=== PATIENT | female | born 1975 | race Caucasian/White ===

== ENCOUNTER 2023-02-15 16:37 | Emergency (ER) | payer BC, SELFPAY ==
[2023-02-15 16:40] VITALS: BP 120/63; PULSE 73; RESP 16; TEMP 36.7; O2SAT 98; BMI 39.5
--- NOTE | 2023-02-15 16:50 | ED_ITS ---
HPI - Abdominal Pain General Chief Complaint: Abdominal Pain Stated Complaint: RT FLANK PAIN/BACK, SHOULDER Time Seen by Provider: 02/15/23 16:45 Source: patient Mode of arrival: walk-in Limitations: no limitations History of Present Illness HPI narrative: 47-year-old female presents to the emergency department for a chief complaint of abdominal pain. It's in the right upper quadrant and it's been intermittent for a few months. She is worried about her gallbladder. No fever or injury. She doesn't complain of lower abdominal pain or diarrhea or constipation or vomiting. Related Data Home Medications Medication Instructions Recorded Confirmed apixaban 5 mg tablet (Eliquis) mg 02/15/23 benzonatate 100 mg capsule mg PO 02/15/23 colchicine (gout) 0.6 mg tablet mg 02/15/23 diclofenac sodium 1 % topical gel topical 02/15/23 levofloxacin 750 mg tablet mg 02/15/23 levothyroxine 200 mcg tablet mcg 02/15/23 lisinopril 10 tab 02/15/23 mg-hydrochlorothiazide 12.5 mg tablet omeprazole 40 mg capsule,delayed mg 02/15/23 release oxycodone 5 mg tablet mg 02/15/23 prednisone 10 mg tablet mg 02/15/23 sertraline 50 mg tablet mg 02/15/23 tizanidine 4 mg tablet mg 02/15/23 Previous Rx's Medication Instructions Recorded acetaminophen 300 mg-codeine 30 mg 1 tab PO Q6H PRN pain 5 days #20 02/15/23 tablet tabs ondansetron 4 mg disintegrating 4 mg PO Q6H PRN nausea and 02/15/23 tablet vomiting #20 tabs Allergies Allergy/AdvReac Type Severity Reaction Status Date / Time cortisone Allergy Intermediate Verified 02/15/23 16:45 Review of Systems ROS Narrative A ten point review of systems is negative except as noted above. Exam Narrative Exam Narrative: Nurses note and vital signs reviewed and patient is not hypoxic. General: The patient appears well and in no apparent distress. Patient is resting comfortably on cart. Skin: Warm, dry, no pallor noted. There is no rash noted. Head: Normocephalic, atraumatic Eye: Normal conjunctiva, no drainage Ears, Nose, Mouth, and Throat: oral mucosa is moist. Nares patent. Cardiovascular: Regular Rate and Rhythm Respiratory: Patient is in no distress, no accessory muscle use, lungs are clear to auscultation, no wheezing, rales or rhonchi Back: non-tender GI: mild tenderness in the right upper quadrant, no mass Musculoskeletal: The patient has no evidence of calf tenderness, no pitting edema, symmetrical pulses noted bilaterally Neurological: A&O, normal speech Psychiatric: Cooperative Constitutional Vital Signs, click to edit/add: Last Vital Signs Temp 98.1 F 02/15/23 16:40 Pulse 73 02/15/23 16:40 Resp 16 02/15/23 16:40 BP 120/63 02/15/23 16:40 Pulse Ox 98 02/15/23 16:40 O2 Del Method Room Air 02/15/23 16:40 Course Vital Signs Vital signs: Vital Signs Temperature 98.1 F 02/15/23 16:40 Pulse Rate 73 02/15/23 16:40 Respiratory Rate 16 02/15/23 16:40 Blood Pressure 120/63 02/15/23 16:40 Pulse Oximetry 98 02/15/23 16:40 Oxygen Delivery Method Room Air 02/15/23 16:40 Temperature 98.1 F 02/15/23 16:40 Pulse Rate 73 02/15/23 16:40 Respiratory Rate 16 02/15/23 16:40 Blood Pressure 120/63 02/15/23 16:40 Pulse Oximetry 98 02/15/23 16:40 Oxygen Delivery Method Room Air 02/15/23 16:40 MDM - Abdominal Pain MDM Narrative Medical decision making narrative: laboratory analysis is negative. She is given a prescription for an outpatient, bladder ultrasound will follow-up with her PCP. Treatment diagnosis and follow- up were discussed with the patient. I've no clinical suspicion of acute cholecystitis. Differential Diagnosis Differential diagnosis: Likely abdominal pain, constipation, gastroenteritis, pancreatitis and other (biliary colic, acute cholecystitis) Lab Data Attestation: I reviewed the patient's lab results. Labs: Lab Results 02/15/23 Range/Units 16:55 WBC 8.1 (4.0-11.0) 10^3/uL RBC 4.55 (4.20-5.40) 10^6/uL Hgb 13.6 (12.0-16.0) g/dL Hct 41.9 (36.0-48.0) % MCV 92.1 (81.0-99.0) fL MCH 29.9 (26.7-34.0) pg MCHC 32.5 (29.9-35.2) g/dL RDW 13.8 (11.0-15.0) % Plt Count 222 (150-450) 10^3/uL MPV 10.0 (9.5-13.5) fL Neut % (Auto) 67.7 (43.0-75.0) % Lymph % (Auto) 22.1 (20.5-60.0) % [place] % (Auto) 6.5 (1.7-12.0) % Eos % (Auto) 3.0 (0.9-7.0) % Baso % (Auto) 0.5 (0.2-2.0) % Neut # (Auto) 5.5 (1.4-6.5) 10^3/uL Lymph # (Auto) 1.8 (1.2-3.8) 10^3/uL [place] # (Auto) 0.5 (0.3-0.8) 10^3/uL Eos # (Auto) 0.2 (0.0-0.7) 10^3/uL Baso # (Auto) 0.0 (0.0-0.1) 10^3/uL Abs Immat Gran (auto) 0.02 (0.00-0.03) 10^3/uL Imm/Tot Granulo (auto) 0.2 (0.0-0.5) % Sodium 138 (136-145) mmol/L Potassium 3.8 (3.5-5.1) mmol/L Chloride 102 (98-107) mmol/L Carbon Dioxide 27.3 (21.0-32.0) mmol/L Anion Gap 12.5 BUN 23.0 H (7.0-18.0) mg/dL Creatinine 0.98 (0.55-1.02) mg/dL Est GFR ( Amer) >60 (>=60) Est GFR (Non-Af Amer) >60 (>=60) BUN/Creatinine Ratio 23.5 Glucose 140 H (74-106) mg/dL Calcium 8.9 (8.5-10.1) mg/dL Total Bilirubin 0.3 (0.2-1.0) mg/dL Direct Bilirubin 0.1 (0.0-0.2) mg/dL AST 21 (15-37) U/L ALT 37 (14-59) U/L Alkaline Phosphatase 85 (46-116) U/L Total Protein 7.3 (6.4-8.2) g/dL Albumin 3.5 (3.4-5.0) g/dL Globulin 3.8 g/dL Albumin/Globulin Ratio 0.9 Amylase 61 (25-115) U/L Lipase 127.0 (73.0-393.0) U/L Discharge Plan Discharge Chief Complaint: Abdominal Pain Clinical Impression: Abdominal pain Patient Disposition: Home, Self-Care Time of Disposition Decision: 17:31 Condition: Good Mode of Transportation: Private Vehicle Prescriptions / Home Meds: New acetaminophen-codeine 300-30 mg tablet 1 tab PO Q6H PRN (Reason: pain) 5 Days Qty: 20 0RF ondansetron 4 mg tablet,disintegrating 4 mg PO Q6H PRN (Reason: nausea and vomiting) Qty: 20 0RF No Action prednisone 10 mg tablet tizanidine 4 mg tablet omeprazole 40 mg capsule,delayed release(DR/EC) benzonatate 100 mg capsule PO levothyroxine 200 mcg tablet lisinopril-hydrochlorothiazide 10-12.5 mg tablet levofloxacin 750 mg tablet colchicine (gout) 0.6 mg tablet sertraline 50 mg tablet oxycodone 5 mg tablet diclofenac sodium 1 % gel TOPICAL Eliquis 5 mg tablet Instructions: Abdominal Pain (ED) Additional Instructions: follow-up with your PCP Schedule gallbladder ultrasound for which you have been given a prescription Stand Alone Forms: Portal Instructions Referrals: AUGUST GILBERT [Primary Care Provider] - 1 week
[2023-02-15 17:03] LABS: Basophils Percent Auto 0.5 % (0.2-2.0); Eosinophils Absolute Auto 0.2 10^3/uL (0.0-0.7); Hematocrit 41.9 % (36.0-48.0); Hemoglobin 13.6 g/dL (12.0-16.0); Immature Granulocytes Abs Auto 0.02 10^3/uL (0.00-0.03); Immature Granulocytes Pct Auto 0.2 % (0.0-0.5); Lymphocytes Absolute Auto 1.8 10^3/uL (1.2-3.8); Lymphocytes Percent Auto 22.1 % (20.5-60.0); Mean Corpuscular HGB Conc 32.5 g/dL (29.9-35.2); Mean Corpuscular Hemoglobin 29.9 pg (26.7-34.0); Mean Corpuscular Volume 92.1 fL (81.0-99.0); Monocytes Absolute Auto 0.5 10^3/uL (0.3-0.8); Monocytes Percent Auto 6.5 % (1.7-12.0); Neutrophils Absolute Auto 5.5 10^3/uL (1.4-6.5); Neutrophils Percent Auto 67.7 % (43.0-75.0); Platelet Count 222 10^3/uL (150-450); Red Blood Count 4.55 10^6/uL (4.20-5.40); Red Cell Distribution Width 13.8 % (11.0-15.0); White Blood Count 8.1 10^3/uL (4.0-11.0)
[2023-02-15 17:11] LABS: Anion Gap 12.5; BUN Creatinine Ratio 23.5; Calcium 8.9 mg/dL (8.5-10.1); Carbon Dioxide 27.3 mmol/L (21.0-32.0); Chloride 102 mmol/L (98-107); Estimated GFR (African America >60 (>=60); Estimated GFR (Non-African Ame >60 (>=60); Glucose 140 mg/dL (74-106); Potassium 3.8 mmol/L (3.5-5.1); Sodium 138 mmol/L (136-145)
[2023-02-15 17:16] LABS: Alanine Aminotransferase 37 U/L (14-59); Albumin Globulin Ratio 0.9; Albumin Level 3.5 g/dL (3.4-5.0); Alkaline Phosphatase 85 U/L (46-116); Amylase 61 U/L (25-115); Aspartate Amino Transferase 21 U/L (15-37); Bilirubin Direct 0.1 mg/dL (0.0-0.2); Bilirubin Total 0.3 mg/dL (0.2-1.0); Globulin 3.8 g/dL; Total Protein 7.3 g/dL (6.4-8.2)
[2023-02-15 17:35] VITALS: BP 128/62; PULSE 80; RESP 16; TEMP 36.7; O2SAT 100
== END 2023-02-15 17:41 | disposition home or self-care (01) ==
PROVIDERS: Emergency Provider Emergency Medicine; PCP Family Medicine
DX: R10.9 Unspecified abdominal pain (principal); Z79.899 Other long term (current) drug therapy; Z79.01 Long term (current) use of anticoagulants; Z79.890 Hormone replacement therapy
CPT/HCPCS: 36415; 80048; 80076; 82150; 83690; 85025; 99283

== ENCOUNTER 2023-02-17 11:43 | Outpatient (OUT) | payer BC, SELFPAY ==
--- NOTE | 2023-02-17 11:46 | US_ITS ---
The [address] [address] Patient Name: CHRIS CARRION MRN: [id number] date: 1975 Sex: F Assigned Patient Location: US Current Patient Location: US Accession/Order Number: [id number] Exam Date: 02/17/2023 11:48 Report Date: 02/17/2023 12:51 At the request of: REG CROWDER Procedure: US right upper quadrant US right upper quadrant: 02/17/2023 11:48 AM EDT CLINICAL HISTORY: 47 years old Female with Right Upper Quadrant Pain. TECHNIQUE: Real time ultrasound examination of the right upper quadrant of the abdomen is performed with internet sales representative images submitted. COMPARISON: None FINDINGS: Liver: The liver is normal in size and echogenicity without focal abnormality. Gallbladder: The gallbladder is normally distended with normal wall thickness. No shadowing filling defects to suggest cholelithiasis. Negative sonographic Bailey sign. Bile Ducts: The common duct is normal in caliber measuring 5.4 mm. Pancreas: Visualized aspects of the pancreas are within normal limits. The tail is obscured by bowel gas. The right kidney measures 9.7 x 4.5 x 4.9 cm and appears normal. US/US right upper quadrant IMPRESSION: Unremarkable exam. Electronically authenticated by: SAMANTHA MARIE Date: 02/17/2023 12:51
== END 2023-02-17 11:44 | disposition home or self-care (01) ==
LOC: US 11:43
PROVIDERS: PCP Family Medicine; Visit Provider Emergency Medicine
DX: R10.11 Right upper quadrant pain (principal)
CPT/HCPCS: 76705

== ENCOUNTER 2023-06-20 13:40 | Emergency (ER) | payer BC, SELFPAY ==
[2023-06-20] VITALS (15 sets, daily range): BP systolic 102–137; BP diastolic 63–87; PULSE 63–82; RESP 10–27; TEMP 36.8; O2SAT 95–100; BMI 39.4
--- NOTE | 2023-06-20 14:02 | ECG_ITS ---
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
--- NOTE | 2023-06-20 14:02 | CT_ITS ---
The [address] [address] Patient Name: CHRIS CARRION MRN: [id number] date: 1975 Sex: F Assigned Patient Location: ER Current Patient Location: ER Accession/Order Number: [id number] Exam Date: 06/20/2023 14:55 Report Date: 06/20/2023 15:28 At the request of: REG CROWDER Procedure: CT angio chest CT angio chest, 06/20/2023 2:55 PM EST, INDICATION: chest pain COMPARISON: CT from 09/05/2022 TECHNIQUE: CT angiography of the chest was performed without IV contrast followed by IV contrast, including 3D post processing CTA image reconstruction. CT dose reduction technique was used, including Automated Exposure Control. FINDINGS: Diagnostic quality: Adequate There is no evidence for pulmonary embolism. The heart is not enlarged. There is no pericardial effusion. There are no abnormally enlarged hilar or mediastinal lymph nodes. There appears to be mild coronary calcification. The central tracheobronchial tree is clear. The lungs are clear. There is no pleural effusion. No acute process identified in the visualized upper abdomen. Steve-en-Y gastric bypass changes. No destructive osseous changes are seen. Degenerative osteophytes are seen throughout the thoracic spine. CT/CT angio chest IMPRESSION: No CT findings to suggest pulmonary embolism. Electronically authenticated by: ARJUN ESCOBAR Date: 06/20/2023 15:28
--- NOTE | 2023-06-20 14:24 | ED.GENADUL1 ---
HPI - General Adult General Chief complaint: Back Pain/Injury Stated complaint: BACK PAIN Time Seen by Provider: 06/20/23 14:20 Source: patient Mode of arrival: walk-in History of Present Illness HPI narrative: 48-year-old female presents because she is concerned about a blood clot in her lungs. She has a history of deep vein thrombosis and is on Eliquis but she only takes it every other week to stretch it out. She hasn't taken it for the last week but took a dose today. No injury. The pain is on the left chest in the left thoracic back area. No unusual activity and no trauma. No fever or cough. Related Data Home Medications Medication Instructions Recorded Confirmed apixaban 5 mg tablet (Eliquis) 5 mg PO BID 02/15/23 06/20/23 lisinopril 10 1 tab PO DAILY 02/15/23 06/20/23 mg-hydrochlorothiazide 12.5 mg tablet omeprazole 40 mg capsule,delayed 40 mg PO DAILY 02/15/23 06/20/23 release sertraline 50 mg tablet mg 02/15/23 levothyroxine 150 mcg tablet 150 mcg PO DAILY 06/20/23 06/20/23 Allergies Allergy/AdvReac Type Severity Reaction Status Date / Time cortisone Allergy Intermediate Verified 02/15/23 16:45 Review of Systems ROS Narrative A ten point review of systems is negative except as noted above. Exam Narrative Exam Narrative: Nurses note and vital signs reviewed and patient is not hypoxic. General: The patient appears well and in no apparent distress. Patient is resting comfortably on cart. Skin: Warm, dry, no pallor noted. There is no rash noted. Head: Normocephalic, atraumatic Eye: Normal conjunctiva, no drainage Ears, Nose, Mouth, and Throat: oral mucosa is moist. Nares patent. Cardiovascular: Regular Rate and Rhythm Respiratory: Patient is in no distress, no accessory muscle use, lungs are clear to auscultation, no wheezing, rales or rhonchi Back: non-tender GI: no tenderness to palpation, no masses appreciated. No rebound, guarding, or rigidity noted. Musculoskeletal: The patient has no evidence of calf tenderness, no pitting edema, symmetrical pulses noted bilaterally Neurological: A&O, normal speech Psychiatric: Cooperative Constitutional Vital Signs, click to edit/add: Last Vital Signs Temp 98.2 F 06/20/23 13:48 Pulse 68 06/20/23 15:12 Resp 16 06/20/23 15:12 BP 112/63 06/20/23 15:12 Pulse Ox 99 06/20/23 15:12 O2 Del Method Room Air 06/20/23 14:17 Course Vital Signs Vital signs: Vital Signs Temperature 98.2 F 06/20/23 13:48 Pulse Rate 63 06/20/23 13:48 Respiratory Rate 20 06/20/23 13:48 Blood Pressure 137/87 06/20/23 13:48 Pulse Oximetry 100 06/20/23 13:48 Oxygen Delivery Method Room Air 06/20/23 13:48 Temperature 98.2 F 06/20/23 13:48 Pulse Rate 68 06/20/23 15:12 Respiratory Rate 16 06/20/23 15:12 Blood Pressure 112/63 06/20/23 15:12 Pulse Oximetry 99 06/20/23 15:12 Oxygen Delivery Method Room Air 06/20/23 14:17 Medical Decision Making MDM Narrative Medical decision making narrative: CTA is negative. I suspect this may be muscular. She takes her Eliquis every other week to stretch it out so we'll have our social services specialist call her in two days to see if there is anything that can be done in that regard. She is able to be discharged home. Treatment diagnosis and follow-up were discussed with the patient. Differential Diagnosis Differential Diagnosis: PE, muscle strain, pneumothorax Lab Data Lab results reviewed: Yes I reviewed the patient's lab results Labs: Lab Results 06/20/23 Range/Units 14:20 WBC 4.9 (4.0-11.0) 10^3/uL RBC 4.49 (4.20-5.40) 10^6/uL Hgb 13.0 (12.0-16.0) g/dL Hct 41.5 (36.0-48.0) % MCV 92.4 (81.0-99.0) fL MCH 29.0 (26.7-34.0) pg MCHC 31.3 (29.9-35.2) g/dL RDW 13.8 (11.0-15.0) % Plt Count 200 (150-450) 10^3/uL MPV 10.4 (9.5-13.5) fL Neut % (Auto) 64.7 (43.0-75.0) % Lymph % (Auto) 25.2 (20.5-60.0) % [place] % (Auto) 5.6 (1.7-12.0) % Eos % (Auto) 3.3 (0.9-7.0) % Baso % (Auto) 1.0 (0.2-2.0) % Neut # (Auto) 3.1 (1.4-6.5) 10^3/uL Lymph # (Auto) 1.2 (1.2-3.8) 10^3/uL [place] # (Auto) 0.3 (0.3-0.8) 10^3/uL Eos # (Auto) 0.2 (0.0-0.7) 10^3/uL Baso # (Auto) 0.1 (0.0-0.1) 10^3/uL Abs Immat Gran (auto) 0.01 (0.00-0.03) 10^3/uL Imm/Tot Granulo (auto) 0.2 (0.0-0.5) % Sodium 139 (136-145) mmol/L Potassium 3.7 (3.5-5.1) mmol/L Chloride 106 (98-107) mmol/L Carbon Dioxide 27.2 (21.0-32.0) mmol/L Anion Gap 9.5 BUN 16.0 (7.0-18.0) mg/dL Creatinine 0.96 (0.55-1.02) mg/dL Est GFR ( Amer) >60 (>=60) Est GFR (Non-Af Amer) >60 (>=60) BUN/Creatinine Ratio 16.7 Glucose 129 H (74-106) mg/dL Calcium 8.7 (8.5-10.1) mg/dL Imaging Data CT scan - chest: Radiologist's impression: ITS Impressions Chest CTA 06/20/23 14:02 IMPRESSION: No CT findings to suggest pulmonary embolism. Electronically authenticated by: ARJUN ESCOBAR Date: 06/20/2023 15:28 ECG Data Attestation: I personally reviewed and interpreted this ECG as follows: (EKG on my interpretation shows sinus rhythm with rate of 66 and no acute changes.) Discharge Plan Discharge Chief Complaint: Back Pain/Injury Clinical Impression: Back pain Patient Disposition: Home, Self-Care Time of Disposition Decision: 15:47 Condition: Good Mode of Transportation: Private Vehicle Prescriptions / Home Meds: No Action omeprazole 40 mg capsule,delayed release(DR/EC) 40 mg PO DAILY lisinopril-hydrochlorothiazide 10-12.5 mg tablet 1 tab PO DAILY sertraline 50 mg tablet Eliquis 5 mg tablet 5 mg PO BID Patient Comments: not taking as prescribed levothyroxine 150 mcg tablet 150 mcg PO DAILY Instructions: Back Pain (ED) Stand Alone Forms: Portal Instructions Referrals: AUGUST GILBERT [Primary Care Provider] - 1 week
[2023-06-20 14:29] LABS: Basophils Absolute Auto 0.1 10^3/uL (0.0-0.1); Eosinophils Absolute Auto 0.2 10^3/uL (0.0-0.7); Eosinophils Percent Auto 3.3 % (0.9-7.0); Hematocrit 41.5 % (36.0-48.0); Immature Granulocytes Abs Auto 0.01 10^3/uL (0.00-0.03); Immature Granulocytes Pct Auto 0.2 % (0.0-0.5); Lymphocytes Absolute Auto 1.2 10^3/uL (1.2-3.8); Lymphocytes Percent Auto 25.2 % (20.5-60.0); Mean Corpuscular HGB Conc 31.3 g/dL (29.9-35.2); Mean Corpuscular Volume 92.4 fL (81.0-99.0); Mean Platelet Volume 10.4 fL (9.5-13.5); Monocytes Absolute Auto 0.3 10^3/uL (0.3-0.8); Monocytes Percent Auto 5.6 % (1.7-12.0); Neutrophils Absolute Auto 3.1 10^3/uL (1.4-6.5); Neutrophils Percent Auto 64.7 % (43.0-75.0); Platelet Count 200 10^3/uL (150-450); Red Blood Count 4.49 10^6/uL (4.20-5.40); Red Cell Distribution Width 13.8 % (11.0-15.0); White Blood Count 4.9 10^3/uL (4.0-11.0)
[2023-06-20 14:57] LABS: Anion Gap 9.5; BUN Creatinine Ratio 16.7; Calcium 8.7 mg/dL (8.5-10.1); Carbon Dioxide 27.2 mmol/L (21.0-32.0); Chloride 106 mmol/L (98-107); Estimated GFR (African America >60 (>=60); Estimated GFR (Non-African Ame >60 (>=60); Glucose 129 mg/dL (74-106); Potassium 3.7 mmol/L (3.5-5.1); Sodium 139 mmol/L (136-145)
== END 2023-06-20 16:03 | disposition home or self-care (01) ==
PROVIDERS: Emergency Provider Emergency Medicine; PCP Family Medicine
DX: M54.9 Dorsalgia, unspecified (principal); Z86.718 Personal history of other venous thrombosis and embolism; Z79.01 Long term (current) use of anticoagulants; Z79.899 Other long term (current) drug therapy; Z79.890 Hormone replacement therapy
CPT/HCPCS: 36415; 71275; 80048; 85025; 93005; 99285; Q9967

== ENCOUNTER 2023-10-14 07:40 | Emergency (ER) | payer BC, SELFPAY ==
[2023-10-14 07:43] VITALS: BP 147/89; PULSE 62; TEMP 36.8; O2SAT 99; BMI 39.5
--- OUTSIDE RECORDS SUMMARY | 2023-10-14 08:01 | XMS_ITS | CCD ---
Author Organization [facility] Care Team Providers Care Analytical Laboratory Technician Name Role Phone CLEMENTE JEWELL Unavailable Unavaila DENISSE Vincent Unavailable Unavailable VINEET WHIPPLE Unavailable Unavailable DENISSE GILBERT Unavailable Unavailable VINEET WHIPPLE Unavailable Unavailable DENISSE GILBERT Unavailable Unavailable VINEET WHIPPLE Unavailable Unavailable VINEET WHIPPLE Unavailable Unavailable DENISSE GILBERT Unavailable Unavailable Denisse Gilbert Primary Care Provider Denisse Gilbert Primary Care Provider [phone] DENISSE GILBERT Unavailable SELF, REFERRED Referring Unavailable NITHIN LOBO Admitting Unavailable NITHIN LOBO Attending Unavailable NITHIN LOBO Surgeon Unavailable NE Procedure Practitioner Unavailab Denisse Muñoz MD Primary Care Provider Denisse Gilbert MD Primary Care Provider Melissa Montilla Unavailable DR PRINCESS WEBB Admitting Unavailable JON, DR SÁNCHEZ Attending Unavailable JON, DR SÁNCHEZ Consulting Unavailable CHERYLE, DR SARAH Duffy Consulting Unavailable FABBY VASQUEZ Consulting Unavailable DR DENISSE GILBERT Primary Care Unavailable JON, DR SÁNCHEZ Admitting Unavailable JON, DR SÁNCHEZ Attending Unavailable DR PRINCESS WEBB Consulting Unavailable MAHAD RILEY Consulting Unavailable JOSE PEREZ Consulting Unavailable DR DENISSE GILBERT Primary Care Unavailable CAROLEE DAY Consulting Unavailable PAY ., DR MATHEWS Admitting Unavailable PAY ., DR MATHEWS Attending Unavailable DUSTIN JANE Consulting Unavailable Janis Hawkins MD Unavailable Denisse Gilbert MD Primary Care Provider DENISSE GILBERT Primary Care Unavailable HOUMSSE, MAHMOUD Referring Unavailable HOUMSSE, MAHMOUD Attending Unavailable WONDERLY, SIXTO Referring Unavailable WONDERLY, SIXTO Attending Unavailable WONDERLY, SIXTO Primary Care Unavailable WONDERLY, SIXTO Primary Care Unavailable AHMAD, ALI Referring Unavailable HOUMSSE, MAHMOUD Attending Unavailable HOUMSSE, MAHMOUD Attending Unavailable HOUMSSE, MAHMOUD Admitting Unavailable WONDERLY, SIXTO Primary Care Unavailable WONDERLY, SIXTO Primary Care Unavailable HOUMSSE, MAHMOUD Attending Unavailable WONDERLY, SIXTO Primary Care Unavailable HOUMSSE, MAHMOUD Referring Unavailable Sarah Borja Unavailable STANFORD BERGER Attending Unavailabl e WONDERLY, DENISSE [place] Primary Care Unavailable AHMAD, ALI F O Referring Unavailable WONDERLY, DENISSE [place] Primary Care Unavailable AHMAD, ALI F O Referring Unavailable WONDERLY, DENISSE [place] Primary Care Unavailable AHMAD, ALI F O Referring Unavailable WONDERLY, DENISSE [place] Primary Care Unavailable AHMAD, ALI F O Referring Unavailable WONDERLY, DENISSE [place] Primary Care Unavailable AHMAD, ALI F O Referring Unavailable AHMAD, ALI F O Attending Unavailable WONDERLY, DENISSE [place] Primary Care Unavailable AHMAD, ALI F O Referring Unavailable WONDERLY, DENISSE [place] Primary Care Unavailable AHMAD, ALI F O Attending Unavailable WonderDenisse perrin MD Unavailable Denisse Gilbert MD Primary Care Provider ANGELIC PIÑA Referring Unavailable WONDERLY, DENISSE [place] Primary Care Unavailable LUDWIN ORTEGA Attending Unavailable LUDWIN ORTEGA Referring Unavailable WONDERLY, DENISSE [place] Primary Care Unavailable ANGELIC PIÑA Referring Unavailable WONDERLY, DENISSE [place] Primary Care Unavailable ANGELIC PIÑA Referring Unavailable WONDERLY, DENISSE [place] Primary Care Unavailable ZHEN CURRY Attending Unavailable KAYA BELCHER Attending Unavailable PUMP, SAHARA Attending Unavailable PUMP, SAHARA Referring Unavailable PUMP, SAHARA Attending Unavailable PUMP, SAHARA Referring Unavailable WONDERLY, DENISSE [place] Attending Unavailable PUMP, SAHARA Referring Unavailable WONDERMARYCHUY, DENISSE [place] Referring Unavailable Denisse Gilbert MD Primary Care Provider Allergies Allergy Classification Reported Allergen(s) Allergy Type Date of Onset Reaction(s) Facility (20 sources) Lactose (non-medical use) Propensity to adverse reactions to drug [place], [place] (20 sources) nickel sulfate; Translations: [NICKEL] Drug Allergy Swelling, Other (See Comments) [place] (20 sources) Other; Translations: [OTHER] Propensity to adverse reactions Swelling, Other (See Comments) [place] (3 sources) Adhesive agent; Translations: [ADHESIVE] Propensity to adverse reactions (disorder) Unknown [facility] Rep[facility] (11 sources) Cortisone; Translations: [CORTISONE] Drug Allergy Itching, Rash [facility] Rep[facility] (1 source) methylPREDNISolone; Translations: [DEPO-MEDROL] Drug Allergy [facility] (1 source) METALS; Translations: [METALS] Propensity to adverse reactions (disorder) [facility] (2 sources) SUTURE; Translations: [SUTURE] Propensity to adverse reactions (disorder) [facility] (4 sources) methylPREDNISolone Drug Allergy RODOLFO BRASHER [facility] [employer] Work Phone: (2 sources) sutures Propensity to adverse reactions Unknown [facility] Other (2 sources) mohit Propensity to adverse reactions Unknown [facility] Other (1 source) Aspirin Drug Allergy [facility] (1 source) Bacitracin Drug Allergy [facility] (1 source) Leucine Drug Allergy [facility] (1 source) Morphine Drug Allergy [facility] (5 sources) Acetaminophen / HYDROcodone; Translations: [HYDROCODONE-ACETAMIN OPHEN] Drug Allergy [facility] (4 sources) Aluminum aspirin Drug Allergy [facility] (4 sources) Bacitracin Drug Allergy Rash [facility] (3 sources) Lactose (non-medical use) Propensity to adverse reactions to drug [facility] (3 sources) methylPREDNISolone Drug Allergy [facility] (2 sources) *Sutures Propensity to adverse reactions [facility] (1 source) Lactose Drug Allergy [facility] (1 source) Morphine Drug Allergy [facility] (1 source) Silicone adhesive tape Propensity to adverse reactions to drug [facility] NEGATED: Highlighted row has been ruled out! (4 sources) Other Propensity to adverse reactions Swelling, Other (See Comments) [facility] Work Phone: Medications Current Medications Medication Drug Class(es) Dates Sig (Normalized) Sig (Original) acetaminophen 325 mg / HYDROcodone bitartrate 5 mg oral tablet (3 sources) Opioid Agonist Start: 08-07-2019 End: 08-10-2019 take 1 tablet by mouth every six hours as needed for pain HYDROcodone-acetam inophen (NORCO) 5-325 MG per tablet Indications: Injury of hand, extensor tendon, right, initial encounter Take 1 tablet by mouth every 6 hours as needed for Pain for up to 3 days. 10 tablet 0 08/07/2019 08/10/2019 Active [id number] 200 actuat albuterol 0.09 mg/actuat metered dose inhaler (1 source) beta2-Adrenergic Agonist take 1 puff(s) by inhalation every four hours for wheezing albuterol HFA 90 mcg/act inhaler Inhale 1 puff every 4 (four) hours if needed for wheezing. 0 Active amoxicillin 875 mg / clavulanate 125 mg oral tablet (3 sources) Penicillin-class Antibacterial Start: 05-05-2022 take 1 tablet by mouth every twelve hours Amoxicillin-Pot Clavulanate 875-125 MG 1 tablet Orally every 12 hrs for 10 days Feb, Active apixaban 5 mg oral tablet (20 sources) Factor Xa Inhibitor Start: 01-01-2023 End: 01-09-2023 take 1 tablet by mouth every twelve hours apixaban 5 MG tablet Indications: Atrial Fibrillation Take 1 tablet by mouth every 12 hours. 60 tablet 5 01/09/2023 Active Start: 12-08-2018 take 1 tablet by brea th twice daily ELIQUIS 5 MG TABS tablet TAKE 1 TABLET BY MOUTH TWICE A DAY 180 tablet 3 02/08/2020 Active ascorbic acid 60 mg / beta carotene 5000 unt / copper sulfate 40 mg / dl-alpha tocopheryl acetate 30 unt / sodium selenite 0.04 mg / zinc oxide 40 mg oral tablet (15 sources) Vitamin C take 3 tablets by mouth once daily Multiple Vitamins-Minerals (THERAPEUTIC MULTIVITAMIN-MINERALS) tablet Take 3 tablets by mouth daily 0 Active azelastine hydrochloride 0.137 mg/actuat metered dose nasal spray (1 source) Histamine-1 Receptor Antagonist take 1 spray(s) nasal route in the morning azelastine (Astelin) 0.1 % nasal spray Administer 1 spray into each nostril in the morning and 1 spray in the evening. 0 Active Calcium Carbonate Antacid (TUMS PO) (20 sources) take 1 tablet by mouth once daily Calcium Carbonate Antacid (TUMS PO) Take 1 tablet by mouth daily 0 Active Calcium Carbonat e Antacid (TUMS PO) Take 1 tablet by mouth as needed 0 Active cephalexin 500 mg oral capsule (5 sources) Cephalosporin Antibacterial Start: 08-07-2019 End: 08-14-2019 take 1 capsule by mouth four times daily cephALEXin (KEFLEX) 500 MG capsule Take 1 capsule by mouth 4 times daily for 7 days 28 capsule 0 08/07/2019 08/14/2019 Active cholecalciferol 0.05 mg oral capsule (20 sources) Vitamin D take 1 capsule by mouth once daily cholecalciferol (Vitamin D-3) 50 MCG (2000 UT) capsule Take 1 capsule by mouth 1 (one) time each day at the same time. 0 Active Cholecalciferol (VITAMIN D PO) Take by mouth 0 Active colchicine 0.6 mg oral tablet (3 sources) Start: 01-09-2023 End: 01-09-2023 take 1 tablet by mouth every twelve hours Colchicine tablet 0.6 mg Start: 01-09-2023 take 1 tablet by brea th every twelve hours Colchicine 0.6 MG tablet Take 1 tablet by mouth every 12 hours. 28 tablet 0 01/09/2023 Active diclofenac sodium 0.01 mg/mg topical gel (1 source) Nonsteroidal Anti-inflammatory Drug Start: 01-01-2023 diclofenac sodium (Voltaren) 1 % gel Indications: Acute post-operative pain Apply 4 g topically 4 (four) times a day as needed for pain. 100 g 2 01/01/2023 Active 24 hr dilTIAZem hydrochloride 120 mg extended release oral capsule (20 sources) Calcium Channel [place] Start: 04-21-2019 take 1 capsule by mouth once daily diltiazem (CARDIZEM CD) 120 MG extended release capsule Take 1 capsule by mouth daily 30 capsule 3 04/21/2019 Active Start: 04-20-2019 diltiazem (CAR DIZEM) tablet 30 mg Start: 09-02-2018 take 1 capsule by mo uth once daily diltiazem (CARDIZEM CD) 120 MG extended release capsule Take 1 capsule by mouth daily 30 capsule 0 09/02/2018 Active take 1 capsule by mo ut every twenty-four hours dilTIAZem ER (Tiazac) 120 MG 24 hr capsule Take 120 mg by mouth if needed. When in A Fib 0 Active dilTIAZem HCl 12 0 MG as directed Orally PRN for AFib Active dilTIAZem HCl 12 0 MG as directed Orally PRN for AFib Active dronedarone 400 mg oral tablet (20 sources) Antiarrhythmic Start: 09-08-2018 End: 09-22-2023 take 1 tablet by mouth twice daily at mealtime dronedarone hcl (MULTAQ) 400 MG TABS Indications: PAF (paroxysmal atrial fibrillation) (HCC) , On Multaq therapy , Chronic anticoagulation , Essential hypertension , JAMES on CPAP , Morbid obesity (HCC) , History of DVT (deep vein thrombosis) , Pain of right lower extremity , Chest discomfort Take 1 tablet by mouth 2 times daily (with meals) 180 tablet 3 09/22/2022 09/22/2023 Active folic acid 0.4 mg oral tablet (20 sources) take 1 tablet by mouth once daily folic acid (FOLVITE) 400 MCG tablet Take 400 mcg by mouth daily 0 Active FreeStyle Guillermo 2 Sensor Systm - (2 sources) Start: 07-24-2020 FreeStyle Guillermo 2 Sensor Systm - as directed SQ Change every 14 days for 28 days Jul, Active glucagon 3 mg nasal powder (3 sources) Antihypoglycemic Agent take 3 mg nasal route once Baqsimi One Pack 3 MG/DOSE nasal powder Administer 3 mg into affected nostril(s) 1 (one) time if needed. 0 Active Baqsimi Two Pack 3 MG/DOSE as directed Nasally Once for severe hypoglycemia, may repeat in 15 minutes once if inadequate response for 30 days Not-Taking hydroCHLOROthiazide 12.5 mg / lisinopril 10 mg oral tablet (20 sources) Thiazide Diuretic, Angiotensin Converting Enzyme Inhibitor Start: 02-23-2023 take 1 tablet by mouth once daily lisinopril-hydroCHLOROthiazide 10-12.5 MG tablet Indications: Essential hypertension (CMS/HCC) TAKE 1 TABLET BY MOUTH EVERY DAY 90 tablet 1 02/23/2023 Active hydrocortisone 10 mg/ml / neomycin 3.5 mg/ml / polymyxin b [id number] unt/ml otic solution (1 source) Aminoglycoside Antibacterial, Polymyxin-clas s Antibacterial, Corticosteroid Start: 05-05-2022 Nzrhzffz-Ldshfxtym-OI [id number] 4 drops into affected ear Otic Three times a day for 7 day(s) Apr, Active levocetirizine dihydrochloride 5 mg oral tablet (1 source) Histamine-1 Receptor Antagonist take 1 tablet by mouth in the evening levocetirizine (Xyzal) 5 MG tablet Take 1 tablet by mouth in the evening. 0 Active levothyroxine sodium 0.15 mg oral tablet (20 sources) l-Thyroxine Start: 05-22-2023 End: 02-16-2024 take 1 tablet by mouth before mealtime levothyroxine (Synthroid) 150 MCG tablet Indications: Acquired hypothyroidism (CMS/HCC) Take 1 tablet (150 mcg) by mouth in the morning. Take before meals. 90 tablet 2 05/22/2023 02/16/2024 Active Start: 05-22-2022 take 1 tablet by brea th once daily in the morning levothyroxine (SYNTHROID) 200 MCG tablet TAKE 1 TABLET BY MOUTH EVERY DAY IN THE MORNING ON EMPTY STOMACH FOR 90 DAYS 0 05/22/2022 Active Start: 09-03-2018 take 1.5 tablets by mouth once daily levothyroxine (SYNTHROID) 125 MCG tablet Take 1.5 tablets by mouth daily 50 tablet 0 09/03/2018 Active take 1.5 tablets by mouth once daily in the morning Levothyroxine Sodium 125 MCG 1.5 tablet in the morning on an empty stomach Orally Once a day Active 3 ml liraglutide 6 mg/ml pen injector (20 sources) GLP-1 Receptor Agonist Liragluti de (VICTOZA) 18 MG/3ML SOPN SC injection Inject 0.6 mg into the skin daily 0 Active montelukast 10 mg oral tablet (1 source) Leukotriene Receptor Antagonist take 1 tablet by mouth every twenty-four hours as needed montelukast (Singulair) 10 MG tablet Take 1 tablet by mouth Daily as needed. 0 Active Multiple Vitamin (multivitamin) capsule (3 sources) take 1 capsule by mouth in the morning Multiple Vitamin (multivitamin) capsule Take 1 capsule by mouth in the morning. 0 Active take 1 capsule by mouth once rehana ly Multiple Vitamin (multivitamin) capsule Take 1 capsule by mouth daily. 0 Active take 1 capsule by mouth once rehana ly Multiple Vitamin (multivitamin) capsule Take 1 capsule by mouth daily. 0 Suspended Multiple Vitamins-Minerals (THERAPEUTIC MULTIVITAMIN-MINERALS) tablet (20 sources) take 3 tablets by mouth once daily Multiple Vitamins-Minerals (THERAPEUTIC MULTIVITAMIN-MINERALS) tablet Take 3 tablets by mouth daily 0 Active omeprazole 40 mg delayed release oral capsule (20 sources) Proton Pump Inhibitor Start : 07-06 End: 08-21 take 1 capsule by mouth once daily omeprazole (PRILOSEC) 40 MG delayed release capsule Take 1 capsule by mouth daily 90 capsule 1 10/04/2019 Active take 1 capsule by mouth before m ealtime omeprazole (PriLOSEC) [address] capsule Take 1 capsule by mouth in the morning. Take before meals. 0 Active rosuvastatin calcium 10 mg oral tablet (1 source) HMG-CoA Reductase Inhibitor Start: 10-06-2023 take 1 tablet by mouth once daily rosuvastatin (CRESTOR) 10 MG tablet Take 1 tablet by mouth daily 90 tablet 1 10/06/2023 Active sertraline 50 mg oral tablet (1 source) Serotonin Reuptake Inhibitor Start: 01-28-2023 End: 07-27-2023 take 1 tablet by mouth in the morning sertraline (Zoloft) 50 MG tablet Indications: Anxiety , PTSD (post-traumatic stress disorder) (CMS/HCC) , Depression, unspecified depression type (CMS/HCC) Take 1 tablet (50 mg) by mouth in the morning. 90 tablet 1 01/28/2023 07/27/2023 Active sucralfate 1000 mg oral tablet (20 sources) Aluminum Complex Start: 11-02-2019 take 1 tablet by mouth four times daily sucralfate (CARAFATE) 1 GM tablet Take 1 tablet by mouth 4 times daily 120 tablet 3 11/02/2019 Active take 1 tablet by mouth four time s daily sucralfate (CARAFATE) 1 GM tablet Take 1 g by mouth 4 times daily 0 Active Completed/Discontinued Medications Medication Drug Class(es) Dates Sig (Normalized) Sig (Original) acarbose 25 mg oral tablet (2 sources) alpha-Glucosidas e Inhibitor take 25 mg by mouth three times daily Acarbose 25 MG as directed Orally tid Not-Taking acetaminophen 325 mg oral tablet (20 sources) Start: 01-09-2023 End: 01-09-2023 Acetaminophen (TYLENOL) tablet 975 mg Start: 04-20-2019 End: 04-20-2019 acetaminophen (TYLENOL) tabl et 1,000 mg take 1 tablet by brea th every six hours as needed for pain acetaminophen (TYLENOL) 500 MG tablet Take 1 tablet by mouth every 6 hours as needed for Pain 0 Active benzocaine 15 mg / menthol 3.6 mg oral lozenge (1 source) Standardized Chemical Allergen Start: 01-09-2023 End: 01-09-2023 Benzocaine-menthol (CEPACOL) 15-3.6 MG per lozenge 1 lozenge bismuth subcitrate 140 mg / metroNIDAZOLE 125 mg / tetracycline hydrochloride 125 mg oral capsule (4 sources) Nitroimidazole Antimicrobial, Tetracycline-class Antimicrobial Start: 01-28-2019 End: 05-30-2019 take 3 capsules by mouth four times daily at bedtime bismuth-metronidazole- tetracycline (PYLERA) 140-125-125 MG per capsule Take 3 capsules by mouth 4 times daily (after meals and at bedtime) for 10 days Should be taken with a PPI twice a day 120 capsule 0 01/28/2019 05/30/2019 Discontinued (Therapy completed) calcium chloride 0.0014 meq/ml / potassium chloride 0.004 meq/ml / sodium chloride 0.103 meq/ml / sodium lactate 0.028 meq/ml injectable solution (1 source) Start: 04-20-2019 End: 04-20-2019 lactated ringers infusion 1,000 mL ceFAZolin (ANCEF) 1 g in dextrose 5 % 50 mL IVPB (mini-bag) (1 source) Start: 08-07-2019 End: 08-07-2019 ceFAZolin (ANCEF) 1 g in dextrose 5 % 50 mL IVPB (mini-bag) Celebrate Multi-Complete 60 - (2 sources) Celebrate Multi-Complete 60 - as directed Orally Not-Taking 1 ml diphenhydrAMINE hydrochloride 50 mg/ml cartridge (1 source) Histamine-1 Receptor Antagonist Start: 04-20-2019 End: 04-20-2019 diphenhydrAMINE (BENADRYL) injection 25 mg 1 ml HYDROmorphone hydrochloride 1 mg/ml cartridge (1 source) Opioid Agonist Start: 01-09-2023 End: 01-09-2023 HYDROmorphone (DILAUDID) injection 0.2 mg iohexol (OMNIPAQUE) 350 MG/ML injection 1-171 mL (1 source) Start: 01-08-2023 End: 01-08-2023 iohexol (OMNIPAQUE) 350 MG/ML injection 1-171 mL Iopamidol (2 sources) Radiographic Contrast Agent Start: 02-04-2019 End: 02-04-2019 iopamidol (ISOVUE-370) 76 % injection 18 mL Start: 02-04-2019 End: 02-04-2019 iopamidol (ISOVUE-370) 76 % injection 75 mL 1 ml ketorolac tromethamine 15 mg/ml cartridge (1 source) Nonsteroidal Anti-inflammatory Drug, Cyclooxygenase Inhibitor Start: 05-11-2020 End: 05-11-2020 ketorolac (TORADOL) injection 30 mg 10 ml lidocaine hydrochloride 20 mg/ml injection (1 source) Antiarrhythmic, Amide Local Anesthetic Start: 08-07-2019 End: 08-07-2019 lidocaine 2 % injection 5 mL magnesium oxide 400 mg oral tablet (1 source) Start: 01-09-2023 End: 01-09-2023 magnesium oxide (MAG-OX) tablet 800 mg 50 ml magnesium sulfate 80 mg/ml injection (1 source) Start: 01-09-2023 End: 01-09-2023 Magnesium sulfate 4 g in sterile water 50 ml premix IVPB 2 ml ondansetron 2 mg/ml injection (1 source) Serotonin-3 Receptor Antagonist Start: 01-09-2023 End: 01-09-2023 Ondansetron 4mg/2ml (ZOFRAN) injection 4 mg oxyCODONE (1 source) Opioid Agonist Start: 01-09-2023 End: 01-09-2023 take 1 tablet by mouth every four hours as needed oxyCODONE (ROXICODONE) tablet 5 mg pantoprazole 40 mg delayed release oral tablet (1 source) Proton Pump Inhibitor Start: 01-09-2023 End: 01-09-2023 Pantoprazole (PROTONIX) tablet DR 40 mg microencapsulated potassium chloride 20 meq extended release oral tablet (2 sources) Start: 01-09-2023 End: 01-09-2023 Potassium chloride (K-DUR) tablet ER 20 mEq Start: 01-09-2023 End: 01-09-2023 Potassium chloride (K-DUR) t ablet ER 40-60 mEq prochlorperazine 5 mg/ml injectable solution (2 sources) Phenothiazine Start: 01-09-2023 End: 01-09-2023 take 5 mg intravenously every hour as needed Prochlorperazine (COMPAZINE) injection 5 mg Start: 04-20-2019 End: 04-20-2019 prochlorperazine (COMPAZINE) injection 10 mg regadenoson (LEXISCAN) injection 0.4 mg (1 source) Start: 09-29-2022 End: 09-29-2022 regadenoson (LEXISCAN) injection 0.4 mg Scopolamine (1 source) Anticholinergic Start: 01-09-2023 End: 01-09-2023 Scopolamine (TRANSDERM-SCOP) patch 1 patch Sodium Chloride (5 sources) Start: 01-09-2023 End: 01-09-2023 Sodium chloride 0.9% IV solution Start: 01-09-2023 End: 01-09-2023 Sodium chloride 0.9% IV solu tion 500 mL Start: 01-09-2023 End: 01-09-2023 Sodium chloride 0.9% IV solu tion Start: 01-08-2023 End: 01-08-2023 Sodium chloride (PF) 0.9 % i njection 1-100 mL Start: 05-11-2020 End: 05-11-2020 0.9 % sodium chloride bolus technetium sestamibi (CARDIOLITE) injection 30 millicurie (2 sources) Start: 09-30-2022 End: 09-30-2022 technetium sestamibi (CARDIOLITE) injection 30 millicurie Start: 09-29-2022 End: 09-29-2022 technetium sestamibi (CARDIO LITE) injection 30 millicurie Tums Calcium for Life Bone (2 sources) Tums Calcium for Life Bone Not-Taking Problems Active Problems Problem Classification Problem Date Documented Da te Episodic/Chronic Abdominal pain (3 sources) Stomach ache; Translations: [Flank pain] Episodic Administrative/social admission (2 sources) Encounter for administrative examinations, unspecified; Translations: [Encounter for administrative examinations, unspecified] Onset: 10-01-2017 Episodic Anxiety disorders (3 sources) Posttraumatic stress disorder; Translations: [Post-traumatic stress disorder, unspecified] Onset: 12-03-2022 12-03-2022 Chronic Cardiac dysrhythmias (20 sources) Atrial fibrillation; Translations: [Paroxysmal atrial fibrillation] Onset: 09-02-2018 09-02-2018 Chronic Complications of surgical procedures or medical care (5 sources) Postsurgical malabsorption, not elsewhere classified; Translations: [Postoperative hypothyroidism] Onset: 09-04-2022 Chronic Conditions associated with dizziness or vertigo (1 source) Meniere's disease; Translations: [Meniere's disease, unspecified ear] Onset: 01-08-2016 11-14-2022 Chronic Diabetes mellitus with complications (4 sources) Hypoglycemia due to diabetes mellitus; Translations: [Type 2 diabetes mellitus with hypoglycemia without coma] Onset: 09-09-2017 11-14-2022 Chronic Diabetes mellitus without complication (1 source) Type 2 diabetes mellitus without complications; Translations: [TYPE 2 DM WITHOUT COMPLICATIONS] Onset: 09-04-2022 Chronic Disorders of lipid metabolism (2 sources) Hyperlipidemia, unspecified; Translations: [Mixed hyperlipidemia] Onset: 07-17-2017 11-14-2022 Chronic Diverticulosis and diverticulitis (1 source) Diverticulosis of colon; Translations: [Diverticulosis of large intestine without perforation or abscess without bleeding] Onset: 07-23-2015 11-14-2022 Chronic Esophageal disorders (20 sources) Gastro-esophageal reflux disease without esophagitis; Translations: [Gastroesophageal reflux disease] Onset: 08-07-2015 11-07-2017 Chronic Essential hypertension (20 sources) Essential hypertension; Translations: [Essential (primary) hypertension] Onset: 07-23-2016 09-02-2018 Chronic Fracture of upper limb (2 sources) Nondisplaced fracture of middle phalanx of left little finger, subsequent encounter for fracture with routine healing; Translations: [Nondisplaced fracture of middle phalanx of left index finger, initial encounter for open fracture] Onset: 05-13-2023 Episodic Intestinal infection (20 sources) Infection caused by Helicobacter pylori; Translations: [H. pylori infection] Onset: 08-09-2015 08-09-2015 Joint disorders and dislocations; trauma-related (1 source) Chondromalacia of patella; Translations: [Chondromalacia patellae, unspecified knee] Onset: 10-18-2020 11-14-2022 Chronic Menopausal disorders (1 source) Hormone replacement therapy; Translations: [HORMONE REPLACEMENT THERAPY] Onset: 09-08-2022 Episodic Nonmalignant breast conditions (1 source) Fibrocystic disease of breast; Translations: [Diffuse cystic mastopathy of unspecified breast] Onset: 11-17-2017 11-14-2022 Chronic Nutritional deficiencies (2 sources) Vitamin D deficiency, unspecified; Translations: [Vitamin D deficiency] Onset: 08-07-2015 11-14-2022 Chronic Osteoarthritis (1 source) Arthritis of left knee; Translations: [Unilateral primary osteoarthritis, left knee] Onset: 11-14-2022 11-14-2022 Chronic Other aftercare (20 sources) Long-term current use of anticoagulant; Translations: [penitentiary (current) use of anticoagulants] Onset: 11-14-2022 09-02-2018 Episodic Other aftercare (2 sources) Drug therapy finding; Translations: [Other residential (current) drug therapy] Episodic Other aftercare (1 source) intermediate designer (current) use of antithrombotics/anti platelets; Translations: [LABORATORY ADMINISTRATIVE DIRECTOR ANTITHROMBOT/ANTIPLA TLETS] Onset: 09-08-2022 Episodic Other circulatory disease (1 source) Personal history of other diseases of the circulatory system; Translations: [Personal history of other diseases of the circulatory system] Onset: 03-31-2023 Episodic Other connective tissue disease (1 source) Pain in right lower limb; Translations: [Pain in right leg] Episodic Other ear and sense organ disorders (1 source) Decreased hearing ; Translations: [Unspecified hearing loss, bilateral] Onset: 11-14-2022 11-14-2022 Chronic Other endocrine disorders (20 sources) Polycystic ovarian syndrome; Translations: [Polycystic ovary syndrome] Onset: 09-30-2017 09-30-2017 Chronic Other endocrine disorders (1 source) Hypoglycemia Chronic Other endocrine disorders (2 sources) Polycystic ovaries; Translations: [Polycystic ovarian syndrome] Chronic Other gastrointestinal disorders (1 source) Bariatric surgery status; Translations: [BARIATRIC SURGERY STATUS] Onset: 09-04-2022 Episodic Other injuries and conditions due to external causes (1 source) Injury of extensor tendon of hand; Translations: [Injury of hand, extensor tendon, right, initial encounter] Episodic Other injuries and conditions due to external causes (1 source) Underdosing of anticoagulants, initial encounter; Translations: [UNDERDOSING ANTICOAG INITIAL ENCNTR] Onset: 09-08-2022 Episodic Other liver diseases (1 source) Steatosis of liver; Translations: [Fatty (change of) liver, not elsewhere classified] Onset: 07-23-2015 11-14-2022 Chronic Other lower respiratory disease (2 sources) Apnea, not elsewhere classified; Translations: [Apnea, not elsewhere classified] Onset: 05-03-2018 Episodic Other lower respiratory disease (1 source) Shortness of breath; Translations: [SHORTNESS OF BREATH] Onset: 09-08-2022 Episodic Other nervous system disorders (1 source) Other acute postprocedural pain; Translations: [Other acute postprocedural pain] Onset: 05-20-2018 Episodic Other nervous system disorders (4 sources) Paresthesia of skin; Translations: [PARESTHESIA OF SKIN] Onset: 09-05-2022 Episodic Other nutritional; endocrine; and metabolic disorders (5 sources) Morbid (severe) obesity due to excess calories; Translations: [Morbid (severe) obesity due to excess calories] Onset: 05-03-2018 Chronic Other nutritional; endocrine; and metabolic disorders (20 sources) Body mass index 40+ - severely obese; Translations: [Morbid (severe) obesity due to excess calories] Onset: 05-20-2018 09-02-2018 Chronic Other nutritional; endocrine; and metabolic disorders (1 source) Obesity; Translations: [Obesity, unspecified] Chronic Other nutritional; endocrine; and metabolic disorders (1 source) Morbid obesity; Translations: [Morbid (severe) obesity due to excess calories] Chronic Other nutritional; endocrine; and metabolic disorders (1 source) Obesity, unspecified; Translations: [Obesity, unspecified] Onset: 06-16-2022 Chronic Other nutritional; endocrine; and metabolic disorders (1 source) Body mass index (BMI) 38.0-38.9, adult; Translations: [Body mass index (BMI) 38.0-38.9, adult] Onset: 06-16-2022 Chronic Other nutritional; endocrine; and metabolic disorders (1 source) Intolerance to lactose; Translations: [Lactose intolerance, unspecified] Onset: 09-08-2018 11-14-2022 Chronic Other nutritional; endocrine; and metabolic disorders (1 source) Obesity caused by energy imbalance; Translations: [Morbid (severe) obesity due to excess calories] Onset: 05-20-2018 11-14-2022 Chronic Other nutritional; endocrine; and metabolic disorders (1 source) Weight loss; Translations: [Weight loss] Episodic Other skin disorders (1 source) Nonscarring hair loss, unspecified; Translations: [NONSCARRING HAIR LOSS UNSPECIFIED] Onset: 09-04-2022 Episodic Other upper respiratory disease (1 source) Allergic rhinitis; Translations: [Allergic rhinitis, unspecified] Onset: 03-22-2020 11-14-2022 Chronic Other upper respiratory disease (1 source) Hypertrophy of nasal turbinates; Translations: [HYPERTROPHY OF NASAL TURBINATES] Onset: 09-04-2022 Episodic Other upper respiratory disease (4 sources) Epistaxis; Translations: [EPISTAXIS] Onset: 09-02-2022 Episodic Other upper respiratory infections (1 source) Frontal sinusitis; Translations: [Chronic frontal sinusitis] Onset: 11-14-2022 11-14-2022 Chronic Other upper respiratory infections (2 sources) Acute laryngitis; Translations: [Acute maxillary sinusitis, unspecified] Onset: 08-17-2022 Episodic Residual codes; unclassified (20 sources) Obstructive sleep apnea syndrome; Translations: [Obstructive sleep apnea (adult) (pediatric)] Onset: 02-12-2016 09-02-2018 Chronic Residual codes; unclassified (4 sources) Obstructive sleep apnea (adult) (pediatric); Translations: [OBSTRUCTIVE SLEEP APNEA] Onset: 09-02-2018 Chronic Residual codes; unclassified (3 sources) Dependence on other enabling machines and devices; Translations: [Dependence on other enabling machines and devices] Onset: 09-02-2018 Chronic Residual codes; unclassified (1 source) Preoperative state; Translations: [Preoperative clearance] Episodic Residual codes; unclassified (1 source) Patient's intentional underdosing of medication regimen due to financial hardship; Translations: [PT INTENT UNDRDOS MED FINANC HRDSHP] Onset: 09-08-2022 Episodic Residual codes; unclassified (1 source) Acquired absence of ovaries, unilateral; Translations: [ACQUIRED ABSENCE OVARIES UNILATERAL] Onset: 09-04-2022 Episodic Residual codes; unclassified (1 source) Acquired absence of both cervix and uterus; Translations: [ACQUIRED ABSENCE BOTH CERVIX AND UTERUS] Onset: 09-04-2022 Episodic Residual codes; unclassified (1 source) Other specified postprocedural states; Translations: [Other specified postprocedural states] Onset: 03-31-2023 Episodic Screening and history of mental health and substance abuse codes (1 source) Personal history of nicotine dependence; Translations: [PERSONAL HISTORY OF NICOTINE DEPEND] Onset: 09-08-2022 Episodic Spondylosis; intervertebral disc disorders; other back problems (1 source) Inflammation of sacroiliac joint; Translations: [Sacroiliitis, not elsewhere classified] Onset: 11-14-2022 11-14-2022 Chronic Substance-related disorders (1 source) Nicotine dependence, cigarettes, uncomplicated; Translations: [NICOTINE DEPEND CIGARETTES UNCOMP] Onset: 09-04-2022 Chronic Thyroid disorders (5 sources) Thyroid nodule; Translations: [Thyroid nodule] Onset: 08-07-2014 11-14-2022 Chronic Unclassified (1 source) Injury of toe of right foot; Translations: [Injury of toe on right foot, initial encounter] Unclassified (1 source) PERSONAL HISTORY OF COVID-19; Translations: [PERSONAL HISTORY OF COVID-19] Onset: 09-04-2022 Unclassified (1 source) Patient on antidepressant monitoring plan Onset: 12-03-2022 12-03-2022 Unclassified (1 source) Baseline PHQ-9 Onset: 12-03-2022 12-03-2022 Past or Other Problems Problem Classification Problem Date Documented Da te Episodic/Chronic Abdominal hernia (3 sources) Intra-abdominal hernia; Translations: [Incisional hernia] Onset: 02-18-2021 11-14-2022 Episodic Alcohol-related disorders (1 source) Alcohol use, unspecified with intoxication, uncomplicated; Translations: [Alcohol use, unspecified with intoxication, uncomplicated] Onset: 12-20-2022 Episodic Calculus of urinary tract (1 source) Kidney stone; Translations: [Calculus of kidney] Onset: 05-15-2020 11-14-2022 Episodic Cancer of thyroid (1 source) History of malignant neoplasm of thyroid; Translations: [Personal history of malignant neoplasm of thyroid] Onset: 02-18-2021 11-14-2022 Episodic Gastrointestinal hemorrhage (20 sources) Rectal hemorrhage; Translations: [Hemorrhage of anus and rectum] Onset: 08-07-2015 08-07-2015 Episodic Headache; including migraine (1 source) Headache; Translations: [Nonintractable headache, unspecified chronicity pattern, unspecified headache type] Episodic Heart valve disorders (2 sources) Heart murmur; Translations: [Cardiac murmur, unspecified] Onset: 06-16-2022 Episodic Hemorrhoids (1 source) Internal hemorrhoids; Translations: [Other hemorrhoids] Onset: 08-07-2015 11-14-2022 Episodic Intestinal infection (6 sources) Infection caused by Helicobacter pylori; Translations: [Other specified bacterial intestinal infections] Onset: 08-09-2015 08-09-2015 Episodic Mood disorders (1 source) Mood disorders Onset: 12-03-2022 12-03-2022 Nonspecific chest pain (5 sources) Atypical chest pain; Translations: [Chest discomfort] Onset: 09-23-2022 Episodic Other aftercare (4 sources) Other terminologist (current) drug therapy; Translations: [OTH LABORATORY ADMINISTRATIVE DIRECTOR CURRENT DRUG THERAPY] Onset: 06-16-2022 Episodic Other aftercare (4 sources) penitentiary (current) use of anticoagulants; Translations: [LABORATORY ADMINISTRATIVE DIRECTOR CURRNT USE ANTICOAGULANTS] Onset: 09-02-2018 Episodic Other connective tissue disease (3 sources) Pain in right leg; Translations: [Pain in right leg] Onset: 09-23-2022 Episodic Other connective tissue disease (1 source) Fibromyalgia; Translations: [Fibromyalgia] Onset: 09-09-2017 11-14-2022 Episodic Other connective tissue disease (1 source) Deformity of lower limb; Translations: [Contracture of muscle, left lower leg] Onset: 11-14-2022 11-14-2022 Episodic Other ear and sense organ disorders (1 source) Otalgia, left ear; Translations: [Otalgia, unspecified] Onset: 11-14-2022 11-14-2022 Episodic Other female genital disorders (1 source) Mass of ovary; Translations: [Other noninflammatory disorders of ovary, fallopian tube and broad ligament] Onset: 01-13-2018 11-14-2022 Episodic Other gastrointestinal disorders (20 sources) Diarrhea; Translations: [Diarrhea, unspecified] Onset: 08-07-2015 08-07-2015 Episodic Other gastrointestinal disorders (20 sources) Heartburn; Translations: [Heartburn] Onset: 08-07-2015 08-07-2015 Episodic Other gastrointestinal disorders (1 source) Pelvic mass; Translations: [Intra-abdominal and pelvic swelling, mass and lump, unspecified site] Onset: 12-15-2017 11-14-2022 Episodic Other gastrointestinal disorders (1 source) History of bariatric surgical procedure; Translations: [Bariatric surgery status] Onset: 05-26-2018 11-14-2022 Episodic Other infections; including parasitic (20 sources) Personal history of other infectious and parasitic diseases; Translations: [History of Helicobacter pylori infection] Onset: 11-06-2017 11-07-2017 Episodic Other injuries and conditions due to external causes (20 sources) Clavicle injury; Translations: [Unspecified injury of right shoulder and upper arm, initial encounter] Onset: 11-28-2018 11-28-2018 Episodic Other nervous system disorders (1 source) Acute postoperative pain; Translations: [Other acute postprocedural pain] Onset: 02-21-2021 11-14-2022 Episodic Other nervous system disorders (1 source) Sense of smell altered; Translations: [Unspecified disturbances of smell and taste] Onset: 12-19-2020 11-14-2022 Episodic Other upper respiratory disease (1 source) Hypertrophy of nasal turbinates; Translations: [Hypertrophy of nasal turbinates] Onset: 11-14-2022 11-14-2022 Episodic Otitis media and related conditions (2 sources) Otitis media, unspecified, left ear; Translations: [Infection of ear] Onset: 11-14-2022 Episodic Phlebitis; thrombophlebitis and thromboembolism (5 sources) Acute embolism and thrombosis of unspecified deep veins of right lower extremity; Translations: [H/O: Deep vein thrombosis] Onset: 09-08-2022 Episodic Residual codes; unclassified (1 source) Acquired absence of cervix and uterus; Translations: [Acquired absence of both cervix and uterus] Onset: 01-16-2019 11-14-2022 Episodic Residual codes; unclassified (1 source) Hereditary disorder of endocrine system; Translations: [Genetic susceptibility to other disease] Onset: 11-14-2022 11-14-2022 Episodic Results Test Name Value Interpretation Reference Range Facility US PALPABLE Mariann US PALPABLE MASS FINDINGS: No sonographic abnormality. No aggressive or nonaggressive mass or cyst formation. IMPRESSION: No sonographic abnormality. If a localizing palpable lump is present, sonographic features can be consistent with a nonaggressive lipoma which is not clearly delineated on ultrasound imaging. If symptoms persist following appropriate medical management, chest CT may be assistance. TRANSCRIBED BY: ELECTRONICALLY SIGNED BY: Sourav Pereyra MD Normal Not Available US RENAL COMPLETEon 09-22-19 US RENAL COMPLETE FINDINGS: Right Kidney 11.1 x 6.2 x 5.0 cm Left Kidney 10.8 x 5.3 x 4.9 cm Full bladder volume: 335 cc Post-void bladder volume: 34 cc. Both kidneys and collecting systems: Normal cortical volume. Punctate echogenic foci bilateral mid, inferior pole calyceal regions, subtle though can be consistent with peripheral calyceal and/or papillary stones suggested on the prior days KUB. No bladder stone or mass. 34 cc post void residual. IMPRESSION: 1. No collecting system dilatation, punctate peripheral calyceal stones. TRANSCRIBED BY: ELECTRONICALLY SIGNED BY: Sourav Pereyra MD Normal Not Available US RUQon 09-22-2023 US RUQ FINDINGS: The liver is without worrisome mass lesions or biliary dilatation. No neighboring ascites is present. The common bile duct is not dilated, 4 mm. in greatest dimension. The gallbladder is without echogenic foci or wall thickening. No pericholecystic fluid is present. Limited pancreatic visualization due to overlying bowel gas. IMPRESSION: Normal gallbladder and biliary tree. TRANSCRIBED BY: ELECTRONICALLY SIGNED BY: Sourav Pereyra MD Normal Not Available XR ABDOMEN 2 VIEWon 09-21-19 XR ABDOMEN 2 VIEW FINDINGS: Moderate volume of ascending colon stool. Right mid abdominal surgical clip. 2 mm calcification overlies the right renal shadow, likely caliceal stone. No distal ureteral or bladder stones. IMPRESSION: 1. Proximal colon stool, no obstruction 2. Right mid caliceal 2 mm stone TRANSCRIBED BY: ELECTRONICALLY SIGNED BY: Sourav Pereyra MD Normal Not Available VASC US LOWER EXTREMITY VENO US DUPLEX RIGHTon 09-04-2023 VASC US LOWER EXTREMITY VENOUS DUPLEX RIGHT FINDINGS: The deep venous system of the right lower extremity exhibits full compressibility and normal flow augmentation. These specifically include the common femoral, superficial femoral, and popliteal veins. No evidence of deep venous thrombosis is present. No cystic or soft tissue mass in the popliteal fossa. IMPRESSION: Normal venous sonogram. No deep venous thrombosis. TRANSCRIBED BY: ELECTRONICALLY SIGNED BY: Sourav Pereyra MD Normal Not Available MR HAND LT WO CONTon 023 MR HAND LT WO CONT MR HAND LT WO CONT Clinical history: Finger fracture MRI left hand without contrast: 05/13/2023 PROCEDURE: Multiplanar multi is imaging of the hand was performed without intravenous contrast. FINDINGS: There is irregularity of the fifth middle phalanx along its ulnar aspect. Some articular surface surface concavity is present at the ulnar and volar aspect of this phalanx with localized bone marrow edema. On sagittal images the cortex of the palmar aspect of the middle phalanx is indistinct and some articular surface deformity is possible. There is edema in the soft tissues around the PIP region. Extensor and flexor tendons appear intact. The joint capsule does not appear grossly disrupted Other osseous structures within the field of visualization are grossly normal in appearance. Other digits of the left hand are incompletely evaluated and there is partial visualization of the wrist. IMPRESSION: Findings compatible with a incompletely healed fracture at the base of the fifth middle phalanx with persistent edema/deformity. No suggestion of capsular disruption or myotendinous injury on MRI evaluation. Finalized by Elroy Tam MD on 05/13/2023 7:27 AM Normal [facility] EP PROCEDURE - EPS/ABLATION/ DEVICEon 01-12-2023 EP PROCEDURE - EPS/ABLATION/DEVIC E Images from the original result were not included. ? Successful pulmonary vein isolation using RFA confirmed with pentaray diagnostic catheter ? Successful RFA of CTI depenedent atrial flutter confrimed with bidirectional block during differential pacing ? EP study 47 y.o. year old pt w hx of symptomatic paroxysmal atrial fibrillation [PAF], DM-2, JAMES on C-PAP, DVT, who presented here for atrial fibrillation and atrial flutter [AFL] radiofrequency ablation [RFA] CT was reviewed prior to the study. Electrophysiology [EP] study Baseline ECG with sinus rhythm. Femoral venous access X 3 on the right femoral vein. ICE used for trans-septal X 2. CARTO used for mapping. WACA performed successfully and PVI of all 4 veins was confirmed with Pentary catheter. Esophageal monitoring was used for the case. Posterior wall lesions were limited to 50 W and 8 seconds. Successful RFA of CTI depenedent atrial flutter confrimed with bidirectional block during differential pacing Normal SA node function. Normal CSNRT Normal AV node function with no signs of dual AV mateo physiology. Short AH. Normal HV interval at 41 ms. VA dissociation Accessory pathway not present. No inducible SVT. No effusion at the end of case - verified by ICE. PLAN: Routine waggle care Continue anticoagulation with eliquis and continue current medical therapy. Multaq for 4 weeks Colchicine 0.6 mg po bid for 2 weeks 30 days mobile cardiac telemetry [CMT] in 6 weeks PPI for 1 month. Discussed the lifestyle and risk factor management to prevent from recurrent atrial fibrillation with patient including decreasing weight to achieve ideal BMI of <27 kg/M2. In the Legacy Study of atrial fibrillation, weight loss of >10% resulted in a 6-fold greater arrhythmia-free survival. Advised patient that weight fluctuation of >5% offsets the benefits, as it increases risk for atrial fibrillation recurrence by 2-fold. Patient advised that they should engage in regular moderate intensity exercise of 150 minutes per week, but should avoid high intensity exercise since it will increase the risk of atrial fibrillation [higher risk of atrial fibrillation in cyclists, cross-country and marathon running]. Patient advised to abstain/decrease alcohol consumption as to no more than 2 drinks per week and decrease caffeine to no more than 1 cup per day, making sure it is drank before noon. Patient instructed to eliminate soft drinks altogether. Lastly, patient advised to make sure to get 6-8 hours of sleep each night and go to bed at the same time each night within +/- 1 hour. (Lifestyle and Risk Factor Modification for Reduction of Atrial Fibrillation: A Scientific Statement From the [place] [employer].) Vic JIMENEZ, et al. Circulation. 2020. PMID: 84570119 Review.\ Follow up with Dr. Rothman or Yoly Rae CNP. as routine for his post-RFA patient care. Per and post RFA voltage mapping Table formatting from the original result was not included. Images from the original result were not included. Jody Henriqueztingham EP Procedure - EPS/Ablation/Device Ordering Physician: AUBREY ROTHMAN Order #: [id number] Study Date: 01/09/2023 Patient Information Name MRN Description Jody Thomason [id number] 47 y.o. 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 Successful pulmonary vein isolation using RFA confirmed with pentaray diagnostic catheter ? Successful RFA of CTI depenedent atrial flutter confrimed with bidirectional block during differential pacing ? EP study 47 y.o. year old pt w hx of symptomatic paroxysmal atrial fibrillation [PAF], DM-2, JAMES on C-PAP, DVT, who presented here for atrial fibrillation and atrial flutter [AFL] radiofrequency ablation [RFA] CT was reviewed prior to the study. Electrophysiology [EP] study Baseline ECG with sinus rhythm. Femoral venous access X 3 on the right femoral vein. ICE used for trans-septal X 2. CARTO used for mapping. WACA performed successfully and PVI of all 4 veins was confirmed with Pentary catheter. Esophageal monitoring was used for the case. Posterior wall lesions were limited to 50 W and 8 seconds. Successful RFA of CTI depenedent atrial flutter confrimed with bidirectional block during differential pacing Normal SA node function. Normal CSNRT Normal AV node function with no signs of dual AV mateo physiology. Short AH. Normal HV interval at 41 ms. VA dissociation Accessory pathway not present. No inducible SVT. (more content not included)... Normal [facility] ACT* LOW RANGE, POCon 2022 ACT LOW RANGE, POC 340.0 High [facility] Interpretation and review of laboratory results Abnormal [facility] Test performed at ad dress of the patient encounter. [facility] ACT LOW RANGE, POC [facility] Comment on above: Out of Range High. The test result is outside clinical range and should not be used for patient-management decisions. Test performed at ad dress of the patient encounter. [facility] ACT LOW RANGE, POC 388.0 High [facility] Interpretation and review of laboratory results Abnormal [facility] Test performed at ad dress of the patient encounter. [facility] ACT LOW RANGE, POC [facility] Comment on above: Out of Range High. The test result is outside clinical range and should not be used for patient-management decisions. Test performed at ad dress of the patient encounter. [facility] EXTRA MINT GREEN TOPon 01-09 [facility] PT,INR,PTTon 01-09-2023 aPTT Coag (Bld) [Time] 31.5 s Normal 24.0-34.3 [facility] Comment on above: Performed By: #### P TPTT #### [facility] (DEFAULT) [address] [place] [id number] INR Coag (PPP) [Relative time] 1.0 {INR} Normal 0.9-1.1 [facility] Comment on above: Performed By: #### P TPTT #### [facility] (DEFAULT) [address] [place] [id number] PT Coag (PPP) [Time] 13.1 s Normal 11.9-14.2 [facility] Comment on above: Performed By: #### P TPTT #### [facility] (DEFAULT) [address] [place] [id number] aPTT Coag (PPP) [Time] 31.5 s [facility] INR Coag (Bld) [Relative time] 1.0 {INR} 0.9 - 1.1 [facility] Interpretation and review of laboratory results Normal [facility] PT Coag (PPP) [Time] 13.1 s [facility] CBC,PLATELETSon 01-08-2023 Hematocrit (Bld) [Volume fraction] 40.2 % Normal 34.9-44.3 [facility] Comment on above: Performed By: #### H EMOGC #### [facility] (DEFAULT) [address] [place] [phone] Hemoglobin (Bld) [Mass/Vol] 12.7 g/dL Normal 11.4-15.2 [facility] Comment on above: Performed By: #### H EMOGC #### [facility] (DEFAULT) [address] [place] [id number] MCV (RBC) [Entitic vol] 90.3 fL Normal 79.6-97.7 [facility] Comment on above: Performed By: #### H EMOGC #### [facility] (DEFAULT) [address] [place] [address] 71647 Mean Cell Hgb 28.5 pg Normal 25.9-33.9 [facility] Comment on above: Performed By: #### H EMOGC #### [facility] (DEFAULT) [address] [place] [address] 55721 Mean Cell Hgb Conc 31.6 g/dL Normal 31.4-35.9 [facility] Comment on above: Performed By: #### H EMOGC #### [facility] (DEFAULT) [address] [place] [address] 79820 Platelet mean volume (Bld) [Entitic vol] 10.9 fL Normal 8.5-12.2 [facility] Comment on above: Performed By: #### H EMOGC #### [facility] (DEFAULT) [address] [place] [address] 41379 Platelets (Bld) [#/Vol] 207 10*3/uL Normal 150-393 [facility] Comment on above: Performed By: #### H EMOGC #### [facility] (DEFAULT) [address] [place] [address] 90163 RBC (Bld) [#/Vol] 4.45 10*6/uL Normal 3.91-5.04 [facility] Comment on above: Performed By: #### H EMOGC #### [facility] (DEFAULT) [address] [place] [address] 64644 RBC Distribution 13.4 % Normal 10.8-14.9 [facility] Comment on above: Performed By: #### Patsy EMOGC #### [facility] (DEFAULT) [address] [place] [address] 59838 WBC (Bld) [#/Vol] 5.84 10*3/uL Normal 3.99-11.19 [facility] Comment on above: Performed By: #### Patsy EMOGC #### [facility] (DEFAULT) [address] [place] [address] 23377 CHEM 6 (LYTES, BUN CREA)on 0 01-08-2022 Anion gap [Moles/Vol] 11 mmol/L Normal 7-17 [facility] Comment on above: Performed By: #### C HM6 #### [facility] (DEFAULT) [address] [place] [address] 75864 Chloride [Moles/Vol] 106 mmol/L Normal 98-108 [facility] Comment on above: Performed By: #### C HM6 #### [facility] (DEFAULT) [address] [place] [address] 38742 CO2 [Moles/Vol] 26 mmol/L Normal 21-31 [facility] Comment on above: Performed By: #### C HM6 #### [facility] (DEFAULT) [address] [place] [address] 75313 Creatinine [Mass/Vol] 1.00 mg/dL Normal 0.50-1.20 [facility] Comment on above: Performed By: #### C HM6 #### [facility] (DEFAULT) [address] [place] [address] 36517 GFR/1.73 sq M.predicted among non-blacks MDRD (S/P/Bld) [Vol rate/Area] 70 mL/min/{1.73_m2} Normal >=60 [facility] Comment on above: Result Comment: Repo rted eGFR is based on the CKD-EPI 2020 equation using creatinine, age, and sex. Performed By: #### C HM6 #### [facility] (DEFAULT) [address] [place] [address] 30938 Potassium [Moles/Vol] 4.2 mmol/L Normal 3.5-5.0 [facility] Comment on above: Performed By: #### C HM6 #### [facility] (DEFAULT) [address] [place] [address] 04168 Sodium [Moles/Vol] 139 mmol/L Normal 135-145 [facility] Comment on above: Performed By: #### C HM6 #### [facility] (DEFAULT) [address] [place] [address] 18842 Urea nitrogen [Mass/Vol] 18 mg/dL Normal 7-25 [facility] Comment on above: Performed By: #### C HM6 #### [facility] (DEFAULT) [address] [place] [address] 12870 Urea nitrogen/Creatinin e [Mass ratio] 18 mg/mg Normal [facility] Comment on above: Performed By: #### C HM6 #### [facility] (DEFAULT) [address] [place] [address] CARDIAC PULMONARY VENOGRA [facility] 01-08-2023 CT CARDIAC PULMONARY VENOGRAM [facility] CT Report Name: JODY THOMASON : 1975 Scan Date: 2023-01-08 14:32:54 Electronically signed by Silvestre Retana 17:33:50 VITALS HEIGHT: 64 in (162.56 cm) WEIGHT: 227.00 lbs (102.97 kgs) BSA: 2.06 m^2 BMI: 39 kg/m^2 BP: 114 / 56 mmHg BASELINE HR: 77 BPM FINAL 1. Pulmonary venous anatomy is normal.RLPV demonstrates early branching. 2. No thrombus seen within left atrial appendage or cardiac chambers, including evaluation with delayed imaging. 3. Moderate coronary artery calcification. ====== CARDIAC CT PULMONARY VENOGRAM / LEFT ATRIAL ASSESSMENT 47 year old woman with PAF anticipating ablation, also with HTN, JAMES, CAD, T2DM. STUDY QUALITY: Study quality is good. OTHER FINDINGS: - Coronary arteries: Moderate coronary calcification is seen. However, the study is not optimized for coronary calcification detection or for luminal stenosis evaluation - Valves: no significant aortic valve or mitral annular calcification. - Great vessels: The ascending aorta is normal in size measuring 34 mm at the PA bifurcation. There is no descending aorta calcification. The main pulmonary artery measures 24 mm in diameter which is normal. Extra cardiac findings: limited field of view. - Chest Wall: no major deformity. - Mediastinum: Normal, without adenopathy. - [place]: Right sided hilar calcification, largest diameter 3 mm. - Pleural Spaces: Normal, without thickening/effusion or pneumothorax - Lung Parenchyma: No evidence of significantly lung disease, or masses. - Vertebrae: Mild kyphoscoliosis present. - GI: Evidence of prior gastric bypass. PULMONARY VEIN LEFT SIDE MEASUREMENTS ------- UPPER DIMENSIONS: 1.8 cm UPPER DIMENSIONS (2): 1.6 cm LOWER DIMENSIONS: 1. cm LOWER DIMENSIONS (2): 1.5 cm RIGHT SIDE MEASUREMENTS ------- UPPER DIMENSIONS: 1.9 cm UPPER DIMENSIONS (2): 1.7 cm LOWER DIMENSIONS: 2.3 cm LOWER DIMENSIONS (2): 2.0 cm SCAN INFO TEST TYPE: Venogram SCANNER RESIDENTIAL [employer]WN SPECIALIST: [employer] SCANNER MODEL: [employer] CT750 minicabit DOSE REDUCTION ALGORITHM: Prospective/[id number]-[id number] SCAN COVERAGE ZONE: Pulmonary veins/IRIS EKG GATED: Yes GENERAL ------- CONTRAST AGENT CONTRAST AGENT USED?: Yes TYPE: Omnipaque 350 IODINE CONCENTRATION: 350 mg/ml DOSE: 70 ml RATE: 4.0 ml/s ROUTE: IV ARM: Right BOLUS TECHNIQUE: Biphasic SCAN DELAY TIME METHOD: smart prep SERUM CREATININE: 0.8 mg/dL GFR: 81.72 ml/min/1.73m^2 CREATININE DATE: CT CONTRAST REACTION: None RADIATION DOSE DLP: 554.32 SETUP DATE OF EVENT: CLINICAL REGISTRY: No SCAN TYPE: Clinical PATIENT TYPE: Outpatient INCOMPLETE SCAN: No REPEAT SCAN: No REASON(S) FOR SCAN: EP procedure planning REFERRING PHYSICIAN: 1Rosalia Rothman MD FELLOW: Jan Shannon ATTENDING PHYSICIAN: REINIER RETANA MD TECHNOLOGIST: Carolee Vaughan RT (R) (CT) BILLING Patient Account [id number] CPT Codes 21029 ICD10 Codes I48.0 Report generated by [employer], a product of [employer] Normal [facility] CT Report Name: JODY THOMASON : 1975 Scan Date: 2023-01-08 14:32:54 Electronically signed by Silvestre Retana 17:33:50 VITALS HEIGHT: 64 in (162.56 cm) WEIGHT: 227.00 lbs (102.97 kgs) BSA: 2.06 m^2 BMI: 39 kg/m^2 BP: 114 / 56 mmHg BASELINE HR: 77 BPM FINAL IMPRESSION 1. Pulmonary venous anatomy is normal. RLPV demonstrates early branching. 2. No thrombus seen within left atrial appendage or cardiac chambers, including evaluation with delayed imaging. 3. Moderate coronary artery calcification. ====== CARDIAC CT PULMONARY VENOGRAM / LEFT ATRIAL ASSESSMENT 47 year old woman with PAF anticipating ablation, also with HTN, JAMES, CAD, T2DM. STUDY QUALITY: Study quality is good. OTHER FINDINGS: - Coronary arteries: Moderate coronary calcification is seen. However, the study is not optimized for coronary calcification detection or for luminal stenosis evaluation - Valves: no significant aortic valve or mitral annular calcification. - Great vessels: The ascending aorta is normal in size measuring 34 mm at the PA bifurcation. There is no descending aorta calcification. The main pulmonary artery measures 24 mm in diameter which is normal. Extra cardiac findings: limited field of view. - Chest Wall: no major deformity. - Mediastinum: Normal, without adenopathy. - [place]: Right sided hilar calcification, largest diameter 3 mm. - Pleural Spaces: Normal, without thickening/effusion or pneumothorax - Lung Parenchyma: No evidence of significantly lung disease, or masses. - Vertebrae: Mild kyphoscoliosis present. - GI: Evidence of prior gastric bypass. PULMONARY VEIN LEFT SIDE MEASUREMENTS ------- UPPER DIMENSIONS: 1.8 cm UPPER DIMENSIONS (2): 1.6 cm LOWER DIMENSIONS: 1. cm LOWER DIMENSIONS (2): 1.5 cm RIGHT SIDE MEASUREMENTS ------- UPPER DIMENSIONS: 1.9 cm UPPER DIMENSIONS (2): 1.7 cm LOWER DIMENSIONS: 2.3 cm LOWER DIMENSIONS (2): 2.0 cm SCAN INFO TEST TYPE: Venogram SCANNER RESIDENTIAL [employer]WN SPECIALIST: [employer] SCANNER MODEL: [employer] CT750 HD DOSE REDUCTION ALGORITHM: Prospective/[id number]-[id number] SCAN COVERAGE ZONE: Pulmonary veins/IRIS EKG GATED: Yes GENERAL ------- CONTRAST AGENT CONTRAST AGENT USED?: Yes TYPE: Omnipaque 350 IODINE CONCENTRATION: 350 mg/ml DOSE: 70 ml RATE: 4.0 ml/s ROUTE: IV ARM: Right BOLUS TECHNIQUE: Biphasic SCAN DELAY TIME METHOD: smart prep SERUM CREATININE: 0.8 mg/dL GFR: 81.72 ml/min/1.73m^2 CREATININE DATE: CT CONTRAST REACTION: None RADIATION DOSE DLP: 554.32 SETUP DATE OF EVENT: CLINICAL REGISTRY: No SCAN TYPE: Clinical PATIENT TYPE: Outpatient INCOMPLETE SCAN: No REPEAT SCAN: No REASON(S) FOR SCAN: EP procedure planning REFERRING PHYSICIAN: 1) Aubrey Rothman MD FELLOW: Jan Shannon ATTENDING PHYSICIAN: REINIER RETANA MD TECHNOLOGIST: Carolee Vaughan RT (R) (CT) BILLING Patient Account [id number] CPT Codes 07547 ICD10 Codes I48.0 Report generated by [employer], a product of [employer] CARDIOLOGY Lainey, Reinier lemus MD - 01/08/[address] [facility] [address] Report Name: JODY THOMASON : 1975 Scan Date: 2023-01-08 14:32:54 Electronically signed by Silvestre Retana 17:33:50 VITALS ==== HEIGHT: 64 in (162.56 cm) WEIGHT: 227.00 lbs (102.97 kgs) BSA: 2.06 m^2 BMI: 39 kg/m^2 BP: 114 / 56 mmHg BASELINE HR: 77 BPM FINAL IMPRESSION ==== 1. Pulmonary venous anatomy is normal.RLPV demonstrates early branching. 2. No thrombus seen within left atrial appendage or cardiac chambers, including evaluation with delayed imaging. 3. Moderate coronary artery calcification. CARDIAC CT PULMONARY VENOGRAM / LEFT ATRIAL ASSESSMENT 47 year old woman with PAF anticipating ablation, also with HTN, JAMES, CAD, T2DM. STUDY QUALITY: Study quality is good. OTHER FINDINGS: - Coronary arteries: Moderate coronary calcification is seen. However, the study is not optimized for coronary calcification detection or for luminal stenosis evaluation - Valves: no significant aortic valve or mitral annular calcification. - Great vessels: The ascending aorta is normal in size measuring 34 mm at the PA bifurcation. There is no descending aorta calcification. The main pulmonary artery measures 24 mm in diameter which is normal. Extra cardiac findings: limited field of view. - Chest Wall: no major deformity. - Mediastinum: Normal, without adenopathy. - [place]: Right sided hilar calcification, largest diameter 3 mm. - Pleural Spaces: Normal, without thickening/effusion or pneumothorax - Lung Parenchyma: No evidence of significantly lung disease, or masses. - Vertebrae: Mild kyphoscoliosis present. - GI: Evidence of prior gastric bypass. PULMONARY VEIN ==== LEFT SIDE MEASUREMENTS UPPER DIMENSIONS: 1.8 cm UPPER DIMENSIONS (2): 1.6 cm LOWER DIMENSIONS: 1. cm LOWER DIMENSIONS (2): 1.5 cm RIGHT SIDE MEASUREMENTS UPPER DIMENSIONS: 1.9 cm UPPER DIMENSIONS (2): 1.7 cm LOWER DIMENSIONS: 2.3 cm LOWER DIMENSIONS (2): 2.0 cm SCAN INFO ==== TEST TYPE: Venogram SC[employer]NER [employer]IDENT[employer] SPECIALIST: [employer] SCANNER MODEL: [employer] CT750 minicabit DOSE REDUCTION ALGORITHM: Prospective/[id number]-[id number] SCAN COVERAGE ZONE: Pulmonary veins/IRIS EKG GATED: Yes GENERAL CONTRAST AGENT CONTRAST AGENT USED?: Yes TYPE: Omnipaque 350 IODINE CONCENTRATION: 350 mg/ml DOSE: 70 ml RATE: 4.0 ml/s ROUTE: IV ARM: Right BOLUS TECHNIQUE: Biphasic SCAN DELAY TIME METHOD: smart prep SERUM CREATININE: 0.8 mg/dL GFR: 81.72 ml/min/1.73m^2 CREATININE DATE: CT CONTRAST REACTION: None RADIATION DOSE DLP: 554.32 SETUP DATE OF EVENT: CLINICAL REGISTRY: No SCAN TYPE: Clinical PATIENT TYPE: Outpatient INCOMPLETE SCAN: No REPEAT SCAN: No REASON(S) FOR SCAN: EP procedure planning REFERRING PHYSICIAN: 1) Aubrey Rothman MD FELLOW: Jan Shannon ATTENDING PHYSICIAN: REINIER RETANA MD TECHNOLOGIST: Carolee Vaughan RT (R) (CT) BILLING ==== Patient Account [id number] CPT Codes 84903 ICD10 Codes I48.0 Report generated by [employer], a product of [employer] [facility] Radiology Study observation (narrative) [facility] CT CARDIAC PULMONARY VENOGRA MOrdered By: Reinier Retana on 01-08-2023 [facility] Work Phone: CBC with Diffon 12-20-2022 Abs. Basophil 0.05 k/uL Normal 0.00-0.20 [facility] Comment on above: Performed By: #### T VINOD ARCOS, CDP #### [address] [place] [address] Box Blank Machine Operator Helper: Yang Diez MD Abs.Imm.Granulocyt e <0.03 Normal 0.00-0.30 [facility] Comment on above: Performed By: #### T VINOD ARCOS, CDP #### [facility] [address] [place] [address] [employer] Operator Helper: Yang Diez MD Abs.Neutrophil (Seg) 4.69 k/uL Normal 1.50-8.10 [facility] Comment on above: Performed By: #### T VINOD ARCOS, CDP #### [facility] [address] [place] [address] [employer] Machine Operator Helper: Yang Diez MD Basophils/100 WBC (Bld) 1 % Normal 0-2 [facility] Comment on above: Performed By: #### Markos ARCOS CP, CDP #### [address] [place], [place] [id number] [employer] Operator Helper: Yang Diez MD Eosinophils (Bld) [#/Vol] 0.17 10*3/uL Normal 0.00-0.44 [facility] Comment on above: Performed By: #### Markos ARCOS CP, CDP #### [address] [place], [place] [id number] [employer] Operator Helper: Yang Diez MD Eosinophils/100 WBC (Bld) 2 % Normal 1-4 [facility] Comment on above: Performed By: #### Markos ARCOS CP, CDP #### [address] [place], [facility] [employer] Operator Helper: Yang Diez MD Erythrocyte distribution width (RBC) [Ratio] 13.0 % Normal 11.8-14.4 [facility] Comment on above: Performed By: #### Markos ARCOS CP, CDP #### [address] [place], [facility]83 [employer] Operator Helper: Yang Diez MD Hematocrit (Bld) [Volume fraction] 38.7 % Normal 36.3-47.1 [facility] Comment on above: Performed By: #### Markos ARCOS CP, CDP #### [address] [place], [place] [id number] [employer] Operator Helper: Yang Diez MD Hemoglobin (Bld) [Mass/Vol] 12.6 g/dL Normal 11.9-15.1 [facility] Comment on above: Performed By: #### Markos ARCOS CP, CDP #### [address] [place] [address] [employer] Machine Operator Helper: Yang Diez MD Immature granulocytes/100 WBC (Bld) 0 % Normal 0 [facility] Comment on above: Performed By: #### Markos ARCOS CP, CDP #### [facility] [address] [place] [address] Dr. [place], [place] [id number] [employer] Operator Helper: Yang Diez MD Lymphocytes (Bld) [#/Vol] 2.95 10*3/uL Normal 1.10-3.70 [facility] Comment on above: Performed By: #### Markos ARCOS CP, CDP #### [address] [place], [place] [id number] [employer] Operator Helper: Yang Diez MD Lymphocytes/100 WBC (Bld) 35 % Normal 24-43 [facility] Comment on above: Performed By: #### Markos ARCOS CP, CDP #### [address] [place], [place] [id number] [employer] Operator Helper: Yang Diez MD MCH (RBC) [Entitic mass] 29.6 pg Normal 25.2-33.5 [facility] Comment on above: Performed By: #### Markos ARCOS CP, CDP #### [address] [place] [address] [employer] Machine Operator Helper: Yang Diez MD MCHC (RBC) [Mass/Vol] 32.6 g/dL Normal 28.4-34.8 [facility] Comment on above: Performed By: #### Markos ARCOS CP, CDP #### [address] [place] [address] [employer] Operator Helper: Yang Diez MD MCV (RBC) [Entitic vol] 91.1 fL Normal 82.6-102.9 [facility] Comment on above: Performed By: #### Markos ARCOS CP, CDP #### [address] [place] [address] Box Blank Machine Operator Helper: Yang Diez MD Monocytes (Bld) [#/Vol] 0.57 10*3/uL Normal 0.10-1.20 [facility] Comment on above: Performed By: #### Markos ARCOS CP, CDP #### [facility] [address] [place], [place] [id number] [employer] Operator Helper: Yang Diez MD Monocytes/100 WBC (Bld) 7 % Normal 3-12 [facility] Comment on above: Performed By: #### Markos ARCOS CP, CDP #### [facility] [address] [place] [address] Box Blank Machine Operator Helper: Yang Diez MD Neutrophil (Seg) 55 % Normal 36-65 [facility] Comment on above: Performed By: #### Markos ARCOS CP, CDP #### [facility] [address] [place], [place] [id number] [employer] Operator Helper: Yang Diez MD NRBC Automated 0.0 per [address] [facility] Comment on above: Performed By: #### Markso ARCOS CP, CDP #### [facility] [address] [place], [place] [id number] Box [employer] Machine Operator Helper: Yang Diez MD Platelet mean volume (Bld) [Entitic vol] 10.8 fL Normal 8.1-13.5 [facility] Comment on above: Performed By: #### Markos ARCOS CP, CDP #### [facility] [address] [place] [address] Dr[address] [place], [place] [id number] [employer] Operator Helper: Yang Diez MD Platelets (Bld) [#/Vol] 227 10*3/uL Normal 138-453 [facility] Comment on above: Performed By: #### Markos ARCOS CP, CDP #### [facility] [address] [place], [place] [phone] [employer] Operator Helper: Yang Diez MD RBC (Bld) [#/Vol] 4.25 10*6/uL Normal 3.95-5.11 [facility] Comment on above: Performed By: #### T VINOD ARCOS, CDP #### [facility] [address] [place], [place] [id number] [employer] Operator Helper: Yang Diez MD WBC (Bld) [#/Vol] 8.5 10*3/uL Normal 3.5-11.3 [facility] Comment on above: Performed By: #### T VINOD ARCOS, CDP #### [facility] [address] [place], [place] [id number] Box [employer] Machine Operator Helper: Yang Diez MD Comp Metabolic Profon 2022 Albumin [Mass/Vol] 4.1 g/dL Normal 3.5-5.2 [facility] Comment on above: Performed By: #### Markos ARCOS CP, CDP #### [address] [place], [place] [phone] [employer] Operator Helper: Yang Diez MD Albumin/Glob Ratio 1.3 Normal 1.0-2.5 [facility] Comment on above: Performed By: #### Markos ARCOS CP, CDP #### [facility] [address] [place] [address] Dr[place], [place] [id number] [employer] Machine Operator Helper: Yang Diez MD Alkaline Phos 91 U/L Normal 35-104 [facility] Comment on above: Performed By: #### Markos ARCOS CP, CDP #### [facility] [address] [place], [place] [phone] Box [employer] Machine Operator Helper: Yang Diez MD ALT [Catalytic activity/Vol] 19 U/L Normal 5-33 [facility] Comment on above: Performed By: #### Markos ARCOS CP, CDP #### [facility] [address] [place] [address] Box Blank Machine Operator Helper: Yang Diez MD Anion gap [Moles/Vol] 13 mmol/L Normal 9-17 [facility] Comment on above: Performed By: #### Markos ARCOS CP, CDP #### [facility] [address] [place], [place] [phone] Box [employer] Machine Operator Helper: Yang Diez MD AST [Catalytic activity/Vol] 15 U/L Normal <32 [facility] Comment on above: Performed By: #### T VINOD ARCOS, CDP #### [facility] [address] [place], [place] [phone] Box [employer] Machine Operator Helper: Yang Diez MD Bilirubin [Mass/Vol] 0.2 mg/dL Low 0.3-1.2 [facility] Comment on above: Performed By: #### T VINOD ARCOS, CDP #### [facility] [address] [place], [place] [id number] Box [employer] Machine Operator Helper: Yang Diez MD BUN/CRE Ratio 23 High 9-20 [facility] Comment on above: Performed By: #### T VINOD ARCOS, CDP #### [facility] [address] [place], [place] [id number] Box [employer] Machine Operator Helper: Yang Diez MD Calcium [Mass/Vol] 8.4 mg/dL Low 8.6-10.4 [facility] Comment on above: Performed By: #### T VINOD ARCOS, CDP #### [facility] [address] [place], [place] [phone] [employer] Operator Helper: Yang Diez MD Chloride [Moles/Vol] 100 mmol/L Normal 98-107 [facility] Comment on above: Performed By: #### T VINOD ARCOS, CDP #### [facility] [address] [place], [place] [phone] [employer] Operator Helper: Yang Diez MD CO2 [Moles/Vol] 22 mmol/L Normal 20-31 [facility] Comment on above: Performed By: #### T VINOD ARCOS, CDP #### [facility] [address] [place], [place] [phone] [employer] Operator Helper: Yang Dize MD Creatinine [Mass/Vol] 0.8 mg/dL Normal 0.5-0.9 [facility] Comment on above: Performed By: #### Markos ARCOS CP, CDP #### [facility] [address] [place] [address] Box Blank Machine Operator Helper: Yang Diez MD GFR/1.73 sq M.predicted among non-blacks MDRD (S/P/Bld) [Vol rate/Area] mL/min/{1.73_m2} Normal >60 [facility] Comment on above: Result Comment: These results are not intended for use in patients <18 years of age. eGFR results are calculated without a race factor using the 2020 CKD-EPI equation. Careful clinical correlation is recommended, particularly when comparing to results calculated using previous equations. The CKD-EPI equation is less accurate in patients with extremes of muscle mass, extra-renal metabolism of creatine, excessive creatine ingestion, or following therapy that affects renal tubular secretion. Performed By: #### Markos ARCOS CP, CDP #### [facility] [address] [place] [address] Dr[place], [place] [phone] [employer] Operator Helper: Yang Diez MD Glucose [Mass/Vol] 149 mg/dL High 70-99 [facility] Comment on above: Performed By: #### Markos ARCOS CP, CDP #### [address] [place], [place] [phone] [employer] Operator Helper: Yang Diez MD Potassium [Moles/Vol] 3.2 mmol/L Low 3.7-5.3 [facility] Comment on above: Performed By: #### Markos ARCOS CP, CDP #### [facility] [address] [place] [address] [employer] Operator Helper: Yang Diez MD Protein [Mass/Vol] 7.3 g/dL Normal 6.4-8.3 [facility] Comment on above: Performed By: #### Markos ARCOS CP, CDP #### [facility] [address] [place] [address] Box Blank Machine Operator Helper: Yang Diez MD Sodium [Moles/Vol] 135 mmol/L Normal 135-144 [facility] Comment on above: Performed By: #### T VINOD ARCOS, CDP #### [facility] [address] [place] [address] [place] [address] Box Blank Machine Operator Helper: Yang Diez MD Urea nitrogen [Mass/Vol] 18 mg/dL Normal 6-20 [facility] Comment on above: Performed By: #### Markos ARCOS CP, CDP #### [facility] [address] [place] [address] [place] [address] Box Blank Machine Operator Helper: Yang Diez MD Troponinon 12-20-2022 Troponin, High Sens 6 ng/L Normal 0-14 [facility] Comment on above: Result Comment: High Sensitivity Troponin values cannot be compared with other Troponin methodologies. Performed By: #### Markos ARCOS CP, CDP #### [facility] [address] [place] [address] [place] [id number] [employer] Helper: Yang Diez MD CARDIAC STRESS TESTon 2022 CARDIAC STRESS TEST [address] [id number] CARDIAC STRESS TEST PATIENT NAME: JODY THOMASON : 1975 MED REC NO: [id number] ROOM: ACCOUNT NO: [id number] ADMIT DATE: 09/29/2022 PROVIDER: Sarah Rick MD CARDIOVASCULAR DIAGNOSTIC DEPARTMENT DATE OF STUDY: 09/29/2022 ORDERING PROVIDER: Janis Hawkins MD PRIMARY CARE PROVIDER: Denisse Gilbert MD INTERPRETING PHYSICIAN: Sarah Rick MD PHARMACOLOGIC MYOCARDIAL PERFUSION STRESS TESTING Stress/rest single isotope SPECT imaging with exercise stress and gated SPECT imaging. INDICATIONS: Assessment of recent chest pain and/or chest discomfort. CLINICAL HISTORY: The patient is a 47-year-old woman with no known coronary artery disease. Previous cardiac history includes stress test. Other previous history includes chest pain, palpitations, indigestion, arthritis, hypertension, family history of coronary artery disease in father under age 60. Symptoms just prior to testing: None. Relevant medications: Diltiazem (Cardizem). PROCEDURE: The heart rate was 88 at baseline and kandace to 121 beats per minute during the regadenoson infusion. The rest blood pressure was 120/64 mm/Hg and increased to 128/62 mm/Hg. The patient did not complain of any significant symptoms following infusion. Pharmacologic stress testing was performed with regadenoson at a dose of 0.4 mg. Additionally, low level exercise using slow treadmill walking was performed along with vasodilator infusion. MYOCARDIAL PERFUSION IMAGING: Imaging was performed at rest 30-45 minutes following the injection of 30 mCi of sestamibi. Approximately 10 seconds after Lexiscan injection, the patient was injected with 30 mCi of sestamibi. Gating post-stress tomographic imaging was performed 30-45 minutes after stress. STRESS ECG RESULTS: The resting electrocardiogram demonstrated normal sinus rhythm without significant ST-segment abnormalities that may impair accurate ECG detection of stress induced cardiac ischemia. During vasodilator infusion and during recovery, the patient developed: No significant ST segment changes suggestive of myocardial ischemia with no premature atrial contractions (PACs) and no premature ventricular contractions (PVCs). NUCLEAR IMAGING RESULTS: The overall quality of the study is good. Mild/moderate attenuation artifact was seen. There is no evidence of abnormal lung uptake. Additionally, the right ventricle appears normal. The left ventricular cavity is noted to be normal in size on the stress images. There is no evidence of transient ischemic dilatation (TID) of the left ventricle. Gated SPECT imaging reveals normal myocardial thickening and wall motion with a calculated left ventricular ejection fraction of 85%. The rest images demonstrated a small perfusion abnormality of mild intensity in the inferolateral region(s), which is most likely due to artifact. On stress imaging, a small/moderate perfusion abnormality of mild intensity in the inferolateral and inferior region(s), which is most likely due to artifact. IMPRESSION: 1. Most likely normal myocardial perfusion imaging with soft tissue artifact, but without significant evidence of myocardial ischemia or infarction. 2. Global left ventricular systolic function was normal without regional wall motion abnormalities. 3. No significant electrocardiographic evidence of myocardial ischemia during EKG monitoring without significant associated arrhythmias. Overall, these results are most consistent with a low risk for significant coronary artery disease. Although the patient's results were not completely normal, unless clinical suspicion for significant ongoing coronary artery ischemia is high, I would not suggest pursuing additional testing by coronary angiography. @The sensitivity for detecting ischemia on this test may have been reduced due to the patient being on a calcium channel sharona. SARAH RICK MD ARLENE/RONY_JAVADYURI Doc#: Unknown CC: Janis Hawkins MD [facility] BNPon 09-05-2022 Natriuretic peptide B (Bld) [Mass/Vol] 281.0 pg/mL Normal <=450.0 [facility] Comment on above: Performed By: #### H STROPN, BNP #### [facility] [address] [place] [address] Dr. Breanna Humphrey CBC AUTO DIFFon 09-05-2022 BASO # 0.0 103/ul Normal 0.0-0.1 [facility] Comment on above: Performed By: #### C BC #### [facility] [address] [place] [address] Dr. Breanna Humphrey Basophils/100 WBC (Bld) 0.6 % Normal 0.2-2.0 [facility] Comment on above: Performed By: #### C BC #### [facility] [address] [place] [address] Dr. Breanna Humphrey EO # 0.2 103/ul Normal 0.0-0.7 [facility] Comment on above: Performed By: #### C BC #### [facility] [address] [place] [address] Dr. Breanna Humphrey Eosinophils/100 WBC (Bld) 2.1 % Normal 0.9-7.0 [facility] Comment on above: Performed By: #### C BC #### [facility] [address] [place] [address] Dr. Breanna Humphrey Erythrocyte distribution width (RBC) [Ratio] 13.1 % Normal 11.0-15.0 [facility] Comment on above: Performed By: #### C BC #### [facility] [address] [place] [address] Dr. Breanna Humphrey Hematocrit (Bld) [Volume fraction] 39.0 % Normal 36.0-48.0 [facility] Comment on above: Performed By: #### C BC #### [facility] [address] [place] [address] Dr. Breanna Humphrey Hemoglobin (Bld) [Mass/Vol] 12.7 g/dL Normal 12.0-16.0 [facility] Comment on above: Performed By: #### C BC #### [facility] [address] [place] [address] Dr. Breanna Humphrey IG # 0.02 10e3/ul Normal 0.00-0.03 [facility] Comment on above: Performed By: #### C BC #### [facility] [address] [place] [address] Dr. Breanna Humphrey IG % 0.3 % Normal 0.0-0.5 [facility] Comment on above: Performed By: #### C BC #### [facility] [address] [place] [address] Dr. Breanna Humphrey LYMPH # 1.7 103/ul Normal 1.2-3.8 [facility] Comment on above: Performed By: #### C BC #### [facility] [address] [place] [address] Dr. Breanna Humphrey Lymphocytes/100 WBC (Bld) 24.1 % Normal 20.5-60.0 [facility] Comment on above: Performed By: #### C BC #### [facility] [address] [place] [address] Dr. Breanna Humphrey MANUAL DIFF REQ NO Normal [facility] Comment on above: Performed By: #### C BC #### [facility] [address] [place] [address] Dr. Breanna Humphrey MCH (RBC) [Entitic mass] 29.1 pg Normal 26.7-34.0 [facility] Comment on above: Performed By: #### C BC #### [facility] [address] [place] [address] Dr. Breanna Humphrey MCHC (RBC) [Mass/Vol] 32.6 g/dL Normal 29.9-35.2 [facility] Comment on above: Performed By: #### C BC #### [facility] [address] [address] [address] Breanna Humphrey MCV (RBC) [Entitic vol] 89.2 fL Normal 81.0-99.0 [facility] Comment on above: Performed By: #### C BC #### [facility] [address] [address] [address] Breanna Humphrey MONO # 0.7 103/ul Normal 0.3-0.8 [facility] Comment on above: Performed By: #### C BC #### [facility] [address] [address] [address] Breanna Humphrey Monocytes/100 WBC (Bld) 9.2 % Normal 1.7-12.0 [facility] Comment on above: Performed By: #### C BC #### [facility] [address] [address] [address] Breanna Humphrey NEUT # 4.6 103/ul Normal 1.4-6.5 [facility] Comment on above: Performed By: #### C BC #### [facility] [address] [address] [address] Breanna Humphrey Neutrophils/100 WBC (Bld) 63.7 % Normal 43.0-75.0 [facility] Comment on above: Performed By: #### C BC #### [facility] [address] [address] [address] Breanna Humphrey Platelet mean volume (Bld) [Entitic vol] 10.6 fL Normal 9.5-13.5 [facility] Comment on above: Performed By: #### C BC #### [facility] [address] [address] [address] Breanna Humphrey PLT 226 103/ul Normal 150-450 [facility] Comment on above: Performed By: #### C BC #### [facility] [address] [address] [address] Breanna Humphrey RBC 4.37 106/ul Normal 4.20-5.40 [facility] Comment on above: Performed By: #### C BC #### [facility] [address] [place], [place] [address] Dr. Breanna Humphrey WBC 7.2 103/ul Normal 4.0-11.0 [facility] Comment on above: Performed By: #### C BC #### [facility] [address] [place], [place] [address] Dr. Breanna Humphrey CTA CHEST WO W CONon 023 CTA CHEST WO W CON EXAMINATION: CTA SCAR ST W CON HISTORY: CHEST PAIN, UNSPECIFIED COMPARISON: None. TECHNIQUE: CT chest with intravenous contrast was performed with timing for the evaluation for pulmonary arteries. Multiplanar reformats were performed. MIP (maximum intensity projection) images or 3D post processing was performed. Dose reduction techniques were achieved by using automated exposure control and/or adjustment of mA and/or kV according to patient size and/or use of iterative reconstruction technique. FINDINGS: Lungs: No consolidation, mass, or effusion. Airways: Normal. Mediastinum: No adenopathy. Aorta: No aneurysm. Cardiac: Normal size. No pericardial effusion. Pulmonary vasculature: Diagnostic opacification of pulmonary arteries without evidence of pulmonary embolus. Normal morphology. Bones: No acute bony abnormality. Axilla: No adenopathy. Thyroid gland: No abnormality demonstrated on provided imaging. Soft tissues: Unremarkable. Upper abdomen: Status post gastric bypass surgery. Additional findings: None. IMPRESSION:No evidence of acute pulmonary embolus or acute intrathoracic abnormality. Electronically authenticated by: DUSTIN JANE Date: 2022-09-05 18:26 Normal [facility] PROF 14(COMP METB)on 023 Albumin [Mass/Vol] 3.4 g/dL Normal 3.4-5.0 [facility] Comment on above: Performed By: #### C MP #### [facility] [address] [place], [place] [address] Dr. Breanna Humphrey Albumin/Globulin [Mass ratio] 0.9 {ratio} Normal [facility] Comment on above: Performed By: #### C MP #### [facility] [address] [place], [place] [address] Dr. Breanna Humphrey ALP [Catalytic activity/Vol] 84 U/L Normal 46-116 [facility] Comment on above: Performed By: #### C MP #### [facility] [address] [address] [address] Breanna Humphrey ALT [Catalytic activity/Vol] 54 U/L Normal 14-59 [facility] Comment on above: Performed By: #### C MP #### [facility] [address] [address] [address] Breanna Humphrey Anion gap [Moles/Vol] 10.9 mmol/L Normal [facility] Comment on above: Performed By: #### C MP #### [facility] [address] [address] [address] Breanna Humphrey AST [Catalytic activity/Vol] 32 U/L Normal 15-37 [facility] Comment on above: Performed By: #### C MP #### [facility] [address] [address] [address] Breanna Humphrey Bilirubin [Mass/Vol] 0.1 mg/dL Critically low 0.2-1.0 [facility] Comment on above: Performed By: #### C MP #### [facility] [address] [address] [address] Breanna Humphrey Calcium [Mass/Vol] 8.7 mg/dL Normal 8.5-10.1 [facility] Comment on above: Performed By: #### C MP #### [facility] [address] [place] [address] Dr. Breanna Humphrey Chloride [Moles/Vol] 106 mmol/L Normal 98-107 [facility] Comment on above: Performed By: #### C MP #### [facility] [address] [address] [address] Breanna Humphrey CO2 [Moles/Vol] 27.7 mmol/L Normal 21.0-32.0 [facility] Comment on above: Performed By: #### C MP #### [facility] [address] [address] [address] Breanna Humphrey Creatinine [Mass/Vol] 0.88 mg/dL Normal 0.55-1.02 [facility] Comment on above: Performed By: #### C MP #### [facility] [address] [address] [address] Breanna Humphrey EGFR-AF PRYDEINIG >60 Normal >=60 [facility] Comment on above: Performed By: #### C MP #### [facility] [address] [address] [address] Breanna Humphrey EGFR-NON AF PRYDEINIG >60 Normal >=60 [facility] Comment on above: Performed By: #### C MP #### [facility] [address] [address] [address] Breanna Humphrey Globulin (S) [Mass/Vol] 3.9 g/dL Normal [facility] Comment on above: Performed By: #### C MP #### [facility] [address] [address] [address] Breanna Humphrey Glucose [Mass/Vol] 101 mg/dL Normal 74-106 [facility] Comment on above: Performed By: #### C MP #### [facility] [address] [address] [address] Breanna Humphrey Potassium [Moles/Vol] 4.6 mmol/L Normal 3.5-5.1 [facility] Comment on above: Performed By: #### C MP #### [facility] [address] [address] [address] Breanna Humphrey Protein [Mass/Vol] 7.3 g/dL Normal 6.4-8.2 [facility] Comment on above: Performed By: #### C MP #### [facility] [address] [address] [address] Breanna Humphrey Sodium [Moles/Vol] 140 mmol/L Normal 136-145 [facility] Comment on above: Performed By: #### C MP #### [facility] [address] [address] [address] Breanna Humphrey Urea nitrogen [Mass/Vol] 20.0 mg/dL Critically high 7.0-18.0 [facility] Comment on above: Performed By: #### C MP #### [facility] [address] [address] [address] Breanna Humphrey Urea nitrogen/Creatinin e [Mass ratio] 22.7 mg/mg Normal [facility] Comment on above: Performed By: #### C MP #### [facility] [address] [address] [address] Breanna Humphrey PROTIMEon 09-05-2022 INR Coag (PPP) [Relative time] 0.95 {INR} Normal [facility] Comment on above: Performed By: #### P TT, PT ####[facility] [address] [address]Dr. Breanna Humphrey INR GUIDELINES SEE BELOW Normal [facility] [place] [facility] Comment on above: Result Comment: HERBIE RED INR: 2.0 - 3.0 CONDITIONS NOT LISTED BELOW 2.5 - 3.5 FOR PROSTHETIC HEART VALVE REPLACEMENT 2.5 - 3.5 RECURRENT THROMBOSIS Performed By: #### P TT, PT ####[facility] [address] [address]DrSusan Humphrey PT Coag (PPP) [Time] 10.1 s Normal 9.0-11.6 [facility] Comment on above: Performed By: #### P TT, PT ####[facility] [address] [address]Dr. Breanna Humphrey PTTon 09-05-2022 aPTT Coag (Bld) [Time] 32.2 s Normal 22.3-36.2 [facility] Comment on above: Performed By: #### P TT, PT ####[facility] [address] [address]Dr. Breanna Humphrey TROPONIN, HIGH SENSITIVITYon 09-05-2022 HSTROP <4.0 Normal 4.0-51.3 [facility] Comment on above: Result Comment: CUT- OFF POINTS HAVE BEEN ESTABLISHED BASED ON THE FOURTH UNIVERSAL DEFINITIONS OF MYOCARDIAL INFARCTION. THE UPPER REFERENCE LIMIT (URL) OF TROPONIN, DEFINED THE 99TH PERCENTILE OF cTnI DISTRIBUTION IN A REFERENCE POPULATION, HAS BEEN CONFIRMED THE DECISION THRESHOLD FOR GA DIAGNOSIS. Performed By: #### H STROPN, BNP #### [facility] [address] [address] [address] Breanna Humphrey POINT OF CARE GLUCOSEon 08-23 Glucose [Mass/Vol] 85 mg/dL Normal 74-106 [facility] Comment on above: Performed By: #### P OCGLUC #### [facility] [address] [place] [address] Dr. Breanna Humphrey CBC AUTO DIFFon 08-15-2022 BASO # 0.0 103/ul Normal 0.0-0.1 [facility] Comment on above: Performed By: #### C BC #### [facility] [address] [place] [address] Dr. Breanna Humphrey Basophils/100 WBC (Bld) 0.7 % Normal 0.2-2.0 [facility] Comment on above: Performed By: #### C BC #### [facility] [address] [place] [address] Dr. Breanna Humphrey EO # 0.2 103/ul Normal 0.0-0.7 [facility] Comment on above: Performed By: #### C BC #### [facility] [address] [place] [address] Dr. Breanna Humphrey Eosinophils/100 WBC (Bld) 3.1 % Normal 0.9-7.0 [facility] Comment on above: Performed By: #### C BC #### [facility] [address] [place] [address] Dr. Breanna Humphrey Erythrocyte distribution width (RBC) [Ratio] 13.3 % Normal 11.0-15.0 [facility] Comment on above: Performed By: #### C BC #### [facility] [address] [place] [address] Dr. Breanna Humphrey Hematocrit (Bld) [Volume fraction] 41.7 % Normal 36.0-48.0 [facility] Comment on above: Performed By: #### C BC #### [facility] [address] [place] [address] Dr. Breanna Humphrey Hemoglobin (Bld) [Mass/Vol] 13.6 g/dL Normal 12.0-16.0 [facility] Comment on above: Performed By: #### C BC #### [facility] [address] [place] [address] Dr. Breanna Humphrey IG # 0.02 10e3/ul Normal 0.00-0.03 [facility] Comment on above: Performed By: #### C BC #### [facility] [address] [place] [address] Dr. Breanna Humphrey IG % 0.3 % Normal 0.0-0.5 [facility] Comment on above: Performed By: #### C BC #### [facility] [address] [place] [address] Dr. Breanna Humphrey LYMPH # 1.8 103/ul Normal 1.2-3.8 [facility] Comment on above: Performed By: #### C BC #### [facility] [address] [place] [address] Dr. Breanna Humphrey Lymphocytes/100 WBC (Bld) 30.7 % Normal 20.5-60.0 [facility] Comment on above: Performed By: #### C BC #### [facility] [address] [place] [address] Dr. Breanna Humphrey MANUAL DIFF REQ NO Normal [facility] Comment on above: Performed By: #### C BC #### [facility] [address] [place] [address] Dr. Breanna Humphrey MCH (RBC) [Entitic mass] 29.1 pg Normal 26.7-34.0 [facility] Comment on above: Performed By: #### C BC #### [facility] [address] [place] [address] Dr. Breanna Humphrey MCHC (RBC) [Mass/Vol] 32.6 g/dL Normal 29.9-35.2 [facility] Comment on above: Performed By: #### C BC #### [facility] [address] [place] [address] Dr. Breanna Humphrey MCV (RBC) [Entitic vol] 89.3 fL Normal 81.0-99.0 [facility] Comment on above: Performed By: #### C BC #### [facility] [address] [place] [address] Dr. Breanna Humphrey MONO # 0.4 103/ul Normal 0.3-0.8 [facility] Comment on above: Performed By: #### C BC #### [facility] [address] [place] [address] Dr. Breanna Humphrey Monocytes/100 WBC (Bld) 7.5 % Normal 1.7-12.0 [facility] Comment on above: Performed By: #### C BC #### [facility] [address] [place] [address] Dr. Breanna Humphrey NEUT # 3.4 103/ul Normal 1.4-6.5 [facility] Comment on above: Performed By: #### C BC #### [facility] [address] [place] [address] Dr. Breanna Humphrey Neutrophils/100 WBC (Bld) 57.7 % Normal 43.0-75.0 [facility] Comment on above: Performed By: #### C BC #### [facility] [address] [place] [address] Dr. Breanna Humphrey Platelet mean volume (Bld) [Entitic vol] 10.1 fL Normal 9.5-13.5 [facility] Comment on above: Performed By: #### C BC #### [facility] [address] [place] [address] Dr. Breanna Humphrey PLT 212 103/ul Normal 150-450 [facility] Comment on above: Performed By: #### C BC #### [facility] [address] [place] [address] Dr. Breanna Humphrey RBC 4.67 106/ul Normal 4.20-5.40 [facility] Comment on above: Performed By: #### C BC #### [facility] [address] [place] [address] Dr. Breanna Humphrey WBC 5.9 103/ul Normal 4.0-11.0 [facility] Comment on above: Performed By: #### C BC #### [facility] [address] [place] [address] Dr. Breanna Humphrey PROF CHEM 8 (BAS METB)on Anion gap [Moles/Vol] 11.5 mmol/L Normal [facility] Comment on above: Performed By: #### B MP #### [facility] [address] [address] [address] Breanna Humphrey Calcium [Mass/Vol] 9.1 mg/dL Normal 8.5-10.1 [facility] Comment on above: Performed By: #### B MP #### [facility] [address] [address] [address] Breanna Humphrey Chloride [Moles/Vol] 101 mmol/L Normal 98-107 [facility] Comment on above: Performed By: #### B MP #### [facility] [address] [address] [address] Breanna Humphrey CO2 [Moles/Vol] 28.1 mmol/L Normal 21.0-32.0 [facility] Comment on above: Performed By: #### B MP #### [facility] [address] [place] [address] Dr. Breanna Humphrey Creatinine [Mass/Vol] 0.71 mg/dL Normal 0.55-1.02 [facility] Comment on above: Performed By: #### B MP #### [facility] [address] [place] [address] Dr. Breanna Humphrey EGFR-AF PRYDEINIG >60 Normal >=60 [facility] Comment on above: Performed By: #### B MP #### [facility] [address] [address] [address] Breanna Humphrey EGFR-NON AF PRYDEINIG >60 Normal >=60 [facility] Comment on above: Performed By: #### B MP #### [facility] [address] [address] [address] Breanna Humphrey Glucose [Mass/Vol] 112 mg/dL Critically high 74-106 [facility] [place] [facility] Comment on above: Performed By: #### B MP #### [facility] [address] [place] [address] Dr. Breanna Humphrey Potassium [Moles/Vol] 3.7 mmol/L Normal 3.5-5.1 [facility] Comment on above: Performed By: #### B MP #### [facility] [address] [address] [address] Breanna Humphrey Sodium [Moles/Vol] 137 mmol/L Normal 136-145 [facility] Comment on above: Performed By: #### B MP #### [facility] [address] [address] [address] Breanna Humphrey Urea nitrogen [Mass/Vol] 22.0 mg/dL Critically high 7.0-18.0 [facility] Comment on above: Performed By: #### B MP #### [facility] [address] [address] [address] Breanna Humphrey Urea nitrogen/Creatinin e [Mass ratio] 30.9 mg/mg Normal [facility] Comment on above: Performed By: #### B MP #### [facility] [address] [address] [address] Breanna Humphrey PROTIMEon 08-15-2022 INR Coag (PPP) [Relative time] {INR} Normal [facility] Comment on above: Performed By: #### P T, PTT ####[facility] [address] [address]Dr. Breanna Humphrey INR GUIDELINES SEE BELOW Normal [facility] [place] [facility] Comment on above: Result Comment: HERBIE RED INR: 2.0 - 3.0 CONDITIONS NOT LISTED BELOW 2.5 - 3.5 FOR PROSTHETIC HEART VALVE REPLACEMENT 2.5 - 3.5 RECURRENT THROMBOSIS Performed By: #### P T, PTT ####[facility] [address] [place], [place] [address]Dr. Breanna Humphrey PT Coag (PPP) [Time] 9.8 s Normal 9.0-11.6 [facility] Comment on above: Performed By: #### P T, PTT ####[facility] [address] [place], [place] [id number]. Breanna Humphrey PTTon 08-15-2022 aPTT Coag (Bld) [Time] 28.7 s Normal 22.3-36.2 [facility] Comment on above: Performed By: #### P T, PTT ####[facility] [address] [place], [place] [id number]. Breanna Humphrey ECHO Complete 2D W Doppler W Coloron 06-16-2022 [facility] Transthoracic Echocardiography Report (TTE) Patient Name PADDY Date of Study 06/16/2022 JODY Koroma Date of 1975 Gender Female Age 47 year(s) Race Room Number Height: 64 inch, 162.56 cm Corporate ID [id number] Weight: 227 pounds, 103 kg # Patient Acct [id number] BSA: 2.06 m^2 BMI: 38.96 # kg/m^2 MR # [id number] National Recruiter Kanika Daivs Interpreting Physician Sarah Rick Fellow Referring Nurse Practitioner Interpreting Referring Physician Janis Hawkins Fellow Type of Study TTE procedure:2D Echocardiogram, M-Mode, Doppler, Color Doppler. Procedure Date Date: 06/16/2022 Start: 09:12 AM Study Location: [facility] Indications:Preop cardiac evaluation. History / Tech. Comments: Pre op PMHX: CAD, HTN, DM Patient Status: Outpatient Height: 64 inches Weight: 227 pounds BSA: 2.06 m^2 BMI: 38.96 kg/m^2 BP: 143/94 mmHg CONCLUSIONS Summary Global left ventricular systolic function appears preserved with an estimated ejection fraction of >65%. The left ventricular cavity size is within normal limits and the left ventricular wall thickness is within normal limits. No definite specific wall motion abnormalities were identified. Normal aortic root diameter. No significant valvular disease was seen. No clear evidence of diastolic dysfunction was seen. Compared to the previous study of 09/02/18, no significant change was seen. Signature FINDINGS Left Atrium Left atrium is normal in size. Left Ventricle Global left ventricular systolic function appears preserved with an estimated ejection fraction of >65%. The left ventricular cavity size is within normal limits and the left ventricular wall thickness is within normal limits. No definite specific wall motion abnormalities were identified. Right Atrium Right atrium is normal in size. Right Ventricle Normal right ventricular size and function. Mitral Valve Normal mitral valve structure and function. Aortic Valve Normal aortic valve structure and function without stenosis or regurgitation. Tricuspid Valve Normal tricuspid valve structure and function. Pulmonic Valve The pulmonic valve is normal in structure. Pericardial Effusion No significant pericardial effusion is seen. Miscellaneous Normal aortic root diameter. No clear evidence of diastolic dysfunction was seen. M-mode / 2D Measurements & Calculations: LVIDd:4.56 cm(3.7 - 5.6 cm) Diastolic Volume:50.37 ml LVIDs:2.96 cm(2.2 - 4.0 cm) Systolic Volume:16.2 ml IVSd:1.01 cm(0.6 - 1.1 cm) Aortic Root:2.91 cm(2.0 - 3.7 cm) LVPWd:1.02 cm(0.6 - 1.1 cm) LA Dimension: 4.1 cm(1.9 - 4.0 cm) Fractional Shortenin.09 % LA volume/Index: 42.7 ml /21m^2 Calculated LVEF (%): 67.84 % AV Cusp Separation: 2.07 cm Mitral: Aortic Valve Area (P1/2-Time): 4.12 cm^2 Peak Velocity: 1.26 m/s Peak E-Wave: 1.00 m/s Mean Velocity: 0.94 m/s Peak A-Wave: 0.68 m/s Peak Gradient: 6.39 mmHg E/A Ratio: 1.46 Mean Gradient: 3.84 mmHg Peak Gradient: 4.02 mmHg Acceleration Time: 66.3 msec P1/2t: 53.41 msec AV VTI: 31.56 cm Diastology / Tissue Doppler Lateral Wall E' velocity:0.15 m/s Lateral Wall E/E':7.2 [facility] Sarah Rick MD - 06/16/[address] [facility] Transthoracic Echocardiography Report (TTE) Patient Name OLNEY SPRINGS Date of Study 06/16/2022 JODY Date of 1975 Gender Female Age 47 year(s) Race Room Number Height: 64 inch, 162.56 cm Corporate ID [id number] Weight: 227 pounds, 103 kg # Patient Acct [id number] BSA: 2.06 m^2 BMI: 38.96 # kg/m^2 MR # [id number] National Recruiter Kanika Davis Interpreting Physician Sarah Rick Fellow Referring Nurse Practitioner Interpreting Referring Physician Janis Hawkins Fellow Type of Study TTE procedure:2D Echocardiogram, M-Mode, Doppler, Color Doppler. Procedure Date Date: 06/16/2022 Start: 09:12 AM Study Location: [facility] Indications:Preop cardiac evaluation. History / Tech. Comments: Pre op PMHX: CAD, HTN, DM Patient Status: Outpatient Height: 64 inches Weight: 227 pounds BSA: 2.06 m^2 BMI: 38.96 kg/m^2 BP: 143/94 mmHg CONCLUSIONS Summary Global left ventricular systolic function appears preserved with an estimated ejection fraction of >65%. The left ventricular cavity size is within normal limits and the left ventricular wall thickness is within normal limits. No definite specific wall motion abnormalities were identified. Normal aortic root diameter. No significant valvular disease was seen. No clear evidence of diastolic dysfunction was seen. Compared to the previous study of 09/02/18, no significant change was seen. Signature - - - - FINDINGS Left Atrium Left atrium is normal in size. Left Ventricle Global left ventricular systolic function appears preserved with an estimated ejection fraction of >65%. The left ventricular cavity size is within normal limits and the left ventricular wall thickness is within normal limits. No definite specific wall motion abnormalities were identified. Right Atrium Right atrium is normal in size. Right Ventricle Normal right ventricular size and function. Mitral Valve Normal mitral valve structure and function. Aortic Valve Normal aortic valve structure and function without stenosis or regurgitation. Tricuspid Valve Normal tricuspid valve structure and function. Pulmonic Valve The pulmonic valve is normal in structure. Pericardial Effusion No significant pericardial effusion is seen. Miscellaneous Normal aortic root diameter. No clear evidence of diastolic dysfunction was seen. M-mode / 2D Measurements & Calculations: LVIDd:4.56 cm(3.7 - 5.6 cm) Diastolic Volume:50.37 ml LVIDs:2.96 cm(2.2 - 4.0 cm) Systolic Volume:16.2 ml IVSd:1.01 cm(0.6 - 1.1 cm) Aortic Root:2.91 cm(2.0 - 3.7 cm) LVPWd:1.02 cm(0.6 - 1.1 cm) LA Dimension: 4.1 cm(1.9 - 4.0 cm) Fractional Shortenin.09 % LA volume/Index: 42.7 ml /21m^2 Calculated LVEF (%): 67.84 % AV Cusp Separation: 2.07 cm Mitral: Aortic Valve Area (P1/2-Time): 4.12 cm^2 Peak Velocity: 1.26 m/s Peak E-Wave: 1.00 m/s Mean Velocity: 0.94 m/s Peak A-Wave: 0.68 m/s Peak Gradient: 6.39 mmHg E/A Ratio: 1.46 Mean Gradient: 3.84 mmHg Peak Gradient: 4.02 mmHg Acceleration Time: 66.3 msec P1/2t: 53.41 msec AV VTI: 31.56 cm Diastology / Tissue Doppler Lateral Wall E' velocity:0.15 m/s Lateral Wall E/E':7.2 [employer] Phone: ECHO Complete 2D W Doppler W ColorOrdered By: Sarah Rick on 06-16-2022 [employer] Phone: US RUQon 02-11-2022 US RUQ FINDINGS: The liver is without worrisome mass lesions or biliary dilatation. No neighboring ascites is present. The common bile duct is not dilated, 4 mm. in greatest dimension. The gallbladder is without echogenic foci or wall thickening. No pericholecystic fluid is present. The pancreas and right kidney are grossly normal. IMPRESSION: Normal right upper quadrant ultrasound appearance Report reported and signed by Sourav Pereyra on 02/11/2022 1436 Normal [facility] SCREENING MAMMOGRAM W/JAE, BILATERAL*on 05-31-2021 SCREENING MAMMOGRAM W/JAE, BILATERAL* COMPARISON: No prior examinations. TECHNIQUE: 2D and 3D Tomosynthesis of the right and left breasts was performed. FINDINGS: Breast composition demonstrates scattered fibroglandular densities. Typically benign calcifications. No suspicious microcalcifications, dominant mass lesions, or distortion is present. IMPRESSION: BIRADS 2 - BENIGN MAMMOGRAM Board Certified Radiologist. Accredited by the ACR and FDA. MAMMOGRAPHY IS VERY IMPORTANT TO YOUR HEALTH. THE CURRENT [place] [employer] OF RADIOLOG[employer] AND NATIONAL COMPREHENSIVE CANCER NETWORK GUIDELINES RECOMMENDS ANNUAL MAMMOGRAPHY BEGINNING AT AGE 40 THIS FACILITY USES A REMINDER SYSTEM TO ENSURE ALL PATIENTS RECEIVE REMINDER NOTIFICATIONS AT THE APPROPRIATE TIME BASED ON THE RECOMMENDATIONS OF THIS EXAM. Report reported and signed by Sourav Pereyra on 06/05/2021 1418 Normal [facility] ALT (SGPT)on 05-21-2021 ALT [Catalytic activity/Vol] 21 U/L Normal 6-33 [facility] Comment on above: Result Comment: 04/24 Female reference range changed. Performed By: #### A LT, AST #### [facility] [address] [place], [place] [id number] AST (SGOT)on 05-21-2021 AST [Catalytic activity/Vol] 19 U/L Normal 9-34 [facility] Comment on above: Performed By: #### A LT, AST #### [facility] [address] [place], [place] [id number] Free T4on 05-21-2021 Free T4 [Mass/Vol] 1.76 ng/dL Normal 0.80-1.80 [facility] Comment on above: Performed By: #### F T4, TSH #### [facility] [address] [place], [place] [id number] TSHon 05-21-2021 TSH 11.460 uIU/mL High 0.400-4.500 [facility] Comment on above: Performed By: #### F T4, TSH #### [facility] [address] [place], [place] [id number] US Palpable Mass Any Extremi tyon 05-21-2021 US Palpable Mass Any Extremity HISTORY: Left axillary lump FINDINGS: Sonographic evaluation targeted to the left axillary region. No significant axillary lymphadenopathy or suspicious mass. No increase in vascularity or evidence of abnormal fluid collection. Benign appearing, fatty replaced 1.5 cm length lymph node. This may correspond with the palpable finding. IMPRESSION: CATEGORY 2 : BENIGN FINDINGS Report reported and signed by Sourav Pereyra on 05/22/2021 0930 Normal [facility] Special Effects Artist CNOVon 03-07-2021 CNOV Office Visit ([place] ) JODY THOMASON ([id number]) 1975 F Date Time Provider Department 03/07/21 11:20 AM DERICK PAUL During your visit today, we recorded the following information about you: Temperature Pulse Respiration Blood pressure 95.3 degrees 62/minute 12/minute 113/76 Weight Height 89.8 kg 1.626 m Andrés Dunham 03/07/2021 10:55 AM Signed What is the reason for your visit today? Post op Who is your referring physician? Dr. paul Are you having poor oral intake? NO Have you had unintentional weight loss of 15 lbs/7 Kg in the last 3-6 months? NO Bowels: regular Wound: clean AND dry Temperature: No Drains: No Derick Paul MD 03/07/2021 11:57 AM Signed [facility] Note Service Date: March 07, 2021 Interval History: She is doing well, denies any significant pain. Does have some port site pain. No evidence of recurrence. Increasing activity. Physical Exam: BP 113/76 Pulse 62 Temp (Src) 95.3 (Temporal) Resp 12 Ht 5' 4 (1.63m) Wt 198 lb (89.8kg) BMI 33.97 kg/(m2). General: no acute distress Respiratory: non-labored breathing Cardiovascular: warm and well perfused throughout Abdomen: Soft, appropriately tender to exam, wounds well healing, no evidence for hernia recurrence. Assessment/Plan: Jody Thomason is a 45 year old female s/p lap ipom incisional hernia repair. - Doing great, no pain, increasing activity - Follow-up in 6 months, virtual visit Referring Provider: DERICK PAUL [[id number]] Allergies As of Date: 03/07/2021 Noted Allergy Reaction HAY FEVER (SEASONAL ALLERGIES) 07/05/2014 14 - Other: See Comments Date Reviewed: 02/21/2021 Reviewed by: Tariq Zaragoza RN - Fully Assessed Reason for Visit: Post Op [174] Primary Visit Diagnosis:Incisional hernia, without obstruction or gangrene [K43.2] Prescriptions as of 03/07/2021 - omeprazole (PRILOSEC) 40 mg capsule Take 40 mg by mouth. - apixaban (ELIQUIS) 5 mg tab(s) TAKE 1 TABLET BY MOUTH TWICE A DAY - dronedarone (MULTAQ) 400 mg tab Take 400 mg by mouth. - calcium, elemental, tab Take 1 tablet by mouth three times daily. - levothyroxine (SYNTHROID) 175 mcg tablet Take 1 tablet by mouth once daily. - lisinopril-hydrochlorothiaz kurt (PRINZIDE,ZESTORETIC) 10-12.5 mg per tablet Take 1 tablet by mouth once daily. 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 Post op Who is your referring physician? Dr. paul Are you having poor oral intake? NO Have you had unintentional weight loss of 15 lbs/7 Kg in the last 3-6 months? NO Bowels: regular Wound: clean AND dry Temperature: No Drains: No Encounter Status:Closed by DERICK PAUL on 03/07/21 Normal [facility] Basic Metabolic Panlon 02-21 Anion gap [Moles/Vol] 9 mmol/L Normal 9-18 [facility] Comment on above: Performed By: #### C BC, BMP ####[place] [address] [address] [place] [phone] Calcium [Mass/Vol] 9.1 mg/dL Normal 8.5-10.2 [facility] Comment on above: Performed By: #### C BC, BMP ####[place] [address] [address] [phone] Chloride [Moles/Vol] 103 mmol/L Normal 97-105 [facility] Comment on above: Performed By: #### C BC, BMP ####[place] [address] [address] [phone] CO2 [Moles/Vol] 27 mmol/L Normal 22-30 [facility] Comment on above: Performed By: #### C BC, BMP ####[facility] [place] [phone] Creatinine [Mass/Vol] 0.81 mg/dL Normal 0.58-0.96 [facility] Comment on above: Performed By: #### C BC, BMP ####[place] [address] [place] [phone] eGFR- Amer. >60 Normal [facility] Comment on above: Performed By: #### C BC, BMP ####[place] [address] [address] [phone] eGFR-All Other Races >60 Normal [facility] Comment on above: Result Comment: eGFR (Estimated GFR) Units of measure: mL/min/1.73 meters squared eGFR is derived from the reexpressed MDRD Study equation using the following parameters: serum creatinine, age, gender and race. The creatinine assay has been calibrated to be traceable to IDMS. An eGFR <60 mL/min/1.73m2 for >3 months is consistent with chronic kidney disease. Refer to KDOQI guidelines for clinical interpretation. In patients with unstable renal function, e.g. those with acute kidney injury, the eGFR may not accurately reflect actual GFR. Performed By: #### Nicole BOONE, BMP ####[facility], [place] [phone] Glucose [Mass/Vol] 105 mg/dL High 74-99 [facility] Comment on above: Result Comment: The [place] Diabetes Association (ADA) provides guidance for cutoff values for fasting glucose and random glucose. The ADA defines fasting as no caloric intake for at least 8 hours. Fasting plasma glucose results between 100 to 125 mg/dL indicate increased risk for diabetes (prediabetes). Fasting plasma glucose results greater than or equal to 126 mg/dL meet the criteria for diagnosis of diabetes. In the absence of unequivocal hyperglycemia, results should be confirmed by repeat testing. In a patient with classic symptoms of hyperglycemia or hyperglycemic crisis, random plasma glucose results greater than or equal to 200 mg/dL meet the criteria for diagnosis of diabetes. Reference: Standards of Medical Care in Diabetes 2016, [place] Diabetes Association. Diabetes Care. 2016.39(Suppl 1). Performed By: #### Nicole BOONE, BMP ####[facility] [address] [place], [place] [phone] Potassium [Moles/Vol] 5.2 mmol/L High 3.7-5.1 [facility] Comment on above: Performed By: #### Nicole BOONE, BMP ####[facility] [place], [place] [phone] Sodium [Moles/Vol] 139 mmol/L Normal 136-144 [facility] Comment on above: Performed By: #### Nicole BOONE, BMP ####[place] [address] [place], [place] [phone] Urea nitrogen [Mass/Vol] 22 mg/dL High 7-21 [facility] Comment on above: Performed By: #### C BC, BMP ####[place] [address] [place], [place] [phone] CBCon 02-21-2021 Absolute nRBC <0.01 Normal <0.01 [facility] Comment on above: Performed By: #### C BC, BMP ####[place] [address] [address] [place], [place] [phone] Erythrocyte distribution width (RBC) [Ratio] 13.8 % Normal 11.5-15.0 [facility] Comment on above: Performed By: #### C BC, BMP ####[place] [address] [address] [place], [place] [phone] Hematocrit (Bld) [Volume fraction] 36.6 % Normal 36.0-46.0 [facility] Comment on above: Performed By: #### C BC, BMP ####[place] [address] [address] [place], [place] [phone] Hemoglobin (Bld) [Mass/Vol] 12.2 g/dL Normal 11.5-15.5 [facility] Comment on above: Performed By: #### C BC, BMP ####[place] [address] [address] [place], [place] [phone] MCH 30.3 pG Normal 26.0-34.0 [facility] Comment on above: Performed By: #### C BC, BMP ####[place] [address] [address] [place], [place] [phone] MCHC (RBC) [Mass/Vol] 33.3 g/dL Normal 30.5-36.0 [facility] Comment on above: Performed By: #### C BC, BMP ####[place] [address] [address] [place], [place] [phone] MCV (RBC) [Entitic vol] 90.8 fL Normal 80.0-100.0 [facility] Comment on above: Performed By: #### C PAOLO, BMP ####[place] [address], [place] [phone] Platelet mean volume (Bld) [Entitic vol] 10.9 fL Normal 9.0-12.7 [facility] Comment on above: Performed By: #### Nicole BOONE, BMP ####[address], [place] [phone] Platelets (Bld) [#/Vol] 164 10*3/uL Normal 150-400 [facility] Comment on above: Performed By: #### Nicole BOONE, BMP ####[address] [phone] RBC (Bld) [#/Vol] 4.03 10*6/uL Normal 3.90-5.20 [facility] Comment on above: Performed By: #### Nicole BOONE, BMP ####[address] [phone] WBC (Bld) [#/Vol] 8.37 10*3/uL Normal 3.70-11.00 [facility] Comment on above: Performed By: #### Nicole BOONE, BMP ####[address] [phone] CNDSon 02-21-2021 CNDS HNO ID: [id number] Author: Dinora Thomson, AUTOMOBILE DAMAGE APPRAISER.PRECINCT POLICE SERGEANT Service: General Surgery Author Type: Nurse Practitioner Type: Discharge Summary Filed: 02/21/2021 10:31 AM Note Text: Attestation signed by Derick Paul MD at 02/21/2021 5:47 PM Attending Note I evaluated the patient and personally participated in the sol components. I agree with the resident's findings and plan as documented and have discussed the case and management of the patient's care with the resident. Signature: Derick Paul MD Date: 02/21/2021 Time: 5:47 PM GENERAL SURGERY DISCHARGE SUMMARY PATIENT NAME: Jody Thomason ADMISSION DATE: 02/20/2021 DISCHARGE DATE: 02/21/2021 ATTENDING PHYSICIAN: Derick Carter* Code Status: Not on file Highest Readmission Risk Score: 8 The 30 day readmissions risk score is derived from an internally validated risk model which evaluates patient level characteristics, utilization history, medication orders and lab results up until the day of discharge. Patients with a score of 40 or above are considered highest risk for readmission. Specific patient level drivers will be listed at the bottom of the summary. REASON FOR HOSPITALIZATION: (K43.9) Ventral hernia without obstruction or gangrene (primary encounter diagnosis) Plan: oxyCODONE IR (ROXICODONE) 5 mg immediate release tablet OPERATIONS DURING HOSPITALIZATION: Procedure(s) (LRB): LAPAROSCOPIC REPAIR HERNIA REDUCIBLE UMBILICAL W/MESH (N/A) PROCEDURES DURING HOSPITALIZATION: IV access Intubation for surgery Anesthesia administration HOSPITAL COURSE: Jody Henriqueztingham is a 45 year old female with HTN, paroxysmal A Fib (eliquis) s/p x2, re-exploration for oophrectomy s/p tomy-en-y gastric bypass (2018) who was admitted for a elective laparoscopic ventral hernia repair on 02/20/[address] Paul. Patient was admitted to observation unit x1 night for pain control. At the time of discharge, her pain was tolerable on a PO pain regimen. She was tolerating a diet without n/v. She was voiding spontaneously. She is safe to be discharged home. Patient was then returned to [facility] where her post-op recovery was essentially unremarkable. Upon discharge, patient was able to tolerate PO diet, urinate and ambulate independently, and pain well controlled. Active Hospital Problems Diagnosis Date Noted - Ventral hernia 02/20/2021 Resolved Hospital Problems No resolved problems to display. Transitions of Care Critical Issues: none LABS AND PROCEDURES PENDING AT DISCHARGE: No pending results. CONSULTING TEAMS DURING HOSPITALIZATION: None Treatment Team: Attending Provider: Derick Paul MD PATIENT CONDITION AT DISCHARGE: Stable DISCHARGE DISPOSITION: Home/Self Care INFORMATION PROVIDED TO PATIENT: Discharge instructions DIET: Resume pre-hospital diet ACTIVITY: Lifting is restricted to: 10 lbs x4 weeks May bathe and shower No walking restrictions No driving while on narcotics May use stairs WOUND/SURGICAL SITE CARE: Leave open to air ALLERGIES Allergen Reactions - Hay Fever [Seasonal* Other: See Comments DISCHARGE MEDICATION: Current Discharge Medication List START taking these medications docusate sodium (COLACE) 100 mg Take 100 mg by mouth twice daily. Qty: 14 capsule Refills: 0 oxyCODONE IR (ROXICODONE) 5 mg Take 5 mg by mouth every 6 hours as needed for pain. Qty: 15 tablet Refills: 0 Associated Diagnoses:Ventral hernia without obstruction or gangrene CONTINUE these medications which have NOT CHANGED omeprazole (PriLOSEC) 40 mg Take 40 mg by mouth. MULTAQ 400 mg Take 400 mg by mouth. levothyroxine (SYNTHROID) 175 mcg Take 175 mcg by mouth once daily. Qty: 30 tablet Refills: 3 lisinopril-hydroCHLOROthiaz kurt (PRINZIDE,ZESTORETIC) 1 tablet Take 1 tablet by mouth once daily. apixaban (ELIQUIS) 5 mg tab(s) TAKE 1 TABLET BY MOUTH TWICE A DAY calcium (elemental) 500 mg Take 500 mg by mouth three times daily. PLAN OF CARE: Plan of care discussed with Provider, RN, Patient FUTURE APPOINTMENTS: 2-3 week appointment requested with Dr. Paul The patient's risk for 30-day readmission is determined using the following contributing factors: Pt variables contributing to increased readmission risk: 20 Most Recent BUN Result 16 Active Medication Orders 1 Insurance - Private Coverage 1 Discharge Disposition - Home 1 Active Anticoagulant SIGNATURE: Dinora Thomson APRN.PRECINCT POLICE SERGEANT DATE: February 21, 2021 TIME: 10:30 AM [facility] ANES Hyun 02-20-2021 ANES POST HNO ID: [id number] Author: Marion Spicer MD Service: Anesthesiology Author Type: Anesthesiologist Type: Anesthesia PostOp Filed: 02/20/2021 2:08 PM Note Text: POST ANESTHESIA EVALUATION NOTE SERVICE DATE: 02/20/2021 SERVICE TIME: 14:00 : 1975 Vitals: 02/20/21 1043 02/20/21 1326 Temp: 36.6 ?C (97.9 ?F) 36.4 ?C (97.5 ?F) 02/20/21 1043 02/20/21 1326 02/20/21 1330 02/20/21 1400 BP: 120/61 162/82 149/76 134/74 02/20/21 1043 02/20/21 1326 02/20/21 1330 02/20/21 1400 Pulse: 64 60 (!) 58 (!) 58 02/20/21 1043 02/20/21 1326 02/20/21 1330 02/20/21 1400 Resp: 16 12 15 12 02/20/21 1043 02/20/21 1326 02/20/21 1330 02/20/21 1400 SpO2: 96% 100% 100% 100% Validated Vital Signs: Yes POST ANES STATUS: No apparent anesthetic complications. The patient is appropriately hydrated with stable respiratory and cardiovascular status. Patient has safe and adequate airway control. The patient has appropriate pain relief and no significant post operative nausea or vomiting. The patient has achieved baseline mental status. Intra-Operative Events: No Significant Anesthesia Events Further assessment by Anesthesia Service: None Other Remarks: SIGNATURE: Marion Spicer MD PATIENT NAME: Jody Thomason DATE: February 20, 2021 TIME: 2:07 PM PAGER/CONTACT #: [id number] [facility] BRIEF OP NOTon 02-20-2021 BRIEF OP NOT HNO ID: [id number] Author: Paulina Ayala MD Service: General Surgery Author Type: Resident Type: Brief Op Note Filed: 02/20/2021 1:10 PM Note Text: BRIEF OPERATIVE NOTE Patient Name: Jody Thomason LOG ID: [id number] Surgery/Procedure Date: 02/20/2021 Surgeon(s)/Proceduralist(s) and Pilot Manager(s): Surgeon(s) and Role: * Derick Paul MD - Primary * Paulina Ayala MD - Resident - Assisting Procedure(s): Laparoscopic ventral hernia repair with 15cm circular mesh underlay VERONIQUE Incision/Procedure Start Time: 12:04 PM Incision Close/Procedure End Time: 1:06 PM Anesthesia: General Findings: 2cm ventral hernia fascial defect Estimated Blood Loss: 10 mls Specimens: * No specimens in log * Wound Classification: Class 1, operative wound clean, non-traumatic, with no inflammation encountered, no break in technique, gastrointestinal and genitor-urinary tracts not entered Pre-Op/Pre-Procedure Diagnosis: Pre-Op Diagnosis Codes: * Preoperative examination [Z01.818] * Incisional hernia, without obstruction or gangrene [K43.2] Post-Op/Post-Procedure Diagnosis: same Post-Op Plan: - DC home SIGNATURE: Paulina Ayala MD PATIENT NAME: Jody Thomason DATE: 02/20/21 TIME: 1:09 PM PAGER # [phone] [facility] NURSING PROGon 02-20-2021 NURSING PROG HNO ID: [id number] Author: Kalani Norman RN Service: Nursing Author Type: Registered Nurse Type: Nursing Progress Note Filed: 02/20/2021 5:08 PM Note Text: Admission/Transfer Note PATIENT NAME: Jody Thomason Patient admitted from PACU via bed in stable condition. Actions taken: Patient oriented to room, call light function, prescribed activities, Patient rights and Quiet at night. This note was completed by: Kalain Norman Normal [facility] NURSING PROG HNO ID: [id number] Author: Princess Francis RN Service: Nursing Author Type: Registered Nurse Type: Nursing Progress Note Filed: 02/20/2021 10:49 AM Note Text: Patient monitors herself for hypoglycemia. Blood sugar checked and she removed monitoring device from Left arm. Normal [facility] OPERATIVE NOon 02-20-2021 OPERATIVE NO HNO ID: [id number] Author: Derick Paul MD Service: General Surgery Author Type: Physician Type: Operative Report Filed: 02/20/2021 1:21 PM Note Text: OPERATIVE/PROCEDURE REPORT LOG ID: [id number] SURGERY/PROCEDURE DATE: 02/20/2021 INCISION/PROCEDURE START TIME: 12:04 PM INCISION CLOSE/PROCEDURE END TIME: 1:06 PM SURGEON(S)/PROCEDURALIST(S) AND DOCUMENT PROCESSOR(S): Surgeon(s) and Role: * Derick Paul MD - Primary * Paulina Ayala MD - Resident - Assisting No Additional Staff SURGERY/PROCEDURE(S): 1. Laparoscopic incisional hernia repair with mesh ANESTHESIA: General SURGERY/PROCEDURE DETAILS: After consent was obtained, the patient was brought to the operating room and placed supine on the operating table. After adequate general endotracheal anesthesia, her arms were carefully tucked at her sides and adequately padded. The skin of her anterior abdominal wall was then prepped and draped. A timeout proceedings were performed to confirm identity and procedure. Initial entry was gained to the right upper quadrant. After local anesthesia, a small incision was made in the right upper quadrant, and a 5 mm optical trocar was safely inserted into the abdominal cavity. Once safe access was confirmed, CO2 insufflation was initiated. Two additional 5 mm trocars were placed along the right lateral abdominal wall. Inspection of the abdominal wall revealed seveal adhesions to the midline from the previous laparotomy. Attention was directed to the adhesions. Meticulous adhesiolysis was undertaken. Electrocautery was used sparingly. The thickened adhesions came down mostly with blunt dissection. All adhesions were omental in nature, no bowel was involved. There was a small defect at the top of the incision under the umbilicus. There was some diastasis of the rectus muscle below the umbilicus, but no hernia defects noted. The extent of the hernia was measured with spinal needles and internal metric ruler. It was a 3 cm in width and 2 cm in height. The hernia defect was closed with 0 prolene using a suture passer laparoscopically after making a stab incision directly over the hernia. A 15 cm circular piece of Parietex DS mesh was brought to the field. A 0 vicryl suture was placed through the middle of the mesh and tied down. The needle was cut off leaving a string attached to the mesh at the central portion. The mesh was rolled like a scroll and brought in through a 12 mm trocar which was placed in the left lateral abdominal wall. The mesh was unfurled. Using the stab incision, the previously placed 0 vicryl suture was used to center the mesh at the defect using a suture passer to bring the suture through the middle of the closed defect. A hemostat was then used to hold the mesh against the anterior abdominal wall. The mesh was then circumferentially tacked fixated utilizing the Abosorbatak device cicrumferentially. An inner row in a double crown fashion was placed additionally. The mesh lay taut with excellent coverage of the defect. The 0 vicryl fixating suture was cut at the skin. The 12 mm fascia was closed with a laparoscopic suture passer using a 0 vicryl figure of eight suture. Remaining trochars removed under laparoscopic guidance. Abdomen was desufflated. Skin incisions were closed with Monocryl followed by dermal glue. The patient tolerated the procedure well. They were awakened and extubated in the operating room, then taken to the recovery room in satisfactory condition. I was present and participated in all critical aspects of the case. PRE-OP/PRE-PROCEDURE DIAGNOSIS: 1. Symptomatic incisional hernia 2. Obesity POST-OP/POST-PROCEDURE DIAGNOSIS: Same as Preop ESTIMATED BLOOD LOSS: 10 mls SPECIMENS: None IMPLANTABLE DEVICES: Parietex DS DRAINS: None COMPLICATIONS: None PARTICIPATION IN SURGERY/PROCEDURE: I/primary surgeon/proceduralist performed the procedure with assistance. SIGNATURE: Derick Paul MD PATIENT NAME: Jody Henriqueztingham DATE: February 20, 2021 TIME: 1:12 PM Normal [facility] CBC and Differentialon 02-18 Abs Baso 0.05 k/uL Normal <0.11 [facility] Comment on above: Performed By: #### C LAURA CBCDIF ####[facility] [address] [place], [place] [phone] Abs Heard 0.40 k/uL Normal <0.87 [facility] Comment on above: Performed By: #### C LAURA CBCDIF ####[facility] [place], [place] [phone] Abs Neut 4.12 k/uL Normal 1.45-7.50 [facility] Comment on above: Performed By: #### C MP, CBCDIF ####[facility]CKellie [place] [phone] Absolute nRBC <0.01 Normal <0.01 [facility] Comment on above: Performed By: #### C MP, CBCDIF ####[place] [address] [place] [phone] Basophils/100 WBC (Bld) 0.7 % Normal [facility] Comment on above: Performed By: #### C MP, CBCDIF ####[place] [address] [place] [phone] DTYPE Auto Diff Normal [facility] Comment on above: Performed By: #### C MP, CBCDIF ####[place] [address] [place] [phone] Eosinophils (Bld) [#/Vol] 0.18 10*3/uL Normal <0.46 [facility] Comment on above: Performed By: #### C MP, CBCDIF ####[place] [address]level[address] [phone] Eosinophils/100 WBC (Bld) 2.7 % Normal [facility] Comment on above: Performed By: #### C MP, CBCDIF ####[place] [address] [place] [phone] Erythrocyte distribution width (RBC) [Ratio] 13.5 % Normal 11.5-15.0 [facility] Comment on above: Performed By: #### C MP, CBCDIF ####[place] [address] [place] [phone] Hematocrit (Bld) [Volume fraction] 42.7 % Normal 36.0-46.0 [facility] Comment on above: Performed By: #### C MP, CBCDIF ####[facility] [place], [place] [phone] Hemoglobin (Bld) [Mass/Vol] 13.7 g/dL Normal 11.5-15.5 [facility] Comment on above: Performed By: #### C MP, CBCDIF ####[place] [address] [place] [phone] Lymphocytes (Bld) [#/Vol] 1.99 10*3/uL Normal 1.00-4.00 [facility] Comment on above: Performed By: #### C MP, CBCDIF ####[place] [address] [place], [place] [phone] Lymphocytes/100 WBC (Bld) 29.5 % Normal [facility] Comment on above: Performed By: #### C MP, CBCDIF ####[place] [address] [place] [phone] MCH 30.7 pG Normal 26.0-34.0 [facility] Comment on above: Performed By: #### C MP, CBCDIF ####[place] [address] [place], [place] [phone] MCHC (RBC) [Mass/Vol] 32.1 g/dL Normal 30.5-36.0 [facility] Comment on above: Performed By: #### C MP, CBCDIF ####[place] [address] [place], [place] [phone] MCV (RBC) [Entitic vol] 95.7 fL Normal 80.0-100.0 [facility] Comment on above: Performed By: #### C MP, CBCDIF ####[place] [address] [place], [place] [phone] Monocytes/100 WBC (Bld) 5.9 % Normal [facility] Comment on above: Performed By: #### C MP, CBCDIF ####[place] [address] [place], [place] [phone] Neutrophils/100 WBC (Bld) 61.2 % Normal [facility] Comment on above: Performed By: #### C MP, CBCDIF ####[place] [address] [place], [place] [phone] NRBCs 0.0 /100 WBC Normal 0 [facility] Comment on above: Performed By: #### C MP, CBCDIF ####[place] [address] [place], [place] [phone] Platelet mean volume (Bld) [Entitic vol] 11.2 fL Normal 9.0-12.7 [facility] Comment on above: Performed By: #### C MP, CBCDIF ####[place] [address] [place], [place] [phone] Platelets (Bld) [#/Vol] 206 10*3/uL Normal 150-400 [facility] Comment on above: Performed By: #### C MP, CBCDIF ####[place] [address] [place], [place] [phone] RBC (Bld) [#/Vol] 4.46 10*6/uL Normal 3.90-5.20 [facility] Comment on above: Performed By: #### C MP, CBCDIF ####[place] [address] [place], [place] [phone] WBC (Bld) [#/Vol] 6.74 10*3/uL Normal 3.70-11.00 [facility] Comment on above: Performed By: #### C MP, CBCDIF ####[place] [address] [place], [place] [phone] [facility] JODY THOMASON ([id number]) 1975 F Date Time Provider Department 02/18/21 12:00 PM TAZ CHAVEZ (RN) BERNADETTE During your visit today, we recorded the following information about you: Taz Chavez 02/18/2021 1:29 PM Signed Pt was seen by Dr. Paul prior to my visit. Pt left before I could go over my education. Called pt and did education over the phone. Explained to patient to shower the night before and the morning of, not to eat or drink anything after midnight the day prior to surgery and went over infection prevention and to contact us if she develops any fevers, drainage, severe abdominal pain, or bleeding. Advised pt to call with any questions. Pt verbally agreed to plan. Taz Chavez RN Referring Provider: DERICK PAUL [[id number]] Allergies As of Date: 02/18/2021 Noted Allergy Reaction HAY FEVER (SEASONAL ALLERGIES) 07/05/2014 14 - Other: See Comments Date Reviewed: 02/18/2021 Reviewed by: Marcelle Tse PA-C - Fully Assessed Primary Visit Diagnosis:Preoperative examination [Z01.818] Prescriptions as of 02/18/2021 - omeprazole (PRILOSEC) 40 mg capsule Take 40 mg by mouth. - apixaban (ELIQUIS) 5 mg tab(s) TAKE 1 TABLET BY MOUTH TWICE A DAY - dronedarone (MULTAQ) 400 mg tab Take 400 mg by mouth. - calcium, elemental, tab Take 1 tablet by mouth three times daily. - levothyroxine (SYNTHROID) 175 mcg tablet Take 1 tablet by mouth once daily. - lisinopril-hydrochlorothiaz kurt (PRINZIDE,ZESTORETIC) 10-12.5 mg per tablet Take 1 tablet by mouth once daily. Problem List As Of Date 02/18/2021 Noted Resolved Nontoxic uninodular goiter [E04.1] 08/07/2014 Incisional hernia, without obstruction or gangr*02/18/2021 Encounter Status:Closed by TAZ CHAVEZ on 02/18/21 Normal [facility] CNOVon 02-18-2021 CNOV Office Visit (GENHERNESTO ) JODY THOMASON ([id number]) 1975 F Date Time Provider Department 02/18/21 11:20 AM DERICK PAUL During your visit today, we recorded the following information about you: Temperature Pulse Blood pressure Weight 97.4 degrees 75/minute 118/61 81.6 kg Height 1.626 m Lynda Hicks Ma 02/18/2021 10:57 AM Signed What is the reason for your visit today? Pre op Who is your referring physician? Dr. paul Are you having poor oral intake? NO Have you had unintentional weight loss of 15 lbs/7 Kg in the last 3-6 months? YES Bowels: regular Wound: clean AND dry Temperature: No Drains: No Derick Paul MD 02/18/2021 11:50 AM Signed General Surgery HANDP Note CHIEF COMPLAINT: Abdominal pain HPI: This is a 45 year old female who presents with abdominal pain and concerns for a incisional hernia. Patient's surgical history includes section and two lower midline laparotomies for hysterectomy followed by re-exploration for oophorectomy for benign tumors. These were done in ~2014 and 2018 per patient. Additionally she has had a total thyroidectomy and a minimally invasive tomy-en-y gastric bypass in 2018. She previously had diabetes which resolved following gastric bypass, she has paroxymal afib currenly not adherent to her prescribed Eliquis. She states that over the past few years she has had a growing hernia just below her umbilicus. This sometimes bulges out and she can easily reduce it without pain. She does complain of chronic issues of diffuse abdominal pain made worse by eating and when not having a bowel movement for several days. This is described as severe cramping across her abdomen, occasionally associated with nausea. Her abdominal pain is not exacerbated by activity. Had previously seen a GI specialist and has been evaluated with upper and lower endoscopies, no diagnosis made for these complaints. No prior bowel obstructions. Of note - she does endorse a history of profound inflammatory reactions to suture material. These occurred following her gynecological surgeries and an orthopedic repair of a torn tendon her hand. She describes what sounds like significant foreign body reaction requiring removal of sutures. Due her history of abdominal pain which she is concerned may be related to her incisional hernia she now presents for evaluation. PAST SURGICAL HISTORY Procedure Laterality Date - CHG DELIVERY - D AND C DIAGNOSTIC NONOB - EXCISION AXILLARY LYMPH NODE PAST MEDICAL HISTORY Diagnosis Date - Hypertension FHx: No family history on file. SocHx: Social History Tobacco Use - Smoking status: Never Smoker - Smokeless tobacco: Never Used Substance Use Topics - Alcohol use: Yes - Drug use: Not on file Prior to Admission Medications: omeprazole (PRILOSEC) 40 mg capsule Take 40 mg by mouth. apixaban (ELIQUIS) 5 mg tab(s) TAKE 1 TABLET BY MOUTH TWICE A DAY dronedarone (MULTAQ) 400 mg tab Take 400 mg by mouth. calcium, elemental, tab Take 1 tablet by mouth three times daily. levothyroxine (SYNTHROID) 175 mcg tablet Take 1 tablet by mouth once daily. lisinopril-hydrochlorothiaz kurt (PRINZIDE,ZESTORETIC) 10-12.5 mg per tablet Take 1 tablet by mouth once daily. ALLERGIES: ALLERGIES Allergen Reactions - Hay Fever [Seasonal* Other: See Comments COMPLETE REVIEW OF SYSTEMS: GENERAL: No weight loss, malaise or fevers HEENT: Negative for frequent or significant headaches, No changes in hearing or vision, no nose bleeds or other nasal problems RESPIRATORY: Negative for cough, hemoptysis, wheezing, COPD, dyspnea or shortness of breath CARDIOVASCULAR: Negative for chest pain, leg swelling, hypertension, CHF or palpitations . +paroxysmal Afib, not on AC GI: See HPI : No history of dysuria, frequency or incontinence MUSCULOSKELETAL: Negative for joint pain or swelling, back pain or muscle pain HEMATOLOGY/LYMPHOLOGY Negative for prolonged bleeding, bruising easily or swollen nodes ENDOCRINE: Negative for cold or heat intolerance, polyuria, polydipsia and goiter NEURO: No history of headaches, syncope, paralysis, seizures or tremors PHYSICAL EXAM: BP 118/61 Pulse 75 Temp (Src) 97.4 (Temporal) Ht 5' 4 (1.63m) Wt 180 lb (81.6kg) BMI 30.88 kg/(m2). Constitutional: The patient is well-developed, well-nourished, and in no distress. Head: Normocephalic and atraumatic. Eyes: Pupils are equal, round, and reactive to light. EOM are normal. Neck: Normal range of motion. Neck supple. Cardiovascular: Regular rhythm and normal heart sounds. Pulmonary/Chest: clear to auscultation bilaterall Abdominal: Soft. Lower midline incisions well healed, small incisional hernia infraumbilical at cranial aspect of incision, soft and nontender, reducible Musculoskeletal: Normal range of motion. (more content not included)... Normal [facility] Comp Metabolic Panelon 02-18 Albumin [Mass/Vol] 4.3 g/dL Normal 3.9-4.9 [facility] Comment on above: Performed By: #### C LAURA CBCDIF ####[place] [address] [place], [place] [phone] ALP [Catalytic activity/Vol] 84 U/L Normal 34-123 [facility] Comment on above: Performed By: #### C LAURA CBCDIF ####[facility] [place], [place] [phone] ALT [Catalytic activity/Vol] 17 U/L Normal 7-38 [facility] Comment on above: Performed By: #### C LAURA CBCDIF ####[place] [address] [place], [place] [phone] Anion gap [Moles/Vol] 11 mmol/L Normal 9-18 [facility] Comment on above: Performed By: #### C LAURA CBCDIF ####[place] [address] [place] [phone] AST [Catalytic activity/Vol] 20 U/L Normal 13-35 [facility] Comment on above: Performed By: #### C MP, CBCDIF ####[facility] [place] [phone] Bilirubin [Mass/Vol] 0.3 mg/dL Normal 0.2-1.3 [facility] Comment on above: Performed By: #### C MP, CBCDIF ####[facility] [place] [phone] Calcium [Mass/Vol] 9.3 mg/dL Normal 8.5-10.2 [facility] Comment on above: Performed By: #### C MP, CBCDIF ####[place] [address] [place] [phone] Chloride [Moles/Vol] 102 mmol/L Normal 97-105 [facility] Comment on above: Performed By: #### C MP, CBCDIF ####[place] [address] [phone] CO2 [Moles/Vol] 25 mmol/L Normal 22-30 [facility] Comment on above: Performed By: #### C MP, CBCDIF ####[place] [address] [place] [phone] Creatinine [Mass/Vol] 0.93 mg/dL Normal 0.58-0.96 [facility] Comment on above: Performed By: #### C MP, CBCDIF ####[place] [address] [place] [phone] eGFR- Amer. >60 Normal [facility] Comment on above: Performed By: #### C MP, CBCDIF ####[place] [address] [place] [phone] eGFR-All Other Races >60 Normal [facility] Comment on above: Result Comment: eGFR (Estimated GFR) Units of measure: mL/min/1.73 meters squared eGFR is derived from the reexpressed MDRD Study equation using the following parameters: serum creatinine, age, gender and race. The creatinine assay has been calibrated to be traceable to IDMS. An eGFR <60 mL/min/1.73m2 for >3 months is consistent with chronic kidney disease. Refer to KDOQI guidelines for clinical interpretation. In patients with unstable renal function, e.g. those with acute kidney injury, the eGFR may not accurately reflect actual GFR. Performed By: #### C LAURA, CBCDIF ####[facility] [place], [place] [phone] Glucose [Mass/Vol] 84 mg/dL Normal 74-99 [facility] Comment on above: Result Comment: The [place] [employer] Association (ADA) provides guidance for cutoff values for fasting glucose and random glucose. The ADA defines fasting as no caloric intake for at least 8 hours. Fasting plasma glucose results between 100 to 125 mg/dL indicate increased risk for diabetes (prediabetes). Fasting plasma glucose results greater than or equal to 126 mg/dL meet the criteria for diagnosis of diabetes. In the absence of unequivocal hyperglycemia, results should be confirmed by repeat testing. In a patient with classic symptoms of hyperglycemia or hyperglycemic crisis, random plasma glucose results greater than or equal to 200 mg/dL meet the criteria for diagnosis of diabetes. Reference: Standards of Medical Care in Diabetes 2016, [place] [employer]. Diabetes Care. 2016.39(Suppl 1). Performed By: #### C LAURA, CBCDIF ####[facility] [address] [place], [place] [phone] Potassium [Moles/Vol] 4.8 mmol/L Normal 3.7-5.1 [facility] Comment on above: Performed By: #### C LAURA, CBCDIF ####[facility] [place], [place] [phone] Protein [Mass/Vol] 6.9 g/dL Normal 6.3-8.0 [facility] Comment on above: Performed By: #### C LAURA, CBCDIF ####[facility] [address] [place], [place] [phone] Sodium [Moles/Vol] 138 mmol/L Normal 136-144 [facility] Comment on above: Performed By: #### C MP, CBCDIF ####[place] [address] [place], [place] [phone] Urea nitrogen [Mass/Vol] 20 mg/dL Normal 7-21 [facility] Comment on above: Performed By: #### C MP, CBCDIF ####[address] [phone] Confirm Blood Typeon 021 ABO/RH(D) Negative Normal [facility] Comment on above: Performed By: #### C ONABO ####[place] [address] [place], [place] [phone] HISTORY PHYSICALon HISTORY PHYSICAL HNO ID: [id number] Author: Marcelle Tse PA-C Service: ? Author Type: Physician Pilot Manager Type: HANDP Filed: 02/19/2021 7:59 AM Note Text: HISTORY AND PHYSICAL EXAMINATION SERVICE DATE: 02/18/2021 SERVICE TIME: 1:24 PM PRIMARY CARE PHYSICIAN: No primary care provider on file. REASON FOR VISIT: Jody Thomason is a 45 year old female who is scheduled for COMPLEX REPAIR WOUND OF ABDOMEN 2.6 CM TO 7.5 CM at the request of Dr. Derick Paul for consultation. My final recommendation will be communicated back to the requesting physician by way of shared medical record or letter. The patient has the following: ACTIVE PROBLEM LIST Nontoxic Uninodular Goiter Incisional Hernia, Without Obstruction Or Gangrene James (Obstructive Sleep Apnea) Primary Hypertension Paf (Paroxysmal Atrial Fibrillation) (Hcc) Acquired Hypothyroidism History of Thyroid Cancer Subjective CHIEF COMPLAINT: Hernia HPI: Jody Thomason is a 45 year old female with JAMES, HTN, PAF, and acquired hypothyroidisim who presents to [facility] today for preop exam. Patient is scheduled for the above procedure on 02/20/21. Patient has had a , hysterectomy and oophorectomy. She has developed an incisional hernia below her umbilicus. She complains of intermittent diffuse abdominal pain, constipation, and nausea. Denies fevers, chills, chest pain, and SOB. PAST MEDICAL HISTORY Diagnosis Date - Hypertension - PAF (paroxysmal atrial fibrillation) (HCC) 02/18/2021 PAST SURGICAL HISTORY Procedure Laterality Date - CHG DELIVERY x 3 - D AND C DIAGNOSTIC NONOB - EXCISION AXILLARY LYMPH NODE - GASTRIC BYPASS, TOMY-EN-Y - HAND SURGERY HX tendon repair - KNEE SURGERY HX - PAST SURGICAL HISTORY OF partial hysterectomy - PAST SURGICAL HISTORY OF partial oophorectomy - THYROIDECTOMY History reviewed. No pertinent family history. SOCIAL HISTORY: Social History Tobacco Use - Smoking status: Never Smoker - Smokeless tobacco: Never Used Substance Use Topics - Alcohol use: Yes Alcohol/week: 2.3 standard drinks Types: 1 Glasses of Wine (5oz), 1 Mixed Drinks per week Comment: every now and then - Drug use: Never Prior to Admission medications as of 02/18/21 1325 Medication Sig Last Dose Taking omeprazole (PRILOSEC) 40 mg capsule Take 40 mg by mouth. Taking Yes apixaban (ELIQUIS) 5 mg tab(s) TAKE 1 TABLET BY MOUTH TWICE A DAY Taking Yes dronedarone (MULTAQ) 400 mg tab Take 400 mg by mouth. Taking Yes levothyroxine (SYNTHROID) 175 mcg tablet Take 1 tablet by mouth once daily. Taking Yes lisinopril-hydrochlorothiaz kurt (PRINZIDE,ZESTORETIC) 10-12.5 mg per tablet Take 1 tablet by mouth once daily. Taking Yes calcium, elemental, tab Take 1 tablet by mouth three times daily. Patient not taking: Reported on 02/18/2021 Not Taking No medication comments found. ALLERGIES Allergen Reactions - Hay Fever [Seasonal* Other: See Comments COVID VACCINATION STATUS: Fully vaccinated REVIEW OF SYSTEMS: PAIN ASSESSMENT: Pain Pain Level: 3 Pain Location: Abdomen-Mid Lower Description: Sharp;Radiating Duration Amount of Time: 2 Duration Units: Years Frequency: Intermittent Intervention/Comfort measure: Reposition;Positioning General: No weight loss, malaise or fevers. Neuro: No history of TIA's, stroke, TOPPIECE CHOPPER tumor, impaired sensorium, hemiplegia, paraplegia or quadraplegia. No neurological symptoms or problems. Respiratory: Negative for Asthma, COPD, Current cough, Pneumonia within 6 weeks (date) +JAMES - uses CPAP Cardiovascular: Negative for Recent GA, Angina, CAD, Chest Pain, CHF, PVD, Valvular Heart Disease, DVT/PE +HTN on rx, +PAF, on Eliquis, followed by Dr. 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 : Denies, No LMP recorded. Patient has had a hysterectomy. Endocrine: No history of diabetes. Has not taken steroids within the past 30 days. +acquired hypothyroidism on rx Hematology: No history of bleeding or clotting disorder. Pt is not taking anti-coagulation or platelet medications. No history of hematological symptoms or problems. Oncology: +h/o thyroid cancer s/p thyroidectomy ~5 years ago Psych: No history of psychiatric symptoms or problems. Musculoskeletal: Negative for joint pain or swelling, back pain or muscle pain. Skin: Negative for lesions, rash and itching. Objective PHYSICAL EXAM: VITALS: BP 106/77 Pulse 78 Temp (Src) 98.2 (Temporal) Ht 5' 4 (1.63m) Wt 196 lb (88.9kg) SpO2 97% BMI 33.63 kg/(m2). General: Alert and oriented, No acute distress, Obese Skin: Normal color, no rash, no lesions. HEENT: EOM, pupils equal, round and reactive. C (more content not included)... Normal [facility] PreOp/PreProc COVIDon 2020 SARS-CoV-2 (COVID-19) RNA KALEY+probe Ql (Unsp spec) UPPER RESPIRATORY TRACT SWAB Normal [facility] Comment on above: Performed By: #### P OCOVD ####[facility], [place] [phone] SARS-CoV-2 (COVID-19) RNA KALEY+probe Ql (Unsp spec) Negative for COVID19 (SARS CoV2) by RT-PCR or equivalent method. Normal Negative for COVID19 (SARS CoV2) by RT-PCR or equivalent method. [facility] Comment on above: Result Comment: This test was developed and its performance characteristics determined by [facility] [place]. This test has been authorized by FDA under an Emergency Use Authorization (EUA). This test has been validated in accordance with the FDA's Guidance Document Policy for Diagnostics Testing in Laboratories Certified to Perform High Complexity Testing under CLIA prior to Emergency use Authorization for Coronavirus Disease 2019 during the Public Health Emergency issued on July 23, 2019. Test performed by [facility], [facility] [place], [address], [place] [address]. Performed By: #### P OCOVD ####[address] [phone] Type and SCR (30D)on 021 ABO/RH(D) Negative Normal [facility] Comment on above: Performed By: #### T SCR30 ####[address] [phone] Urinalysison 02-18-2021 Bilirubin, Urine Negative Normal Negative [facility] Comment on above: Performed By: #### U A ####[address] [phone] Clarity (U) Clear Normal Clear [facility] Comment on above: Performed By: #### U A ####[address] [phone] Color (U) Light Yellow Critically abnormal Yellow [facility] Comment on above: Performed By: #### U A ####[address] [phone] Comments SEE COMMENT Normal [facility] Comment on above: Result Comment: Micr oscopic not warranted Performed By: #### U A ####[address] [phone] Glucose Ql (U) Negative Normal Negative [facility] Comment on above: Performed By: #### U A ####[place] [address] [phone] Hemoglobin/Blood,U r Negative Normal Negative [facility] Comment on above: Performed By: #### U A ####[place] [address] [phone] Ketones Ql (U) Negative Normal Negative [facility] Comment on above: Performed By: #### U A ####[place] [address] [phone] Leukest Negative Normal Negative [facility] Comment on above: Performed By: #### U A ####[place] [address] [place] [phone] Nitrite Ql (U) Negative Normal Negative [facility] Comment on above: Performed By: #### U A ####[place] [address] [place] [phone] pH (U) 7.0 [pH] Normal 5.0-8.0 [facility] Comment on above: Performed By: #### U A ####[place] [address] [place] [phone] Protein, Urine Negative Normal Negative [facility] Comment on above: Performed By: #### U A ####[place] [address] [place] [phone] Specific Streetman, Ur 1.021 Normal 1.005-1.030 [facility] Comment on above: Performed By: #### U A ####[place] [address] [place], [place] [phone] Urine Madan Comment SEE COMMENT Normal [facility] Comment on above: Result Comment: N/A Performed By: #### U A ####[place] [address] [place], [place] [phone] Urobilinogen (U) [Mass/Vol] Negative Normal Negative [facility] Comment on above: Performed By: #### U A ####[facility] [address] [place], [place] [phone] Malika 01-25-2021 CNPN Telephone (GENSMN) JODY THOMASON ([id number]) 1975 F Date Time Provider Department 01/25/21 TAZ CHAVEZ (ARTEM) [place] During your visit today, we recorded the following information about you: Taz Chavez 01/25/2021 8:31 AM Signed Patient ID by Name and date: Pt offered 02/20/2021 and agrees with surgery date, patient request pre-ops 02/18/2021. Patient informed and aware of coronavirus risk - patient will still like to have surgery 02/20/2021. Patient aware Covid testing must be done 2-3 day prior to surgery and agrees with plan. I informed patient that I will inform surgery schedulers of request and they will mail out pre-op apt information, can also view via [employer], patient verbalized an understanding and agrees with plan. I encouraged patient to call with any questions or concerns in the interim. I also reviewed medications and instructed to stop NSAIDS, ASA, Multivitamins, Vitamin E and herbal supplements 7 to 10 days before surgery- please notify your surgeon's team that you have not stopped the above medications. Notify your surgeon if you have not stopped - Plavix or Coumadin prior to surgery. Also, notify doctor if you are advised not to stop aspirin by another physician. Patient verbalized an understanding and agrees with the plan I encouraged patient to call with any questions or concerns in the interim. Taz Chavez RN Allergies As of Date: 01/25/2021 Noted Allergy Reaction HAY FEVER (SEASONAL ALLERGIES) 07/05/2014 14 - Other: See Comments Date Reviewed: 01/17/2021 Reviewed by: Mally Schneider Ma - Fully Assessed Reason for Visit: Custodial Aide - Other [3602] Prescriptions as of 01/25/2021 - omeprazole (PRILOSEC) 40 mg capsule Take 40 mg by mouth. - apixaban (ELIQUIS) 5 mg tab(s) TAKE 1 TABLET BY MOUTH TWICE A DAY - dronedarone (MULTAQ) 400 mg tab Take 400 mg by mouth. - calcium, elemental, tab Take 1 tablet by mouth three times daily. - levothyroxine (SYNTHROID) 175 mcg tablet Take 1 tablet by mouth once daily. - lisinopril-hydrochlorothiaz kurt (PRINZIDE,ZESTORETIC) 10-12.5 mg per tablet Take 1 tablet by mouth once daily. Problem List As Of Date 01/25/2021 Noted Resolved Nontoxic uninodular goiter [E04.1] 08/07/2014 Encounter Status:Closed by TAZ CHAVEZ on 01/25/21 [facility] 01-25-2021 [facility] Patient:Alysia Thomason MRN: Height:5' 4 (1.626 m) Weight:196 lb (88.905 kg) Outpatient Medications as of 02/20/21: omeprazole (PRILOSEC) 40 mg capsule apixaban (ELIQUIS) 5 mg tab(s) dronedarone (MULTAQ) 400 mg tab calcium, elemental, tab levothyroxine (SYNTHROID) 175 mcg tablet lisinopril-hydrochlorothiaz kurt (PRINZIDE,ZESTORETIC) 10-12.5 mg per tablet Admission/Clinic Administered Medications as of 02/20/21: lidocaine (PF) 10 mg/mL (1 %) 1-2 mg injection (XYLOCAINE) lactated ringers iv infusion ceFAZolin iv piggyback 2 g in D5W (iso-osmotic) 100 mL (ANCEF) Problem List: Nontoxic uninodular goiter [E04.1] Incisional hernia, without obstruction or gangrene [K43.2] JAMES (obstructive sleep apnea) [G47.33] Primary hypertension [I10] PAF (paroxysmal atrial fibrillation) (HCC) [I48.0] Acquired hypothyroidism [E03.9] History of thyroid cancer [Z85.850] Ventral hernia [K43.9] Allergies: Hay Fever [Seasonal Allergies] Date Verified: 02/20/21 Lab Values Lab Value Units Date High Low POTA* 4.8 mmol/L 02/18/2021 5.1 3.7 BOY* 42.7 % 02/18/2021 46.0 36.0 Progress Notes ([facility] MAIN): Taz Chavez 02/18/2021 1:29 PM Signed Pt was seen by Dr. Paul prior to my visit. Pt left before I could go over my education. Called pt and did education over the phone. Explained to patient to shower the night before and the morning of, not to eat or drink anything after midnight the day prior to surgery and went over infection prevention and to contact us if she develops any fevers, drainage, severe abdominal pain, or bleeding. Advised pt to call with any questions. Pt verbally agreed to plan. Taz Chavez RN Progress Notes ([facility] MAIN): Lynda Hicks Ma 02/18/2021 10:57 AM Signed What is the reason for your visit today? Pre op Who is your referring physician? Dr. paul Are you having poor oral intake? NO Have you had unintentional weight loss of 15 lbs/7 Kg in the last 3-6 months? YES Bowels: regular Wound: clean AND dry Temperature: No Drains: No Derick Loy Paul MD 02/18/2021 11:50 AM Signed General Surgery HANDP Note CHIEF COMPLAINT: Abdominal pain HPI: This is a 45 year old female who presents with abdominal pain and concerns for a incisional hernia. Patient's surgical history includes section and two lower midline laparotomies for hysterectomy followed by re-exploration for oophorectomy for benign tumors. These were done in ~2015 and 2018 per patient. Additionally she has had a total thyroidectomy and a minimally invasive tomy-en-y gastric bypass in 2018. She previously had diabetes which resolved following gastric bypass, she has paroxymal afib currenly not adherent to her prescribed Eliquis. She states that over the past few years she has had a growing hernia just below her umbilicus. This sometimes bulges out and she can easily reduce it without pain. She does complain of chronic issues of diffuse abdominal pain made worse by eating and when not having a bowel movement for several days. This is described as severe cramping across her abdomen, occasionally associated with nausea. Her abdominal pain is not exacerbated by activity. Had previously seen a GI specialist and has been evaluated with upper and lower endoscopies, no diagnosis made for these complaints. No prior bowel obstructions. Of note - she does endorse a history of profound inflammatory reactions to suture material. These occurred following her gynecological surgeries and an orthopedic repair of a torn tendon her hand. She describes what sounds like significant foreign body reaction requiring removal of sutures. Due her history of abdominal pain which she is concerned may be related to her incisional hernia she now presents for evaluation. PAST SURGICAL HISTORY Procedure Laterality Date - CHG DELIVERY - D AND C DIAGNOSTIC NONOB - EXCISION AXILLARY LYMPH NODE PAST MEDICAL HISTORY Diagnosis Date - Hypertension FHx: No family history on file. SocHx: Social History Tobacco Use - Smoking status: Never Smoker - Smokeless tobacco: Never Used Substance Use Topics - Alcohol use: Yes - Drug use: Not on file Prior to Admission Medications: omeprazole (PRILOSEC) 40 mg capsule Take 40 mg by mouth. apixaban (ELIQUIS) 5 mg tab(s) TAKE 1 TABLET BY MOUTH TWICE A DAY dronedarone (MULTAQ) 400 mg tab Take 400 mg by mouth. calcium, elemental, tab Take 1 tablet by mouth three times daily. levothyroxine (SYNTHROID) 175 mcg tablet Take 1 tablet by mouth once daily. lisinopril-hydrochlorothiaz kurt (PRINZIDE,ZESTORETIC) 10-12.5 mg per tablet Take 1 tablet by mouth once daily. ALLERGIES: ALLERGIES Allergen Reactions - Hay Fever [Seasonal* Other: See Comments COMPLETE REVIEW OF SYSTEMS: GENERAL: No weight loss, malaise or fevers HEENT: Negative for frequent or significant headaches, No changes in hearing or vision, no nose bleeds or other nasal problems (more content not included)... Normal [facility] CNOVon 01-17-2021 CNOV Office Visit (GENN ) PADDYJODY ([id number]) 1975 F Date Time Provider Department 01/17/21 10:00 AM DERICK PAUL During your visit today, we recorded the following information about you: Temperature Pulse Blood pressure Weight 98.3 degrees 73/minute 109/66 87.2 kg Height 1.626 m Mally Schneider Ma 01/17/2021 9:50 AM Signed What is the reason for your visit today? consult Who is your referring physician? Brook Jasmine Mary Beth Are you having poor oral intake? NO Have you had unintentional weight loss of 15 lbs/7 Kg in the last 3-6 months? NO Bowels: constipated or regular Wound: clean AND dry Temperature: No Drains: No Olvin Cedillo MD 01/17/2021 11:57 AM Signed General Surgery New Patient Clinic Note CHIEF COMPLAINT: Abdominal pain HPI: This is a 45 year old female who presents with abdominal pain and concerns for a incisional hernia. Patient's surgical history includes section and two lower midline laparotomies for hysterectomy followed by re-exploration for oophorectomy for benign tumors. These were done in ~2014 and 2018 per patient. Additionally she has had a total thyroidectomy and a minimally invasive tomy-en-y gastric bypass in 2018. She previously had diabetes which resolved following gastric bypass, she has paroxymal afib currenly not adherent to her prescribed Eliquis. She states that over the past few years she has had a growing hernia just below her umbilicus. This sometimes bulges out and she can easily reduce it without pain. She does complain of chronic issues of diffuse abdominal pain made worse by eating and when not having a bowel movement for several days. This is described as severe cramping across her abdomen, occasionally associated with nausea. Her abdominal pain is not exacerbated by activity. Had previously seen a GI specialist and has been evaluated with upper and lower endoscopies, no diagnosis made for these complaints. No prior bowel obstructions. Of note - she does endorse a history of profound inflammatory reactions to suture material. These occurred following her gynecological surgeries and an orthopedic repair of a torn tendon her hand. She describes what sounds like significant foreign body reaction requiring removal of sutures. Due her history of abdominal pain which she is concerned may be related to her incisional hernia she now presents for evaluation. PAST SURGICAL HISTORY Procedure Laterality Date - CHG DELIVERY - D AND C DIAGNOSTIC NONOB - EXCISION AXILLARY LYMPH NODE PAST MEDICAL HISTORY Diagnosis Date - Hypertension FHx: No family history on file. SocHx: Social History Tobacco Use - Smoking status: Never Smoker - Smokeless tobacco: Never Used Substance Use Topics - Alcohol use: Yes - Drug use: Not on file Prior to Admission Medications: omeprazole (PRILOSEC) 40 mg capsule Take 40 mg by mouth. apixaban (ELIQUIS) 5 mg tab(s) TAKE 1 TABLET BY MOUTH TWICE A DAY dronedarone (MULTAQ) 400 mg tab Take 400 mg by mouth. levothyroxine (SYNTHROID) 175 mcg tablet Take 1 tablet by mouth once daily. lisinopril-hydrochlorothiaz kurt (PRINZIDE,ZESTORETIC) 10-12.5 mg per tablet Take 1 tablet by mouth once daily. calcium, elemental, tab Take 1 tablet by mouth three times daily. ALLERGIES: ALLERGIES Allergen Reactions - Hay Fever [Seasonal* Other: See Comments COMPLETE REVIEW OF SYSTEMS: GENERAL: No weight loss, malaise or fevers HEENT: Negative for frequent or significant headaches, No changes in hearing or vision, no nose bleeds or other nasal problems RESPIRATORY: Negative for cough, hemoptysis, wheezing, COPD, dyspnea or shortness of breath CARDIOVASCULAR: Negative for chest pain, leg swelling, hypertension, CHF or palpitations . +paroxysmal Afib, not on AC GI: See HPI : No history of dysuria, frequency or incontinence MUSCULOSKELETAL: Negative for joint pain or swelling, back pain or muscle pain HEMATOLOGY/LYMPHOLOGY Negative for prolonged bleeding, bruising easily or swollen nodes ENDOCRINE: Negative for cold or heat intolerance, polyuria, polydipsia and goiter NEURO: No history of headaches, syncope, paralysis, seizures or tremors PHYSICAL EXAM: BP 109/66 Pulse 73 Temp (Src) 98.3 (Tympanic) Ht 5' 4 (1.63m) Wt 192 lb 4.8 oz (87.2kg) BMI 32.99 kg/(m2). Constitutional: The patient is well-developed, well-nourished, and in no distress. Head: Normocephalic and atraumatic. Eyes: Pupils are equal, round, and reactive to light. EOM are normal. Neck: Normal range of motion. Neck supple. Cardiovascular: Regular rhythm and normal heart sounds. Pulmonary/Chest: Effort normal and breath sounds normal. Abdominal: Soft. Lower midline incisions well healed, small incisional hernia infraumbilical at cranial aspect of incision, soft and nontender, reducible (more content not included)... Normal [facility] 01-08-2021 [facility] Telephone (SwogoClaudia) JODY THOMASON ([id number]) 1975 F Date Time Provider Department 01/08/21 IRINEO REYES During your visit today, we recorded the following information about you: Irineo Boyd LPN 01/08/2021 11:32 AM Signed Left a voicemail message to get info on surgeries and imaging for the appointment on 01/17/2021. Allergies As of Date: 01/08/2021 Noted Allergy Reaction HAY FEVER (SEASONAL ALLERGIES) 07/05/2014 14 - Other: See Comments Date Reviewed: 08/07/2014 Reviewed by: Xochilt Smalls Ma - Fully Assessed Reason for Visit: Appointment Confirmation [[id number]] Prescriptions as of 01/08/2021 - calcium, elemental, tab Take 1 tablet by mouth three times daily. - levothyroxine (SYNTHROID) 175 mcg tablet Take 1 tablet by mouth once daily. - lisinopril-hydrochlorothiaz kurt (PRINZIDE,ZESTORETIC) 10-12.5 mg per tablet Take 1 tablet by mouth once daily. 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 Allergies As of Date: 01/03/2021 Noted Allergy Reaction HAY FEVER (SEASONAL ALLERGIES) 07/05/2014 14 - Other: See Comments Date Reviewed: 08/07/2014 Reviewed by: Xochilt Smalls Ma - Fully Assessed Reason for Visit: Appointment Confirmation [[id number]] Prescriptions as of 01/03/2021 - lisinopril-hydrochlorothiaz kurt (PRINZIDE,ZESTORETIC) 10-12.5 mg per tablet Take 1 tablet by mouth once daily. - calcium, elemental, tab Take 1 tablet by mouth three times daily. - levothyroxine (SYNTHROID) 175 mcg tablet Take 1 tablet by mouth once daily. 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 Name: Jody Thomason Room #: 0C Discharge Date: Birthdate: 1975 OPERATIVE REPORT DATE OF SURGERY: 06/27/2020 SURGEON: Nithin Lobo M.D. PREOPERATIVE DIAGNOSIS: Foreign body reaction, right long finger. POSTOPERATIVE DIAGNOSIS: Foreign body reaction, right long finger. PROCEDURE: Debridement of extensor tendon and removal of retained suture, right long finger. DOCUMENT PROCESSOR: Justin Fajardo M.D. ANESTHESIA: MAC. INDICATION FOR SURGERY: The patient is a 45-year-old female, who presented to our [facility] with persistent swelling and a lump in the extensor tendon of her right long finger. She sustained a laceration to the tendon and underwent repair. In the past, she has had trouble with reaction to sutures. This has been a persisting problem despite nonoperative means of treatment. I felt she was a candidate for an exploration and presumed removal of retained suture material. She was brought to the operating room today for that purpose. The risks and benefits were explained prior to surgery and with good understanding, it is agreed to proceed. NARRATION: The patient was brought to the operating room and placed on the operating table in the supine position. A tourniquet was placed around the proximal right arm. She was given preoperative antibiotics and the right upper extremity was prepped and draped out in a sterile fashion. To begin the procedure, after a standard time-out, she was sedated per the Anesthesia Service and the operative site was anesthetized with 1% lidocaine. The arm was exsanguinated with an Esmarch bandage and the tourniquet was inflated to 250 mmHg. Using a #15 blade, a curvilinear incision was made over the dorsum of the MP joint using the old surgical scar. The skin flaps were sharply elevated. As we got down to the tendon, you could see a swollen area and thickened area of the tendon. I made a small little longitudinal incision in that area and there was some yellow material that was extruded. An intraoperative culture was obtained. This looks more like synovitis when it does a purulent type reaction. There was a suture knot in that area and I removed that. With a small rongeur and a tenotomy scissor, we debrided all of the irritated tissue out. Once we had cleaned up, the wound was irrigated with normal saline solution. There was another area a little further distal that had a little bit of swelling too. I made another longitudinal incision in the tendon. We found the same type of material, but not as much. There was a suture that we found here and I was able to pull that out. It ended up being a very long section of the suture, was probably 3 inches in length and it looked like a thin white braided polyester type suture. We found a couple of more small pieces of suture, but at this point, I think we had everything that was put in as the knot and the long tail was removed. The wound was irrigated one last time. I did not want to put any more suture in and she has reacted to a Vicryl in the past. I flexed the finger a few times. The tendon was actually stable. The little longitudinal splits do not gap apart when I flex and the tendon goes over the metacarpal head. Seeing that, I elected to leave it without any repair. The skin was closed with interrupted 5-0 Novafil suture. A sterile dressing of Xeroform gauze, 4x4 fluffs, Natanael, and an Camron bandage was applied. The tourniquet was released. All sponge and needle counts were correct at time of closure. She was brought to the recovery area in stable condition, having tolerated the procedure well. Electronically Signed by: Nithin Lobo M.D. 07/02/2020 09:48 A Nithin Lobo M.D. Date Dict: 06/28/2020/07:27 A/Nithin Lobo M.D. Date Trans: 06/28/2020 10:13 Theresa/alma [id number] cc: Pedro El MD Internal Medicine [address] [address] Mayelin Hernandez [address] [place] [address] Normal [facility] *ANAEROBIC CULTUREon 021 *ANAEROBIC CULTURE Clinical Report: (D) Specimen/Source: SWAB/INTRAOP SPEC Collected: 06/27/2020 11:23 Status: Final Last Updated: 07/02/2020 08:02 (1) 1. Right Long Finger Swab CULT RES (Final) No Anaerobes Isolated Day 5 Normal [facility] Comment on above: Order Comment: 1. [facility] Long Finger Swab Performed By: #### [id number] #### [facility] [address] [facility]. [address] *WOUND CULTUREon 06-27-2020 *WOUND CULTURE Clinical Report: (D) Specimen/Source: WOUND/INTRAOP SPEC Collected: 06/27/2020 11:23 Status: Final Last Updated: 07/02/2020 08:19 (1) 1. Right Long Finger Swab GRAM (Final) Rare Polys No Bacteria Seen CULT RES (Final) No Growth Day 5 Normal [facility] Comment on above: Order Comment: 1. Ri ght Long Finger Swab Performed By: #### [id number] #### [facility] [address] POC GLUCOSE LABon 06-27-2020 Glucose [Mass/Vol] 90 mg/dL Normal 70-100 [facility] Comment on above: Performed By: #### [id number] #### [facility] [address] [facility] [address] CBC Auto Differentialon 04-24 Basophils (Bld) [#/Vol] 0.05 10*3/uL [place] Basophils/100 WBC (Bld) 1 % 0 - 2 % [place] Differential Type NOT REPORTED [place] Eosinophils (Bld) [#/Vol] 0.23 10*3/uL [place] Eosinophils/100 WBC (Bld) 3 % 1 - 4 % [place] Erythrocyte distribution width (RBC) [Ratio] 12.3 % 11.8 - 14.4 % [place] Hematocrit (Bld) [Volume fraction] 40.9 % 36.3 - 47.1 % [place] Hemoglobin (Bld) [Mass/Vol] 13.1 g/dL 11.9 - 15.1 g/dL [place] Immature granulocytes (Bld) [#/Vol] 10*3/uL [place] Immature granulocytes (Bld) [#/Vol] 0 % 0 [place] Lymphocytes (Bld) [#/Vol] 2.19 10*3/uL [place] Lymphocytes/100 WBC (Bld) 27 % 24 - 43 % [place] MCH (RBC) [Entitic mass] 30.0 pg 25.2 - 33.5 pg [place] MCHC (RBC) [Mass/Vol] 32.0 g/dL 28.4 - 34.8 g/dL [place] MCV (RBC) [Entitic vol] 93.8 fL 82.6 - 102.9 fL [place] Monocytes (Bld) [#/Vol] 0.55 10*3/uL [place] Monocytes/100 WBC (Bld) 7 % 3 - 12 % [place] Platelet mean volume (Bld) [Entitic vol] 10.5 fL 8.1 - 13.5 fL [place] Platelets (Bld) [#/Vol] 191 10*3/uL [place] Platelets (Bld) [#/Vol] NOT REPORTED [place] RBC (Bld) [#/Vol] 4.36 10*6/uL 3.95 - 5.1 1 m/uL [place] RBC morphology finding Nom (Bld) NOT REPORTED [place] Segmented neutrophils/100 WBC (Bld) 62 % 36 - 65 % [place] Segs Absolute 5.04 [place] WBC (Bld) [#/Vol] 8.1 10*3/uL [place] WBC (Bld) [#/Vol] 0.0 10*3/uL 0.0 per 10 0 WBC [place] WBC Morphology NOT REPORTED [place] ABDOMEN PELVIS WO CONTRAS T Additional Contrast? Noneon 05-11-2020 Mo, Mhpn Incoming R adiant Results From [facility] [facility] - 05/11/2020 10:52 PM EST EXAMINATION: CT OF THE ABDOMEN AND PELVIS WITHOUT CONTRAST 05/11/2020 10:06 pm TECHNIQUE: CT of the abdomen and pelvis was performed without the administration of intravenous contrast. Multiplanar reformatted images are provided for review. Dose modulation, iterative reconstruction, and/or weight based adjustment of the mA/kV was utilized to reduce the radiation dose to as low as reasonably achievable. COMPARISON: 02/04/2019. HISTORY: ORDERING SYSTEM PROVIDED HISTORY: right groin pain TECHNOLOGIST PROVIDED HISTORY: right groin pain Is the patient ?->No FINDINGS: Lower Chest: No acute abnormality. Liver: Normal. Gallbladder and Bile Ducts: Normal. Spleen: Normal. Adrenal Glands: Normal. Pancreas: Normal. Genitourinary: No hydronephrosis. 2 punctate nonobstructing stones in the right kidney. Both ureters are normal in course and caliber. No ureteral or bladder stone. The urinary bladder is unremarkable. Prior hysterectomy. Bowel: Postsurgical changes of gastric bypass. No bowel obstruction. No significant diverticular disease. Normal appendix. Vasculature: Atherosclerosis. No abdominal aortic aneurysm. Bones and Soft Tissues: No acute osseous abnormality. Small fat containing periumbilical hernia. Retroperitoneum/Mesentery: No intraperitoneal free air, ascites or fluid collection. No lymphadenopathy in the abdomen or pelvis. IMPRESSION: No acute abnormality in the abdomen or pelvis. No obstructive uropathy. 2 punctate nonobstructing stones in the right kidney. Postsurgical changes of gastric bypass. No bowel obstruction. Normal appendix. [place] EXAMINATION: CT OF [facility] ABDOMEN AND PELVIS WITHOUT CONTRAST 05/11/2020 10:06 pm TECHNIQUE: CT of the abdomen and pelvis was performed without the administration of intravenous contrast. Multiplanar reformatted images are provided for review. Dose modulation, iterative reconstruction, and/or weight based adjustment of the mA/kV was utilized to reduce the radiation dose to as low as reasonably achievable. COMPARISON: 02/04/2019. HISTORY: ORDERING SYSTEM PROVIDED HISTORY: right groin pain TECHNOLOGIST PROVIDED HISTORY: right groin pain Is the patient ?->No FINDINGS: Lower Chest: No acute abnormality. Liver: Normal. Gallbladder and Bile Ducts: Normal. Spleen: Normal. Adrenal Glands: Normal. Pancreas: Normal. Genitourinary: No hydronephrosis. 2 punctate nonobstructing stones in the right kidney. Both ureters are normal in course and caliber. No ureteral or bladder stone. The urinary bladder is unremarkable. Prior hysterectomy. Bowel: Postsurgical changes of gastric bypass. No bowel obstruction. No significant diverticular disease. Normal appendix. Vasculature: Atherosclerosis. No abdominal aortic aneurysm. Bones and Soft Tissues: No acute osseous abnormality. Small fat containing periumbilical hernia. Retroperitoneum/Mesentery: No intraperitoneal free air, ascites or fluid collection. No lymphadenopathy in the abdomen or pelvis. [place] No acute abnormality in the abdomen or pelvis. No obstructive uropathy. 2 punctate nonobstructing stones in the right kidney. Postsurgical changes of gastric bypass. No bowel obstruction. Normal appendix. [place] Comprehensive Metabolic Pane l w/ Reflex to MGon 05-11-2020 Albumin [Mass/Vol] 4.7 g/dL 3.5 - 5.2 g/dL [place] Albumin/Globulin [Mass ratio] 1.7 {ratio} [place] ALP [Catalytic activity/Vol] 79 U/L 35 - 104 U/L [place] ALT [Catalytic activity/Vol] 18 U/L 5 - 33 U/L [place] Anion gap [Moles/Vol] 7 mmol/L Low 9 - 17 mmol/L [place] AST [Catalytic activity/Vol] 16 U/L <32 [place] Bilirubin Ql (U) 0.32 mg/dL 0.3 - 1.2 mg/dL [place] Bun/Cre Ratio 31 High [place] Calcium [Mass/Vol] 9.6 mg/dL 8.6 - 10. 4 mg/dL [place] Chloride [Moles/Vol] 98 mmol/L 98 - 107 mmol/L [place] CO2 [Moles/Vol] 27 mmol/L 20 - 31 mmol/L [place] Creatinine [Mass/Vol] 0.59 mg/dL 0.5 - 0.9 mg/dL [place] GFR >60 >60 mL/min [place] GFR Non- >60 >60 mL/min [place] Glucose [Mass/Vol] 102 mg/dL High 70 - 99 mg/dL [place] Interpretation and review of laboratory results Abnormal [place] Potassium [Moles/Vol] 3.6 mmol/L Low 3.7 - 5.3 mmol/L [place] Protein [Mass/Vol] 7.5 g/dL 6.4 - 8.3 g/dL [place] Sodium [Moles/Vol] 132 mmol/L Low 135 - 144 mmol/L [place] Urea nitrogen [Mass/Vol] 18 mg/dL 6 - 20 mg/dL [place] Metabolic Panelon 05-11-2020 GFR/1.73 sq M predicted among non-blacks MDRD (S/P/Bld) [Vol rate/Area] [place] Comment on above: Stage 1: Some kidney damage normal GFR Stage 2: Mild kidney damage GFR 60-89 Stage 3: Moderate kidney damage GFR 30-59 Stage 4: Severe kidney damage GFR 15-29 Stage 5: Severe kidney damage GFR <15 ESRD - chronic treatment by dialysis or transplant Average GFR for 40-4 9 years old: 99 mL/min/1.73sq m Chronic Kidney Disease: <60 mL/min/1.73sq m Kidney failure: <15 mL/min/1.73sq m eGFR calculated using average adult body mass. Additional eGFR calculator available at: http://www.[employer]/multiple_crcl_2012.htm Microscopic Urinalysison Amorphous, UA NOT REPORTED None [place] Bacteria, UA NOT REPORTED None [place] Casts UA NOT REPORTED /LPF [place] Crystals, UA NOT REPORTED None /HPF [place] Epithelial Cells UA 0 TO 2 [place] Mucus, UA NOT REPORTED None [place] Other Observations UA NOT REPORTED NOT REQ. [place] RBC (U) [#/Vol] None [place] Renal Epithelial, UA NOT REPORTED 0 /HPF [place] Trichomonas, UA NOT REPORTED None [place] WBC, UA 0 TO 2 [place] Yeast, UA NOT REPORTED None [place] Urinalysis Reflex to Culture on 05-11-2020 Bilirubin Urine Negative NEGATIVE [place] Color, UA YELLOW YELLOW [place] Glucose, Ur Negative NEGATIVE [place] Interpretation and review of laboratory results Abnormal [facility] Ketones Ql (U) Negative NEGATIVE [facility] Leukocyte esterase Test strip Ql (U) SMALL Abnormal NEGATIVE [facility] Nitrite, Urine Negative NEGATIVE [facility] pH, UA 5.5 [facility] Protein (U) [Mass/Vol] Negative NEGATIVE [facility] Specific [place], UA 1.010 [facility] Turbidity UA CLEAR CLEAR [facility] Urinalysis Comments NOT REPORTED [facility] Urine Hgb Negative NEGATIVE [facility] Urobilinogen, Urine Normal Normal [facility] ECHOCARDIOGRAM EXERCISE STRE SS TESTon 12-30-2019 [facility] Stress Echocardiography Report Patient Name OLNEY SPRINGS Date of Study 12/30/2019 JODY Koroma Date of 1975 Gender Female Age 44 year(s) Race Room Number Height: 64 inch, 162.56 cm Corporate ID [id number] Weight: 177 pounds, 80.3 kg # Patient Acct [id number] BSA: 1.86 m^2 BMI: 30.38 # kg/m^2 MR # [id number] National Recruiter Kanika Davis Interpreting Physician Janis Hawkins Fellow Referring Nurse Practitioner Interpreting Referring Physician Janis Hawkins Fellow Type of Study Stress procedure Procedure Date Date: 12/30/2019 Start: 12:40 PM Study Location: [facility] Indications:Preop cardiac evaluation. History / Tech. Comments: Pre op clearance PMHX: A fib, htn, cp Patient Status: Outpatient Height: 64 inches Weight: 177 pounds BSA: 1.86 m^2 BMI: 30.38 kg/m^2 HR: 59 bpm BP: 110/72 mmHg CONCLUSIONS Summary Patient exercised on Tk protocol for 8 minutes and 58 seconds, achieving 94% of maximum predicted heart rate. Test terminated due to Shortness of breath. No ischemic EKG changes noted at peak exercise or due recovery. Resting images showed normal ejection fraction and wall motion abnormalities. Post-Exercise imaging showed proper augmentation of left ventricular systolic function with near obliteration of the left ventricular cavity and without evidence of stress induced wall motion abnormalities. Conclusion: Negative test for stress induced wall motion abnormalities. [place] treadmill stress score is 8 consistent with low risk for significant CAD. Signature Rest ECG normal sinus rhythm. Standing HR:67 bpmStanding BP:108/70 mmHg Stress Stress Type: Exercise Peak HR: 166 bpm HR Response: Normal Peak BP: 168/88 mmHg BP Response: Normal Predicted HR: 176 bpm HR BP Product: 38984 % of predicted HR: 94 Max Exercise: 10.1 METS Test Duration: 8:53 min Stress Interpretation Normal stress wall motion in the entire left ventricle. Results ECG sinus tachycardia without significant ST segment abnormalities. Arrhythmias no rhythm abnormality. Symptoms Shortness of breath. [facility] [place] Mo, Mhpn Incoming C ardio Results From Cp[facility]/Ge - 12/30/2019 3:54 PM EDT [facility] Stress Echocardiography Report Patient Name PADDY Date of Study 12/30/2019 JODY S Date of 1975 Gender Female Age 44 year(s) Race Room Number Height: 64 inch, 162.56 cm Corporate ID [id number] Weight: 177 pounds, 80.3 kg # Patient Acct [id number] BSA: 1.86 m^2 BMI: 30.38 # kg/m^2 MR # [id number] National Recruiter Kanika Davis Interpreting Physician Janis Hawkins Fellow Referring Nurse Practitioner Interpreting Referring Physician Janis Hawkins Type of Study Stress procedure Procedure Date Date: 12/30/2019 Start: 12:40 PM Study Location: [facility] Indications:Preop cardiac evaluation. History / Tech. Comments: Pre op clearance PMHX: A fib, htn, cp Patient Status: Outpatient Height: 64 inches Weight: 177 pounds BSA: 1.86 m^2 BMI: 30.38 kg/m^2 HR: 59 bpm BP: 110/72 mmHg CONCLUSIONS Summary Patient exercised on Tk protocol for 8 minutes and 58 seconds, achieving 94% of maximum predicted heart rate. Test terminated due to Shortness of breath. No ischemic EKG changes noted at peak exercise or due recovery. Resting images showed normal ejection fraction and wall motion abnormalities. Post-Exercise imaging showed proper augmentation of left ventricular systolic function with near obliteration of the left ventricular cavity and without evidence of stress induced wall motion abnormalities. Conclusion: Negative test for stress induced wall motion abnormalities. [place] treadmill stress score is 8 consistent with low risk for significant CAD. Signature - - - - Rest ECG normal sinus rhythm. Standing HR:67 bpmStanding BP:108/70 mmHg Stress Stress Type: Exercise Peak HR: 166 bpm HR Response: Normal Peak BP: 168/88 mmHg BP Response: Normal Predicted HR: 176 bpm HR BP Product: 77280 % of predicted HR: 94 Max Exercise: 10.1 METS Test Duration: 8:53 min Stress Interpretation Normal stress wall motion in the entire left ventricle. Results ECG sinus tachycardia without significant ST segment abnormalities. Arrhythmias no rhythm abnormality. Symptoms Shortness of breath. [facility], [place] Basic Metabolic Panelon 08-0 Anion gap [Moles/Vol] 10 mmol/L 9 - 17 mmol/L [place] Bun/Cre Ratio 26 High [place] Calcium [Mass/Vol] 9.2 mg/dL 8.6 - 10. 4 mg/dL [place] Chloride [Moles/Vol] 100 mmol/L 98 - 107 mmol/L [facility], [place] CO2 [Moles/Vol] 26 mmol/L 20 - 31 mmol/L [facility], [place] Creatinine [Mass/Vol] 0.66 mg/dL 0.5 - 0.9 mg/dL [place] GFR >60 >60 mL/min [facility], [place] GFR Non- >60 >60 mL/min [place] Glucose [Mass/Vol] 105 mg/dL High 70 - 99 mg/dL [place] Interpretation and review of laboratory results Abnormal [place] Potassium [Moles/Vol] 4.0 mmol/L 3.7 - 5.3 mmol/L [place] Sodium [Moles/Vol] 136 mmol/L 135 - 144 mmol/L [place] Urea nitrogen [Mass/Vol] 17 mg/dL 6 - 20 mg/dL [place] EKG 12 Leadon 12-27-2019 Atrial Rate 71 BPM [place] P [place] 50 degrees [place] P-R Interval 150 ms [place] Q-T Interval 366 ms [place] QRS Duration 90 ms [place] QTc Calculation (Bazett) 397 ms [place] R [place] 27 degrees [facility], [place] T Baltic 30 degrees [place] Ventricular Rate 71 BPM [place] Poor data qualit y, interpretation may be adversely affected Normal sinus rhythm Low voltage QRS Borderline ECG When compared with ECG of 08-AUG-2019 08:16, No significant change was found Confirmed by SARAH RICK ([id number]) on 12/27/2019 11:44:25 PM [place] Mo, Mhpn Incoming E kg Results From Ge [facility] - 12/27/2019 11:44 PM EDT Poor data quality, interpretation may be adversely affected Normal sinus rhythm Low voltage QRS Borderline ECG When compared with ECG of 08-AUG-2019 08:16, No significant change was found Confirmed by SARAH RICK ([id number]) on 12/27/2019 11:44:25 PM [place] Hemoglobin A1Con 12-27-2019 Glucose [Mass/Vol] 103 mg/dL [place] Comment on above: The ADA and AACC rec ommend providing the estimated average glucose result to permit better patient understanding of their HBA1c result. HbA1c (Bld) [Mass fraction] 5.2 % 4.8 - 5.9 % [place] Metabolic Panelon 12-27-2019 GFR/1.73 sq M predicted among non-blacks MDRD (S/P/Bld) [Vol rate/Area] [place] Comment on above: Stage 1: Some kidney damage normal GFR Stage 2: Mild kidney damage GFR 60-89 Stage 3: Moderate kidney damage GFR 30-59 Stage 4: Severe kidney damage GFR 15-29 Stage 5: Severe kidney damage GFR <15 ESRD - chronic treatment by dialysis or transplant Average GFR for 40-4 9 years old: 99 mL/min/1.73sq m Chronic Kidney Disease: <60 mL/min/1.73sq m Kidney failure: <15 mL/min/1.73sq m eGFR calculated using average adult body mass. Additional eGFR calculator available at: http://www.[employer]/multiple_crcl_2012.htm Basic Metabolic Panelon 07-23 Anion gap [Moles/Vol] 10 mmol/L 9 - 17 mmol/L [place] Bun/Cre Ratio 23 High [place] Calcium [Mass/Vol] 9.5 mg/dL 8.6 - 10. 4 mg/dL [place] Chloride [Moles/Vol] 100 mmol/L 98 - 107 mmol/L [place] CO2 [Moles/Vol] 28 mmol/L 20 - 31 mmol/L [place] Creatinine [Mass/Vol] 0.8 mg/dL 0.5 - 0.9 mg/dL [place] GFR >60 >60 mL/min [place] GFR Non- >60 >60 mL/min [place] Glucose [Mass/Vol] 102 mg/dL High 70 - 99 mg/dL [place] Interpretation and review of laboratory results Abnormal [place] Potassium [Moles/Vol] 4.3 mmol/L 3.7 - 5.3 mmol/L [place] Sodium [Moles/Vol] 138 mmol/L 135 - 144 mmol/L [place] Urea nitrogen [Mass/Vol] 18 mg/dL 6 - 20 mg/dL [place] CBC Auto Differentialon 07-23 Basophils (Bld) [#/Vol] 0.04 10*3/uL [place] Basophils/100 WBC (Bld) 1 % 0 - 2 % [place] Differential Type NOT REPORTED [place] Eosinophils (Bld) [#/Vol] 0.17 10*3/uL [place] Eosinophils/100 WBC (Bld) 3 % 1 - 4 % [place] Erythrocyte distribution width (RBC) [Ratio] 13.0 % 11.8 - 14.4 % [place] Hematocrit (Bld) [Volume fraction] 42.0 % 36.3 - 47.1 % [place] Hemoglobin (Bld) [Mass/Vol] 13.3 g/dL 11.9 - 15.1 g/dL [place] Immature granulocytes (Bld) [#/Vol] 0 % 0 [place] Immature granulocytes (Bld) [#/Vol] 10*3/uL [place] Interpretation and review of laboratory results Abnormal [place] Lymphocytes (Bld) [#/Vol] 2.35 10*3/uL [place] Lymphocytes/100 WBC (Bld) 46 % High 24 - 43 % [place] MCH (RBC) [Entitic mass] 30.7 pg 25.2 - 33.5 pg [place] MCHC (RBC) [Mass/Vol] 31.7 g/dL 28.4 - 34.8 g/dL [place] MCV (RBC) [Entitic vol] 97.0 fL 82.6 - 102.9 fL [place] Monocytes (Bld) [#/Vol] 0.37 10*3/uL [place] Monocytes/100 WBC (Bld) 7 % 3 - 12 % [place] Platelet mean volume (Bld) [Entitic vol] 10.4 fL 8.1 - 13.5 fL [place] Platelets (Bld) [#/Vol] NOT REPORTED [place] Platelets (Bld) [#/Vol] 167 10*3/uL [place] RBC (Bld) [#/Vol] 4.33 10*6/uL 3.95 - 5.1 1 m/uL [place] RBC morphology finding Nom (Bld) NOT REPORTED [place] Segmented neutrophils/100 WBC (Bld) 43 % 36 - 65 % [place] Segs Absolute 2.22 [place] WBC (Bld) [#/Vol] 5.2 10*3/uL [place] WBC (Bld) [#/Vol] 0.0 10*3/uL 0.0 per 10 0 WBC [place] WBC Morphology NOT REPORTED [place] EKG 12 Leadon 08-08-2019 Atrial Rate 62 BPM [place] P Baltic 49 degrees [place] P-R Interval 130 ms [place] Q-T Interval 388 ms [place] QRS Duration 88 ms [place] QTc Calculation (Bazett) 393 ms [place] R Baltic 29 degrees [place] T Baltic 28 degrees [place] Ventricular Rate 62 BPM [place] Normal sinus rhythm Low voltage QRS Borderline ECG When compared with ECG of 30-MAY-2019 13:24, No significant change was found Confirmed by ARJUN KELLER ([id number]) on 08/08/2019 8:34:11 AM [place] Mo, Mhpn Incoming E kg Results From Ge [facility] - 08/08/2019 8:34 AM EDT Normal sinus rhythm Low voltage QRS Borderline ECG When compared with ECG of 30-MAY-2019 13:24, No significant change was found Confirmed by ARJUN KELLER ([id number]) on 08/08/2019 8:34:11 AM [place] Hemoglobin A1Con 08-08-2019 Glucose [Mass/Vol] 103 mg/dL [place] Comment on above: The ADA and AACC rec ommend providing the estimated average glucose result to permit better patient understanding of their HBA1c result. HbA1c (Bld) [Mass fraction] 5.2 % 4.8 - 5.9 % [place] Metabolic Panelon 08-08-2019 GFR/1.73 sq M predicted among non-blacks MDRD (S/P/Bld) [Vol rate/Area] [facility] [employer] [place] Comment on above: Stage 1: Some kidney damage normal GFR Stage 2: Mild kidney damage GFR 60-89 Stage 3: Moderate kidney damage GFR 30-59 Stage 4: Severe kidney damage GFR 15-29 Stage 5: Severe kidney damage GFR <15 ESRD - chronic treatment by dialysis or transplant Average GFR for 40-4 9 years old: 99 mL/min/1.73sq m Chronic Kidney Disease: <60 mL/min/1.73sq m Kidney failure: <15 mL/min/1.73sq m eGFR calculated using average adult body mass. Additional eGFR calculator available at: http://www.[employer]/multiple_crcl_2012.htm XR HAND RIGHT (MIN 3 VIEWS)o n 08-07-2019 Soft tissue swelling without radiopaque foreign body. [facility] [place] EXAMINATION: THREE X RAY VIEWS OF THE RIGHT HAND 08/07/2019 4:00 pm COMPARISON: None. HISTORY: ORDERING SYSTEM PROVIDED HISTORY: injury TECHNOLOGIST PROVIDED HISTORY: injury FINDINGS: No fracture. No osseous malalignment. Mild swelling of the 3rd ray.. No radiopaque foreign body. [facility] [place] Mo, Mhpn Incoming R adiant Results From [facility]/[employer] Robert - 08/07/2019 4:17 PM EDT EXAMINATION: THREE XRAY VIEWS OF THE RIGHT HAND 08/07/2019 4:00 pm COMPARISON: None. HISTORY: ORDERING SYSTEM PROVIDED HISTORY: injury TECHNOLOGIST PROVIDED HISTORY: injury FINDINGS: No fracture. No osseous malalignment. Mild swelling of the 3rd ray.. No radiopaque foreign body. IMPRESSION: Soft tissue swelling without radiopaque foreign body. [facility] [employer] [place] CBCOrdered By: Jaci Duarte on on 05-30-2019 Erythrocyte distribution width (RBC) [Ratio] 13.2 % 11.8 - 14.4 % [employer] Work Phone: Hematocrit (Bld) [Volume fraction] 43.4 % 36.3 - 47.1 % [employer] Phone: Hemoglobin (Bld) [Mass/Vol] 14.0 g/dL 11.9 - 15.1 g/dL [employer] Phone: MCH (RBC) [Entitic mass] 30.2 pg 25.2 - 33.5 pg [employer] Phone: MCHC (RBC) [Mass/Vol] 32.3 g/dL 28.4 - 34.8 g/dL [employer] Phone: MCV (RBC) [Entitic vol] 93.5 fL 82.6 - 102.9 fL [employer] Phone: NRBC Automated 0.0 0.0 per 100 WBC [employer] Phone: Platelet mean volume (Bld) [Entitic vol] 10.8 fL 8.1 - 13.5 fL [employer] Phone: Platelets (Bld) [#/Vol] 161 10*3/uL [employer] Phone: RBC (Bld) [#/Vol] 4.64 10*6/uL 3.95 - 5.1 1 m/uL [employer] Phone: WBC (Bld) [#/Vol] 5.1 10*3/uL [employer] Phone: Comprehensive Metabolic Pane lOrdered By: Jaci Burns on 05-30-2019 Albumin [Mass/Vol] 4.3 g/dL 3.5 - 5.2 g/dL [employer] Phone: Albumin/Globulin [Mass ratio] 1.5 {ratio} [employer] Phone: ALP [Catalytic activity/Vol] 80 U/L 35 - 104 U/L [employer] Phone: ALT [Catalytic activity/Vol] 26 U/L 5 - 33 U/L [employer] Phone: Anion gap [Moles/Vol] 15 mmol/L 9 - 17 mmol/L [employer] Phone: AST [Catalytic activity/Vol] 21 U/L <32 [employer] Phone: Bilirubin [Mass/Vol] 0.28 mg/dL Low 0.3 - 1.2 mg/dL [employer] Phone: Bun/Cre Ratio 21 High M[employer] Work Phone: Calcium [Mass/Vol] 9.1 mg/dL 8.6 - 10. 4 mg/dL [facility] Phone: Chloride [Moles/Vol] 95 mmol/L Low 98 - 107 mmol/L [facility] Phone: CO2 [Moles/Vol] 25 mmol/L 20 - 31 mmol/L [facility] Phone: Creatinine [Mass/Vol] 0.71 mg/dL 0.5 - 0.9 mg/dL [facility] Phone: GFR >60 >60 mL/min [facility] Phone: GFR Comment [facility] Phone: Comment on above: Average GFR for 40-4 9 years old: 99 mL/min/1.73sq m Chronic Kidney Disease: <60 mL/min/1.73sq m Kidney failure: <15 mL/min/1.73sq m eGFR calculated using average adult body mass. Additional eGFR calculator available at: http://www.[employer].Hitsbook/multiple_crcl_2012.htm GFR Non- >60 >60 mL/min [facility] Phone: GFR Staging [facility] Phone: Comment on above: Stage 1: Some kidney damage normal GFR Stage 2: Mild kidney damage GFR 60-89 Stage 3: Moderate kidney damage GFR 30-59 Stage 4: Severe kidney damage GFR 15-29 Stage 5: Severe kidney damage GFR <15 ESRD - chronic treatment by dialysis or transplant Glucose [Mass/Vol] 130 mg/dL High 70 - 99 mg/dL [facility] Phone: Interpretation and review of laboratory results Abnormal [facility] Phone: Potassium [Moles/Vol] 3.8 mmol/L 3.7 - 5.3 mmol/L [facility] Phone: Protein [Mass/Vol] 7.2 g/dL 6.4 - 8.3 g/dL [facility] Phone: Sodium [Moles/Vol] 135 mmol/L 135 - 144 mmol/L [facility] Phone: Urea nitrogen [Mass/Vol] 15 mg/dL 6 - 20 mg/dL [facility] Phone: Glucose, Whole BloodOrdered By: Denisse Gilbert on 05-30-2019 Glucose [Mass/Vol] 155 mg/dL High 74 - 100 mg/dL [facility] Phone: Interpretation and review of laboratory results Abnormal [facility] Phone: Glucose [Mass/Vol] 73 mg/dL Low 74 - 100 mg/dL [facility] Phone: Interpretation and review of laboratory results Abnormal [facility] Phone: POCT glucoseOrdered By: Kristian Burns on 05-30-2019 Glucose [Mass/Vol] 155 mg/dL [facility] Phone: Interpretation and review of laboratory results Normal [facility] Phone: QC OK? yes [facility] Phone: POCT glucoseOrdered By: Frederick Culver on 05-30-2019 Glucose [Mass/Vol] 73 mg/dL [facility] Phone: Interpretation and review of laboratory results Normal [facility] Phone: TSH without ReflexOrdered By : Jaci Burns on 05-30-2019 TSH Qn 2.01 m[IU]/L [facility] Phone: Basic Metabolic Panel w/ Ref perez to MGon 04-20-2019 Anion gap [Moles/Vol] 15 mmol/L 9 - 17 mmol/L [place] Bun/Cre Ratio 24 [place] Calcium [Mass/Vol] 9.5 mg/dL 8.6 - 10. 4 mg/dL [place] Chloride [Moles/Vol] 101 mmol/L 98 - 107 mmol/L [place] CO2 [Moles/Vol] 20 mmol/L 20 - 31 mmol/L [place] Creatinine [Mass/Vol] 0.86 mg/dL 0.5 - 0.9 mg/dL [place] GFR >60 >60 mL/min [place] GFR Non- >60 >60 mL/min [place] Glucose [Mass/Vol] 94 mg/dL 70 - 99 mg/dL [place] Interpretation and review of laboratory results Abnormal [place] Potassium [Moles/Vol] 3.8 mmol/L 3.7 - 5.3 mmol/L [place] Sodium [Moles/Vol] 136 mmol/L 135 - 144 mmol/L [place] Urea nitrogen [Mass/Vol] 21 mg/dL High 6 - 20 mg/dL [place] CBC Auto Differentialon 03-26 Basophils (Bld) [#/Vol] 0.04 10*3/uL [place] Basophils/100 WBC (Bld) 1 % 0 - 2 % [place] Differential Type NOT REPORTED [place] Eosinophils (Bld) [#/Vol] 0.08 10*3/uL [place] Eosinophils/100 WBC (Bld) 1 % 1 - 4 % [place] Erythrocyte distribution width (RBC) [Ratio] 12.9 % 11.8 - 14.4 % [place] Hematocrit (Bld) [Volume fraction] 42.1 % 36.3 - 47.1 % [place] Hemoglobin (Bld) [Mass/Vol] 13.4 g/dL 11.9 - 15.1 g/dL [place] Immature granulocytes (Bld) [#/Vol] 10*3/uL [place] Immature granulocytes (Bld) [#/Vol] 0 % 0 [place] Lymphocytes (Bld) [#/Vol] 2.08 10*3/uL [place] Lymphocytes/100 WBC (Bld) 29 % 24 - 43 % [place] MCH (RBC) [Entitic mass] 29.6 pg 25.2 - 33.5 pg [place] MCHC (RBC) [Mass/Vol] 31.8 g/dL 28.4 - 34.8 g/dL [place] MCV (RBC) [Entitic vol] 93.1 fL 82.6 - 102.9 fL [place] Monocytes (Bld) [#/Vol] 0.48 10*3/uL [place] Monocytes/100 WBC (Bld) 7 % 3 - 12 % [place] Platelet mean volume (Bld) [Entitic vol] 11.4 fL 8.1 - 13.5 fL [place] Platelets (Bld) [#/Vol] NOT REPORTED [place] Platelets (Bld) [#/Vol] 182 10*3/uL [place] RBC (Bld) [#/Vol] 4.52 10*6/uL 3.95 - 5.1 1 m/uL [place] RBC morphology finding Nom (Bld) NOT REPORTED [place] Segmented neutrophils/100 WBC (Bld) 62 % 36 - 65 % [place] Segs Absolute 4.56 [place] WBC (Bld) [#/Vol] 0.0 10*3/uL 0.0 per 10 0 WBC [place] WBC (Bld) [#/Vol] 7.3 10*3/uL [place] WBC Morphology NOT REPORTED [place] CT Head WO Contraston 2018 Mo, Mhpn Incoming R adiant Results From [facility] Robert - 04/21/2019 12:00 AM EST EXAMINATION: CT OF THE HEAD WITHOUT CONTRAST 04/20/2019 11:45 pm TECHNIQUE: CT of the head was performed without the administration of intravenous contrast. Dose modulation, iterative reconstruction, and/or weight based adjustment of the mA/kV was utilized to reduce the radiation dose to as low as reasonably achievable. COMPARISON: None. HISTORY: ORDERING SYSTEM PROVIDED HISTORY: headache TECHNOLOGIST PROVIDED HISTORY: headache Is the patient ?->No FINDINGS: BRAIN/VENTRICLES: There is no acute intracranial hemorrhage, mass effect or midline shift. No abnormal extra-axial fluid collection. The parekh-white differentiation is maintained without evidence of an acute infarct. There is no evidence of hydrocephalus. ORBITS: The visualized portion of the orbits demonstrate no acute abnormality. SINUSES: The visualized paranasal sinuses and mastoid air cells demonstrate no acute abnormality. SOFT TISSUES/SKULL: No acute abnormality of the visualized skull or soft tissues. IMPRESSION: No acute intracranial abnormality. [place] No acute intracrania l abnormality. [place] EXAMINATION: CT OF T HE HEAD WITHOUT CONTRAST 04/20/2019 11:45 pm TECHNIQUE: CT of the head was performed without the administration of intravenous contrast. Dose modulation, iterative reconstruction, and/or weight based adjustment of the mA/kV was utilized to reduce the radiation dose to as low as reasonably achievable. COMPARISON: None. HISTORY: ORDERING SYSTEM PROVIDED HISTORY: headache TECHNOLOGIST PROVIDED HISTORY: headache Is the patient ?->No FINDINGS: BRAIN/VENTRICLES: There is no acute intracranial hemorrhage, mass effect or midline shift. No abnormal extra-axial fluid collection. The parekh-white differentiation is maintained without evidence of an acute infarct. There is no evidence of hydrocephalus. ORBITS: The visualized portion of the orbits demonstrate no acute abnormality. SINUSES: The visualized paranasal sinuses and mastoid air cells demonstrate no acute abnormality. SOFT TISSUES/SKULL: No acute abnormality of the visualized skull or soft tissues. [place] EKG 12 Leadon 04-20-2019 Atrial Rate 125 BPM [place] Q-T Interval 270 ms [place] QRS Duration 84 ms [place] QTc Calculation (Bazett) 387 ms [place] R Baltic 22 degrees [place] T Baltic -7 degrees [place] Ventricular Rate 124 BPM [place] Mo, Mhpn Incoming E kg Results From Ge Sartell - 04/20/2019 9:46 PM EST Poor data quality, interpretation may be adversely affected Atrial fibrillation with rapid ventricular response Abnormal ECG When compared with ECG of 02-SEP-2018 10:12, Atrial fibrillation has replaced Sinus rhythm Vent. rate has increased BY 55 BPM Confirmed by SARAH RICK ([id number]) on 04/20/2019 9:46:40 PM [place] Poor data qualit y, interpretation may be adversely affected Atrial fibrillation with rapid ventricular response Abnormal ECG When compared with ECG of 02-SEP-2018 10:12, Atrial fibrillation has replaced Sinus rhythm Vent. rate has increased BY 55 BPM Confirmed by SARAH RICK ([id number]) on 04/20/2019 9:46:40 PM [place] Metabolic Panelon 04-20-2019 GFR/1.73 sq M predicted among non-blacks MDRD (S/P/Bld) [Vol rate/Area] [place] Comment on above: Average GFR for 40-4 9 years old: 99 mL/min/1.73sq m Chronic Kidney Disease: <60 mL/min/1.73sq m Kidney failure: <15 mL/min/1.73sq m eGFR calculated using average adult body mass. Additional eGFR calculator available at: http://www.[employer]/multiple_crcl_2012.htm Stage 1: Some kidney damage normal GFR Stage 2: Mild kidney damage GFR 60-89 Stage 3: Moderate kidney damage GFR 30-59 Stage 4: Severe kidney damage GFR 15-29 Stage 5: Severe kidney damage GFR <15 ESRD - chronic treatment by dialysis or transplant T3, Freeon 03-21-2019 Free T3 [Mass/Vol] 2.5 pg/mL 2.02 - 4. 43 pg/mL [place] T4on 03-21-2019 T4, Total 6.5 ug/dL 4.5 - 12 ug/dL [place] TSH without Reflexon 019 TSH Qn 0.93 m[IU]/L [place] BUNon 02-04-2019 Urea nitrogen [Mass/Vol] 15 mg/dL 6 - 20 mg/dL [place] CT ABDOMEN PELVIS W IV CONTR AST Additional Contrast? Oralon 02-04-2019 No acute findings identified. [place] EXAMINATION: CT OF T HE ABDOMEN AND PELVIS WITH CONTRAST 02/04/2019 1:16 pm TECHNIQUE: CT of the abdomen and pelvis was performed with the administration of intravenous contrast. Multiplanar reformatted images are provided for review. Dose modulation, iterative reconstruction, and/or weight based adjustment of the mA/kV was utilized to reduce the radiation dose to as low as reasonably achievable. COMPARISON: 07/05/2018 HISTORY: ORDERING SYSTEM PROVIDED HISTORY: Stomach ache TECHNOLOGIST PROVIDED HISTORY: FINDINGS: Lower Chest: The visualized lung bases are clear. Organs: The liver, gallbladder, pancreas, spleen, adrenals and kidneys reveal no acute findings. Focal fat deposition along the falciform ligament. GI/Bowel: There is no bowel dilatation or wall thickening identified. Status post gastric bypass. Normal appendix. Pelvis: No acute findings. Peritoneum/Retroperitoneum: No free air or free fluid. The aorta is normal in caliber. The visceral branches are patent. No lymphadenopathy. Bones/Soft Tissues: No acute abnormality identified. Postoperative findings in the abdominal wall. [place] Mo, Mhpn Incoming R adiant Results From [facility] - 02/04/2019 2:48 PM EDT EXAMINATION: CT OF THE ABDOMEN AND PELVIS WITH CONTRAST 02/04/2019 1:16 pm TECHNIQUE: CT of the abdomen and pelvis was performed with the administration of intravenous contrast. Multiplanar reformatted images are provided for review. Dose modulation, iterative reconstruction, and/or weight based adjustment of the mA/kV was utilized to reduce the radiation dose to as low as reasonably achievable. COMPARISON: 07/05/2018 HISTORY: ORDERING SYSTEM PROVIDED HISTORY: Stomach ache TECHNOLOGIST PROVIDED HISTORY: FINDINGS: Lower Chest: The visualized lung bases are clear. Organs: The liver, gallbladder, pancreas, spleen, adrenals and kidneys reveal no acute findings. Focal fat deposition along the falciform ligament. GI/Bowel: There is no bowel dilatation or wall thickening identified. Status post gastric bypass. Normal appendix. Pelvis: No acute findings. Peritoneum/Retroperitoneum: No free air or free fluid. The aorta is normal in caliber. The visceral branches are patent. No lymphadenopathy. Bones/Soft Tissues: No acute abnormality identified. Postoperative findings in the abdominal wall. IMPRESSION: No acute findings identified. [place] Creatinine, Serumon 02-05-20 19 Creatinine [Mass/Vol] 0.74 mg/dL 0.5 - 0.9 mg/dL [place] GFR >60 >60 mL/min [place] GFR Non- >60 >60 mL/min [place] Metabolic Panelon 02-04-2019 GFR/1.73 sq M predicted among non-blacks MDRD (S/P/Bld) [Vol rate/Area] [place] Comment on above: Average GFR for 40-4 9 years old: 99 mL/min/1.73sq m Chronic Kidney Disease: <60 mL/min/1.73sq m Kidney failure: <15 mL/min/1.73sq m eGFR calculated using average adult body mass. Additional eGFR calculator available at: http://www.[employer]/multiple_crcl_2012.htm Stage 1: Some kidney damage normal GFR Stage 2: Mild kidney damage GFR 60-89 Stage 3: Moderate kidney damage GFR 30-59 Stage 4: Severe kidney damage GFR 15-29 Stage 5: Severe kidney damage GFR <15 ESRD - chronic treatment by dialysis or transplant XR FOOT RIGHT (MIN 3 VIEWS)o n 01-12-2019 No acute osseous abnormality. [place] EXAMINATION: THREE X RAY VIEWS OF THE RIGHT FOOT 01/12/2019 4:29 pm COMPARISON: None. HISTORY: ORDERING SYSTEM PROVIDED HISTORY: injury to thrid toe TECHNOLOGIST PROVIDED HISTORY: injury to thrid toe FINDINGS: There is no evidence of acute fracture. There is normal alignment of the tarsometatarsal joints. No acute joint abnormality. No focal osseous lesion. No focal soft tissue abnormality. [place] Om, Mhpn Incoming R adiant Results From [facility] - 01/12/2019 4:40 PM EDT EXAMINATION: THREE XRAY VIEWS OF THE RIGHT FOOT 01/12/2019 4:29 pm COMPARISON: None. HISTORY: ORDERING SYSTEM PROVIDED HISTORY: injury to thrid toe TECHNOLOGIST PROVIDED HISTORY: injury to thrid toe FINDINGS: There is no evidence of acute fracture. There is normal alignment of the tarsometatarsal joints. No acute joint abnormality. No focal osseous lesion. No focal soft tissue abnormality. IMPRESSION: No acute osseous abnormality. [place] ESOPHAGRAMon 05-22-2018 [place] ESOPHAGRAM EXAMINATION:DOUBLE C ONTRAST [id number]/29/2018 8:44 amTECHNIQUE:Double contrast esophagram was performed with barium and air contrast.FLUOROSCOPY DOSE AND TYPE OR TIME AND EXPOSURES:Fluoroscopic dose was 15.303 mGy with a fluoroscopic time of 1 minute.COMPARISON:NoneHISTO RY:ORDERING SYSTEM PROVIDED HISTORY: evaluate for gastric leakTECHNOLOGIST PROVIDED HISTORY:evaluate for gastric leakFINDINGS:The patient drank contrast material without difficulty. The esophagus isnormal in course and caliber. The contrast material empties into the gastricremnant without difficulty. There is no evidence for leak demonstrated.IMPRESSION: No evidence for postoperative leak.Interpreted by:MARGIE Turpinigned by:Nick Barr MD05/22/18inal result Normal [facility] Basic Metabolic Profon 05-21 (cont.) Normal [facility] Comment on above: Result Comment: Aver age GFR for 40-49 years old: 99 mL/min/1.73sq mChronic Kidney Disease: <60 mL/min/1.73sq mKidney failure: <15 mL/min/1.73sq meGFR calculated using average adult body mass. Additional eGFR calculator available at:http://www.[employer]/multiple_crcl_2012.htm Performed By: #### C PAOLO, BMP ####[facility] [address] [place] [address] Anion gap 3 molar conc 11 mmol/L Normal 9-17 [facility] Comment on above: Performed By: #### C PAOLO, BMP ####[facility] HospitalDandong Xintai ElectricsPjmkdlkqpvke[address] [place] [address] Calcium mass conc 8.7 mg/dL Normal 8.6-10.4 [facility] Comment on above: Performed By: #### C PAOLO, BMP ####[facility] HospitalDandong Xintai ElectricsEubihonkliag[address] [place] [address] Chloride molar conc 99 mmol/L Normal 98-107 [facility] Comment on above: Performed By: #### C BC, BMP ####[facility] [address] [place] [address] CO2 molar conc 24 mmol/L Normal 20-31 [facility] Comment on above: Performed By: #### C BC, BMP ####[facility] [address] [place] [address] Creatinine mass conc 0.75 mg/dL Normal 0.50-0.90 [facility] Comment on above: Performed By: #### C BC, BMP ####[facility] [address] [place] [address] GFR, Amer >60 Normal >60 [facility] Comment on above: Performed By: #### C BC, BMP ####[facility] [address] [place] [address] GFR,non Amer >60 Normal >60 [facility] Comment on above: Performed By: #### C BC, BMP ####[facility] HospitalDandong Xintai ElectricsLhyltvznlamx[address] [place] [address] Glucose mass conc 125 mg/dL High 70-99 [facility] Comment on above: Performed By: #### C BC, BMP ####[facility] HospitalDandong Xintai ElectricsIqpwywpcmkoh[address] [place] [address] Potassium molar conc 3.9 mmol/L Normal 3.7-5.3 [facility] Comment on above: Performed By: #### C BC, BMP ####[facility] HospitalFeZo [address] [place] [address] Sodium molar conc 134 mmol/L Low 135-144 [facility] Comment on above: Performed By: #### C BC, BMP ####[facility] HospitalDandong Xintai ElectricsKaxqwkslbtnv[address] [place] [address] Urea nitrogen mass conc 12 mg/dL Normal 6-20 [facility] Comment on above: Performed By: #### C BC, BMP ####[address] [address] BUN/CRE Ratio NOT REPORTED Normal 9-20 [facility] Comment on above: Performed By: #### C BC, BMP ####[address] [address] Staging: NOT REPORTED Normal [facility] Comment on above: Performed By: #### C PAOLO, BMP ####[address] [address] CBCon 05-21-2018 Erythrocyte distribution width Auto Ratio (RBC) 14.3 % Normal 11.8-14.4 [facility] Comment on above: Performed By: #### C PAOLO, BMP ####[address] [address] Hematocrit Auto Volume Fraction (Bld) 38.9 % Normal 36.3-47.1 [facility] Comment on above: Performed By: #### C BC, BMP ####[facility] [address] [address] Hemoglobin mass conc (Bld) 12.3 g/dL Normal 11.9-15.1 [facility] Comment on above: Performed By: #### C BC, BMP ####[address] [place] [address] MCH Auto Entitic mass (RBC) 28.8 pg Normal 25.2-33.5 [facility] Comment on above: Performed By: #### C BC, BMP ####[address] [address] MCHC Auto mass conc (RBC) 31.6 g/dL Normal 28.4-34.8 [facility] Comment on above: Performed By: #### C BC, BMP ####[address] [place] [address] MCV Auto Entitic volume (RBC) 91.1 fL Normal 82.6-102.9 [facility] Comment on above: Performed By: #### C BC, BMP ####[address] [address] NRBC Automated 0.0 per 100 WBC Normal 0.0 [facility] Comment on above: Performed By: #### C BC, BMP ####[address] [address] Platelet mean volume Auto Entitic volume (Bld) 10.4 fL Normal 8.1-13.5 [facility] Comment on above: Performed By: #### C BC, BMP ####[address] [address] Platelets Auto #/vol (Bld) 225 10*3/uL Normal 138-453 [facility] Comment on above: Performed By: #### C BC, BMP ####[address] [address] RBC Auto #/vol (Bld) 4.27 10*6/uL Normal 3.95-5.11 [facility] Comment on above: Performed By: #### C BC, BMP ####[address] [address] WBC Auto #/vol (Bld) 10.6 10*3/uL Normal 3.5-11.3 [facility] Comment on above: Performed By: #### C BC, BMP ####[address] [address] Nicotineon 05-09-2018 [id number] <2 Normal [facility] Comment on above: Performed By: #### C BC, PT, ALP, ALT, BMP ####[address] [place] [address] Cotinine <2 Normal [facility] Comment on above: Performed By: #### C BC, PT, ALP, ALT, BMP ####[address] [place] [address] Nicotine <2 Normal [facility] Comment on above: Result Comment: (NOT E)Consistent with abstinence from nicotine-containingproducts for at least 1 week.INTERPRETIVE INFORMATION: Nicotine and Metabolites, Serum or Plasma, QuantitativeMethodology: Quantitative Liquid Chromatography-Tandem MassSpectrometryPositive cutoff: 2 ng/mLFor medical purposes only; not valid for forensic use.This test is designed to evaluate recent use ofnicotine-containing products. Passive and active exposure cannotbe discriminated definitively, although a cutoff of 10 ng/mLcotinine is frequently used for surgery qualification purposes.For smoking cessation programs or compliance testing, the absenceof expected drug(s) and/or drug metabolite(s) may indicatenon-compliance, inappropriate timing of specimen collectionrelative to drug administration, poor drug absorption, orlimitations of testing. This test cannot distinguish between useof tobacco and purified nicotine products. The concentration valuemust be greater than or equal to the cutoff to be reported aspositive.Test developed and characteristics determined by [facility]. See Compliance Statement B: [employer]/CSPerformed by [facility],[address] [place] [id number] [email or web address], Tk Kohli MD, Lab. Director Performed By: #### C BC, PT, ALP, ALT, BMP ####[address] [place] [address] Clau 05-03-2018 ALT enzyme act/vol 29 U/L Normal 5-33 [facility] Comment on above: Performed By: #### C BC, PT, ALP, ALT, BMP ####[address] [place] [address] Alkaline Phoson 05-03-2018 Alkaline Phos 100 U/L Normal 35-104 [facility] Comment on above: Performed By: #### C BC, PT, ALP, ALT, BMP ####[employer] [place] [address] Basic Metabolic Profon 05-03 (cont.) Normal [facility] Comment on above: Result Comment: Aver age GFR for 40-49 years old: 99 mL/min/1.73sq mChronic Kidney Disease: <60 mL/min/1.73sq mKidney failure: <15 mL/min/1.73sq meGFR calculated using average adult body mass. Additional eGFR calculator available at:http://www.[employer]/multiple_crcl_2011.htm Performed By: #### C BC, PT, ALP, ALT, BMP ####[facility] HospitalDandong Xintai ElectricsRnkysizwphsy[address] [place] [address] Anion gap 3 molar conc 14 mmol/L Normal 9-17 [facility] Comment on above: Performed By: #### C BC, PT, ALP, ALT, BMP ####[employer] [place] [address] Calcium mass conc 9.6 mg/dL Normal 8.6-10.4 [facility] Comment on above: Performed By: #### C BC, PT, ALP, ALT, BMP ####[employer] [place] [address] Chloride molar conc 101 mmol/L Normal 98-107 [facility] Comment on above: Performed By: #### C BC, PT, ALP, ALT, BMP ####[employer] [place] [address] CO2 molar conc 24 mmol/L Normal 20-31 [facility] Comment on above: Performed By: #### C BC, PT, ALP, ALT, BMP ####[employer] [place] [address] Creatinine mass conc 0.65 mg/dL Normal 0.50-0.90 [facility] Comment on above: Performed By: #### C BC, PT, ALP, ALT, BMP ####[facility] [address] [place] [address] GFR, Amer >60 Normal >60 [facility] Comment on above: Performed By: #### C BC, PT, ALP, ALT, BMP ####[facility] [address] [place] [address] GFR,non Amer >60 Normal >60 [facility] Comment on above: Performed By: #### C BC, PT, ALP, ALT, BMP ####[address] [place] [address] Glucose mass conc 130 mg/dL High 70-99 [facility] Comment on above: Performed By: #### C BC, PT, ALP, ALT, BMP ####[facility] [address] [place] [address] Potassium molar conc 4.1 mmol/L Normal 3.7-5.3 [facility] Comment on above: Performed By: #### C BC, PT, ALP, ALT, BMP ####[facility] [place] [address] Sodium molar conc 139 mmol/L Normal 135-144 [facility] Comment on above: Performed By: #### C BC, PT, ALP, ALT, BMP ####[facility] [place] [address] Urea nitrogen mass conc 15 mg/dL Normal 6-20 [facility] Comment on above: Performed By: #### C BC, PT, ALP, ALT, BMP ####[facility] [place] [address] BUN/CRE Ratio NOT REPORTED Normal 9-20 [facility] Comment on above: Performed By: #### C BC, PT, ALP, ALT, BMP ####[address] [address] Staging: NOT REPORTED Normal [facility] Comment on above: Performed By: #### C BC, PT, ALP, ALT, BMP ####[address] [address] CBCon 05-03-2018 Erythrocyte distribution width Auto Ratio (RBC) 13.6 % Normal 11.8-14.4 [facility] Comment on above: Performed By: #### C BC, PT, ALP, ALT, BMP ####[address] [address] Hematocrit Auto Volume Fraction (Bld) 41.0 % Normal 36.3-47.1 [facility] Comment on above: Performed By: #### C BC, PT, ALP, ALT, BMP ####[address] [address] Hemoglobin mass conc (Bld) 13.2 g/dL Normal 11.9-15.1 [facility] Comment on above: Performed By: #### C BC, PT, ALP, ALT, BMP ####[address] [address] MCH Auto Entitic mass (RBC) 28.8 pg Normal 25.2-33.5 [facility] Comment on above: Performed By: #### C BC, PT, ALP, ALT, BMP ####[address] [address] MCHC Auto mass conc (RBC) 32.2 g/dL Normal 28.4-34.8 [facility] Comment on above: Performed By: #### C BC, PT, ALP, ALT, BMP ####[address] [address] MCV Auto Entitic volume (RBC) 89.5 fL Normal 82.6-102.9 [facility] Comment on above: Performed By: #### C BC, PT, ALP, ALT, BMP ####[address] [address] NRBC Automated 0.0 per 100 WBC Normal 0.0 [facility] Comment on above: Performed By: #### C BC, PT, ALP, ALT, BMP ####[facility] [address] [place] [id number] Platelet mean volume Auto Entitic volume (Bld) 10.5 fL Normal 8.1-13.5 [facility] Comment on above: Performed By: #### C BC, PT, ALP, ALT, BMP ####[address] [address] Platelets Auto #/vol (Bld) 266 10*3/uL Normal 138-453 [facility] Comment on above: Performed By: #### C BC, PT, ALP, ALT, BMP ####[address] [address] RBC Auto #/vol (Bld) 4.58 10*6/uL Normal 3.95-5.11 [facility] Comment on above: Performed By: #### C BC, PT, ALP, ALT, BMP ####[address] [address] WBC Auto #/vol (Bld) 8.6 10*3/uL Normal 3.5-11.3 [facility] Comment on above: Performed By: #### C BC, PT, ALP, ALT, BMP ####[address] [address] PTon 05-03-2018 INR Coag RelTime (PPP) 1.0 {INR} Normal [facility] Comment on above: Result Comment: Ther apeutic Range: Moderate Anticoagulant Intensity: INR = 2.0-3.0 High Anticoagulant Intensity: INR = 2.5-3.5 Performed By: #### C BC, PT, ALP, ALT, BMP ####[facility] [address] [place], [place] [id number] Prothrombin time (PT) Coag time (PPP) 10.3 s Normal 9.0-12.0 [facility] Comment on above: Performed By: #### C BC, PT, ALP, ALT, BMP ####[facility] [id number] [place], [place] [id number] XR CHEST (2 VW)on 05-03-2018 Protein mass conc EXAMINATION:TWO VIEW S OF THE CHEST05/03/2018 2:32 pmCOMPARISON:May 14, 2016HISTORY:ORDERING SYSTEM PROVIDED HISTORY: preop, morbid obeseFINDINGS:The lungs are without acute focal process. No effusion or pneumothorax. Thecardiomediastinal silhouette is normal. The osseous structures are intactwithout acute process.IMPRESSION: Stable negative chest.Interpreted by:MARGIE Cantuigned by:Tanna Meyer MD05/03/18inal result Normal [facility] Vital Signs Date Time Vital Sign Value Performing Clinician Facility 10-13-2023 13:10-0400 Diastolic blood pressure 53 mm[Hg] Janis Hawkins MD Work Phone: [facility] 10-13-2023 13:10-0400 Heart rate 65 /min Janis Hawkins MD Work Phone: [facility] 10-13-2023 13:10-0400 Respiratory rate 10 /min Janis Hawkins MD Work Phone: [facility] 10-13-2023 13:10-0400 SaO2% (BldA) [Mass fraction] 97 % Janis Hawkins MD Work Phone: [facility] 10-13-2023 13:10-0400 Systolic blood pressure 123 mm[Hg] [facility] 10-13-2023 12:35-0400 Body temperature 97 [degF] Janis Hawkins MD [facility] 03-17-2023 11:40-0400 Body height 162.56 cm Sarah Borja Other [facility] Other 03-17-2023 11:40-0400 Body mass index (BMI) [Ratio] 39.75 kg/m2 Sarah Borja Other [facility] Other 03-17-2023 11:40-0400 Body temperature 98.7 [degF] Sarah Borja Other [facility] Other 03-17-2023 11:40-0400 Body weight 105.05 kg Sarah Borja Other [facility] Other 03-17-2023 11:40-0400 Respiratory rate 18 /min Sarah Borja Other [facility] Other 03-17-2023 11:40-0400 SaO2% (BldA) [Mass fraction] 97 % Sarah Borja Other [facility] Other 01-09-2023 13:45-0400 Diastolic blood pressure 77 mm[Hg] Aubrey Rothman MD Work Phone: [facility] 01-09-2023 13:45-0400 Heart rate 75 /min Aubrey Rothman MD Work Phone: [facility] 01-09-2023 13:45-0400 Respiratory rate 22 /min Aubrey Rothman MD Work Phone: 3([phone])[phone] [place] [address] 01-09-2023 13:45-0400 SaO2% (BldA) [Mass fraction] 94 % Aubrey Rothman MD Work Phone: 0(545)[phone] [place] [address] 01-09-2023 13:45-0400 Systolic blood pressure 107 mm[Hg] Aubrey Rothman MD Work Phone: 8(028)841-979723 [place] [address] 01-09-2023 10:08-0400 Body temperature 98.1 [degF] Aubrey Rothman MD Work Phone: 7(741)[phone] [place] [address] 01-09-2023 06:02-0400 Body height 162.6 cm Aubrey Rothman MD Work Phone: 5(939)[phone] [place] [address] 01-09-2023 06:02-0400 Body mass index (BMI) [Ratio] 38.96 kg/m2 Aubrey Rothman MD Work Phone: 5(509)701-335923 [place] [address] 01-09-2023 06:02-0400 Body weight 102.97 kg Aubrey Rothman MD Work Phone: 7(903)[phone] [place] [address] 01-08-2023 14:26-0400 Body height 162.6 cm Aubrey Rothman MD Work Phone: 1(825)201-921523 [place] [address] 01-08-2023 14:26-0400 Diastolic blood pressure 56 mm[Hg] Aubrey Rothman MD Work Phone: 0(356)[phone] [place] [address] 01-08-2023 14:26-0400 Heart rate 77 /min Aubrey Rothman MD Work Phone: 2(677)[phone] [place] [address] 01-08-2023 14:26-0400 Systolic blood pressure 114 mm[Hg] Aubrey Rothman MD Work Phone: 3(608)[phone] [place] [address] 05-05-2022 13:20-0500 Body height 162.56 cm Melissa Montilla Other [facility] Other 05-05-2022 13:20-0500 Body mass index (BMI) [Ratio] 37.76 kg/m2 Melissa Montilla Other [facility] Other 05-05-2022 13:20-0500 Body temperature 97.2 [degF] Melissa Montilla Other [facility] Other 05-05-2022 13:20-0500 Body weight 99.79 kg Melissa Montilla Other [facility] Other 05-05-2022 13:20-0500 Diastolic blood pressure 78 mm[Hg] Melissa Montilla Other [facility] Other 05-05-2022 13:20-0500 Respiratory rate 16 /min Melissa Montilla Other [facility] Other 05-05-2022 13:20-0500 SaO2% (BldA) [Mass fraction] 98 % Melissa Montilla Other [facility] Other 05-05-2022 13:20-0500 Systolic blood pressure 134 mm[Hg] Melissa Montilla Other [facility] Other 05-11-2020 22:51-0500 BP Diastolic 62 mm[Hg] Indira [facility] , [place] 05-11-2020 22:51-0500 BP Systolic 100 mm[Hg] Indira [facility] , [place] 05-11-2020 22:51-0500 Pulse (Heart Rate) 61 /min Indira [facility], [place] 05-11-2020 22:51-0500 Pulse Oximetry 100 % Indira [facility] , [place] 05-11-2020 22:51-0500 Respiratory Rate 18 /min Indira Becerril [facility], [place] 05-11-2020 20:49-0500 BMI (Body Mass Index) 32.44 kg/m2 Indira Becerril [facility], [place] 05-11-2020 20:49-0500 Body Temperature 97.81 [degF] Indira Becerril [facility], [place] 05-11-2020 20:49-0500 Body weight 85.73 kg Indira Lino [facility] , [place] 08-07-2019 14:48-0400 BP Diastolic 58 mm[Hg] Gerson Del Cid [facility] , [place] 08-07-2019 14:48-0400 BP Systolic 137 mm[Hg] Gerson [facility] , [place] 08-07-2019 14:48-0400 Pulse (Heart Rate) 80 /min Gerson DelC id [facility], [place] 08-07-2019 14:48-0400 Pulse Oximetry 99 % Gerson [facility] , [place] 08-07-2019 14:47-0400 BMI (Body Mass Index) 29.87 kg/m2 Gerson Del Cid [facility], [place] 08-07-2019 14:47-0400 Body Temperature 97.9 [degF] Gerson Del Cid [facility], [place] 08-07-2019 14:47-0400 Body weight 78.93 kg Gerson Del Cid [facility] , [place] 08-07-2019 14:47-0400 Height 162.6 cm Gerson [facility] , [place] 08-07-2019 14:47-0400 Respiratory Rate 18 /min Gerson Del Cid [facility], [place] 05-30-2019 12:31-0500 Body height 162.6 cm Denisse Gilbert MD Other Phone: [employer] Phone: 05-30-2019 12:31-0500 Body mass index (BMI) [Ratio] 29.35 kg/m2 Denisse Gilbert MD Other Phone: [employer] Phone: 05-30-2019 12:31-0500 Body temperature 98.01 [degF] Denisse Gilbert MD Other Phone: [employer] Phone: 05-30-2019 12:31-0500 Body weight 77.56 kg Denisse Gilbert MD Other Phone: [employer] Phone: 05-30-2019 12:31-0500 Diastolic blood pressure 74 mm[Hg] Denisse Gilbert MD Other Phone: [employer] Phone: 05-30-2019 12:31-0500 Heart rate 73 /min Denisse Gilbert MD Other Phone: [employer] Phone: 05-30-2019 12:31-0500 Respiratory rate 18 /min Denisse Gilbert MD Other Phone: [employer] Phone: 05-30-2019 12:31-0500 SaO2% (BldA) [Mass fraction] 98 % Denisse Gilbert MD Other Phone: [employer] Phone: 05-30-2019 12:31-0500 Systolic blood pressure 111 mm[Hg] Denisse Gilbert MD Other Phone: [employer] Phone: 04-21-2019 00:35-0500 BP Diastolic 70 mm[Hg] Jorge Alberto [employer] [place], [place] 04-21-2019 00:35-0500 BP Systolic 91 mm[Hg] Jorge Alberto [employer] , [place] 04-21-2019 00:35-0500 Pulse (Heart Rate) 108 /min Jorge Alberto [employer] [place], [place] 04-21-2019 00:35-0500 Respiratory Rate 14 /min Jorge Alberto [employer] [place], [place] 04-21-2019 00:16-0500 Pulse Oximetry 95 % Jorge Alberto [employer] [place], [place] 04-20-2019 20:46-0500 BMI (Body Mass Index) 30.71 kg/m2 Jorge Alberto [employer] [place], [place] 04-20-2019 20:46-0500 Body Temperature 97.5 [degF] Jorge Alberto [facility], [place] 04-20-2019 20:46-0500 Body weight 81.19 kg [facility] [place] 01-12-2019 16:16-0400 BMI (Body Mass Index) 32.96 kg/m2 [facility] [place] 01-12-2019 16:16-0400 Body Temperature 98.01 [degF] Denisse Becerril [facility], [place] 01-12-2019 16:16-0400 Body weight 87.09 kg Denisse Becerril [facility] , [place] 01-12-2019 16:16-0400 BP Diastolic 79 mm[Hg] Denisse Becerril [facility] , [place] 01-12-2019 16:16-0400 BP Systolic 150 mm[Hg] [facility] [place] 01-12-2019 16:16-0400 Height 162.6 cm [facility] [place] 01-12-2019 16:16-0400 Pulse (Heart Rate) 62 /min [facility] [place] 01-12-2019 16:16-0400 Pulse Oximetry 98 % [facility] [place] 01-12-2019 16:16-0400 Respiratory Rate 16 /min Denisse Becerril [facility] [place] Encounters Encounter Date Encounter Type Care Provider Facility Start: 10-13-2023 End: 10-13-2023 Subsequent hospital visit by physician Janis Hawkins MD Work Phone: [facility]iac [facility]/IR [facility] Comment on above: Atrial fibrillation (HCC) Start: 09-22-2023 End: 09-23-2023 ambulatory SAHARA PUMP Not Available Start: 09-21-2023 End: 09-22-2023 ambulatory SAHARA PUMP Not Available Start: 09-21-2023 End: 09-22-2023 ambulatory SAHARA PUMP Not Available Start: 09-04-2023 End: 09-05-2023 ambulatory SAHARA PUMP Not Available Start: 07-24-2023 End: 08-24-2023 ambulatory ANGELIC PIÑA [facility] Start: 07-09-2023 End: 07-09-2023 ambulatory KAYA BELCEHR Not Available Start: 07-09-2023 Bamboo flowsheet Kaya dubois DISASTER RECOVERY ANALYST Work Phone: [facility] Start: 07-09-2023 Bamboo flowsheet Kaya Tamela dubois DISASTER RECOVERY ANALYST Work Phone: [facility] Start: 06-25-2023 End: 07-24-2023 ambulatory ANGELIC Rapp [facility] Start: 06-11-2023 End: 06-25-2023 ambulatory ANGELIC Rapp [facility] Start: 05-13-2023 End: 05-14-2023 [facility] Start: 04-09-2023 End: 04-09-2023 ambulatory ZHEN CURRY Not Available Start: 03-31-2023 End: 04-03-2023 [facility] Start: 03-17-2023 End: 03-17-2023 ambulatory Sarah Borja Other [facility] Other Start: 03-17-2023 Office outpatient vi sit 25 minutes Sarah Borja [facility] Start: 01-10-2023 ambulatory DENISSE Nichole lity:[facility] Start: 01-09-2023 End: 01-09-2023 ambulatory AUBREY ROTHMAN Facility:[facility] Start: 01-09-2023 End: 01-09-2023 Subsequent hospital visit by physician Aubrey Rothman MD Work Phone: [facility]iology [facility] Comment on above: PAF (paroxysmal atri al fibrillation) Start: 01-08-2023 ambulatory AUBREY ROTHMAN Facilit y:[facility] Start: 01-08-2023 End: 01-08-2023 Subsequent hospital visit by physician Aubrey Rothman MD Work Phone: Cardiovascular Imaging Lab [facility] Comment on above: Arrived Start: 12-20-2022 End: 12-20-2022 Emergency department patient visit [facility] Start: 10-07-2022 ambulatory DENISSE GILBERT Faci lity:[facility] Start: 09-30-2022 End: 10-01-2022 ambulatory [facility] Start: 09-30-2022 End: 09-30-2022 Subsequent hospital visit by physician [facility] Cardiology Stress Room [facility] Stress Lab Comment on above: Arrived Start: 09-29-2022 End: 09-30-2022 ambulatory JANIS COOMBSORAlysia [facility] Start: 09-29-2022 End: 09-29-2022 Subsequent hospital visit by physician [facility] Cardiology Stress Room [facility] Stress Lab Comment on above: PAF (paroxysmal atri al fibrillation) ([facility]); On Multaq therapy; Chronic anticoagulation; Essential hypertension; JAMES on CPAP; Morbid obesity ([facility]); History of DVT (deep vein thrombosis); Pain of right lower extremity; Chest discomfort Start: 09-23-2022 ambulatory DENISSE GILBERT Facility: [facility] Start: 09-05-2022 End: 09-05-[address] DENISSE GILBERT Facility:[facility] Start: 09-02-2022 End: 09-02-[address] DENISSE GILBERT Facility:[facility] Start: 08-17-2022 Encounter for preprocedural cardiovascular examination DR PRINCESS WEBB [facility] Start: 08-17-2022 Encounter for preprocedural laboratory examination DR PRINCESS WEBB [facility] Start: 08-15-2022 End: 08-16-[address] PRINCESS WEBB Facility:[facility] Start: 08-15-2022 End: 08-16-2022 Encounter for preprocedural cardiovascular examination DR PRINCESS WEBB Facility:[facility] Start: 06-16-2022 End: 06-17-2022 ambulatory [facility] Start: 06-16-2022 Encounter for other preprocedural examination [facility] Start: 06-16-2022 End: 06-16-2022 Preoperative state Mth Room [facility] Echocardiograph y Start: 06-16-2022 End: 06-16-2022 Subsequent hospital visit by physician [facility] Echo Room [facility] Echocardiography Comment on above: Pre-operative cleara nce; PAF (paroxysmal atrial fibrillation) (HCC); On Multaq therapy; Chronic anticoagulation; Essential hypertension; JAMES on CPAP; Class 2 obesity with body mass index (BMI) of 38.0 to 38.9 in adult, unspecified obesity type, unspecified whether serious comorbidity present; Heart murmur Start: 05-05-2022 End: 05-05-2022 ambulatory Melissa Montilla Other [facility] [employer] Other Start: 05-05-2022 Office outpatient vi sit 15 minutes Melissa Monitlla [facility] Start: 06-27-2020 End: 06-28-2020 Patient encounter procedure DENISSE GILBERT Facility:[facility] Start: 05-11-2020 End: 05-11-2020 Emergency department patient visit Indira Rowe Phone: [facility] ED Comment on above: Abdominal pain, unsp ecified abdominal location (Primary Dx); Flank pain Start: 02-23-2020 End: 02-23-2020 Subsequent hospital [facility] Start: 02-21-2020 End: 02-21-2020 Subsequent hospital visit by physician [facility] Start: 02-16-2020 End: 02-16-2020 Subsequent hospital visit by physician [facility] Comment on above: Arrived Start: 02-13-2020 End: 02-13-2020 Subsequent hospital visit by physician [facility] Start: 02-01-2020 End: 02-01-2020 Subsequent hospital visit by physician [facility] Start: 01-26-2020 End: 01-26-2020 Subsequent hospital visit by physician [facility] Start: 01-23-2020 End: 01-23-2020 Subsequent hospital visit by physician Fabby Marsk [facility] Comment on above: Arrived Start: 01-16-2020 End: 01-16-2020 Subsequent hospital visit by physician [facility]by [facility] Comment on above: Arrived Start: 01-12-2020 End: 01-12-2020 Subsequent hospital visit by physician Fabby Marks [facility] Occupational Therapy Comment on above: Arrived Start: 01-09-2020 End: 01-09-2020 Subsequent hospital visit by physician Fabby Marks [facility] Occupational Therapy Comment on above: Arrived Start: 01-04-2020 End: 01-04-2020 Subsequent hospital visit by physician Fabby Marks [facility] Occupational Therapy Comment on above: Arrived Start: 12-30-2019 End: 12-30-2019 Subsequent hospital visit by physician Julissa Echo Room [facility] Echocardiography Comment on above: PAF (paroxysmal atri al fibrillation) (HCC); Essential hypertension; JAMES on CPAP; Weight loss; Atypical chest pain; Preoperative clearance Start: 12-27-2019 End: 12-27-2019 Subsequent hospital visit by physician Denisse Gilbert [facility] Laboratory Start: 10-13-2019 End: 10-13-2019 Subsequent hospital visit by physician Carolee Cannon [facility] Occupational Therapy Comment on above: Arrived Start: 10-11-2019 End: 10-11-2019 Subsequent hospital visit by physician Fabby Marks [facility] Occupational Therapy Start: 10-06-2019 End: 10-06-2019 Subsequent hospital visit by physician Fabby Marks [facility] Occupational Therapy Start: 10-04-2019 End: 10-04-2019 Subsequent hospital visit by physician Fabby Marks [facility] Occupational Therapy Comment on above: Arrived Start: 09-29-2019 End: 09-29-2019 Subsequent hospital visit by physician [facility] Start: 09-27-2019 End: 09-27-2019 Subsequent hospital visit by physician Fabby Marks [facility] Start: 09-22-2019 End: 09-22-2019 Subsequent hospital visit by physician Fabby Marks [facility] Occupational Therapy Comment on above: Arrived Start: 09-19-2019 End: 09-19-2019 Subsequent hospital visit by physician Fabby Marks [facility] Occupational Therapy Comment on above: Arrived Start: 09-15-2019 End: 09-15-2019 Subsequent hospital visit by physician Fabby Marks [facility] Occupational Therapy Start: 09-12-2019 End: 09-12-2019 Subsequent hospital visit by physician [facility] Start: 09-08-2019 End: 09-08-2019 Subsequent hospital visit by physician Fabby Marks [facility] Occupational Therapy Comment on above: Arrived Start: 09-05-2019 End: 09-05-2019 Subsequent hospital visit by physician Fabby Marks [facility] Occupational Therapy Comment on above: Arrived Start: 09-01-2019 End: 09-01-2019 Subsequent hospital visit by physician Fabby Marks [facility] Occupational Therapy Start: 08-29-2019 End: 08-29-2019 Subsequent hospital visit by physician Fabby Marks [facility] Occupational Therapy Start: 08-25-2019 End: 08-25-2019 Subsequent hospital visit by physician Fabby Marks [facility] Occupational Therapy Comment on above: Arrived Start: 08-22-2019 End: 08-22-2019 Subsequent hospital visit by physician Fabby Marks [facility] Occupational Therapy Comment on above: Arrived Start: 08-18-2019 End: 08-18-2019 Subsequent hospital visit by physician Carolee Cannon [facility] Occupational Therapy Comment on above: Arrived Start: 08-15-2019 End: 08-15-2019 Subsequent hospital visit by physician Fabby Marks [facility] Occupational Therapy Comment on above: Arrived Start: 08-11-2019 End: 08-11-2019 Subsequent hospital visit by physician [facility] 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 Start: 08-07-2019 End: 08-07-2019 Emergency department patient visit Gerson Del Cid Work Phone: [facility] ED Comment on above: Injury of hand, exte nsor tendon, right, initial encounter (Primary Dx) Start: 05-30-2019 End: 05-30-2019 Emergency department patient visit Denisse Gilbert MD Other Phone: [facility] ED Comment on above: Hypoglycemia (Primar y Dx) Start: 04-20-2019 End: 04-21-2019 Emergency department patient visit Jorge Alberto Ontiveros Work Phone: [facility] Comment on above: Nonintractable heada scar, unspecified chronicity pattern, unspecified headache type (Primary Dx); Atrial fibrillation with RVR (HCC) Start: 03-21-2019 End: 03-21-2019 Subsequent hospital visit by physician [facility] Start: 02-04-2019 End: 02-06-2019 Subsequent hospital visit by physician [facility] Lab Drawing Room [facility] Laboratory Comment on above: Arrived Stomach ache; Hernia of abdominal cavity Start: 01-12-2019 End: 01-12-2019 [facility] Comment on above: Injury of toe on rig ht foot, initial encounter (Primary Dx) Start: 05-20-2018 End: 05-22-2018 Patient encounter procedure VINEET Dick [facility] Start: 05-03-2018 End: 05-06-2018 Patient encounter procedure VINEET [facility] Start: 05-03-2018 End: 05-08-2018 Patient encounter procedure VINEET Dick [facility] Start: 10-01-2017 End: 10-01-2017 Ambulatory [facility] Procedures Date Procedure Procedure Detail Performing Clinician Start: 01-09-2023 Ephys evl trnsptl tx atrial fib isolat pulm vein Aubrey Rothman MD Work Phone: Start: 01-09-2023 ACT* LOW RANGE, POC Mireya Rothman MD Work Phone: Start: 01-09-2023 End: 01-09-2023 ACT* LOW RANGE, POC Aubrey Rothman MD Work Phone: Start: 01-09-2023 EXTRA MINT GREEN TOP Ma kishore Rothman MD Work Phone: Start: 01-09-2023 Prothrombin time Sahara N Shannon 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 [id number] [place], [place] [id number] Start: 06-27-2020 ANESTH LOWER ARM SURGERY [facility] Start: 06-27-2020 Debridement muscle & fascia 20 sq cm/< NITHIN SKIBoyd Start: 05-11-2020 Urinalysis microscop ic only Indira Lino Work Phone: Start: 05-11-2020 Urnls dip stick/tabl et rgnt auto w/o microscopy Indira Lino Work Phone: Start: 05-11-2020 Ct abdomen & pelvis w/o contrast material Indira Lino Work Phone: Start: 05-11-2020 Blood count complete auto&auto difrntl wbc Indira Lino Work Phone: Start: 12-30-2019 ECHOCARDIOGRAM EXERC ISE STRESS TEST Janis Hawkins Work Phone: Start: 12-27-2019 Ecg routine ecg w/le ast 12 lds w/i&r [employer] [place] Work Phone: Start: 12-27-2019 EKG REPORT Hpf Scanni ng Start: 12-27-2019 Basic metabolic pane l calcium total [employer] [place] Work Phone: Start: 12-27-2019 Hemoglobin glycosyla corinne a1c Harlan Quiuqe Work Phone: Start: 08-08-2019 Ecg routine ecg w/le ast 12 lds w/i&r Harlan Quique Work Phone: Start: 08-08-2019 EKG REPORT Hpf Scanni ng Start: 08-08-2019 Basic metabolic pane l calcium total [place] Work Phone: Start: 08-08-2019 Blood count complete auto&auto difrntl wbc Harlan Lei Work Phone: Start: 08-08-2019 Hemoglobin glycosyla corinne a1c Harlan Lei Work Phone: Start: 08-07-2019 Radex hand minimum 3 views Gerson Del Cid Work Phone: Start: 05-30-2019 Gluc bld gluc mntr d ev cleared fda spec home use [employer] Work Phone: Start: 05-30-2019 GLUCOSE, WHOLE BLOOD Soni Gilbert MD Work Phone: Start: 05-30-2019 Ecg routine ecg w/le ast 12 lds w/i&r [employer] Work Phone: Start: 05-30-2019 End: 05-30-2019 Comprehensive metabolic panel [employer] Work Phone: Start: 05-30-2019 GLUCOSE, WHOLE BLOOD Soni Gilbert MD Work Phone: Start: 04-20-2019 Ct head/brain w/o co ntrast material Jorge Alberto E [employer] Work Phone: Start: 04-20-2019 Ecg routine ecg w/le ast 12 lds w/i&r Jorge Alberto [employer] Work Phone: Start: 04-20-2019 EKG REPORT Hpf Scanni ng Start: 04-20-2019 BASIC METABOLIC PANE L W/ REFLEX TO MG FOR LOW K Jorge Alberto E [employer] Work Phone: Start: 04-20-2019 Blood count complete auto&auto difrntl wbc Jorge Alberto [employer] Work Phone: Start: 03-21-2019 Assay of thyroid stimulating hormone tsh Mary Lou Richmond Other Phone: Start: 03-21-2019 Assay of thyroxine total Mary Lou Richmond Other Phone: Start: 03-21-2019 Assay of triiodothyr onine t3 free Mary Lou Richmond Other Phone: Start: 02-04-2019 Ct abdomen & pelvis w/contrast material Denisse Gilbert Work Phone: Start: 02-04-2019 Assay of urea nitrog en quantitative Denisse Gilbert Work Phone: Start: 02-04-2019 Creatinine blood Denisse Gilbert Work Phone: Start: 01-12-2019 Radex foot complete minimum 3 views Jaci Burns Work Phone: Start: 05-22-2018 INCENTIVE SPIROMETRY RT VINEET WHIPPLE Start: 05-22-2018 DISCHARGE PATIENT ISAIAH WHIPPLE Start: 05-22-2018 INCENTIVE SPIROMETRY RT VINEET WHIPPLE Start: 05-22-2018 PULSE OXIMETRY, CONTINUOUS VINEET JOE Start: 05-22-2018 INCENTIVE SPIROMETRY RT VINEET WHIPPLE Start: 05-22-2018 SALINE LOCK IV VINEET WHIPPLE Start: 05-22-2018 Radex esophagus VINEET WHIPPLE Start: 05-22-2018 HOME BIPAP OR CPAP FLORIN KRISTENW Start: 05-22-2018 INCENTIVE SPIROMETRY RT VINEET WHIPPLE Start: 05-22-2018 NASAL CANNULA OXYGEN MA TTHEW Start: 05-22-2018 PULSE OXIMETRY, CONTINUOUS VINEET WHIPPLE Start: 05-22-2018 INITIATE OXYGEN THER APY PROTOCOL VINEET WHIPPLE Start: 05-22-2018 INCENTIVE SPIROMETRY RT VINEET WHIPPLE Start: 05-22-2018 PULSE OXIMETRY, CONTINUOUS VINEET WHIPPLE Start: 05-22-2018 PULSE OXIMETRY, CONTINUOUS VINEET JOE Start: 05-22-2018 INCENTIVE SPIROMETRY RT VINEET WHIPPLE Start: 05-21-2018 INCENTIVE SPIROMETRY RT VINEET WHIPPLE Start: 05-21-2018 PULSE OXIMETRY, CONTINUOUS VINEET JOE Start: 05-21-2018 INCENTIVE SPIROMETRY RT VINEET WHIPPLE Start: 05-21-2018 INCENTIVE SPIROMETRY RT VINEET WHIPPLE Start: 05-21-2018 PULSE OXIMETRY, CONTINUOUS VINEET JOE Start: 05-21-2018 INCENTIVE SPIROMETRY RT VIENET WHIPPLE Start: 05-21-2018 PULSE OXIMETRY, CONTINUOUS VINEET JOE Start: 05-21-2018 INCENTIVE SPIROMETRY RT VINEET WHIPPLE Start: 05-21-2018 POC GLUCOSE FINGERSTICK VINEET WHIPPLE Start: 05-21-2018 INCENTIVE SPIROMETRY RT VINEET WHIPPLE Start: 05-21-2018 HOME BIPAP OR CPAP FLORIN JASMYN WHIPPLE Start: 05-21-2018 INCENTIVE SPIROMETRY RT VINEET WHIPPLE Start: 05-21-2018 INITIATE OXYGEN THER APY PROTOCOL VINEET WHIPPLE Start: 05-21-2018 NASAL CANNULA OXYGEN MA LISBETH WHIPPLE Start: 05-21-2018 INCENTIVE SPIROMETRY RT VINEET WHIPPLE Start: 05-21-2018 Basic metabolic pane l calcium total VINEET WHIPPLE Start: 05-21-2018 Blood count complete automated VINEET WHIPPLE Start: 05-21-2018 HOME BIPAP OR CPAP FLORIN JASMYN WHIPPLE Start: 05-21-2018 INCENTIVE SPIROMETRY RT VINEET WHIPPLE Start: 05-20-2018 INCENTIVE SPIROMETRY RT VINEET WHIPPLE Start: 05-20-2018 INCENTIVE SPIROMETRY RT VINEET WHIPPLE Start: 05-20-2018 IP CONSULT TO RESPIR ATORY CARE VINEET WHIPPLE Start: 05-20-2018 TELEMETRY MONITORING MA LISBETH WHIPPLE Start: 05-20-2018 NASAL CANNULA OXYGEN MA LISBETH WHIPPLE Start: 05-20-2018 ENCOURAGE DEEP BREAT BIRD AND COUGHING VINEET WHIPPLE Start: 05-20-2018 FULL CODE VINEET HUBBARD Start: 05-20-2018 INCENTIVE SPIROMETRY RT VINEET WHIPPLE Start: 05-20-2018 INITIATE OXYGEN THER APY PROTOCOL VINEET WHIPPLE Start: 05-20-2018 AMBULATE PATIENT ARABELLA WHIPPLE Start: 05-20-2018 DIET NPO, NOW VINEET EASTON Start: 05-20-2018 NOTIFY PHYSICIAN (SPECIFY) VINEET WHIPPLE Start: 05-20-2018 VITAL SIGNS VINEET HUBBARD Start: 05-20-2018 ABDOMINAL BINDER ARABELLA WHIPPLE Start: 05-20-2018 POC GLUCOSE FINGERSTICK VINEET WHIPPLE Start: 05-20-2018 PATIENT STATUS (FROM ED OR OR/PROCEDURAL) VINEET WHIPPLE Start: 05-20-2018 TRANSFER PATIENT ARABELLA WHIPPLE Start: 05-20-2018 Continuous pulse oximetry VINEET WHIPPLE Start: 05-03-2018 EKG 12-LEAD VINEET HUBBARD Start: 05-03-2018 Assay of phosphatase alkaline VINEET WHIPPLE Start: 05-03-2018 Basic metabolic pane l calcium total VINEET WHIPPLE Start: 05-03-2018 Blood count complete automated VINEET WHIPPLE Start: 05-03-2018 NICOTINE, BLOOD VINEET WHIPPLE Start: 05-03-2018 Prothrombin time ARABELLA WHIPPLE Start: 05-03-2018 Transferase alanine amino alt sgpt VINEET WHIPPLE Start: 05-03-2018 Radiologic exam ches t 2 views VINEET WHIPPLE Start: 08-07-2015 Colonoscopy Kaya akhtar [employer] Work Phone: Plan of Treatment Date Care Activity Detail Author Start: 10-07-2026 DTaP/Tdap/Td vaccine (2 - Td) DTaP/Tdap/Td vaccine (2 - Td) [place] Start: 10-07-2026 DTaP/Tdap/Td vaccine (3 - Td) DTaP/Tdap/Td vaccine (3 - Td) [place] Start: 10-07-2026 DTaP/Tdap/Td vaccine (4 - Td or Tdap) DTaP/Tdap/Td vaccine (4 - Td or Tdap) [facility] Start: 10-07-2026 Tetanus vaccination TETANUS [facility] Start: 08-06-2025 Screening for malignant neoplasm of colon [facility] Start: 05-15-2025 Lipid panel Lipids [facility] Start: 05-06-2025 Glaucoma screening Diabetes: Retinopathy Screening [facility] Start: 2025 Shingles Vaccine (1 of 2) Shingles Vaccine (1 of 2) [place] Start: 12-30-2023 Lipid panel [facility] Start: 12-30-2023 Lipid screen Lipid screen [place] Start: 11-06-2023 End: 11-06-2023 Patient encounter procedure 11/06/2023 2:00 PM EDT Office Visit [facility] Part [address] [place] [address] Janis Hawkins MD [address] [place] [address] [place] [address] 4 week [facility] Part of [facility] Comment on above: 4 week Start: 10-20-2023 End: 10-20-2023 Nursing evaluation of patient and report 10/20/2023 11:00 AM EDT Nurse Only [address] [address] 1 week wound check from Loop [facility] Comment on above: 1 week wound check from Loop Start: 07-09-2023 End: 07-09-2023 Patient encounter procedure 07/09/2023 1:30 PM EST Office Visit [facility] [address] [place] [address] Kaya Belcher NP [address] [place], [place] [id number] Arrived [facility] Comment on above: Arrived Start: 07-08-2023 Screening for malignant neoplasm of breast [facility] Start: 07-01-2023 Urine screening for protein Diabetes: Urine Protein Screening [facility] Start: 04-21-2023 End: 04-21-2023 Patient encounter procedure 04/21/2023 1:00 PM EST [facility] [address] [address] Aubrey Rothman MD [address] [facility] [place] [address] [facility] [place] Start: 03-31-2023 End: 03-31-2023 Patient encounter procedure 03/31/2023 Office Visit Cardiology Janis Hawkins MD [address] [place] [address] [place] [address] [facility] Start: 03-05-2023 Hemoglobin A1c measurement Diabetes: Hemoglobin A1C [facility] Start: 02-13-2023 End: 01-10-2024 Cardiac telemetry [facility] C[employer] TELEMET[employer] ECG Routine PAF (paroxysmal atrial fibrillation) Expected: 02/13/2023 (Approximate), Expires: 01/10/2024 [facility] Comment on above: Expected: 02/13/2023 (Approximate), Expi res: 01/10/2024 Start: 01-23-2023 COVID-19 Vaccine ( season) COVID-19 Vaccine ( season) [facility] Start: 01-23-2023 Influenza vaccination INFLUENZA VACCINE (#1) [facility] Start: 01-10-2023 End: 01-10-2023 Telemedicine consultation with patient 01/10/2023 8:00 AM EDT Telemedicine [facility] [address] [address] Denisse Gilbert MD [address] [facility] [address] [place] [address] [facility] Start: 12-26-2022 Diabetes screen Diabetes screen [facility] Start: 11-26-2022 End: 11-26-2022 Patient encounter procedure 11/26/2022 Office Visit Cardiology Janis Hawkins MD [address] [place] [address] [facility] Start: 09-30-2022 Subsequent hospital visit by physician 09/30/2022 Hospital Encounter EKG [facility] EKG Start: 09-30-2022 End: 09-30-2022 Patient encounter procedure 09/30/2022 Appointment Stress Lab [facility] Stress Lab Start: 08-07-2022 Diabetes screen Diabetes screen [facility] [place], [place] Start: 08-06-2022 End: 08-06-2022 Patient encounter procedure 08/06/2022 Office Visit Cardiology Janis Hawkins MD [address] [place] [id number] [facility] Start: 07-09-2022 End: 07-09-2022 Patient encounter procedure 07/09/2022 Office Visit Urology [facility] Start: 12-29-2021 Diabetes screen Diabetes screen [facility] [place], [place] Start: 07-29-2021 COVID-19 Vaccine (3 - Booster for Evans series) COVID-19 Vaccine (3 - Booster for Evans series) [facility] Start: 05-11-2021 Creatinine measurement [facility] [place] [place] Start: 05-11-2021 Potassium monitoring Potassium monitoring [facility] [place], [place] Start: 12-26-2020 Creatinine measurement Creatinine [facility] [place] [place] Start: 12-26-2020 Potassium monitoring Potassium monitoring [facility] [place] Start: 08-07-2020 Creatinine measurement Creatinine monitoring [facility] [place] Start: 08-07-2020 Creatinine monitoring Creatinine monitoring [facility] [place] , [place] Start: 08-07-2020 Potassium monitoring Potassium monitoring [facility] [place], [place] Start: 06-28-2020 End: 06-28-2020 Office Visit 06/28/2020 Office Visit Cardiology Janis Hawkins MD [address] [place] [address] [place] [address] [facility] Start: 05-30-2020 Creatinine monitoring Creatinine monitoring [facility] [place] , [place] Start: 05-30-2020 Potassium monitoring Potassium monitoring [facility] [employer] [place], [place] Start: 05-02-2020 End: 05-02-2020 Office Visit [facility] Start: 2020 Screening for malignant neoplasm of colon [facility] Start: 04-20-2020 Creatinine monitoring Creatinine monitoring [facility] [employer] Work Phone: Start: 04-20-2020 Potassium monitoring Potassium monitoring [facility] [employer] Work Phone: Start: 02-23-2020 End: 02-23-2020 Appointment 02/23/2020 Appointment Occupational Therapy Fabby Marks OTR/Ashvin FRANCO Occupational Therapy Start: 02-21-2020 End: 02-21-2020 Appointment 02/21/2020 Appointment Occupational Therapy Fabby Marks OTR/Ashvin FRANCO Occupational Therapy Start: 02-16-2020 Hospital Encounter 02/16/2020 Hospital Encounter Occupational Therapy Fabby Marks OTR/L [facility] Start: 02-16-2020 End: 02-16-2020 Office Visit 02/16/2020 Office Visit Cardiology Janis Hawkins MD [address] [place] [address] [place] [address] [phone] [facility] Part of [facility] Start: 02-05-2020 Creatinine monitoring Creatinine monitoring [facility] [place] Start: 02-01-2020 End: 02-01-2020 Appointment 02/01/2020 Appointment Occupational Therapy Fabby Marks, OTR/L [facility] Start: 01-26-2020 End: 01-26-2020 Appointment 01/26/2020 Appointment Occupational Therapy Fabby Marks OTR/L [facility] Start: 01-24-2020 Influenza vaccination Flu vaccine (#1) [facility] Start: 01-23-2020 End: 01-23-2020 Appointment 01/23/2020 Appointment Occupational Therapy Fabby Marks OTR/L [facility] Start: 01-19-2020 End: 01-19-2020 Appointment 01/19/2020 Appointment Occupational Therapy Fabby Marks OTR/L [facility] Start: 01-16-2020 End: 01-16-2020 Appointment 01/16/2020 Appointment Occupational Therapy Fabby Marks, OTR/L [facility] Start: 01-12-2020 End: 01-12-2020 Appointment 01/12/2020 Appointment Occupational Therapy Fabby Marks OTR/L [facility] Start: 01-09-2020 End: 01-09-2020 Appointment 01/09/2020 Appointment Occupational Therapy Fabby Marks OTR/L [facility] Start: 01-04-2020 End: 01-04-2020 Appointment 01/04/2020 Appointment Occupational Therapy Fabby Marks OTR/L [facility] Start: 12-30-2019 Creatinine monitoring [facility]inine [facility] [place] Start: 12-30-2019 Lipid panel Lipids [facility] [employer] Start: 12-30-2019 Potassium monitoring Potassium monitoring [facility] [place] Start: 12-30-2019 End: 12-30-2019 Appointment 12/30/2019 Appointment Echocardiography [facility] Start: 11-02-2019 End: 11-02-2019 Office Visit 11/02/2019 Office Visit Bariatrics Aravind Salazar, DO [address] [address] [place] [address] [phone] [facility] Part of [facility] Start: 10-13-2019 End: 10-13-2019 Appointment [facility] Start: 10-11-2019 End: 10-11-2019 Appointment 10/11/2019 Appointment Occupational Therapy Fabby Marks, OTR/L [facility] Start: 10-06-2019 End: 10-06-2019 Appointment 10/06/2019 Appointment Occupational Therapy Fabby Marks, OTR/L [facility] Start: 10-04-2019 End: 10-04-2019 Appointment 10/04/2019 Appointment Occupational Therapy Fabby Marks OTR/L [facility] Start: 09-29-2019 End: 09-29-2019 Appointment 09/29/2019 Appointment Occupational Therapy Fabby Marks, OTR/L [facility] Start: 09-27-2019 End: 09-27-2019 Appointment 09/27/2019 Appointment Occupational Therapy Fabby Marks, OTR/L [facility] Start: 09-22-2019 End: 09-22-2019 Appointment 09/22/2019 Appointment Occupational Therapy Fabby Marks, OTR/[facility] Start: 09-19-2019 End: 09-19-2019 Appointment 09/19/2019 Appointment Occupational Therapy Fabby Marks OTR/[facility] Start: 09-15-2019 End: 09-15-2019 Appointment 09/15/2019 Appointment Occupational Therapy Fabby Marks, OTR/[facility] Start: 09-12-2019 End: 09-12-2019 Appointment 09/12/2019 Appointment Occupational Therapy Fabby Marks, OTR/L [facility] Start: 09-08-2019 End: 09-08-2019 Appointment 09/08/2019 Appointment Occupational Therapy Fabby Marks, OTR/L [facility] Start: 09-05-2019 End: 09-05-2019 Appointment 09/05/2019 Appointment Occupational Therapy Fabby Marks OTR/[facility] Start: 09-01-2019 End: 09-01-2019 Appointment 09/01/2019 Appointment Occupational Therapy Fabby Marks OTR/L [facility] Start: 08-29-2019 End: 08-29-2019 Appointment 08/29/2019 Appointment Occupational Therapy Fabby Marks, OTR/L [facility] Start: 08-25-2019 End: 08-25-2019 Appointment 08/25/2019 Appointment Occupational Therapy Fabby Marks OTR/L [facility] Start: 08-22-2019 End: 08-22-2019 Appointment 08/22/2019 Appointment Occupational Therapy Fabby Marks OTR/L [facility] Start: 08-18-2019 End: 08-18-2019 Appointment [facility] Start: 08-15-2019 End: 08-15-2019 Appointment 08/15/2019 Appointment Occupational Therapy Fabby Marks OTR/L [facility] Start: 08-11-2019 End: 08-11-2019 Office Visit 08/11/2019 Office Visit Cardiology Janis Hawkins MD [address] [place] [address] [facility] Start: 07-29-2019 End: 07-29-2019 Office Visit 07/29/2019 Office Visit Cardiology Janis Hawkins MD [address] [place] [phone] [facility] Start: 05-04-2019 End: 05-04-2019 Office Visit 05/04/2019 Office Visit Bariatrics Aravind Salazar DO [address] [facility] [address] [place] [address] [facility] Start: 02-02-2019 End: 02-02-2019 Office Visit 02/02/2019 Office Visit Bariatrics Aravind Salazar DO [address] [place] [address] [facility] Start: 01-23-2019 Influenza vaccination Flu vaccine (#1) [place] Start: 01-17-2019 End: 01-17-2019 Office Visit 01/17/2019 Office Visit Cardiology Janis Hawkins MD [address] [place] [address] [place] [phone] [facility] Start: 2015 Lipid panel LIPID SCREENING [facility] Start: 2015 Screening for malignant neoplasm of breast MAMMOGRAM SCREENING DISCUSSION [facility] Start: 1996 Cervical cancer screen Cervical cancer screen [place] Start: 1996 Screening for malignant neoplasm of cervix [facility] Start: 1993 Hepatitis C screening Hepatitis C screen [facility] Start: 1990 HIV screen HIV screen [place] Start: 1990 HIV screening [facility] Start: 1987 Depression Screen Depression Screen [facility] Start: 1975 Hepatitis B vaccine (1 of 3 - 3-dose series) Hepatitis B vaccine (1 of 3 - 3-dose series) [facility] Start: 1975 Hepatitis C screening HEPATITIS C VIRUS SCREENING [facility] Start: 1975 Screening for malignant neoplasm of colon [facility] End: 08-11-2019 Continuous cardiac monitoring, >2 up to 14 days Continuous cardiac monitoring, >2 up to 14 days Cardiac Services Routine Paroxysmal atrial fibrillation (HCC) Essential hypertension JAMES on CPAP 1 Occurrences starting 08/11/2019 until 08/11/2019 [place] Comment on above: 1 Occurrences starting 08/11/2019 until 08/11/2019 EKG 12 Lead EKG 12 Lead ECG STAT 05/30/2019 1:24 PM EST [facility] Work Phone: End: 10-06-2023 Electrophysiology procedure [facility] Comment on above: One Time for 1 Occurrences starting 09/22 until 10/06/2023 Electrophysiology study EP PROCE DURE - EPS/ABLATION/DEVICE Electrophysiology Routine PAF (paroxysmal atrial fibrillation) 01/09/2023 9:49 AM EDT [facility] End: 01-09-2023 EXTRA LAVENDER TOP [facility] Comment on above: Once for 1 Occurrences starting 01/10/20 until 01/09/2023 End: 01-09-2023 EXTRA TUBES [facility] Comment on above: One Time for 1 Occurrences starting 12/23 until 01/09/2023 Immunizations Immunization Date Immunization Notes Care Provider Enrique rojas 02-16-2023 influenza, injectabl e, quadrivalent, preservative free Kaya Belcher [employer] Work Phone: [facility] 02-06-2022 influenza, injectabl e, quadrivalent, preservative free Kaya Belcher [employer]NALYST Work Phone: [facility] 02-06-2022 influenza virus vaccine, unspecified formulation Aubrey Rothman MD Work Phone: [facility] 05-13-2021 influenza, injectabl e, quadrivalent, contains preservative [facility] Work Phone: 09-02-2020 Moderna SARS-CoV-2 Vaccination Kaya Belcher [employer]NALYST Work Phone: [facility] 04-12-2020 influenza, injectabl e, quadrivalent, contains preservative [facility] Work Phone: 02-21-2019 influenza, injectabl e, quadrivalent, preservative free Kaya Belcher [employer] RECOV[employer] ANALYST Work Phone: [facility] 02-12-2018 influenza, injectabl e, quadrivalent, preservative free Kaya Belcher [employer]ISA[employer] RECOV[employer] ANALYST Work Phone: [facility] 02-13-2017 influenza, injectabl e, quadrivalent, preservative free Kaya Belcher [employer] RECOV[employer] ANALYST Work Phone: [facility] 10-07-2016 tetanus toxoid, redu andrew diphtheria toxoid, and acellular pertussis vaccine, adsorbed Denisse Brook [facility] 06-20-2015 influenza virus vaccine, live, attenuated, for intranasal use Kaya Belcher [employer] RECOVERY ANALYST Work Phone: [facility] 01-19-2012 tetanus toxoid, redu andrew diphtheria toxoid, and acellular pertussis vaccine, adsorbed Kaya Belcher NP Work Phone: [facility] 11-02-2010 tetanus toxoid, redu andrew diphtheria toxoid, and acellular pertussis vaccine, adsorbed [facility] Work Phone: Payers Date Payer Category Payer Unknown [id number] 2015 Unknown BCBS [place] P PO xxxxxxxxxxxxxxx 2015-Present [address] [place] [address] xxxxxxxxxxxxxxx [id number] 2014 Unknown [employer] [id number] 2014-Present [address] [place] [address] [id number] 1975 Unknown [id number] 2.16.840.1.682833.3.579.2.175 1975 Unknown [id number] 2.16.840.1.723725.3.579.2.175 1975 Unknown [id number] 2.16.840.1.486828.3.579.2.175 1975 Unknown [id number] 2.16.840.1.916799.3.579.2.647 1975 Unknown [id number] 2.16.840.1.996844.3.579.2.593 1975 Unknown [id number] 2.16.840.1.502980.3.579.2.593 1975 Unknown [id number] 2.16.840.1.435549.3.579.2.593 1975 Unknown [id number] 2.16.840.1.341631.3.579.2.594 1975 Unknown [id number] 2.16.840.1.271692.3.579.2.594 1975 Unknown [id number] 2.16.840.1.575745.3.579.2.594 1975 Unknown [id number] 2.16.840.1.517702.3.579.2.594 1975 Unknown [id number] 2.16.840.1.020076.3.579.2.594 1975 Unknown [id number] 2.16.840.1.803715.3.579.2.594 1975 Unknown [id number] 2.16.840.1.966946.3.579.2.594 1975 Unknown [id number] 2.16.840.1.481023.3.579.2.173 1975 Unknown [id number] 2.16.840.1.992737.3.579.2.173 1975 Unknown [id number] 2.16.840.1.587387.3.579.2.173 1975 Unknown [id number] 2.16.840.1.710722.3.579.2.173 1975 Unknown [id number] 2.16.840.1.731957.3.579.2.173 1975 Unknown [id number] 2.16.840.1.122254.3.579.2.173 1975 Unknown [id number] 2.16.840.1.580937.3.579.2.173 1975 Unknown [id number] 2.16.840.1.453415.3.579.2.128 6 1975 Unknown [id number] 2.16.840.1.711403.3.579.2.128 6 1975 Unknown [id number] 2.16.840.1.455492.3.579.2.128 6 1975 Unknown [id number] 2.16.840.1.610821.3.579.2.128 6 1975 Unknown [id number] 2.16.840.1.480736.3.579.2.125 9 1975 Unknown [id number] 2.16.840.1.569244.3.579.2.125 9 1975 Unknown [id number] 2.16.840.1.317370.3.579.2.125 9 1975 Unknown [id number] 9 1975 Unknown [id number] 9 1975 Unknown [id number] 9 1975 Unknown [id number] 9 1975 Unknown [id number] 9 1975 Unknown [id number] 9 1975 Unknown [id number] 9 1959 Unknown [id number] Social History Date Type Detail Facility Start: 01-12-2019 End: 10-06-2023 Tobacco smoking status VTIS Former smoker [facility] Start: 02-12-1990 End: 05-14-2013 History of tobacco use Current smoker [place] Start: 02-12-1990 End: 05-14-2013 History of tobacco use Cigarette Smoker [place] Start: 01-12-2019 End: 12-20-2022 Cigarettes smoked current (pack per day) [facility]: 01-12-2019 End: 12-20-2022 [facility] intake [facility] Start: 05-03-2018 Alcohol Comment ON[facility] A [facility] Start: 1975 Sex Assigned At Not on file M griselda [place], [place] Start: 08-11-2019 End: 10-06-2023 Alcohol intake Current drinker of alcohol (finding) [place] Exposure to SARS-CoV-2 (event) [place] Start: 12-27-2019 End: 10-06-2023 Tobacco use and exposure Never used [facility] Start: 12-30-2022 End: 01-09-2023 Exposure to SARS-CoV-2 (event) Not sure [place] Start: 10-07-2022 Alcohol Comment occasional [facility] How often to you hav e a drink containing alcohol? Monthly or less [facility] How many standard drinks containing alcohol do you have on a typical day? 1 or 2 [facility] How often do you hav e 6 or more drinks on 1 occasion? Never [facility] Start: 01-28-2023 Alcohol Comment Caffeine intake: non e [facility] How often do you hav e 6 or more drinks on 1 occasion? Less than monthly [employer] Read-Only, Retired: Physical Abuse Denies [facility] NEGATED: Highlighted rowStart: NINF History of tobacco use Passive smoker [facility] Medical Equipment Procedure Code Equipment Code Equipment Origin al Text Equipment Identifier Dates Monitor Crd Loop Recorder Kit - [id number] Start: 10-13-2023 Goals Date Patient Goal Desired Activity /State Personal health goal Clinical Notes 05-30-2019 to 10-13-2023 Discharge Instructions Note Date & Type Note Facility 10-13-2023 Hospital Discharg e instructions Belinda Alan RN - 10/13/2023 12:37 PM EDT DISCHARGE INSTRUCTIONS FOR loop recorder HOME CARE: You will likely go home with steri strips/surgical glue over your incision. Surgical dressing may be removed in 24 hours and changed daily until no drainage is noted form site. Keep the incision clean and dry. If used, steri strips will fall off within 1-2 weeks. Do not take shower until 24 hours or until no further drainage from site. Tylenol may be used for relief of tenderness around the implant site. Also avoid anything that will rub against the incision. Normally the device may seem to bulge slightly under your skin. The bulge may be more prominent right after surgery but will become less noticeable the next two weeks. CHANGES TO NOTIFY OUR OFFICE ABOUT: Increased swelling and/or tenderness. Increased redness of the pocket or incision. Drainage from the incision. A pimple that develops along the incision. You develop a fever and do not have a cold or the flu. Notify the doctor if you experience the symptoms you had prior to implant. Avoid activities that may result in high impact or stress at the incision site. DRIVING IS USUALLY PERMITTED WITHIN 24 hours. IF YOU ARE ON BLOOD THINNERS, CHECK WITH YOUR DOCTOR WHEN TO RESUME YOUR MEDICATION. CARRY DEVICE I.D. AND HOME MEDICATION LIST WITH YOU AT ALL TIMES. NOTIFY ANY MEDICAL PERSONNEL THAT YOU HAVE A DEVICE BEFORE ANY PROCEDURES. THESE ARE GENERAL GUIDELINES AFTER IMPLANTATION. IF THERE ARE ANY EXCEPTIONS TO THESE INSTRUCTIONS, THEY WILL BE REVIEWED WITH YOU ON AN INDIVIDUAL BASIS. documented in this encounter [facility] 03-17-2023 Evaluation note Encounter Date Diagnosis Assessment Notes Feb, Acute maxillary sinusitis, recurrence not specified (ICD-10 - J01.00) At home COVID test negative. Antibiotic sent to pharmacy per patient request. Encourage patient to use [id number] ter sinus relief medication per label instruction. Encouraged increase fluid intake and rest. May use Tylenol and or Motrin for fever and pain relief. Follow-up with PCP if symptoms do not improve or worsen. All questions and concerns addressed. [facility] Other 08-18-2023 Nurse Note* Nursing Notes - Belle Murphy RN - 01/09/2023 2:13 PM EDT AVS reviewed with the patient and , all questions answered. [facility]08-18-2023 Miscellaneous Notes* Nursing Notes - Belle Murphy RN - 01/09/2023 2:13 PM EDT AVS reviewed with the patient and , all questions answered. * Referral Letter - Aubrey Rothman MD - 01/09/2023 10:01 AM EDT January 09, 2023 JANIS HAWKINS MD [address] [place] [address] [place] [address] RE: JODY TH[place]AS[place] DATE OF SERVICE: 01/09/[address] Hawkins, I had the pleasure of seeing your patient, Mrs. Jody [place] in our electrophysiology lab for her scheduled EP study and ablation of atrial fibrillation. As you recall, she is a 47-year-old white female with a history of symptomatic paroxysmal atrial fibrillation with rapid ventricular response, hypertension, obstructive sleep apnea, coronary artery disease, diabetes mellitus type 2, obstructive sleep apnea on CPAP, osteoarthritis, Meniere disease, DVT, due to MTHFR gene mutation with obesity and BMI of 39.96 kg per square meter and GERD, who has been on Multaq with breakthrough atrial fibrillation. The patient was seen in our office in September 2022 for further evaluation of rhythm control strategy. Antiarrhythmic drug therapy was offered as well as ablation therapy. The patient was interested in pursuing atrial fibrillation ablation instead of another antiarrhythmic drug therapy. Her ECG from October 09, 2022 showed normal sinus rhythm. Echo from May 2022 was reported normal left ventricular size and function. CT of pulmonary vein on January 08, 2023 showed no left atrial/left atrial appendage or right atrial appendage thrombi with normal four pulmonary veins draining the left atrium. The patient underwent successful pulmonary vein isolation confirmed with a PentaRay diagnostic catheter as well as cavotricuspid isthmus. EP study was performed, which showed normal sinus node function with the longest sinus node recovery time at 13:06. The patient has normal infranodal conduction at 41 milliseconds. Normal AV node function with AV node Wenckebach at 330 milliseconds. The patient has ventricular atrial dissociation at baseline. The patient tolerated the procedure well without any complication. The patient will continue on Eliquis 5 mg p.o. b.i.d. as well as Multaq 400 mg p.o. b.i.d. for now, we will stop Multaq in 4 weeks. We will obtain 30 days mobile cardiac telemetry in 6 weeks. The patient also will be seen in office in 3 months. The patient has done well with losing weight since we saw her in September. We will emphasize on optimizing risk factor management and lifestyle modification to optimize symptom control strategy outcome. Thank you for letting us participate in the management of the patient. If you have questions or concerns, please let us know. Sincerely, Aubrey Rothman MD documented in this [facility]08-18-2023 Note* Referral Letter - Aubrey Rothman MD - 01/09/2023 10:01 AM EDT January 09, 2023 JANIS HAWKINS MD [address] [place] [address] [place] [phone] RE: JODY TH[place]ASON DATE OF SERVICE: 01/09/[address] Hawkins, I had the pleasure of seeing your patient, Mrs. Jody [place] in our electrophysiology lab for her scheduled EP study and ablation of atrial fibrillation. As you recall, she is a 47-year-old white female with a history of symptomatic paroxysmal atrial fibrillation with rapid ventricular response, hypertension, obstructive sleep apnea, coronary artery disease, diabetes mellitus type 2, obstructive sleep apnea on CPAP, osteoarthritis, Meniere disease, DVT, due to MTHFR gene mutation with obesity and BMI of 39.96 kg per square meter and GERD, who has been on Multaq with breakthrough atrial fibrillation. The patient was seen in our office in September 2022 for further evaluation of rhythm control strategy. Antiarrhythmic drug therapy was offered as well as ablation therapy. The patient was interested in pursuing atrial fibrillation ablation instead of another antiarrhythmic drug therapy. Her ECG from October 09, 2022 showed normal sinus rhythm. Echo from May 2022 was reported normal left ventricular size and function. CT of pulmonary vein on January 08, 2023 showed no left atrial/left atrial appendage or right atrial appendage thrombi with normal four pulmonary veins draining the left atrium. The patient underwent successful pulmonary vein isolation confirmed with a PentaRay diagnostic catheter as well as cavotricuspid isthmus. EP study was performed, which showed normal sinus node function with the longest sinus node recovery time at 13:06. The patient has normal infranodal conduction at 41 milliseconds. Normal AV node function with AV node Wenckebach at 330 milliseconds. The patient has ventricular atrial dissociation at baseline. The patient tolerated the procedure well without any complication. The patient will continue on Eliquis 5 mg p.o. b.i.d. as well as Multaq 400 mg p.o. b.i.d. for now, we will stop Multaq in 4 weeks. We will obtain 30 days mobile cardiac telemetry in 6 weeks. The patient also will be seen in office in 3 months. The patient has done well with losing weight since we saw her in September. We will emphasize on optimizing risk factor management and lifestyle modification to optimize symptom control strategy outcome. Thank you for letting us participate in the management of the patient. If you have questions or concerns, please let us know. Sincerely, Aubrey Rothman MD [facility]08-18-2023 Hospital Discharge instructions* Discharge Instr - Activity* Sahara Claudia Shannon [employer] - 01/09/2023 6:34 AM EDT Post Ablation Activity Your activity is restricted only as indicated by your physician. Please refer to education for ablation and other care recommendations. - No driving for 24 hours - Keep incision dry - Limit bending at the waist for 48 hours - May resume regular activity in 1-2 weeks unless otherwise notified - Return to work in 1 week - No tub baths or hot tub for 2 weeks or until groin site is healed - No lifting greater than 10-15 pounds for 1 week. Rest for 24 hours after you are home. You should have someone with you to help you the first night you are home. DO NOT drive for 24 hours. DO NOT make any important decisions for 24 hours. DO NOT work around the stove, machinery or power equipment for 24 hours. * Discharge Instr - Notify* VIC Scott - 01/09/2023 6:34 AM EDT Images from the original note were not included. NOTIFY PHYSICIAN BLEEDING/BRUISING -If severe bleeding, apply pressure -Increased bleeding from site -Increased bruising or hematoma Chest pain or shortness of breath Respiratory Changes Call your doctor or nurse if you have shortness of breath that gets worse -Cough that gets worse -Coughing up blood Stroke Symptoms Call 911 if you suddenly have any of these signs of a stroke: -Numbness or muscle weakness -Trouble swallowing -Problems talking -Dizziness or feeling unsteady -Severe headache -Confusion SYMPTOMS OF DVT DVT = Deep Vein Thrombus, or Blood Clot -any tender, swollen, or reddened areas from your groin to your heels. -numbness or tingling in groin or calf -the skin on your leg looks pale or blue or it feels cold to touch -any shortness of breath -chest pain -fever or chills NAUSEA: When you are nauseated, you may feel weak and sweaty and notice a lot of saliva in your mouth. Nausea often leads to vomiting. Most of the time you do not need to worry about nausea and vomiting, butthey can be signs of other illnesses. The doctor has checked you carefully, but problems can develop later. If you notice any problems ornew symptoms, get medical treatment right away. Follow-up care is a sol part of your treatment and safety. Be sure to make and go to all appointments, and call your doctor if you are having problems. It's also a good idea to know your test resultsand keep a list of the medicines you take. How can you care for yourself at home? To prevent dehydration, drink plenty of fluids, enough so that your urine is light yellow or clear like water. Choose water and other caffeine-free clear liquids until you feel better. If you have kidney, heart, or liver disease and have to limit fluids, talk with your doctor before you increase the amount of fluids you drink. Rest in bed until you feel better. When you are able to eat, try clear soups, mild foods, and liquids until all symptoms are gone for 12 to 48 hours. Other good choices include dry toast, crackers, cooked cereal, and gelatin dessert, such as Jell-O. When should you call for help? Call 911 anytime you think you may need emergency care. For example, call if: You passed out (lost consciousness) Call your doctor now or seek immediate medical care if: You have symptoms of dehydration, such as: Dry eyes and a dry mouth Passing only a little dark urine Feeling thirstier than usual You have new or worsening belly pain You have a new or higher fever You vomit blood or what looks like coffee grounds Watch closely for changes in your health, and be sure to contact your doctor if: You have on going nausea and vomiting Your vomiting gets worse Your vomiting last longer than 2 days You are not getting better as expected Where can you learn more? Go to [email or web address].net/osumychart. * Discharge Instr - Wound Care* VIC Scott - 01/09/2023 6:34 AM EDT Catheter site care You can remove your bandages the day after the procedure. You may shower 24 to 48 hours after the procedure, if your doctor okays it. Pat the incision dry. Do not soak the catheter site until it is healed. Don't take a bath for 1 week, or until your doctor tells you it is okay. Watch for bleeding from the site. A small amount of blood (up to the size of a quarter) on the bandage can be normal. If you are bleeding, lie down and press on the area for 15 minutes to try to make it stop. If the bleeding does not stop, call your doctor or seek immediate medical care. [facility] History and physical note* VIC Scott - 01/09/2023 6:11 AM EDT Images from the original note were not included. Chief Complaint Here for AF ablation HPI Jody [place] is a 47 y.o. female with PAF, HTN, PVCs, JAMES, DM2, DVT due to MTHFR gene mutation, obesity and GERD. Has had PAF for several years, previously managed on Multaq which she took for 4-5 years. It had to be stopped earlier this year due to insurance reasons. Has never undergone cardioversion; episodes typically last less than 12 hours. She was referred to Dr Rothman in September and theplan was made to proceed with ablation. She presents today for the procedure. She has no complaints. Last episode of AF was 12/22 and lasted 2 hours. Patient Active Problem List Diagnosis body mass index of 40.0-49.9 PAF (paroxysmal atrial fibrillation) Past Medical History: Diagnosis Date Arthritis Atrial fibrillation CAD (coronary artery disease) Diabetes mellitus DVT (deep venous thrombosis) right leg Essential hypertension, benign GERD (gastroesophageal reflux disease) Hypothyroidism Meniere disease MTHFR gene mutation JAMES (obstructive sleep apnea) PVC's (premature ventricular contractions) Past Surgical History: Procedure Laterality Date ABDOMINAL SURGERY COLONOSCOPY DIAGNOSTIC DILATION AND CURETTAGE EGD DIAGNOSTIC GASTRIC BYPASS HYSTERECTOMY THYROIDECTOMY Medications Prior to Admission Medication Sig Dispense Refill Last Dose Diltiazem 120 MG Cap SR 24HR capsule XL Take 1 capsule by mouth As directed as needed. When in afib Dronedarone 400 MG tablet Take 1 tablet by mouth 2 times daily. (Patient not taking: Reported on 10/07/2022) Eliquis 5 MG tablet Take 1 tablet by mouth every 12 hours. Levothyroxine 200 MCG tablet Take 1 tablet by mouth every morning before breakfast. lisinopril-hydrochlorothiazide 10-12.5 MG tablet Take 1 tablet by mouth daily. Multiple Vitamin (multivitamin) capsule Take 1 capsule by mouth daily. omeprazole [address] capsule Take 1 capsule by mouth daily. Allergies Allergen Reactions Lactose Intolerance (Gi) Gas and Bloating Gas and Bloating *Sutures Other reaction(s): Swelling Aspirin Other reaction(s): Gastritis Other Reaction(s): Gastritis Cortisone Depo-Medrol [Methylprednisolone] Hydrocodone-Acetaminophen Pt cannot take any narcotics, they make her violent and she doesn't remember things Pt cannot take any narcotics, they make her violent and she doesn't remember things Lactose Nickel Bacitracin Rash Other reaction(s): rash Social History Socioeconomic History Marital status: Tobacco Use Smoking status: Former Types: Cigarettes Smokeless tobacco: Never Substance and Sexual Activity Alcohol use: Yes Comment: occasional Family History Problem Relation Age of Onset Hypertension Mother Diabetes Mother Hypertension Father Diabetes Father Myocardial Infarction Father Cancer- Other Paternal Grandfather Referring MD/PCP Denisse GARCIA MD: Dr Rothman Anticoagulation: Eliquis Has the patient missed any doses of anticoagulation. no When was the last dose taken. 01/08 PM [id number]- Vasc score: 3 (gender, HTN, DM) Previous antiarrythmic medications: Multaq stopped due to insurance reasons Prior Cardiac testing: CT of PVs 01/08/23: 1. Pulmonary venous anatomy is normal. RLPV demonstrates early branching. 2. No thrombus seen within left atrial appendage or cardiac chambers, including evaluation with delayed imaging. 3. Moderate coronary artery calcification. ECHO 05/2022: Review of System Constitutional: Negative for fever, weight loss, weight gain and malaise/fatigue. Skin: Negative. HEENT: Negative. Cardiovascular: Negative for leg swelling. Negative for palpitations, chest pain, dyspnea, orthopnea, claudication, edema and PND. Negative for lightheadedness or syncope. Respiratory: Negative for cough. Is not experiencing shortness of breath currently. Gastrointestinal: Negative for abdominal pain, nausea, vomiting, diarrhea, melena, and constipation. Endocrine: Negative for polyuria, polydipsia, heat or cold intolerance. Genitourinary: Negative for frequency or burning with urination. Past history of BPH or difficult catheterization? no. Neurological: Negative for dizziness and headaches. Psychiatric: Negative for depression, nervous/anxious and substance abuse. Telemetry/EKG: NSR BP 125/75 (BP Location: Right arm, BP Position: Lying) Pulse 62 Temp 97.4 F (36.3 C) (Oral) Resp 19 Ht 1.626 m (5' 4 ) Wt 103 kg (227 lb) SpO2 98% BMI 38.96 kg/m Smoking Status Former Body mass index is 38.96 kg/m . Physical Exam General appearance - alert, LOC x 3, well appearing, and in no distress Chest - lungs clear to auscultation Heart - regular rate and rhythm, S1 and S2 normal, no murmurs, clicks, gallops or rubs Abdomen - soft, nontender, nondistended, no masses or organomegaly, bowel sounds present x 4 quadrants. Extremities - peripheral pulses normal, no pedal edema, no clubbing or cyanosis Skin - normal coloration and turgor, no rashes, no suspicious skin lesions noted Lab Results Component Value Date SODIUM 139 01/08/2023 POTASSIUM 4.2 01/08/2023 CHLORIDE 106 01/08/2023 CO2 26 01/08/2023 BUN 18 01/08/2023 CREATSERUM 1.00 01/08/2023 Lab Results Component Value Date WBC 5.84 01/08/2023 HGB 12.7 01/08/2023 HCT 40.2 01/08/2023 PLATELET 207 01/08/2023 MCV 90.3 01/08/2023 No results found for: INR Assessment and Plan PAF: Ok to proceed with procedure. Associated attestation - Aubrey Rothman MD - 01/09/2023 9:56 AM EDT Electrophysiology attending physician I saw and personally/independently examined this patient with the nurse practitioner on 01/09/2023. We will proceed with electrophysiology [EP] study and radiofrequency ablation [RFA] odf atrial fibrillation and atrial flutter [AFL]. The plan was developed mutually Aubrey Rothman MD. 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 [facility] [email or web address]08-18-2023 History and physical note* Sahara Ortega APRN-JOHN - 01/09/2023 6:11 AM EDT Images from the original note were not included. Chief Complaint Here for AF ablation HPI Jody [place]ason is a 47 y.o. female with PAF, HTN, PVCs, JAMES, DM2, DVT due to MTHFR gene mutation, obesity and GERD. Has had PAF for several years, previously managed on Multaq which she took for 4-5 years. It had to be stopped earlier this year due to insurance reasons. Has never undergone cardioversion; episodes typically last less than 12 hours. She was referred to Dr Rothman in September and theplan was made to proceed with ablation. She presents today for the procedure. She has no complaints. Last episode of AF was 12/22 and lasted 2 hours. Patient Active Problem List Diagnosis body mass index of 40.0-49.9 PAF (paroxysmal atrial fibrillation) Past Medical History: Diagnosis Date Arthritis Atrial fibrillation CAD (coronary artery disease) Diabetes mellitus DVT (deep venous thrombosis) right leg Essential hypertension, benign GERD (gastroesophageal reflux disease) Hypothyroidism Meniere disease MTHFR gene mutation JAMES (obstructive sleep apnea) PVC's (premature ventricular contractions) Past Surgical History: Procedure Laterality Date ABDOMINAL SURGERY COLONOSCOPY DIAGNOSTIC DILATION AND CURETTAGE EGD DIAGNOSTIC GASTRIC BYPASS HYSTERECTOMY THYROIDECTOMY Medications Prior to Admission Medication Sig Dispense Refill Last Dose Diltiazem 120 MG Cap SR 24HR capsule XL Take 1 capsule by mouth As directed as needed. When in afib Dronedarone 400 MG tablet Take 1 tablet by mouth 2 times daily. (Patient not taking: Reported on 10/07/2022) Eliquis 5 MG tablet Take 1 tablet by mouth every 12 hours. Levothyroxine 200 MCG tablet Take 1 tablet by mouth every morning before breakfast. lisinopril-hydrochlorothiazide 10-12.5 MG tablet Take 1 tablet by mouth daily. Multiple Vitamin (multivitamin) capsule Take 1 capsule by mouth daily. omeprazole [address] capsule Take 1 capsule by mouth daily. Allergies Allergen Reactions Lactose Intolerance (Gi) Gas and Bloating Gas and Bloating *Sutures Other reaction(s): Swelling Aspirin Other reaction(s): Gastritis Other Reaction(s): Gastritis Cortisone Depo-Medrol [Methylprednisolone] Hydrocodone-Acetaminophen Pt cannot take any narcotics, they make her violent and she doesn't remember things Pt cannot take any narcotics, they make her violent and she doesn't remember things Lactose Nickel Bacitracin Rash Other reaction(s): rash Social History Socioeconomic History Marital status: Tobacco Use Smoking status: Former Types: Cigarettes Smokeless tobacco: Never Substance and Sexual Activity Alcohol use: Yes Comment: occasional Family History Problem Relation Age of Onset Hypertension Mother Diabetes Mother Hypertension Father Diabetes Father Myocardial Infarction Father Cancer- Other Paternal Grandfather Referring MD/PCP Denisse GARCIA MD: Dr Rothman Anticoagulation: Eliquis Has the patient missed any doses of anticoagulation. no When was the last dose taken. 01/08 PM [id number]- Vasc score: 3 (gender, HTN, DM) Previous antiarrythmic medications: Multaq stopped due to insurance reasons Prior Cardiac testing: CT of PVs 01/08/23: 1. Pulmonary venous anatomy is normal. RLPV demonstrates early branching. 2. No thrombus seen within left atrial appendage or cardiac chambers, including evaluation with delayed imaging. 3. Moderate coronary artery calcification. ECHO 05/2022: Review of System Constitutional: Negative for fever, weight loss, weight gain and malaise/fatigue. Skin: Negative. HEENT: Negative. Cardiovascular: Negative for leg swelling. Negative for palpitations, chest pain, dyspnea, orthopnea, claudication, edema and PND. Negative for lightheadedness or syncope. Respiratory: Negative for cough. Is not experiencing shortness of breath currently. Gastrointestinal: Negative for abdominal pain, nausea, vomiting, diarrhea, melena, and constipation. Endocrine: Negative for polyuria, polydipsia, heat or cold intolerance. Genitourinary: Negative for frequency or burning with urination. Past history of BPH or difficult catheterization? no. Neurological: Negative for dizziness and headaches. Psychiatric: Negative for depression, nervous/anxious and substance abuse. Telemetry/EKG: NSR BP 125/75 (BP Location: Right arm, BP Position: Lying) Pulse 62 Temp 97.4 F (36.3 C) (Oral) Resp 19 Ht 1.626 m (5' 4 ) Wt 103 kg (227 lb) SpO2 98% BMI 38.96 kg/m Smoking Status Former Body mass index is 38.96 kg/m . Physical Exam General appearance - alert, LOC x 3, well appearing, and in no distress Chest - lungs clear to auscultation Heart - regular rate and rhythm, S1 and S2 normal, no murmurs, clicks, gallops or rubs Abdomen - soft, nontender, nondistended, no masses or organomegaly, bowel sounds present x 4 quadrants. Extremities - peripheral pulses normal, no pedal edema, no clubbing or cyanosis Skin - normal coloration and turgor, no rashes, no suspicious skin lesions noted Lab Results Component Value Date SODIUM 139 01/08/2023 POTASSIUM 4.2 01/08/2023 CHLORIDE 106 01/08/2023 CO2 26 01/08/2023 BUN 18 01/08/2023 CREATSERUM 1.00 01/08/2023 Lab Results Component Value Date WBC 5.84 01/08/2023 HGB 12.7 01/08/2023 HCT 40.2 01/08/2023 PLATELET 207 01/08/2023 MCV 90.3 01/08/2023 No results found for: INR Assessment and Plan PAF: Ok to proceed with procedure. Associated attestation - Aubrey Rothman MD - 01/09/2023 9:56 AM EDT Electrophysiology attending physician I saw and personally/independently examined this patient with the nurse practitioner on 01/09/2023. We will proceed with electrophysiology [EP] study and radiofrequency ablation [RFA] odf atrial fibrillation and atrial flutter [AFL]. The plan was developed mutually Aubrey Rothman MD. 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 [facility] [email or web address] documented in this encounterOSGerman [facility] History of Present illness Narrative* Hali Cee RN - 09/29/2022 9:15 AM EDT Instructed on objectives and procedure of lexiscan/cardiolite stress test. documented in this encounterBON IPICO Phone: [phone] NoteOPERATIVE NOTE OPERATION DATE: 09/02/2022 PRIMARY CARE PHYSICIAN: Denisse Gilbert M.D. SURGEON: Princess Webb M.D. PREOPERATIVE DIAGNOSIS: Bilateral inferior turbinate hypertrophy and recurrent right epistaxis. POSTOPERATIVE DIAGNOSIS: Bilateral inferior turbinate hypertrophy and recurrent right epistaxis. PROCEDURE: Right nasal endoscopy and cautery and bilateral inferior turbinate submucosal resection. FINDINGS: Prominent right anterior septal vein and bilateral right greater than left inferior turbinate hypertrophy. COMPLICATIONS: None. INDICATIONS: This 47-year-old woman presented with chronic nasal obstruction secondary to inferior turbinate hypertrophy, unresponsive to medical management. She also has been having trouble with recurrent right sided epistaxis. PROCEDURE: Patient identified in the holding are and taken back to the OR where she was placed in a supine position. After induction of general endotracheal anesthesia, the table was turned, the face draped in a sterile fashion and the head elevated 20 degrees. The right nose was approached with the 30 degree nasal endoscope and a prominent vein of the right anterior septum was cauterized under endoscopic guidance. Both sides of the nose were then copiously irrigated and Afrin soaked pledgets were placed in the nose. After waiting adequate time for decongestion, the Afrin soaked pledgets were removed and the left nose was approached with the nasal speculum and lidocaine 1% with 1:100,000 epinephrine injected into the turbinate, and the same then done on the right hand side. After waiting adequate time for hemostasis, attention was turned to the left nose, a stab incision was made in the anterior inferior turbinate and a caudal elevator was used to create a tunnel along the medial surface of the turbinate bone. Then a 2.0 mm microdebrider was used to exenterate the submucosal tissues of the turbinate and the turbinate was outfractured with a long nasal speculum. Attention was then turned to the right inferior turbinate and the same procedure performed. Both sides of the nose were again irrigated and Afrin soaked pledgets were placed in each side of the nose and tied together to avoid aspiration, and they were then removed after the patient was taken to the recovery room.[facility] [id number] NoteEXAMINATION: XR CHEST 2 V HISTORY: Pre-surgery evaluation COMPARISON: XR chest 02/20/2016 FINDINGS: LUNGS: No significant pulmonary parenchymal abnormalities. VASCULATURE: No increased pulmonary vasculature. PLEURA: No pneumothorax, effusion, or pleural thickening. CARDIAC: No cardiomegaly or cardiac silhouette abnormality. MEDIASTINUM: No visible mass or adenopathy. BONES: No fracture or visible bone lesion. OTHER: Negative. IMPRESSION: 1. Normal chest. Electronically authenticated by: SARAH LOBATO Date: 2022-08-15 11:02[facility] [id number] Evaluation note* Encounter Date Diagnosis Assessment Notes Treatment Notes Treatment Clinical Notes Apr, Left acute otitis media (ICD-10 - H66.92) keep appointment with ENT and take medication with food to prevent stomach upset. [employer] Other 10-14-2021 NoteHNO ID: [id number] Author: Derick Paul MD Service: ? Author Type: Physician Type: Progress Notes Filed: 03/07/2021 11:57 AM Note Text: General Surgery Clinic Note Service Date: March 07, 2021 Interval History: She is doing well, denies any significant pain. Does have some port site pain. No evidence of recurrence. Increasing activity. Physical Exam: BP 113/76 Pulse 62 Temp (Src) 95.3 (Temporal) Resp 12 Ht 5' 4 (1.63m) Wt 198 lb (89.8kg) BMI 33.97 kg/(m2). General: no acute distress Respiratory: non-labored breathing Cardiovascular: warm and well perfused throughout Abdomen: Soft, appropriately tender to exam, wounds well healing, no evidence for hernia recurrence. Assessment/Plan: Jody Thomason is a 45 year old female s/p lap ipom incisional hernia repair. - Doing great, no pain, increasing activity - Follow-up in 6 months, [facility] Note HNO ID: [id number] Author: Adelina Funes MD Service: General Surgery Author Type: Resident Type: Progress Notes Filed: 02/21/2021 7:56 AM Note Text: GENERAL SURGERY PROGRESS NOTE Jody Thomason [id number] ASSESSMENT AND PLAN Jody Thomason is a 45 year old female with HTN, paroxysmal A Fib (eliquis) s/p x2, re-exploration for oophrectomy s/p tomy-en-y gastric bypass (2018) who is currently s/p laparoscopic ventral hernia repair. Admitted to observation for pain control N: Pain regimen PO PRN CVS: Vitals, Multaq RESP:Incentive spirometry, OOB, CPAP o/n FEN/GI: MIVF. Diet: regular . Zofran prn. Renal: Strict I/Os; Heme: No indication for transfusion. ID: No indication for abx Prophylaxis: Lovenox, IPCs, Dispo: Discharge home Patient Active Hospital Problem List: Ventral hernia (02/20/2021) SUBJECTIVE: No acute events overnight. Pain well controlled. No nausea or vomiting. Tolerating diet. OBJECTIVE: BP 119/64 Pulse 65 Temp 36.4 ?C (97.5 ?F) (Temporal) Resp 16 Ht 162.6 cm (5' 4 ) Wt 88.9 kg (196 lb) SpO2 97% BMI 33.64 kg/m? Body mass index is 33.64 kg/m?. GENERAL: Alert and oriented, no acute distress, cooperative. LUNGS: Non labored breathing ABDOMEN: soft, non tender, non distended. WOUND: clean, dry and intact Labs: CBC, Coags, BMP, Mg, Phos Recent Labs 02/18/21 1356 WBC 6.74 HB 13.7 HCT 42.7 PLT 206 NA 138 K 4.8 CHLOR 102 CO2 25 BUN 20 CREAT 0.93 GLUC 84 CA 9.3 Liver Function, Amylase, AND Lipase Recent Labs 02/18/21 1356 TPROT 6.9 ALB 4.3 ALT 17 AST 20 ALKPHOS 84 TBILI 0.3 I/O past 24h: Intake/Output Summary (Last 24 hours) at 02/20/2021 1616 Last data filed at 02/20/2021 1326 Gross per 24 hour Intake 1600 ml Output 110 ml Net 1490 ml LDA: Lines, Drains, and Airways Line Peripheral 02/20/21 1030 Short Right Forearm 20 Gauge <1 day Peripheral 02/20/21 Assessment Short Left Hand 18 Gauge <1 day SURGERY/PROCEDURE: Procedure(s) and Anesthesia Type: * LAPAROSCOPIC REPAIR HERNIA REDUCIBLE UMBILICAL W/MESH - General Adelina En Marin PGY-1 [facility] SurgeryE[facility]09-27-[facility]21 NoteHNO ID: [id number] Author: Taz Chavez Service: ? Author Type: ? Type: Progress Notes Filed: 02/18/2021 1:29 PM Note Text: Pt was seen by Dr. Paul prior to my visit. Pt left before I could go over my education. Called pt and did education over the phone. Explained to patient to shower the night before and the morning of, not to eat or drink anything after midnight the day prior to surgery and went over infection prevention and to contact us if she develops any fevers, drainage, severe abdominal pain, or bleeding. Advised pt to call with any questions. Pt verbally agreed to plan. Taz Chavez RNElyria [facility] Hospital09-27-2021 NoteHNO ID: [id number] Author: Derick Paul MD Service: ? Author Type: Physician Type: Progress Notes Filed: 02/18/2021 11:50 AM Note Text: Jody Thomason is a 45 year old female who returns to rediscuss surgery. She is very interested in repair, as she has thought extensively about it. She has a small incisional hernia at the umbilicus. She states it hurts when doing activity, which is separate from her pain while eating, etc. Interestingly, she has a history of multiple suture reactions to what sound like prolene sutures from an abdominal surgery and from a hand operation. I have explained to her that the mesh which is required for repair, is made out of the same material. She is ok with proceeding with this mesh, but I did explain there is a risk for needing mesh removal if she has some reaction to the material, she understands and is willing to proceed. We will proceed with laparoscopic incisional hernia repair with mesh, possible open. Consent obtained. I have seen and evaluated the patient and discussed the case with the resident physician. I agree with the assessment and plan as documented in the resident?s note including a ROS that was reviewed and negative other than what was indicated in our notes. Patient consented for study? Not applicableE[facility] Hospital09-27-2021 NoteHNO ID: [id number] Author: Derick Paul MD Service: ? Author Type: Physician Type: Progress Notes Filed: 02/18/2021 11:50 AM Note Text: General Surgery HANDP Note CHIEF COMPLAINT: Abdominal pain HPI: This is a 45 year old female who presents with abdominal pain and concerns for a incisional hernia. Patient's surgical history includes section and two lower midline laparotomies for hysterectomy followed by re-exploration for oophorectomy for benign tumors. These were done in ~2014 and 2018 per patient. Additionally she has had a total thyroidectomy and a minimally invasive tomy-en-y gastric bypass in 2018. She previously had diabetes which resolved following gastric bypass, she has paroxymal afib currenly not adherent to her prescribed Eliquis. She states that over the past few years she has had a growing hernia just below her umbilicus. This sometimes bulges out and she can easily reduce it without pain. She does complain of chronic issues of diffuse abdominal pain made worse by eating and when not having a bowel movement for several days. This is described as severe cramping across her abdomen, occasionally associated with nausea. Her abdominal pain is not exacerbated by activity. Had previously seen a GI specialist and has been evaluated with upper and lower endoscopies, no diagnosis made for these complaints. No prior bowel obstructions. Of note - she does endorse a history of profound inflammatory reactions to suture material. These occurred following her gynecological surgeries and an orthopedic repair of a torn tendon her hand. She describes what sounds like significant foreign body reaction requiring removal of sutures. Due her history of abdominal pain which she is concerned may be related to her incisional hernia she now presents for evaluation. PAST SURGICAL HISTORY Procedure Laterality Date - CHG DELIVERY - D AND C DIAGNOSTIC NONOB - EXCISION AXILLARY LYMPH NODE PAST MEDICAL HISTORY Diagnosis Date - Hypertension FHx: No family history on file. SocHx: Social History Tobacco Use - Smoking status: Never Smoker - Smokeless tobacco: Never Used Substance Use Topics - Alcohol use: Yes - Drug use: Not on file Prior to Admission Medications: omeprazole (PRILOSEC) 40 mg capsule Take 40 mg by mouth. apixaban (ELIQUIS) 5 mg tab(s) TAKE 1 TABLET BY MOUTH TWICE A DAY dronedarone (MULTAQ) 400 mg tab Take 400 mg by mouth. calcium, elemental, tab Take 1 tablet by mouth three times daily. levothyroxine (SYNTHROID) 175 mcg tablet Take 1 tablet by mouth once daily. lisinopril-hydrochlorothiazide (PRINZIDE,ZESTORETIC) 10-12.5 mg per tablet Take 1 tablet by mouth once daily. ALLERGIES: ALLERGIES Allergen Reactions - Hay Fever [Seasonal* Other: See Comments COMPLETE REVIEW OF SYSTEMS: GENERAL: No weight loss, malaise or fevers HEENT: Negative for frequent or significant headaches, No changes in hearing or vision, no nose bleeds or other nasal problems RESPIRATORY: Negative for cough, hemoptysis, wheezing, COPD, dyspnea or shortness of breath CARDIOVASCULAR: Negative for chest pain, leg swelling, hypertension, CHF or palpitations . +paroxysmal Afib, not on AC GI: See HPI : No history of dysuria, frequency or incontinence MUSCULOSKELETAL: Negative for joint pain or swelling, back pain or muscle pain HEMATOLOGY/LYMPHOLOGY Negative for prolonged bleeding, bruising easily or swollen nodes ENDOCRINE: Negative for cold or heat intolerance, polyuria, polydipsia and goiter NEURO: No history of headaches, syncope, paralysis, seizures or tremors PHYSICAL EXAM: BP 118/61 Pulse 75 Temp (Src) 97.4 (Temporal) Ht 5' 4 (1.63m) Wt 180 lb (81.6kg) BMI 30.88 kg/(m2). Constitutional: The patient is well-developed, well-nourished, and in no distress. Head: Normocephalic and atraumatic. Eyes: Pupils are equal, round, and reactive to light. EOM are normal. Neck: Normal range of motion. Neck supple. Cardiovascular: Regular rhythm and normal heart sounds. Pulmonary/Chest: clear to auscultation bilaterall Abdominal: Soft. Lower midline incisions well healed, small incisional hernia infraumbilical at cranial aspect of incision, soft and nontender, reducible Musculoskeletal: Normal range of motion. Neurological: He is alert. GCS score is 15. Skin: Skin is warm and dry. Psychiatric: Affect and judgment normal. CT reviewed from 2018: significant for small infraumbilical hernia, rectus diastasis A: 45 year old female with several prior abdominal surgeries and small incisional hernia at the cranial aspect of her lower midline laparotomy. She reports abdominal symptoms which are more likely gastrointestinal in nature as opposed to symptoms from her hernia. Discussed at length with patient that mesh would be required for hernia repair, and this would be associated with much higher than average risk given h (more content not included)...[facility] NoteHNO ID: [id number] Author: Derick Paul MD Service: ? Author Type: Physician Type: Progress Notes Filed: 01/17/2021 11:57 AM Note Text: Consultation requested by Dr. Gilbert for an opinion regarding incisional hernia. My final recommendations will be communicated back to the requesting physician by way of shared medical record or letter via US mail. Jody Thomason is a 45 year old female who presents with incisional hernia. She describes long standing abdominal pain while eating food. She has known about a small incisional hernia for years around the umbilicus. She has been through multiple scopes with GI without any cause for her pain. She states she only has pain when eating food, and then it gets better with bowel movements. She denies pain with activity, coughing or straining. She also has a significant history of suture abscess across multiple surgeries. I think a mesh based repair would also be a significant risk I have seen and evaluated the patient and discussed the case with the resident physician. I agree with the assessment and plan as documented in the resident?s note including a ROS that was reviewed and negative other than what was indicated in our notes. Patient consented for study? Not applicableElyria [facility] Hospital08-26-2021 NoteHNO ID: [id number] Author: Olvin Cedillo MD Service: ? Author Type: Resident Type: Progress Notes Filed: 01/17/2021 11:57 AM Note Text: General Surgery New Patient Clinic Note CHIEF COMPLAINT: Abdominal pain HPI: This is a 45 year old female who presents with abdominal pain and concerns for a incisional hernia. Patient's surgical history includes section and two lower midline laparotomies for hysterectomy followed by re-exploration for oophorectomy for benign tumors. These were done in ~2014 and 2018 per patient. Additionally she has had a total thyroidectomy and a minimally invasive tomy-en-y gastric bypass in 2018. She previously had diabetes which resolved following gastric bypass, she has paroxymal afib currenly not adherent to her prescribed Eliquis. She states that over the past few years she has had a growing hernia just below her umbilicus. This sometimes bulges out and she can easily reduce it without pain. She does complain of chronic issues of diffuse abdominal pain made worse by eating and when not having a bowel movement for several days. This is described as severe cramping across her abdomen, occasionally associated with nausea. Her abdominal pain is not exacerbated by activity. Had previously seen a GI specialist and has been evaluated with upper and lower endoscopies, no diagnosis made for these complaints. No prior bowel obstructions. Of note - she does endorse a history of profound inflammatory reactions to suture material. These occurred following her gynecological surgeries and an orthopedic repair of a torn tendon her hand. She describes what sounds like significant foreign body reaction requiring removal of sutures. Due her history of abdominal pain which she is concerned may be related to her incisional hernia she now presents for evaluation. PAST SURGICAL HISTORY Procedure Laterality Date - CHG DELIVERY - D AND C DIAGNOSTIC NONOB - EXCISION AXILLARY LYMPH NODE PAST MEDICAL HISTORY Diagnosis Date - Hypertension FHx: No family history on file. SocHx: Social History Tobacco Use - Smoking status: Never Smoker - Smokeless tobacco: Never Used Substance Use Topics - Alcohol use: Yes - Drug use: Not on file Prior to Admission Medications: omeprazole (PRILOSEC) 40 mg capsule Take 40 mg by mouth. apixaban (ELIQUIS) 5 mg tab(s) TAKE 1 TABLET BY MOUTH TWICE A DAY dronedarone (MULTAQ) 400 mg tab Take 400 mg by mouth. levothyroxine (SYNTHROID) 175 mcg tablet Take 1 tablet by mouth once daily. lisinopril-hydrochlorothiazide (PRINZIDE,ZESTORETIC) 10-12.5 mg per tablet Take 1 tablet by mouth once daily. calcium, elemental, tab Take 1 tablet by mouth three times daily. ALLERGIES: ALLERGIES Allergen Reactions - Hay Fever [Seasonal* Other: See Comments COMPLETE REVIEW OF SYSTEMS: GENERAL: No weight loss, malaise or fevers HEENT: Negative for frequent or significant headaches, No changes in hearing or vision, no nose bleeds or other nasal problems RESPIRATORY: Negative for cough, hemoptysis, wheezing, COPD, dyspnea or shortness of breath CARDIOVASCULAR: Negative for chest pain, leg swelling, hypertension, CHF or palpitations . +paroxysmal Afib, not on AC GI: See HPI : No history of dysuria, frequency or incontinence MUSCULOSKELETAL: Negative for joint pain or swelling, back pain or muscle pain HEMATOLOGY/LYMPHOLOGY Negative for prolonged bleeding, bruising easily or swollen nodes ENDOCRINE: Negative for cold or heat intolerance, polyuria, polydipsia and goiter NEURO: No history of headaches, syncope, paralysis, seizures or tremors PHYSICAL EXAM: BP 109/66 Pulse 73 Temp (Src) 98.3 (Tympanic) Ht 5' 4 (1.63m) Wt 192 lb 4.8 oz (87.2kg) BMI 32.99 kg/(m2). Constitutional: The patient is well-developed, well-nourished, and in no distress. Head: Normocephalic and atraumatic. Eyes: Pupils are equal, round, and reactive to light. EOM are normal. Neck: Normal range of motion. Neck supple. Cardiovascular: Regular rhythm and normal heart sounds. Pulmonary/Chest: Effort normal and breath sounds normal. Abdominal: Soft. Lower midline incisions well healed, small incisional hernia infraumbilical at cranial aspect of incision, soft and nontender, reducible Musculoskeletal: Normal range of motion. Neurological: He is alert. GCS score is 15. Skin: Skin is warm and dry. Psychiatric: Affect and judgment normal. CT reviewed from 2018: significant for small infraumbilical hernia, rectus diastasis A: 45 year old female with several prior abdominal surgeries and small incisional hernia at the cranial aspect of her lower midline laparotomy. She reports abdominal symptoms which are more likely gastrointestinal in nature as opposed to symptoms from her hernia. Discussed at length with patient that mesh would be required for hernia repair, and this would be associated with much higher than av (more content not included)...[facility] Discharge instructions* Instructions* Jaci Burns PA-C - 05/30/2019 Call your doctor today to arrange follow-up this week. Recommendation would be to hold the Victoza until you are seen in follow up this week. * Attachments The following attachments cannot be sent through Care Everywhere. * Hypoglycemia (Guinean) documented in this encounterMeMed Phone: [email or web address] note* Diagnosis Hypoglycemia- Primary Hypoglycemia, unspecified documented in this encounter [employer] Phone: [email or web address] note* Diagnosis Pre-operative clearance Preoperative examination, unspecified PAF (paroxysmal atrial fibrillation) (HCC) Atrial fibrillation On Multaq therapy Chronic anticoagulation Encounter for long-term (current) use of anticoagulants Essential hypertension Unspecified essential hypertension JAMES on CPAP Obstructive sleep apnea (adult) (pediatric) Class 2 obesity with body mass index (BMI) of 38.0 to 38.9 in adult, unspecified obesity type, unspecified whether serious comorbidity present Heart murmur Undiagnosed cardiac murmurs documented in this encounter [facility] [employer] Phone: [email or web address] note* Diagnosis PAF (paroxysmal atrial fibrillation) (HCC) Atrial fibrillation On Multaq therapy Chronic anticoagulation Encounter for long-term (current) use of anticoagulants Essential hypertension Unspecified essential hypertension JAMES on CPAP Obstructive sleep apnea (adult) (pediatric) Morbid obesity (HCC) Morbid obesity History of DVT (deep vein thrombosis) Personal history of venous thrombosis and embolism Pain of right lower extremity Chest discomfort Other chest pain documented in this encounter [facility] [employer] Phone: evaluation note* Diagnosis PAF (paroxysmal atrial fibrillation) Atrial fibrillation [facility] Diagnosis PAF (paroxysmal atrial fibrillation) Atrial fibrillation Essential hypertension Unspecified essential hypertension PAF (paroxysmal atrial fibrillation) Atrial fibrillation [facility] Diagnosis Atrial fibrillation (HCC)- Primary Atrial fibrillation [facility] Narrative - Reported* Type Description Date Medical History type II diabetes Medical History hypertension Medical History Atrial fibrillation Medical History Hypothyroidism, post procedural Medical History vitamin D deficiency Medical History PCOS Medical History Kidney stones Surgical History x 3 2003,2010, 1997 Surgical History D&C 2010 Surgical History Foot surgery 04/2020 Surgical History thyroidectomy, complete 2014 Surgical History tumor removal 2014 Surgical History partial hysterectomy & tumor re moval 2016 Surgical History oophorectomy, right & tumor rem oval 2017 Surgical History oophorectomy, left & tumor heaven kath 2018 Surgical History hand surgery X2 2019 Surgical History knee surgery, right- torn menis cus Surgical History gastric bypass Surgical History Right hand surgery 06/2020 Hospitalization History see above [facility] Other History general Narrative - Reported* Type Description Date Medical History type II diabetes Medical History hypertension Medical History Atrial fibrillation Medical History Hypothyroidism, post procedural Medical History vitamin D deficiency Medical History PCOS Medical History Kidney stones Surgical History x 3 2003,2010, 1997 Surgical History D&C 2010 Surgical History Foot surgery 04/2020 Surgical History thyroidectomy, complete 2014 Surgical History tumor removal 2014 Surgical History partial hysterectomy & tumor re moval 2016 Surgical History oophorectomy, right & tumor rem oval 2017 Surgical History oophorectomy, left & tumor heaven kath 2018 Surgical History hand surgery X2 2019 Surgical History knee surgery, right- torn menis cus Surgical History gastric bypass Surgical History Right hand surgery 06/2020 Surgical History heart ablation Hospitalization History see above [facility] Other Summary Purpose Family History No Family History Records FoundNo Family History Records FoundNo Family History Records FoundNo Family History Records FoundNo Family History Records FoundNo Family History Records FoundNo Family History Records FoundNo Family History Records FoundNo Family History Records FoundNo Family History Records Found Advance Directives Documents on File Type Date Recorded Patient Dope Edger Expl anation Advance Directives and Living Will Power of Duct Layer Supervisor Latest Code Status on File Code Status Date Activated Date Inactivated Comments Full Code 09/02/2018 5:58 AM 09/02/2018 5:53 PM Full Code 05/20/2018 4:31 PM 05/22/2018 4:53 PM Documents on File Type Date Recorded Patient Dope Edger Expl anation Advance Directives and Living Will Power of Duct Layer Supervisor Latest Code Status on File Code Status Date Activated Date Inactivated Comments Full Code 09/02/2018 5:58 AM 09/02/2018 5:53 PM Full Code 05/20/2018 4:31 PM 05/22/2018 4:53 PM Documents on File Type Date Recorded Patient Dope Edger Expl anation ACP-Advance Directive ACP-Power of Duct Layer Supervisor Latest Code Status on File Code Status Date Activated Date Inactivated Comments Full Code 09/02/2018 5:58 AM 09/02/2018 5:53 PM Code Status History Code Status Date Activated Date Inactivated Comments Full Code 05/20/2018 4:31 PM 05/22/2018 4:53 PM Latest Code Status on File Code Status Date Activated Date Inactivated Comments Full Code 01/09/2023 10:24 AM Discharge Instructions * Instructions* Jaci Burns PA-C - 01/12/2019 Rest ice and elevate your foot. Follow-up with foot doctor listed in your discharge paperwork for further evaluation of continued pain. * Attachments The following attachments cannot be sent through Care Everywhere. * Contusion (Guinean) documented in this encounter* Instructions* Gerson Del Cid Jr., MD - 08/07/2019 Dr. Lei will either call you tonight or you can follow-up with his office tomorrow. Splint until rechecked. Take antibiotics as directed. * Attachments The following attachments cannot be sent through Care Everywhere. * Tendon Laceration: Hand (Guinean) documented in this encounter* Instructions* Indira Lino MD - 05/11/2020 Make sure to stay well-hydrated. Tylenol as needed for any pain. Follow-up with your primary care physician in 3 to 5 days if symptoms have not resolved. Seek medical attention immediately if you develop any worsening symptoms or any other acute concerns. * Attachments The following attachments cannot be sent through Care Everywhere. * Flank Pain (Guinean) * Abdominal Pain (Guinean) documented in this encounter* Attachments The following attachments cannot be sent through Care Everywhere. * Atrial Fibrillation: General Info ([place]an) documented in this encounter Assessments Diagnosis Injury of toe on right foot, initial encounter- Primary Diagnosis Stomach ache Dyspepsia and other specified disorders of function of stomach Hernia of abdominal cavity Hernia of unspecified site of abdominal cavity without mention of obstruction or gangrene Diagnosis Injury of hand, extensor tendon, right, initial encounter Diagnosis Paroxysmal atrial fibrillation (HCC) Atrial fibrillation Essential hypertension Unspecified essential hypertension JAMES on CPAP Obstructive sleep apnea (adult) (pediatric) Diagnosis PAF (paroxysmal atrial fibrillation) (HCC) Atrial fibrillation Essential hypertension Unspecified essential hypertension JAMES on CPAP Obstructive sleep apnea (adult) (pediatric) Weight loss Loss of weight Atypical chest pain Other chest pain Preoperative clearance Preoperative examination, unspecified Diagnosis Abdominal pain, unspecified abdominal location- Primary Flank pain Abdominal pain, unspecified site Diagnosis Nonintractable headache, unspecified chronicity pattern, unspecified headache type- Primary Atrial fibrillation with RVR (HCC) Atrial fibrillation History of Present Illness * Fabby Marks OTR/Ashvin - 09/08/2019 12:[address] [facility] Outpatient Occupational Therapy DAILY TREATMENT NOTE Date: 09/08/2019 Patient s Name: Jody Koroma [place] Date of : 1975 (44 y.o.) Gender: female [facility] #: [id number] Medical Diagnosis: R long finger tendon reattachment Referring Practitioner: Dr. Harlan Lei INSURANCE OT Insurance Information: BCBS Total # of Visits to Date: 7 PAIN [x]No []Yes Location: Pain Rating (0-10 pain scale): Pain Description: SUBJECTIVE Continued to state pain only with random movements. Patient also stated small bump prox to dorsal MCP joint c pain. Possible internal stitch. Flow Sheet Exercise / Manual treatment Weight/ Level Reps/Time Comments PROM x x10-15 R wrist, RIF, RRF, RSF at MCP, PIP and DIP to improve ROM Edema massage R digits/wrist to decrease edema Scar tissue management Issued HEP and demonstrated on patient how to complete to prevent scar tissue formation. AROM x x10-15 RLF MCP, PIP and DIP, isolated to improve tendon excursion. Wrist flexion c digit flexion and wrist extension c digit extension to improve extrinsic tightness Modality Flow Sheet: START STOP Tx Modality Electrical Stim: 8 minutes Ultrasound: _.8__ W/cm2 x _8__ mins Duty factor: _x_100% __50% __20% __10% Head size: MHz: __1mHz __2 mHz _x_3mHz Location: R dorsal MCP joint region to heat to facilitate tendon excursion and minimize scar adherence. Patient tolerated well c skin intact pre and post treatment. 10 minutes Hot Pack: R hand x 10 minutes for stiffness and to improve muscle elasticity prior to AROM. Patient tolerated well c skin intact pre and post. 10 minutes Paraffin: R hand x 10 minutes for stiffness and to improve muscle elasticity prior to AROM. Patient tolerated well c skin intact pre and post. Cold Pack: GOALS/ TREATMENT SESSION: Time Frame for penitentiary goals : 6 weeks intermediate designer goal 1: Patient will present with decreased edema in PIP R digits - RIF to 6.1cm, RLF to 6.2 cm, RRF 5.6 cm, RSF to 5 cm, and R thumb to 6 cm. Met [x]?Met []?Partially met []?Not met penitentiary goal 2: Patient will demonstrate increased REYES of all R digits to be equal to or >225.Continue []?Met [x]?Partially met []?Not met penitentiary goal 3: Patient to demonstrate/verbalize increased functional use of RUE AEB DASH outcomescore <20% Continue []?Met [x]?Partially met []?Not met intermediate designer goal 4: Patient to verbally report no greater than 4/10 pain at rest of R digits. Continue []?Met [x]?Partially met []?Not met penitentiary goal 5: Patient to improve R wrist flexion to 55, UD to 40, RD to 25 to improve functional use of wrist. Continue []?Met []?Partially met []?Not met Time Frame for Short term goals: 4 weeks Short term goal 1: Patient to demonstrate/verbalize compliance c HEP compliance of RUE to increase theraputic potential. Continue - update as patient progresses []?Met [x]?Partially met []?Not met Short term goal 2: Patient to increase all R digit PIP flexion/extension to 0-90 and DIP flexion to0-65 in order to improve functional use of R hand during I/ADL tasks. Continue Met PIP joints []?Met [x]?Partially met []?Not met Short term goal 3: Patient to improve R thumb IP to 75 degrees, PAB to 15 cm and RAB to 14cm in order to increase functional use of R hand Continue IP MET RAB MET []?Met [x]?Partially met []?Not met ADDITIONAL COMMENTS EDUCATION New Education provided to patient/family/caregiver: []Yes: [x]No (Continued review of prior education) If yes Education Provided: Method of Education: [x]Discussion []Demonstration [] Written []Other Evaluation of Patient s Response to Education: [x]Patient and or caregiver verbalized understanding []Patient and or Caregiver Demonstrated without assistance []Patient and or Caregiver Demonstrated with assistance []Needs additional instruction to demonstrate understanding of education ASSESSMENT Patient tolerated today s treatment session: [] Good [] Fair [] Poor Limitations/difficulties with treatment session due to: []Pain []Fatigue []Other medical complications []Other Goal Assessment: [] No Change [x]Improved Comments: Minutes Tracking: Time In: 1249 Time Out: 1335 Minutes: 46 Timed Code Treatment Minutes: 42 Minutes PLAN [x]Continue with current plan of care []Medical Hold []I Hold per patient request [] Change Treatment plan: [] Insurance hold __ Other Electronically signed by SANDIE Croft OTR/L 09/08/2019 2:48 PM documented in this encounter* Fabby Marks OTR/L - 09/15/2019 12:[address] [facility] Inpatient/Observation/Outpatient Rehabilitation Date: 09/15/2019 Patient Name: Jody Thomason [] Inpatient Acute/Observation [x] Outpatient : 1975 [x] Pt no showed for scheduled appointment: Contacted patient and patient stated that she thought her appt was later today. Reminded patient of next appt Thursday at 10. [] Pt refused/declined therapy at this time due to: [] Pt cancelled due to: [] No Reason Given [] Sick/ill [] Other: Fabby Marks Date: 09/15/2019 documented in this encounter* Fabby Marks OTR/L - 09/19/2019 10:[address] [facility] Outpatient Occupational Therapy DAILY TREATMENT NOTE Date: 09/19/2019 Patient s Name: Jody Thomason Date of : 1975 (44 y.o.) Gender: female [facility] #: [id number] Medical Diagnosis: R long finger tendon reattachment Referring Practitioner: Dr. Harlan Lei INSURANCE OT Insurance Information: BCBS Total # of Visits to Date: 8 PAIN [x]No []Yes Location: Pain Rating (0-10 pain scale): Pain Description: SUBJECTIVE Patiet continues to wear splint. Patient has f/u on 09/21. Flow Sheet Exercise / Manual treatment Weight/ Level Reps/Time Comments PROM x x10-15 R wrist, RIF, RLF RRF, RSF at MCP, PIP and DIP to improve ROM Edema massage x x2' R dorsal MCP RLF to decrease edema Scar tissue management Issued HEP and demonstrated on patient how to complete to prevent scar tissue formation. AROM x x10-15 RLF MCP, PIP and DIP, isolated to improve tendon excursion. Wrist flexion c digit flexion and wrist extension c digit extension to improve extrinsic tightness Modality Flow Sheet: START STOP Tx Modality Electrical Stim: 8 minutes Ultrasound: _1.0__ W/cm2 x _8__ mins Duty factor: _x_100% __50% __20% __10% Head size: MHz: __1mHz __2 mHz _x_3mHz Location: R dorsal MCP joint region to heat to facilitate tendon excursion and minimize scar adherence. Patient tolerated well c skin intact pre and post treatment. 10 minutes Hot Pack: R hand x 10 minutes for stiffness and to improve muscle elasticity prior to AROM. Patient tolerated well c skin intact pre and post. 10 minutes Paraffin: R hand x 10 minutes for stiffness and to improve muscle elasticity prior to AROM. Patient tolerated well c skin intact pre and post. Cold Pack: GOALS/ TREATMENT SESSION: Time Frame for penitentiary goals : 6 weeks penitentiary goal 1: Patient will present with decreased edema in PIP R digits - RIF to 6.1cm, RLF to 6.2 cm, RRF 5.6 cm, RSF to 5 cm, and R thumb to 6 cm. Met [x]?Met []?Partially met []?Not met intermediate designer goal 2: Patient will demonstrate increased REYES of all R digits to be equal to or >225.Continue []?Met [x]?Partially met []?Not met penitentiary goal 3: Patient to demonstrate/verbalize increased functional use of RUE AEB DASH outcomescore <20% Continue []?Met [x]?Partially met []?Not met intermediate designer goal 4: Patient to verbally report no greater than 4/10 pain at rest of R digits. Continue []?Met [x]?Partially met []?Not met intermediate designer goal 5: Patient to improve R wrist flexion to 55, UD to 40, RD to 25 to improve functional use of wrist. Continue []?Met []?Partially met []?Not met Time Frame for Short term goals: 4 weeks Short term goal 1: Patient to demonstrate/verbalize compliance c HEP compliance of RUE to increase theraputic potential. Continue - update as patient progresses []?Met [x]?Partially met []?Not met Short term goal 2: Patient to increase all R digit PIP flexion/extension to 0-90 and DIP flexion to0-65 in order to improve functional use of R hand during I/ADL tasks. Continue Met PIP joints []?Met [x]?Partially met []?Not met Short term goal 3: Patient to improve R thumb IP to 75 degrees, PAB to 15 cm and RAB to 14cm in order to increase functional use of R hand Continue IP MET RAB MET []?Met [x]?Partially met []?Not met ADDITIONAL COMMENTS EDUCATION New Education provided to patient/family/caregiver: []Yes: [x]No (Continued review of prior education) If yes Education Provided: Method of Education: [x]Discussion []Demonstration [] Written []Other Evaluation of Patient s Response to Education: [x]Patient and or caregiver verbalized understanding []Patient and or Caregiver Demonstrated without assistance []Patient and or Caregiver Demonstrated with assistance []Needs additional instruction to demonstrate understanding of education ASSESSMENT Patient tolerated today s treatment session: [x] Good [] Fair [] Poor Limitations/difficulties with treatment session due to: []Pain []Fatigue []Other medical complications []Other Goal Assessment: [] No Change [x]Improved Comments: Minutes Tracking: Time In: 1009 Time Out: 1048 Minutes: 39 Timed Code Treatment Minutes: 38 Minutes \ PLAN [x]Continue with current plan of care []Medical Hold []I Hold per patient request [] Change Treatment plan: [] Insurance hold __ Other Electronically signed by SANDIE Croft OTR/Ashvin 09/19/2019 12:04 PM documented in this encounter* Fabby Marks OTR/Ashvin - 10/04/2019 2:[address] [facility] Outpatient Occupational Therapy DAILY TREATMENT NOTE Date: 10/04/2019 Patient s Name: Jody [place] Date of : 1975 (44 y.o.) Gender: female [facility] #: [id number] Medical Diagnosis: R long finger tendon reattachment Referring Practitioner: Dr. Harlan Lei INSURANCE OT Insurance Information: BCBS Total # of Visits to Date: 10 PAIN [x]No []Yes Location: Pain Rating (0-10 pain scale): Pain Description: SUBJECTIVE Patient reported that she really only experiences pain c vacuuming and if she hits it wrong. Splint is d/c next week. Flow Sheet Exercise / Manual treatment Weight/ Level Reps/Time Comments PROM x x10-15 R wris and digits to improve ROM Edema massage x x2' R dorsal MCP RLF to decrease edema Scar tissue management Issued HEP and demonstrated on patient how to complete to prevent scar tissue formation. AROM x x10-15 Wrist flexion c digit flexion and wrist extension c digit extension to improve extrinsic tightness Light joint mobs x x5 Wrist and digit joints to improve ROM Putty Yellow x6' c use of putty tools, patient engaged in sol turn and pop french to improve hand strength Power web Yellow x15 MP flexion to improve hand strength Flexbar Yellow x15 Twist and bend to improve strnegth Squeegie x x15 Pinches to improve strength Free weights 1# x15 Wrist flexion, extension, UD and RD Modality Flow Sheet: START STOP Tx Modality Electrical Stim: Ultrasound: _1.0__ W/cm2 x _8__ mins Duty factor: _x_100% __50% __20% __10% Head size: MHz: __1mHz __2 mHz _x_3mHz Location: R dorsal MCP joint region to heat to facilitate tendon excursion and minimize scar adherence. Patient tolerated well c skin intact pre and post treatment. 10 minutes Hot Pack: R hand x 10 minutes for stiffness and to improve muscle elasticity prior to AROM. Patient tolerated well c skin intact pre and post. 10 minutes Paraffin: R hand x 10 minutes for stiffness and to improve muscle elasticity prior to AROM. Patient tolerated well c skin intact pre and post. Cold Pack: GOALS/ TREATMENT SESSION: Time Frame for penitentiary goals : 6 weeks penitentiary goal 1: Patient will improve R leasing machine tender to 70#, 2 pt to 14#, 3 pt to 15#, and lateral to 20# Continue [x]?Met []?Partially met []?Not met penitentiary goal 2: Patient will demonstrate increased REYES of all R digits to be equal to or >225.Met [x]?Met []?Partially met []?Not met penitentiary goal 3: Patient to demonstrate/verbalize increased functional use of RUE AEB DASH outcomescore <20% Continue []?Met [x]?Partially met []?Not met intermediate designer goal 4: Patient to verbally report no greater than 4/10 pain at rest of R digits. Continue []?Met [x]?Partially met []?Not met intermediate designer goal 5: Patient to improve R wrist flexion to 55, UD to 40, RD to 25 to improve functional use of wrist. Continue Flexion: Met []?Met [x]?Partially met []?Not met Time Frame for Short term goals: 4 weeks Short term goal 1: Patient to demonstrate/verbalize compliance c HEP compliance of RUE to increase theraputic potential. Continue - issued HEP c wrist strengthening []?Met [x]?Partially met []?Not met Short term goal 2: Patient to increase all R digit PIP flexion/extension to 0-90 and DIP flexion to0-65 in order to improve functional use of R hand during I/ADL tasks. Met - see below [x]?Met []?Partially met []?Not met Short term goal 3: Patient to improve R thumb IP to 75 degrees, PAB to 15 cm and RAB to 14cm in order to increase functional use of R hand Met [x]?Met []?Partially met []?Not met ADDITIONAL COMMENTS EDUCATION New Education provided to patient/family/caregiver: [x]Yes: []No (Continued review of prior education) If yes Education Provided: Wrist HEP Method of Education: [x]Discussion [x]Demonstration [x] Written []Other Evaluation of Patient s Response to Education: [x]Patient and or caregiver verbalized understanding []Patient and or Caregiver Demonstrated without assistance []Patient and or Caregiver Demonstrated with assistance []Needs additional instruction to demonstrate understanding of education ASSESSMENT Patient tolerated today s treatment session: [x] Good [] Fair [] Poor Limitations/difficulties with treatment session due to: []Pain []Fatigue []Other medical complications []Other Goal Assessment: [] No Change [x]Improved Comments: Minutes Tracking: Time In: 1420 Time Out: 1501 Minutes: 41 Timed Code Treatment Minutes: 40 Minutes PLAN [x]Continue with current plan of care []Medical Hold []I Hold per patient request [] Change Treatment plan: [] Insurance hold __ Other Electronically signed by SANDIE Croft OTR/L 10/04/2019 3:05 PM documented in this encounter* Fabby Marks OTR/L - 09/22/2019 12:[address] [facility] Outpatient Occupational Therapy DAILY TREATMENT NOTE Date: 09/22/2019 Patient s Name: Jody Thomason Date of : 1975 (44 y.o.) Gender: female [facility] #: [id number] Medical Diagnosis: R long finger tendon reattachment Referring Practitioner: Dr. Harlan Lei INSURANCE OT Insurance Information: BS Total # of Visits to Date: 9 PAIN [x]No []Yes Location: Pain Rating (0-10 pain scale): Pain Description: SUBJECTIVE Patient reports that she had f/u c Dr. Lei this date. States that everything looks good.Splint is continued to be at nighttime for 2 more weeks and during the day as needed. Patient able to initiate light strengthening in flexion, no resistance in extension. Flow Sheet Exercise / Manual treatment Weight/ Level Reps/Time Comments PROM x x10-15 R wris and digits to improve ROM Edema massage x x2' R dorsal MCP RLF to decrease edema Scar tissue management Issued HEP and demonstrated on patient how to complete to prevent scar tissue formation. AROM x x10-15 Wrist flexion c digit flexion and wrist extension c digit extension to improve extrinsic tightness Light joint mobs x x5 Wrist and digit joints to improve ROM Putty Yellow Initiated into HEP Modality Flow Sheet: START STOP Tx Modality Electrical Stim: Ultrasound: _1.0__ W/cm2 x _8__ mins Duty factor: _x_100% __50% __20% __10% Head size: MHz: __1mHz __2 mHz _x_3mHz Location: R dorsal MCP joint region to heat to facilitate tendon excursion and minimize scar adherence. Patient tolerated well c skin intact pre and post treatment. 10 minutes Hot Pack: R hand x 10 minutes for stiffness and to improve muscle elasticity prior to AROM. Patient tolerated well c skin intact pre and post. 10 minutes Paraffin: R hand x 10 minutes for stiffness and to improve muscle elasticity prior to AROM. Patient tolerated well c skin intact pre and post. Cold Pack: GOALS/ TREATMENT SESSION: Time Frame for penitentiary goals : 6 weeks intermediate designer goal 1: Patient will present with decreased edema in PIP R digits - RIF to 6.1cm, RLF to 6.2 cm, RRF 5.6 cm, RSF to 5 cm, and R thumb to 6 cm. Met [x]?Met []?Partially met []?Not met intermediate designer goal 2: Patient will demonstrate increased REYES of all R digits to be equal to or >225.Met - see below [x]?Met []?Partially met []?Not met intermediate designer goal 3: Patient to demonstrate/verbalize increased functional use of RUE AEB DASH outcomescore <20% Continue []?Met [x]?Partially met []?Not met intermediate designer goal 4: Patient to verbally report no greater than 4/10 pain at rest of R digits. Continue []?Met [x]?Partially met []?Not met penitentiary goal 5: Patient to improve R wrist flexion to 55, UD to 40, RD to 25 to improve functional use of wrist. Continue Flexion: 71- Met UD: 36 RD: 15 []?Met [x]?Partially met []?Not met Time Frame for Short term goals: 4 weeks Short term goal 1: Patient to demonstrate/verbalize compliance c HEP compliance of RUE to increase theraputic potential. Continue - issued theraputty c flexion strengthening only []?Met [x]?Partially met []?Not met Short term goal 2: Patient to increase all R digit PIP flexion/extension to 0-90 and DIP flexion to0-65 in order to improve functional use of R hand during I/ADL tasks. 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 Method of Education: [x]Discussion []Demonstration [] Written []Other Evaluation of Patient s Response to Education: [x]Patient and or caregiver verbalized understanding []Patient and or Caregiver Demonstrated without assistance []Patient and or Caregiver Demonstrated with assistance []Needs additional instruction to demonstrate understanding of education ASSESSMENT Patient tolerated today s treatment session: [x] Good [] Fair [] Poor Limitations/difficulties with treatment session due to: []Pain []Fatigue []Other medical complications []Other Goal Assessment: [] No Change [x]Improved Comments: Minutes Tracking: Time In: 1205 Time Out: 1250 Minutes: 45 Timed Code Treatment Minutes: 42 Minutes PLAN [x]Continue with current plan of care []Medical Hold []I Hold per patient request [] Change Treatment plan: [] Insurance hold __ Other Electronically signed by SANDIE Croft OTR/Ashvin 09/22/2019 3:29 PM documented in this encounter* Fabby Marks OTR/Ashvin - 09/27/2019 2:[address] [facility] Inpatient/Observation/Outpatient Rehabilitation Date: 09/27/2019 Patient Name: Jody Henriqueztingham [] Inpatient Acute/Observation [x] Outpatient : 1975 [x] Pt no showed for scheduled appointment: Contacted patient and left message to remind her of next appt this at 2:15 pm. [] Pt refused/declined therapy at this time due to: [] Pt cancelled due to: [] No Reason Given [] Sick/ill [] Other: Fabby Marks Date: 09/27/2019 documented in this encounter* Fabby Marks OTR/Ashvin - 09/29/2019 2:[address] [facility] Inpatient/Observation/Outpatient Rehabilitation Date: 09/29/2019 Patient Name: Jody Henriqueztingham [] Inpatient Acute/Observation [x] Outpatient : 1975 [] Pt no showed for scheduled appointment [] Pt refused/declined therapy at this time due to: [x] Pt cancelled due to: [] No Reason Given [] Sick/ill [x] Other: patient stated that she had to cancel because she was waiting for a package to arrive and had to sign for it. Fabby Marks Date: 09/29/2019 documented in this encounter* Fabby Marks OTR/Ashvin - 08/15/2019 9:[address] [facility] Outpatient Occupational Therapy DAILY TREATMENT NOTE Date: 08/15/2019 Patient s Name: Jody Henriqueztingham Date of : 1975 (44 y.o.) Gender: female [facility] #: [id number] Medical Diagnosis: R long finger tendon reattachment Referring Practitioner: Dr. Harlan Lei INSURANCE OT Insurance Information: BCBS Total # of Visits to Date: 2 PAIN []No [x]Yes Location: R hand Pain Rating (0-10 pain scale): 4/10 Pain Description: SUBJECTIVE Patient states that she has been putting neosporin on her incision c stiches in. Educated patient that she does not have to complete, continued to insist. Flow Sheet Exercise / Manual treatment Weight/ Level Reps/Time Comments AROM PIP and DIP joits x x10 each R LF MCP blocked in extension during there ex Edema massage x x10 minutes R digits to decrease edema Modality Flow Sheet: START STOP Tx Modality Electrical Stim: Ultrasound: ___ W/cm2 x ___ mins Duty factor: __100% __50% __20% __10% Head size: MHz: __1mHz __2 mHz __3mHz Location: Hot Pack: Paraffin: Cold Pack: GOALS/ TREATMENT SESSION: Time Frame for intermediate designer goals : 6 weeks penitentiary goal 1: Patient will present with decreased edema in PIP R digits - RIF to 6.1cm, RLF to 6.2 cm, RRF 5.6 cm, RSF to 5 cm, and R thumb to 6 cm. Continue []Met [x]Partially met []Not met penitentiary goal 2: Patient will demonstrate increased REYES of all R digits to be equal to or >225.Continue []Met [x]Partially met []Not met intermediate designer goal 3: Patient to demonstrate/verbalize increased functional use of RUE AEB DASH outcomescore <20% Continue []Met [x]Partially met []Not met penitentiary goal 4: Patient to verbally report no greater than 4/10 pain at rest of R digits. Continue - 4-5/10 reported this date []Met [x]Partially met []Not met penitentiary goal 5: Patient to improve R wrist flexion to 55, UD to 40, RD to 25 to improve functional use of wrist. Continue []Met []Partially met []Not met Time Frame for Short term goals: 4 weeks Short term goal 1: Patient to demonstrate/verbalize compliance c HEP compliance of RUE to increase theraputic potential. Continue - has no questions/concerns this date []Met [x]Partially met []Not met Short term goal 2: Patient to increase all R digit PIP flexion/extension to 0-90 and DIP flexion to0-65 in order to improve functional use of R hand during I/ADL tasks. Continue []Met [x]Partially met []Not met Short term goal 3: Patient to improve R thumb IP to 75 degrees, PAB to 15 cm and RAB to 14cm in order to increase functional use of R hand Continue []Met [x]Partially met []Not met ADDITIONAL COMMENTS EDUCATION New Education provided to patient/family/caregiver: []Yes: [x]No (Continued review of prior education) If yes Education Provided: Method of Education: [x]Discussion []Demonstration [] Written []Other Evaluation of Patient s Response to Education: [x]Patient and or caregiver verbalized understanding []Patient and or Caregiver Demonstrated without assistance []Patient and or Caregiver Demonstrated with assistance []Needs additional instruction to demonstrate understanding of education ASSESSMENT Patient tolerated today s treatment session: [x] Good [] Fair [] Poor Limitations/difficulties with treatment session due to: []Pain []Fatigue []Other medical complications []Other Goal Assessment: [] No Change [x]Improved Comments: Minutes Tracking: Time In: 0940 Time Out: 1010 Minutes: 30 Timed Code Treatment Minutes: 26 Minutes PLAN [x]Continue with current plan of care []Medical Hold []I Hold per patient request [] Change Treatment plan: [] Insurance hold __ Other Electronically signed by SANDIE Croft OTR/Ashvin 08/15/2019 11:07 AM documented in this encounter* Fabby Marks OTR/L - 08/22/2019 9:[address] [facility] Outpatient Occupational Therapy DAILY TREATMENT NOTE Date: 08/22/2019 Patient s Name: Jody Henriqueztingham Date of : 1975 (44 y.o.) Gender: female [facility] #: [id number] Medical Diagnosis: R long finger tendon reattachment Referring Practitioner: Dr. Harlan Lei INSURANCE OT Insurance Information: BCBS Total # of Visits to Date: 4 PAIN [x]No []Yes Location: Pain Rating (0-10 pain scale): Pain Description: SUBJECTIVE Patient reports pain only when she unintentionally uses R hand. Patient has f/u c Dr tomorrow; PN sent. Irritation noted around incision/stitches, as blotchy and red. Patient stated that she has already contacted the Dr. Flow Sheet Exercise / Manual treatment Weight/ Level Reps/Time Comments AROM PIP and DIP joints x x15 each R LF MCP blocked in extension during there ex. Edema massage x x10 minutes R digits/wrist to decrease edema Modality Flow Sheet: START STOP Tx Modality Electrical Stim: Ultrasound: ___ W/cm2 x ___ mins Duty factor: __100% __50% __20% __10% Head size: MHz: __1mHz __2 mHz __3mHz Location: Hot Pack: Paraffin: Cold Pack: GOALS/ TREATMENT SESSION: Time Frame for penitentiary goals : 6 weeks intermediate designer goal 1: Patient will present with decreased edema in PIP R digits - RIF to 6.1cm, RLF to 6.2 cm, RRF 5.6 cm, RSF to 5 cm, and R thumb to 6 cm. Met I: 5.7 - Met L:5.7 - Met R:5.5 - Met S: 4.6 - Met T:5.7 - Met [x]??Met []??Partially met []??Not met intermediate designer goal 2: Patient will demonstrate increased REYES of all R digits to be equal to or >225.Continue []??Met [x]??Partially met []??Not met penitentiary goal 3: Patient to demonstrate/verbalize increased functional use of RUE AEB DASH outcomescore <20% Continue []??Met [x]??Partially met []??Not met penitentiary goal 4: Patient to verbally report no greater than 4/10 pain at rest of R digits. Continue []??Met [x]??Partially met []??Not met intermediate designer goal 5: Patient to improve R wrist flexion to 55, UD to 40, RD to 25 to improve functional use of wrist. Continue []??Met []??Partially met []??Not met Time Frame for Short term goals: 4 weeks Short term goal 1: Patient to demonstrate/verbalize compliance c HEP compliance of RUE to increase theraputic potential. Continue - update as patient progresses []??Met [x]??Partially met []??Not met Short term goal 2: Patient to increase all R digit PIP flexion/extension to 0-90 and DIP flexion to0-65 in order to improve functional use of R hand during I/ADL tasks. Continue - See below Met PIP joints []??Met [x]??Partially met []??Not met Short term goal 3: Patient to improve R thumb IP to 75 degrees, PAB to 15 cm and RAB to 14cm in order to increase functional use of R hand Continue IP 81 MET PAB 13.5 RAB 14.5 MET []??Met [x]??Partially met []??Not met ADDITIONAL COMMENTS RIGHT HAND Index Long Ring Small PIP 91 90 92 95 DIP 60 65 64 76 EDUCATION New Education provided to patient/family/caregiver: []Yes: [x]No (Continued review of prior education) If yes Education Provided: Method of Education: [x]Discussion []Demonstration [] Written []Other Evaluation of Patient s Response to Education: [x]Patient and or caregiver verbalized understanding []Patient and or Caregiver Demonstrated without assistance []Patient and or Caregiver Demonstrated with assistance []Needs additional instruction to demonstrate understanding of education ASSESSMENT Patient tolerated today s treatment session: [x] Good [] Fair [] Poor Limitations/difficulties with treatment session due to: []Pain []Fatigue []Other medical complications []Other Goal Assessment: [] No Change [x]Improved Comments: improved AROM PIP and DIP jts R hand and decreased swelling Minutes Tracking: Time In: 0940 Time Out: 1010 Minutes: 30 Timed Code Treatment Minutes: 28 Minutes PLAN [x]Continue with current plan of care []Medical Hold []I Hold per patient request [] Change Treatment plan: [] Insurance hold __ Other Electronically signed by SANDIE Croft OTR/Ashvin 08/22/2019 11:27 AM documented in this encounter* Fabby Marks, OTR/Ashvin - 08/25/2019 1:[address] [facility] Outpatient Occupational Therapy DAILY TREATMENT NOTE Date: 08/25/2019 Patient s Name: Jody Koroma [place] Date of : 1975 (44 y.o.) Gender: female [facility] #: [id number] Medical Diagnosis: R long finger tendon reattachment Referring Practitioner: Dr. Harlan Lei INSURANCE OT Insurance Information: BCBS Total # of Visits to Date: 5 PAIN [x]No []Yes Location: Pain Rating (0-10 pain scale): Pain Description: SUBJECTIVE Patient stated that she had f/u c ortho Thursday. Presents with custom splint order that states, Hand finger orthosis, without joints, may include soft interface, straps, custom fabricated, includes fitting and adjustment. Splint 3rd MCP in joint extension. Treatment: [] Removed dressing without difficulty [] Redressed wound in nonadherent sterile fashion [] Stockinette over [] Hand [] Wrist [] Elbow [x] Fabricated thermoplastic splint [x] Static: R volar hand static splint, wrist, hand, 3rd MCP included. [] Dynamic [x] Splint held on with use of: [x] Velcro straps [] Coban [] Other: [x] Patient s response to treatment: [] Poor [] Fair [x] Good Home Exercise Program Instructed Patient: [x] Splint precautions, skin hygiene [] Wound care & dressing changes (Nonadherent Sterile): [] Daily [] Every Other Day [] Other [x] Splint wearing schedule: Remove daily for skin hygiene/keep in place until follow-up session GOALS: Time Frame for intermediate designer goals : 6 weeks penitentiary goal 1: Patient will present with decreased edema in PIP R digits - RIF to 6.1cm, RLF to 6.2 cm, RRF 5.6 cm, RSF to 5 cm, and R thumb to 6 cm. Met [x]???Met []???Partially met []???Not met intermediate designer goal 2: Patient will demonstrate increased REYES of all R digits to be equal to or >225.Continue []???Met [x]???Partially met []???Not met intermediate designer goal 3: Patient to demonstrate/verbalize increased functional use of RUE AEB DASH outcomescore <20% Continue []???Met [x]???Partially met []???Not met intermediate designer goal 4: Patient to verbally report no greater than 4/10 pain at rest of R digits. Continue []???Met [x]???Partially met []???Not met intermediate designer goal 5: Patient to improve R wrist flexion to 55, UD to 40, RD to 25 to improve functional use of wrist. Continue []???Met []???Partially met []???Not met Time Frame for Short term goals: 4 weeks Short term goal 1: Patient to demonstrate/verbalize compliance c HEP compliance of RUE to increase theraputic potential. Continue []???Met [x]???Partially met []???Not met Short term goal 2: Patient to increase all R digit PIP flexion/extension to 0-90 and DIP flexion to0-65 in order to improve functional use of R hand during I/ADL tasks. Continue Met PIP joints []???Met [x]???Partially met []???Not met Short term goal 3: Patient to improve R thumb IP to 75 degrees, PAB to 15 cm and RAB to 14cm in order to increase functional use of R hand Continue IP MET PAB RAB MET []???Met [x]???Partially met []???Not met ADDITIONAL COMMENTS EDUCATION New Education provided to patient/family/caregiver: [x]Yes: []No (Continued review of prior education) If yes Education Provided: Splint care and wear - issued handout c education Method of Education: [x]Discussion []Demonstration [x] Written []Other Evaluation of Patient s Response to Education: [x]Patient and or caregiver verbalized understanding []Patient and or Caregiver Demonstrated without assistance []Patient and or Caregiver Demonstrated with assistance []Needs additional instruction to demonstrate understanding of education ASSESSMENT Patient tolerated today s treatment session: [x] Good [] Fair [] Poor Limitations/difficulties with treatment session due to: []Pain []Fatigue []Other medical complications []Other Goal Assessment: [x] No Change []Improved Comments: Minutes Tracking: Time In: 1300 Time Out: 1356 Minutes: 56 Timed Code Treatment Minutes: 55 Minutes PLAN [x]Continue with current plan of care []Medical Hold []I Hold per patient request [] Change Treatment plan: [] Insurance hold __ Other Electronically signed by SANDIE Croft OTR/L4/06/2019 2:15 PM documented in this encounter* Fabby Marks OTR/Ashvin - 08/29/2019 11:[address] [facility] Inpatient/Observation/Outpatient Rehabilitation Date: 08/29/2019 Patient Name: Jody Henriqueztingham [] Inpatient Acute/Observation [x] Outpatient : 1975 [] Pt no showed for scheduled appointment [] Pt refused/declined therapy at this time due to: [x] Pt cancelled due to: [] No Reason Given [] Sick/ill [x] Other: Patient with no childcare this am. Fabby Marks Date: 08/29/2019 documented in this encounter* Fabby Marks OTR/Ashvin - 09/01/2019 1:[address] [facility] Inpatient/Observation/Outpatient Rehabilitation Date: 09/01/2019 Patient Name: Jody Henriqueztingham [] Inpatient Acute/Observation [x] Outpatient : 1975 [] Pt no showed for scheduled appointment [] Pt refused/declined therapy at this time due to: [x] Pt cancelled due to: [] No Reason Given [] Sick/ill [x] Other: family Fabby Marks Date: 09/01/2019 documented in this encounter* Fabby Marks OTR/Asvhin - 09/05/2019 10:[address] [facility] Outpatient Occupational Therapy DAILY TREATMENT NOTE Date: 09/05/2019 Patient s Name: Jody Koroma [place] Date of : 1975 (44 y.o.) Gender: female [facility] #: [id number] Medical Diagnosis: R long finger tendon reattachment Referring Practitioner: Dr. Harlan Lei INSURANCE OT Insurance Information: BCBS Total # of Visits to Date: 6 PAIN [x]No []Yes Location: Pain Rating (0-10 pain scale): Pain Description: SUBJECTIVE Patient presents with splint this date. She had added some mole skin due to skin irritation from soft velcro. Patient stated that sometimes her P2 is red due to use of her hand and splint,but nothing bad. States only pain c bumping tip of finger. Flow Sheet Exercise / Manual treatment Weight/ Level Reps/Time Comments PROM x x10-15 R wrist, RIF, RRF, RSF at MCP, PIP and DIP to improve ROM Edema massage R digits/wrist to decrease edema Scar tissue management x x5' Issued HEP and demonstrated on patient how to complete to prevent scartissue formation. AROM x x10-15 RLF MCP, PIP and DIP, isolated to improve tendon excursion. Wrist flexion c digit flexion and wrist extension c digit extension to improve extrinsic tightness Modality Flow Sheet: START STOP Tx Modality Electrical Stim: Ultrasound: ___ W/cm2 x ___ mins Duty factor: __100% __50% __20% __10% Head size: MHz: __1mHz __2 mHz __3mHz Location: 10 minutes Hot Pack: R hand x 10 minutes for stiffness and to improve muscle elasticity prior to AROM. Patient tolerated well c skin intact pre and post. 10 minutes Paraffin: R hand x 10 minutes for stiffness and to improve muscle elasticity prior to AROM. Patient tolerated well c skin intact pre and post. Cold Pack: GOALS/ TREATMENT SESSION: Time Frame for penitentiary goals : 6 weeks intermediate designer goal 1: Patient will present with decreased edema in PIP R digits - RIF to 6.1cm, RLF to 6.2 cm, RRF 5.6 cm, RSF to 5 cm, and R thumb to 6 cm. Met [x]???Met []???Partially met []???Not met penitentiary goal 2: Patient will demonstrate increased REYES of all R digits to be equal to or >225.Continue []???Met [x]???Partially met []???Not met intermediate designer goal 3: Patient to demonstrate/verbalize increased functional use of RUE AEB DASH outcomescore <20% Continue []???Met [x]???Partially met []???Not met penitentiary goal 4: Patient to verbally report no greater than 4/10 pain at rest of R digits. Continue []???Met [x]???Partially met []???Not met penitentiary goal 5: Patient to improve R wrist flexion to 55, UD to 40, RD to 25 to improve functional use of wrist. Continue []???Met []???Partially met []???Not met Time Frame for Short term goals: 4 weeks Short term goal 1: Patient to demonstrate/verbalize compliance c HEP compliance of RUE to increase theraputic potential. Continue - update as patient progresses - added MCP joint blocks, wrist and scar tissue management this date []???Met [x]???Partially met []???Not met Short term goal 2: Patient to increase all R digit PIP flexion/extension to 0-90 and DIP flexion to0-65 in order to improve functional use of R hand during I/ADL tasks. Continue Met PIP joints []???Met [x]???Partially met []???Not met Short term goal 3: Patient to improve R thumb IP to 75 degrees, PAB to 15 cm and RAB to 14cm in order to increase functional use of R hand Continue IP MET RAB MET []???Met [x]???Partially met []???Not met ADDITIONAL COMMENTS EDUCATION New Education provided to patient/family/caregiver: [x]Yes: []No (Continued review of prior education) If yes Education Provided: added MCP joint blocks, wrist and scar tissue management this date to [facility] Method of Education: [x]Discussion [x]Demonstration [x] Written []Other Evaluation of Patient s Response to Education: [x]Patient and or caregiver verbalized understanding []Patient and or Caregiver Demonstrated without assistance []Patient and or Caregiver Demonstrated with assistance []Needs additional instruction to demonstrate understanding of education ASSESSMENT Patient tolerated today s treatment session: [x] Good [] Fair [] Poor Limitations/difficulties with treatment session due to: []Pain []Fatigue []Other medical complications []Other Goal Assessment: [] No Change [x]Improved Comments: Minutes Tracking: Time In: 1005 Time Out: 1047 Minutes: 42 Timed Code Treatment Minutes: 40 Minutes PLAN [x]Continue with current plan of care []Medical Hold []I Hold per patient request [] Change Treatment plan: [] Insurance hold __ Other Electronically signed by SANDIE Croft OTR/Ashvin 09/05/2019 10:58 AM documented in this encounter* Fabby Marks OTR/L - 10/11/2019 2:[address] [facility] Inpatient/Observation/Outpatient Rehabilitation Date: 10/11/2019 Patient Name: Jody Thomason [] Inpatient Acute/Observation [x] Outpatient : 1975 [] Pt no showed for scheduled appointment [] Pt refused/declined therapy at this time due to: [x] Pt cancelled due to: [] No Reason Given [] Sick/ill [x] Other: Patient called and cancelled at 2:15 d/t car problems Fabby Marks Date: 10/11/2019 documented in this encounter* Kanika Davis - 12/30/2019 12:30 PM EDT Instructed patient on the benefit and protocol of a stress echo test. documented in this encounter* Fabby Marks OTR/Ashvin - 01/12/2020 1:[address] [facility] Outpatient Occupational Therapy DAILY TREATMENT NOTE Date: 01/12/2020 Patient s Name: Jody Thomason Date of : 1975 (44 y.o.) Gender: female [facility] #: [id number] Medical Diagnosis: Laceration of extensor tendon R middle finger, S66.322D; Granuloma, L92.9; Suture material present, R89.9 Referring Practitioner: Dr. Harlan Lei INSURANCE OT Insurance Information: BCBS Total # of Visits to Date: 3 PAIN [x]No []Yes Location: Pain Rating (0-10 pain scale): Pain Description: SUBJECTIVE Patient continues to state numbness on dorsal hand. Patient also reported seepage at surgical sight, states clear to orange in color. Flow Sheet Exercise / Manual treatment Weight/ Level Reps/Time Comments Joint mobs x R digits to improve ROM PROM c light stretch x R digits to improve ROM. Easy PROM to RLF d/t stitches. Brachial Plexus glides RUE to nerve pain - educated to add to HEP c good understanding. Modality Flow Sheet: START STOP Tx Modality Electrical Stim: 8 minutes Ultrasound: _.8__ W/cm2 x __8_ mins Duty factor: _x_100% __50% __20% __10% Head size: MHz: __1mHz __2 mHz _x_3mHz Location: R volar hand to facilitate healing process. Patient tolerated well c skin intact pre and post treatment. Hot Pack: Paraffin: 15 minutes Fluidotherapy: 15 minutes R hand for stiffness and pain. Patient tolerated well c skin intact pre and post treatment. Incision covered c coban. GOALS/ TREATMENT SESSION: Time Frame for penitentiary goals : 6 weeks intermediate designer goal 1: Patient to state <10% impairment throughout daily tasks to improve independence and QOL. Continue []?Met [x]?Partially met []?Not met penitentiary goal 2: Patient to demonstrate decreased edema RLF PIP jt to 5.8cm, RRF PIP jt to 5.6cm. Continue []?Met [x]?Partially met []?Not met penitentiary goal 3: Patient to improve R leasing machine tender to 60#, 2 pt to 14#, 3 pt to 17# and lateral to 22#. Continue []?Met [x]?Partially met []?Not met Time Frame for Short term goals: 4 weeks Short term goal 1: Patient to verbalize and demonstrate independence c HEP. Continue []?Met [x]?Partially met []?Not met Short term goal 2: Patient to improve REYES of RLF to 250, RRF to 260 to improve functional use of hand. Continue []?Met [x]?Partially met []?Not met ADDITIONAL COMMENTS Patient incision and stitches intact. Slight redness continues. Patient reported seepage, slight noted throughout tx, however, no signs of infection at this time. Cleaned c wound press cleaner. EDUCATION New Education provided to patient/family/caregiver: []Yes: [x]No (Continued review of prior education) If yes Education Provided: Method of Education: [x]Discussion []Demonstration [] Written []Other Evaluation of Patient s Response to Education: [x]Patient and or caregiver verbalized understanding []Patient and or Caregiver Demonstrated without assistance []Patient and or Caregiver Demonstrated with assistance []Needs additional instruction to demonstrate understanding of education ASSESSMENT Patient tolerated today s treatment session: [x] Good [] Fair [] Poor Limitations/difficulties with treatment session due to: []Pain []Fatigue []Other medical complications []Other Goal Assessment: [] No Change [x]Improved Comments: Minutes Tracking: Time In: 1335 Time Out: 1418 Minutes: 43 Timed Code Treatment Minutes: 40 Minutes PLAN [x]Continue with current plan of care []Medical Hold []I Hold per patient request [] Change Treatment plan: [] Insurance hold __ Other Electronically signed by SANDIE Croft OTR/Ashvin 01/12/2020 2:35 PM documented in this encounter* Fabby Marks OTR/L - 01/16/2020 11:[address] [facility] Outpatient Occupational Therapy DAILY TREATMENT NOTE Date: 01/16/2020 Patient s Name: Jody Henriqueztingham Date of : 1975 (44 y.o.) Gender: female [facility] #: [id number] Medical Diagnosis: Laceration of extensor tendon R middle finger, S66.322D; Granuloma, L92.9; Suture material present, R89.9 Referring Practitioner: Dr. Harlan Lei INSURANCE OT Insurance Information: BCBS Total # of Visits to Date: 4 PAIN [x]No []Yes Location: Pain Rating (0-10 pain scale): Pain Description: SUBJECTIVE Patient presents this date with R hand wrapped in gauze. See additional comments below. GOALS/ TREATMENT SESSION: Time Frame for penitentiary goals : 6 weeks penitentiary goal 1: Patient to state <10% impairment throughout daily tasks to improve independence and QOL. Continue []??Met [x]??Partially met []??Not met penitentiary goal 2: Patient to demonstrate decreased edema RLF PIP jt to 5.8cm, RRF PIP jt to 5.6cm. Continue []??Met [x]??Partially met []??Not met intermediate designer goal 3: Patient to improve R leasing machine tender to 60#, 2 pt to 14#, 3 pt to 17# and lateral to 22#. Continue []??Met [x]??Partially met []??Not met Time Frame for Short term goals: 4 weeks Short term goal 1: Patient to verbalize and demonstrate independence c HEP. Continue []??Met [x]??Partially met []??Not met Short term goal 2: Patient to improve REYES of RLF to 250, RRF to 260 to improve functional use of hand. Continue []??Met [x]??Partially met []??Not met ADDITIONAL COMMENTS Patient stated that she went to ER this past weekend d/t increased swelling at dorsal MCP at site of stitches and incision. Stated that they removed a stitch and allowed to drain,took sample to test for infection, she is still waiting for results. Incision still not healed, open. Remaining stitches intact. Wound care completed and education re: wound care reviewed. Full tx not completed. Patient to have follow up with dr tomorrow. Sent NE to to update. EDUCATION New Education provided to patient/family/caregiver: [x]Yes: []No (Continued review of prior education) If yes Education Provided: Reviewed wound care - do not place ointment on incision, allow to heal Method of Education: [x]Discussion []Demonstration [] Written []Other Evaluation of Patient s Response to Education: [x]Patient and or caregiver verbalized understanding []Patient and or Caregiver Demonstrated without assistance []Patient and or Caregiver Demonstrated with assistance []Needs additional instruction to demonstrate understanding of education ASSESSMENT Patient tolerated today s treatment session: [] Good [] Fair [] Poor Limitations/difficulties with treatment session due to: []Pain []Fatigue []Other medical complications []Other Goal Assessment: [] No Change []Improved Comments: Full tx not completed - only completed wound care. Minutes Tracking: Time In: 1030 Time Out: 1050 Minutes: 20 PLAN [x]Continue with current plan of care []Medical Hold []I Hold per patient request [] Change Treatment plan: [] Insurance hold __ Other Electronically signed by SANDIE Croft OTR/Ashvin 01/16/2020 11:05 AM documented in this encounter* Fabby Marks OTR/Ashvin - 01/23/2020 10:[address] [facility] Outpatient Occupational Therapy DAILY TREATMENT NOTE Date: 01/23/2020 Patient s Name: Jody Thomason Date of : 1975 (44 y.o.) Gender: female [facility] #: [id number] Medical Diagnosis: Laceration of extensor tendon R middle finger, S66.322D; Granuloma, L92.9; Suture material present, R89.9 Referring Practitioner: Dr. Harlan Lei INSURANCE OT Insurance Information: BCBS Total # of Visits to Date: 5 PAIN [x]No []Yes Location: Pain Rating (0-10 pain scale): Pain Description: SUBJECTIVE Patient presents this date with medications for u/s tx. Order received from to utilize. Patient stated that she went to last week and stitches were removed. Patient states that she still gets buildup of fluid that leaks from incision that will close then reopen to allow fluid to pass. Noted at end of tx, clear in nature. Flow Sheet Exercise / Manual treatment Weight/ Level Reps/Time Comments Joint mobs R digits to improve ROM PROM c light stretch R digits to improve ROM. Easy PROM to RLF d/t stitches. Brachial Plexus glides RUE to nerve pain - educated to add to HEP c good understanding. Retrograde massage x x R dorsal hand to decreased swelling Modality Flow Sheet: START STOP Tx Modality Electrical Stim: 8 minutes Phonophoresis c U/S: _1.0__ W/cm2 x __8_ mins Duty factor: _x_100% __50% __20% __10% Head size: MHz: __1mHz __2 mHz _x_3mHz Location: R volar hand to facilitate healing process and for pain. Patient tolerated well c skin intact pre and post treatment. Medication utilized: Diclofenac sodium, gabapentin, lidocaine, prilocaine cream. Received Dr. Tyrese tirado. Hot Pack: Paraffin: 15 minutes Fluidotherapy: 15 minutes R hand for stiffness and pain. Patient tolerated well c skin intact pre and post treatment. Incision covered c coban. GOALS/ TREATMENT SESSION: Time Frame for penitentiary goals : 6 weeks penitentiary goal 1: Patient to state <10% impairment throughout daily tasks to improve independence and QOL. Continue []??Met [x]??Partially met []??Not met penitentiary goal 2: Patient to demonstrate decreased edema RLF PIP jt to 5.8cm, RRF PIP jt to 5.6cm. Continue []??Met [x]??Partially met []??Not met penitentiary goal 3: Patient to improve R leasing machine tender to 60#, 2 pt to 14#, 3 pt to 17# and lateral to 22#. Continue []??Met [x]??Partially met []??Not met Time Frame for Short term goals: 4 weeks Short term goal 1: Patient to verbalize and demonstrate independence c HEP. Continue []??Met [x]??Partially met []??Not met Short term goal 2: Patient to improve REYES of RLF to 250, RRF to 260 to improve functional use of hand. Continue []??Met [x]??Partially met []??Not met ADDITIONAL COMMENTS EDUCATION New Education provided to patient/family/caregiver: []Yes: [x]No (Continued review of prior education) If yes Education Provided: Method of Education: [x]Discussion []Demonstration [] Written []Other Evaluation of Patient s Response to Education: [x]Patient and or caregiver verbalized understanding []Patient and or Caregiver Demonstrated without assistance []Patient and or Caregiver Demonstrated with assistance []Needs additional instruction to demonstrate understanding of education ASSESSMENT Patient tolerated today s treatment session: [x] Good [] Fair [] Poor Limitations/difficulties with treatment session due to: []Pain []Fatigue []Other medical complications [x]Other: swelling/seeping wound, clear liquid Goal Assessment: [x] No Change []Improved Comments: Minutes Tracking: Time In: 1038 Time Out: 1117 Minutes: 39 Timed Code Treatment Minutes: 38 Minutes PLAN [x]Continue with current plan of care []Medical Hold []I Hold per patient request [] Change Treatment plan: [] Insurance hold __ Other Electronically signed by SANDIE Croft OTR/Ashvin 01/23/2020 11:33 AM documented in this encounter* Fabby Marks OTR/Ashvin - 01/26/2020 1:[address] [facility] Inpatient/Observation/Outpatient Rehabilitation Date: 01/26/2020 Patient Name: Jody Koroma [place] [] Inpatient Acute/Observation [] Outpatient : 1975 [x] Pt no showed for scheduled appointment [] Pt refused/declined therapy at this time due to: [] Pt cancelled due to: [] No Reason Given [] Sick/ill [] Other: Fabby Marks Date: 01/26/2020 documented in this encounter* Fabby Marks OTR/Ashvin - 02/01/2020 11:[address] [facility] Inpatient/Observation/Outpatient Rehabilitation Date: 02/01/2020 Patient Name: Jody Koroma [place] [] Inpatient Acute/Observation [] Outpatient : 1975 [x] Pt no showed for scheduled appointment - attempted to contact patient, no answer. Patient has no further scheduled appts. Will attempt to contact at later time. [] Pt refused/declined therapy at this time due to: [] Pt cancelled due to: [] No Reason Given [] Sick/ill [] Other: Fabby Marks Date: 02/01/2020 documented in this encounter* Fabby Marks OTR/L - 02/13/2020 1:[address] [facility] Inpatient/Observation/Outpatient Rehabilitation Date: 02/13/2020 Patient Name: Jody Henri[place] [] Inpatient Acute/Observation [x] Outpatient : 1975 [] Pt no showed for scheduled appointment [] Pt refused/declined therapy at this time due to: [x] Pt cancelled due to: [] No Reason Given [] Sick/ill [x] Other: transportation Fabby Marks Date: 02/13/2020 documented in this encounter* Fabby Marks OTR/Ashvin - 02/21/2020 1:[address] [facility] Inpatient/Observation/Outpatient Rehabilitation Date: 02/21/2020 Patient Name: Jody Henri[place] [] Inpatient Acute/Observation [x] Outpatient : 1975 [] Pt no showed for scheduled appointment [] Pt refused/declined therapy at this time due to: [x] Pt cancelled due to: [] No Reason Given [] Sick/ill [x] Other:transportation issues Fabby Marks Date: 02/21/2020 documented in this encounter* Fabby Marks OTR/Ashvin - 02/23/2020 1:[address] [facility] Inpatient/Observation/Outpatient Rehabilitation Date: 02/23/2020 Patient Name: Jody Henri[place] [] Inpatient Acute/Observation [x] Outpatient : 1975 [x] Pt no showed for scheduled appointment [] Pt refused/declined therapy at this time due to: [] Pt cancelled due to: [] No Reason Given [] Sick/ill [] Other: Fabby Marsk Date: 02/23/2020 documented in this encounter* Fabby Marks OTR/Ashvin - 01/09/2020 10:[address] [facility] Outpatient Occupational Therapy DAILY TREATMENT NOTE Date: 01/09/2020 Patient s Name: Jody Thomason Date of : 1975 (44 y.o.) Gender: female [facility] #: [id number] Medical Diagnosis: Laceration of extensor tendon R middle finger, S66.322D; Granuloma, L92.9; Suture material present, R89.9 Referring Practitioner: Dr. Harlan Lei INSURANCE OT Insurance Information: BCBS Total # of Visits to Date: 2 PAIN []No [x]Yes Location: R hand/arm Pain Rating (0-10 pain scale): 07/04 Pain Description: SUBJECTIVE Patient stated that over the weekend she started to get electric shocks going all the way up her arm. Stated that she contacted and they stated, It could be from the tourniquet. Flow Sheet Exercise / Manual treatment Weight/ Level Reps/Time Comments Joint mobs x R digits to improve ROM PROM c light stretch x R digits to improve ROM. Easy PROM to RLF d/t stitches. Brachial Plexus glides x RUE to nerve pain - educated to add to HEP c good understanding. Modality Flow Sheet: START STOP Tx Modality Electrical Stim: 8 minutes Ultrasound: _.8__ W/cm2 x __8_ mins Duty factor: _x_100% __50% __20% __10% Head size: MHz: __1mHz __2 mHz _x_3mHz Location: R volar hand to facilitate healing process. Patient tolerated well c skin intact pre and post treatment. Hot Pack: Paraffin: 15 minutes Fluidotherapy: 15 minutes R hand for stiffness and pain. Patient tolerated well c skin intact pre and post treatment. Incision covered c coban. GOALS/ TREATMENT SESSION: Time Frame for penitentiary goals : 6 weeks intermediate designer goal 1: Patient to state <10% impairment throughout daily tasks to improve independence and QOL. Continue []Met [x]Partially met []Not met penitentiary goal 2: Patient to demonstrate decreased edema RLF PIP jt to 5.8cm, RRF PIP jt to 5.6cm. Continue []Met [x]Partially met []Not met penitentiary goal 3: Patient to improve R leasing machine tender to 60#, 2 pt to 14#, 3 pt to 17# and lateral to 22#. Continue []Met [x]Partially met []Not met Time Frame for Short term goals: 4 weeks Short term goal 1: Patient to verbalize and demonstrate independence c HEP. Continue - issued brachial plexus glides []Met [x]Partially met []Not met Short term goal 2: Patient to improve REYES of RLF to 250, RRF to 260 to improve functional use of hand. Continue []Met [x]Partially met []Not met ADDITIONAL COMMENTS Patient incision and stitches intact. Slight redness, but less then evaluation date. Patient stated that it is red because she is allergic to the stitches. EDUCATION New Education provided to patient/family/caregiver: [x]Yes: [x]No (Continued review of prior education) If yes Education Provided: Issued brachial Plexus glides to be integrated into HEP. Method of Education: [x]Discussion [x]Demonstration [x] Written []Other Evaluation of Patient s Response to Education: [x]Patient and or caregiver verbalized understanding []Patient and or Caregiver Demonstrated without assistance []Patient and or Caregiver Demonstrated with assistance []Needs additional instruction to demonstrate understanding of education ASSESSMENT Patient tolerated today s treatment session: [x] Good [] Fair [] Poor Limitations/difficulties with treatment session due to: []Pain []Fatigue []Other medical complications []Other Goal Assessment: [] No Change [x]Improved Comments: Minutes Tracking: Time In: 1031 Time Out: 1119 Minutes: 48 Timed Code Treatment Minutes: 45 Minutes PLAN [x]Continue with current plan of care []Medical Hold []I Hold per patient request [] Change Treatment plan: [] Insurance hold __ Other Electronically signed by SANDIE Croft OTR/L 01/09/2020 12:46 PM documented in this encounter* Fabby Marks OTR/L - 10/06/2019 2:[address] [facility] Inpatient/Observation/Outpatient Rehabilitation Date: 10/06/2019 Patient Name: Jody Henriqueztingham [] Inpatient Acute/Observation [x] Outpatient : 1975 [x] Pt no showed for scheduled appointment : Called patient to remind her of next appt at 2:15 on Thursday. [] Pt refused/declined therapy at this time due to: [] Pt cancelled due to: [] No Reason Given [] Sick/ill [] Other: Fabby Marks Date: 10/06/2019 documented in this encounter* Fabby Marks OTR/Ashvin - 09/12/2019 10:[address] [facility] Inpatient/Observation/Outpatient Rehabilitation Date: 09/12/2019 Patient Name: Jody Henriquez[place] [] Inpatient Acute/Observation [x] Outpatient : 1975 [] Pt no showed for scheduled appointment [] Pt refused/declined therapy at this time due to: [x] Pt cancelled due to: [] No Reason Given [] Sick/ill [x] Other: family conflict Fabby Marks Date: 09/12/2019 documented in this encounter* Fabby Marks OTR/Ashvin - 02/16/2020 11:[address] [facility] Outpatient Occupational Therapy DAILY TREATMENT NOTE Date: 02/16/2020 Patient s Name: Jody Thomason Date of : 1975 (44 y.o.) Gender: female [facility] #: [id number] Medical Diagnosis: Laceration of extensor tendon R middle finger, S66.322D; Granuloma, L92.9; Suture material present, R89.9 Referring Practitioner: Dr. Harlan Lei INSURANCE OT Insurance Information: BCBS Total # of Visits to Date: 12 PAIN []No [x]Yes Location: R dorsal MCP Pain Rating (0-10 pain scale): 08/01 Pain Description: SUBJECTIVE Patient presents this date with MCP block splint/trigger finger splint post follow up appt c dr karlos flannery. States that he would like her to keep MCP straight to prevent ongoing seepageand promote healing. OTR provided patient c additional strapping materials. Flow Sheet Exercise / Manual treatment Weight/ Level Reps/Time Comments Joint mobs x x R digits to improve ROM PROM c light stretch x x R digits to improve ROM. Easy PROM to RLF d/t stitches. Brachial Plexus glides RUE to nerve pain - educated to add to HEP c good understanding. Retrograde massage x x R dorsal hand to decreased swelling Modality Flow Sheet: START STOP Tx Modality Electrical Stim: 8 minutes Phonophoresis c U/S: _1.0__ W/cm2 x __8_ mins Duty factor: _x_100% __50% __20% __10% Head size: MHz: __1mHz __2 mHz _x_3mHz Location: R volar hand to facilitate healing process and for pain. Patient tolerated well c skin intact pre and post treatment. Medication utilized: Diclofenac sodium, gabapentin, lidocaine, prilocaine cream. Received Dr. Tyrese tirado. Hot Pack: Paraffin: 15 minutes Fluidotherapy: 15 minutes R hand for stiffness and pain. Patient tolerated well c skin intact pre and post treatment. Incision covered c coban. GOALS/ TREATMENT SESSION: Time Frame for penitentiary goals : 6 weeks intermediate designer goal 1: Patient to state <10% impairment throughout daily tasks to improve independence and QOL. Continue []???Met [x]???Partially met []???Not met penitentiary goal 2: Patient to demonstrate decreased edema RLF PIP jt to 5.8cm, RRF PIP jt to 5.6cm. Met RLF: 5.8 RRF: 5.4 []???Met [x]???Partially met []???Not met intermediate designer goal 3: Patient to improve R leasing machine tender to 60#, 2 pt to 14#, 3 pt to 17# and lateral to 22#. 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 Met - issue additional h/o/HEP as patient progresses [x]???Met []???Partially met []???Not met Short term goal 2: Patient to improve REYES of RLF to 250, RRF to 260 to improve functional use of hand. Continue - see below []???Met [x]???Partially met []???Not met ADDITIONAL COMMENTS RIGHT HAND Long Ring MP 0-81 0-90 PIP 0-90 0-95 DIP 0-70 0-70 REYES [phone] EDUCATION New Education provided to patient/family/caregiver: []Yes: [x]No (Continued review of prior education) If yes Education Provided: Method of Education: [x]Discussion []Demonstration [] Written []Other Evaluation of Patient s Response to Education: [x]Patient and or caregiver verbalized understanding []Patient and or Caregiver Demonstrated without assistance []Patient and or Caregiver Demonstrated with assistance []Needs additional instruction to demonstrate understanding of education ASSESSMENT Patient tolerated today s treatment session: [x] Good [] Fair [] Poor Limitations/difficulties with treatment session due to: []Pain []Fatigue []Other medical complications []Other Goal Assessment: [] No Change [x]Improved Comments: Minutes Tracking: Time In: 1104 Time Out: 1150 Minutes: 46 Timed Code Treatment Minutes: 43 Minutes PLAN [x]Continue with current plan of care []Medical Hold []I Hold per patient request [] Change Treatment plan: [] Insurance hold __ Other Electronically signed by SANDIE Croft OTR/Ashvin 02/16/2020 11:57 AM documented in this encounter Reason for Referral Status Reason Specialty Diagnoses / Procedures Referred By Contact Referred To Contact Not Required - [facility] EKG Diagnoses Paroxysmal atrial fibrillation (HCC) Essential hypertension JAMES on CPAP Procedures Continuous cardiac monitoring, >2 up to 14 days HC EXT ECG RECORDING 2-21 DAY HOOKUP Janis Hawkins MD [address] [place] [address] [place] [address] [facility] Ekg [address] [place] [address] Status Reason Specialty Diagnoses / Procedures Referre d By Contact Referred To Contact Closed Cardiology Diagnoses PAF (paroxysmal atrial fibrillation) (HCC) Essential hypertension JAMES on CPAP Weight loss Atypical chest pain Preoperative clearance Procedures Echo stress test Janis Hawkins MD [address] [place] [address] [place] [address] [place] [address] Specialty Diagnoses / Procedures Referred By Kumarac t Referred To Contact Cardiology Diagnoses Pre-operative clearance PAF (paroxysmal atrial fibrillation) (HCC) On Multaq therapy Chronic anticoagulation Essential hypertension JAMES on CPAP Class 2 obesity with body mass index (BMI) of 38.0 to 38.9 in adult, unspecified obesity type, unspecified whether serious comorbidity present Heart murmur Z01.818 (ICD-10-CM) - Pre-operative clearance Procedures ECHO Complete 2D W Doppler W Color NE ECHO TTHRC R-T 2D W/WOM-MODE COMPL SPEC&COLR D 31695 - NE ECHO TTHRC R-T 2D W/WOM-MODE COMPL SPEC&COLR D Janis Hawkins MD [address] [place] [address] [place] [address] [place] [address] Referral ID Status Reason Start Date Expiration Date Visits Re quested Visits Authorized [id number] Closed 06/10/2022 12/07/2022 1 1 Specialty Diagnoses / Procedures Referred By Sondra preciado Referred To Contact Cardiology Diagnoses PAF (paroxysmal atrial fibrillation) (HCC) On Multaq therapy Chronic anticoagulation Essential hypertension JAMES on CPAP Morbid obesity (HCC) History of DVT (deep vein thrombosis) Pain of right lower extremity Chest discomfort I48.0 (ICD-10-CM) - PAF (paroxysmal atrial fibrillation) (HCC) Procedures Stress test, lexiscan CHG MYOCARDIAL SPECT MULTIPLE STUDIES 97479 - CHG MYOCARDIAL SPECT MULTIPLE STUDIES Janis Hawkins MD [address] [place] [address] [place] [address] Referral ID Status Reason Start Date Expiration Date V isits Requested Visits Authorized [id number] Authorized 09/29/2022 09/23/2023 2 2 Specialty Diagnoses / Procedures Referred By Sondra t Referred To Contact Diagnoses PAF (paroxysmal atrial fibrillation) Procedures CT CARDIAC PULMONARY VENOGRAM NE CHG CT HEART CONTRAST EVAL CARDIAC STRUCT/MORPH Aubrey Rothman MD [address] [place] [address] Referral ID Status Reason Start Date Expiration Date Visits Re quested Visits Authorized [id number] Closed 10/07/2022 11/01/2023 1 1 Specialty Diagnoses / Procedures Referred By Contac t Referred To Contact Diagnoses PAF (paroxysmal atrial fibrillation) Procedures MOBILE CARDIAC TELEMETRY Sahara Ortega, AUTOMOBILE DAMAGE AP[employer]AIS[employer]INCT POLICE SERGEANT [address] [place] [address] Referral ID Status Reason Start Date Expiration Date V isits Requested Visits Authorized [id number] New Request 01/09/2023 02/03/2024 1 1 Specialty Diagnoses / Procedures Referred By Contac t Referred To Contact Procedures ECG Sahara Ortega, AUTOMOBILE DAMAGE AP[employer]AIS[employer]INCT POLICE SERGEANT [address] [place] [address] Referral ID Status Reason Start Date Expiration Date V isits Requested Visits Authorized [id number] New Request 01/09/2023 02/03/2024 1 1 Additional Source Comments INFORMATION SOURCE (unrecogn ized section and content) DATE CREATED AUTHOR 11/11/2017 [facility] DATE CREATED AUTHOR AUTHOR'S ORGANIZ ATION 05/29/2018 [facility] DATE CREATED AUTHOR AUTHOR'S ORGANIZ ATION 07/25/2020 [facility] DATE CREATED AUTHOR AUTHOR'S ORGANIZ ATION 06/28/2021 [facility] DATE CREATED AUTHOR AUTHOR'S ORGANIZ ATION 02/23/2022 [facility] DATE CREATED AUTHOR AUTHOR'S ORGANIZ ATION 09/24/2022 [facility] DATE CREATED AUTHOR AUTHOR'S ORGANIZ ATION 01/17/2023 [facility] DATE CREATED AUTHOR AUTHOR'S ORGANIZ ATION 04/03/2023 [facility] DATE CREATED AUTHOR AUTHOR'S ORGANIZ ATION 08/24/2023 [facility] DATE CREATED AUTHOR AUTHOR'S ORGANIZ ATION 09/26/2023 [facility] EPIC Reason for Visit (unrecogniz ed section and content) Reason Comments Toe Pain Right 3rd toe, onset 0900 after dropping a chair on it Status Reason Specialty Diagnoses / Procedures Referre d By Contact Referred To Contact Closed Radiology Diagnoses Abdominal cramping Fatty liver Diverticulosis of colon Abdominal hernia without obstruction and without gangrene, recurrence not specified, unspecified hernia type Change in bowel movement H/O pelvic mass Procedures HC CT ABD/PEL W CONT CHG CT SCAN,ABDOMENT AND PELVIS,W CONTRAST Denisse Gilbert MD [address] [place] [address] [facility] [address] Scan [address] [place] [address] Reason Comments Laceration Right hand laceratio n while cleaning stovetop with razorblade. Status Reason Specialty Diagnoses / Procedures Referred By Contact Referred To Contact Not Required - [facility] EKG Diagnoses Paroxysmal atrial fibrillation (HCC) Essential hypertension JAMES on CPAP Procedures Continuous cardiac monitoring, >2 up to 14 days EXT ECG RECORDING 2-21 DAY HOOKUP Janis Hawkins MD [address] [place] [address] [place] [address] [facility]kg [address] [place] [address] Status Reason Specialty Diagnoses / Procedures Referre d By Contact Referred To Contact Closed Cardiology Diagnoses PAF (paroxysmal atrial fibrillation) (HCC) Essential hypertension JAMES on CPAP Weight loss Atypical chest pain Preoperative clearance Procedures Echo stress test Janis Hawkins MD [address] [place] [address] [place] [address] [place] [address] Reason Comments Abdominal Pain sudden onset just PT A, lower mid abdomen Reason Comments Palpitations pt states she notice d around 1915, her HR went up 210, states hx of afib Reason Comments Hypoglycemia Onset MEDICAL SCRIBE. Pt states it was low at home. Pt states she took glucose tabs and drove to ED Specialty Diagnoses / Procedures Referred By Contac t Referred To Contact Cardiology Diagnoses Pre-operative clearance PAF (paroxysmal atrial fibrillation) (HCC) On Multaq therapy Chronic anticoagulation Essential hypertension JAMES on CPAP Class 2 obesity with body mass index (BMI) of 38.0 to 38.9 in adult, unspecified obesity type, unspecified whether serious comorbidity present Heart murmur Z01.818 (ICD-10-CM) - Pre-operative clearance Procedures ECHO Complete 2D W Doppler W Color NE ECHO TTHRC R-T 2D W/WOM-MODE COMPL SPEC&COLR D 34813 - NE ECHO TTHRC R-T 2D W/WOM-MODE COMPL SPEC&COLR D Janis Hawkins MD [address] [place] [address] [place] [address] [place] [address] Referral ID Status Reason Start Date Expiration Date Visits Re quested Visits Authorized [id number] Closed 06/10/2022 12/07/2022 1 1 Specialty Diagnoses / Procedures Referred By Contac t Referred To Contact Cardiology Diagnoses PAF (paroxysmal atrial fibrillation) (HCC) On Multaq therapy Chronic anticoagulation Essential hypertension JAMES on CPAP Morbid obesity (HCC) History of DVT (deep vein thrombosis) Pain of right lower extremity Chest discomfort I48.0 (ICD-10-CM) - PAF (paroxysmal atrial fibrillation) (HCC) Procedures Stress test, lexiscan CHG MYOCARDIAL SPECT MULTIPLE STUDIES 92995 - CHG MYOCARDIAL SPECT MULTIPLE STUDIES Janis Hawkins MD [address] [place] [address] [place] [address] Referral ID Status Reason Start Date Expiration Date V isits Requested Visits Authorized [id number] Authorized 09/29/2022 09/23/2023 2 2 Referral ID Status Reason Start Date Expiration Date Visits Re quested Visits Authorized [id number] Closed 09/29/2022 09/23/2023 2 2 Specialty Diagnoses / Procedures Referred By Contac t Referred To Contact Diagnoses PAF (paroxysmal atrial fibrillation) Procedures CT CARDIAC PULMONARY VENOGRAM NE CHG CT HEART CONTRAST EVAL CARDIAC STRUCT/MORPH Aubrey Rothman MD [address] [place] [address] Referral ID Status Reason Start Date Expiration Date Visits Re quested Visits Authorized [id number] Closed 10/07/2022 11/01/2023 1 1 Specialty Diagnoses / Procedures Referred By Contac t Referred To Contact Diagnoses PAF (paroxysmal atrial fibrillation) PAF (paroxysmal atrial fibrillation) [I48.0] Procedures NE COMPRE EP EVAL ABLTJ ATR FIB PULM VEIN ISOLATION AFIB ABLATION Aubrey Rothman MD [address] [place] [address] [facility] [address] [place] [address] Referral ID Status Reason Start Date Expiration Date Visits Re quested Visits Authorized [id number] 1 1 Specialty Diagnoses / Procedures Referred By Contac t Referred To Contact Diagnoses Atrial fibrillation (HCC) Atrial fibrillation (HCC) [I48.91] Procedures NE INSERTION SUBQ CARDIAC RHYTHM MONITOR W/PRGRMG NE INSERTION SUBQ CARDIAC RHYTHM MONITOR W/PRGRMG Loop recorder insert Janis Hawkins MD [address] [place] [id number] [facility] [address] [place] [address] Referral ID Status Reason Start Date Expiration Date Visits Re quested Visits Authorized [id number] 1 1 Care Teams (unrecognized sec tion and content) Analytical Laboratory Technician Relationship Specialty Start Date End Date WonderDenisse perrin MD PCP - General 07/30/16 Analytical Laboratory Technician Relationship Specialty Start Date End Date WonderlyDenisse MD PCP - General 07/30/16 Analytical Laboratory Technician Relationship Specialty Start Date End Date WonderDenisse perrin MD PCP - General 07/30/16 Analytical Laboratory Technician Relationship Specialty Start Date End Date WonderDenisse perrin MD [address] [facility] [address] [place] [address] PCP - General Family Medicine 10/07/22 Janis Hawkins MD [address] [facility] [place] [address] Cardiovascular Disease 09/25/22 Analytical Laboratory Technician Relationship Specialty Start Date End Date Denises Gilbert MD [address] [facility] [address] [place], [place] [id number] PCP - General Family Medicine 10/07/22 Janis Hawkins MD [address] [facility] [facility] [place] [address] Cardiovascular Disease 09/25/22 Analytical Laboratory Technician Relationship Specialty Start Date End Date Denisse Gilbert MD [address] [place] [address] PCP [facility] 08/23/20 Denisse Gilbert MD [address] [place] [address] PCP - [facility] Medicine 11/14/22 Analytical Laboratory Technician Relationship Specialty Start Date End Date Denisse Gilbert MD PCP - General 07/30/16 Scheduled Active and Recently Administ ered Medications (unrecognized section and content) Medication Order 01/07/2023 01/08/2023 01/09/2023 apixaban (ELIQUIS) tablet 5 mg 5 mg, Oral, EVERY 12 HOURS, First dose on Thu01/09/23 at 1400, Until Discontinued, Due to the rapid onset of action of apixaban, no overlap is needed with other anticoagulants (e.g. enoxaparin, heparin)., Indications: Atrial Fibrillation, Post-op/Post-Proc 1345 (Given - Provid er: Belle Murphy RN) Colchicine tablet 0.6 mg 0.6 mg, Oral, EVERY 12 HOURS NON-STANDARD, First dose on Thu01/09/23 at 2230, Until Discontinued, Do not split, break, crush or chew this medication. Contact pharmacy if altered route or dose is needed., Post-op/Post-Proc Colchicine tablet 1.2 mg (COMPLETED) 1.2 mg, Oral, ONCE, 1 dose, On Thu01/09/23 at 1100, Do not split, break, crush or chew this medication. Contact pharmacy if altered route or dose is needed., Post-op/Post-Proc 1133 (Given - Provid er: Belle Murphy RN) Pantoprazole (PROTONIX) tablet DR 40 mg 40 mg, Oral, DAILY, First dose on Thu01/09/23 at 1100, Until Discontinued, Swallow whole; do not crush or chew., Indications: Prevention of esophageal injury after catheter ablation, Post-op/Post-Proc 1132 (Given - Provid er: Belle Murphy RN) Scopolamine (TRANSDERM-SCOP) patch 1 patch(Linked Group 1) 1 patch, Transdermal, EVERY 72 HOURS, First dose on Thu01/09/23 at 0730, Until Discontinued, Apply patch to site behind the ear. Rotate sites for each application. Do not cut or alter patch. Each patch delivers 1 mg over 72 hours. 0659 (Patch Applied - Provider: Belle Murphy RN)1415 (Due: Patch Removed - Provider: System Discharge - Comment: Time automatically adjusted from order being discontinued) VERIFY LINKED PATCH PLACEMENT(Linked Group 1) Other, EVERY 12 HOURS, First dose on Thu01/09/23 at 0900, Until Discontinued, Confirm continued adhesion of scopolamine 1.5 mg/72hr patch at documented site. 1037 (Patch Verify - Provider: Belle Murphy RN) Continuous Medication Order 01/07/2023 01/08/2023 01/09/2023 Sodium chloride 0.9% IV solution 500 mL Intravenous, at 10 mL/hr, CONTINUOUS, Starting on Thu01/09/23 at 0530, Until Thu01/09/23 at 1615, KVO fluids, start the morning of procedure., Pre-op/Pre-Proc 0602 ($$New Bag$$ - Provider: Belle Murphy RN)0715 (Paused - Provider: COLEEN Ng - Comment: Switch to gravity)0716 (Restarted - Provider: COLEEN Ng)0948 (Anesthesia Volume Adjustment - Provider: COLEEN Ng)1037 (Stopped - Provider: Belle Murphy RN) PRN Medication Order 01/07/2023 01/08/2023 01/09/2023 Acetaminophen (TYLENOL) tablet 975 mg 975 mg, Oral, ONCE NEEDED, 1 dose, Starting on Thu01/09/23 at 0830, Until Thu01/09/23 at 1615, Severe Pain, Moderate Pain, Mild Pain, Maximum dose of acetaminophen is 4000 mg from all sources in 24 hours. Benzocaine-menthol (CEPACOL) 15-3.6 MG per lozenge 1 lozenge 1 lozenge, Oral, EVERY 1 HOUR NEEDED, Starting on Thu01/09/23 at 1146, Until Thu01/09/23 at 1615, Sore Throat, Max 8 lozenges/day Due to product shortages and availability, 15-3.6 MG and 15-2.6 MG strengths of benzocaine-menthol (CEPACOL) lozenges may be used interchangeably at [facility]. 1228 (Given - Provid er: Belle Murphy RN) HYDROmorphone (DILAUDID) injection 0.2 mg 0.2 mg, Intravenous, EVERY 10 MINUTES NEEDED, 10 doses, Starting on Thu01/09/23 at 0830, Until Thu01/09/23 at 1615, Moderate Pain, Severe Pain, May give a total of 2mg in PACU., Recovery Lidocaine (XYLOCAINE) 10 mg/mL injection (CANCELED) NEEDED, Starting on Thu01/09/23 at 0803, Until Thu01/09/23 at 1002, Intra-op/Intra-Proc 0803 (Given - Provid er: Aubrey Rothman MD) magnesium oxide (MAG-OX) tablet 800 mg 800 mg, Oral, ADMINISTER DIRECTED, Starting on Thu01/09/23 at 1023, Until Thu01/09/23 at 1615, See admin instructions, For Magnesium 1.6 - 2.0, give 800 mg of Magnesium oxide, Post-op/Post-Proc Magnesium sulfate 4 g in sterile water 50 ml premix IVPB 4 g, Intravenous, Administer over 4 Hours, ADMINISTER DIRECTED, Starting on Thu01/09/23 at 1023, Until Thu01/09/23 at 1615, Other, Magnesium Replacement Therapy, If Magnesium less than 1.6, give 4 g Magnesium Sulfate IVPB over 4 hours (may give over 1 hour if arrhythmias present)., Post-op/Post-Proc Ondansetron 4mg/2ml (ZOFRAN) injection 4 mg 4 mg, Intravenous, EVERY 4 HOURS NEEDED, Starting on Thu01/09/23 at 1023, Until Thu01/09/23 at 1615, Nausea / Vomiting, Post-op/Post-Proc oxyCODONE (ROXICODONE) tablet 5 mg(Linked Group 2) 5 mg, Oral, EVERY 4 HOURS NEEDED, Starting on Thu01/09/23 at 1023, Until Thu01/09/23 at 1615, Moderate Pain, Severe Pain, PRN for Moderate Pain. Use for Severe Pain if IV not available for use as initial dose. Higher dose may be administred if lower dose was previously documented as ineffective and did not result in adverse effects (RR<10, decrease in level of consciousness)., Post-op/Post-Proc oxyCODONE HCl (ROXICODONE) tablet 10 mg(Linked Group 2) 10 mg, Oral, EVERY 4 HOURS NEEDED, Starting on Thu01/09/23 at 1023, Until Thu01/09/23 at 1615, Moderate Pain, Severe Pain, PRN for Moderate Pain. Use for Severe Pain if IV not available for use as initial dose. Higher dose may be administred if lower dose was previously documented as ineffective and did not result in adverse effects (RR<10, decrease in level of consciousness), Post-op/Post-Proc Potassium chloride (K-DUR) tablet ER 20 mEq 20 mEq, Oral, ADMINISTER DIRECTED, Starting on Thu01/09/23 at 1023, Until Thu01/09/23 at 1615, See admin instructions, If Cr 2.0 - 2.5 mg/dL For Potassium less than 3.6, give 20 mEq Potassium Chloride orally, recheck in AM. If Cr greater than 2.5 mg/dL contact physician/LIP for Potassium less than 3.6 for replacement orders. If potassium is low please administer magnesium first if indicated, Post-op/Post-Proc Potassium chloride (K-DUR) tablet ER 40-60 mEq 40-60 mEq, Oral, ADMINISTER DIRECTED, Starting on Thu01/09/23 at 1023, Until Thu01/09/23 at 1615, See admin instructions, If Cr less than 2.0 mg/dL 1. For Potassium 3.6 - 4.0, give 40 mEq of Potassium Chloride orally, recheck in the AM. 2. For Potassium less than 3.6, give 60 mEq Potassium Chloride orally, recheck in 8 hours. 3. If potassium is low please administer magnesium first if indicated., Post-op/Post-Proc Prochlorperazine (COMPAZINE) injection 5 mg 5 mg, Intravenous, EVERY 1 HOUR NEEDED, 2 doses, Starting on Thu01/09/23 at 0831, Until Thu01/09/23 at 1615, Nausea / Vomiting, FIRST Line antiemetic, Do not administer within 6 hours of intra-operative dose. For IV route: dilute dose with 10mL normal saline and give by slow IV push at a rate of 5mg/min. Maximum of 40mg/day., Recovery Sodium chloride 0.9% IV solution Intravenous, at 1 mL/hr, CONTINUOUS NEEDED, Starting on Thu01/09/23 at 1023, Until Thu01/09/23 at 1615, See administration instructions, Per pressure bag for all transduced lines., Post-op/Post-Proc 1050 ($$New Bag$$ - Provider: Belle Murphy RN)1350 (Stopped - Provider: Belle Murphy RN) Linked Groups Order Group 1: Scopolamine (TRANSDERM-SCOP) patch 1 patchJump to med 1 patch, Transdermal, EVERY 72 HOURS, First dose on Thu01/09/23 at 0730, Until Discontinued
Apply patch to site behind the ear. Rotate sites for each application. Do not cut or alter patch. Each patch delivers 1 mg over 72 hours.
And VERIFY LINKED PATCH PLACEMENTJump to med Other, EVERY 12 HOURS, First dose on Thu01/09/23 at 0900, Until Discontinued
Confirm continued adhesion of scopolamine 1.5 mg/72hr patch at documented site.
Group 2: oxyCODONE (ROXICODONE) tablet 5 mgJump to med 5 mg, Oral, EVERY 4 HOURS NEEDED, Starting on Thu01/09/23 at 1023, Until Thu01/09/23 at 1615, Moderate Pain, Severe Pain
PRN for Moderate Pain. Use for Severe Pain if IV not available for use as initial dose. Higher dose may be administred if lower dose was previously documented as ineffective and did not result in adverse effects (RR<10, decrease in level of consciousness).
Post-op/Post-Proc Or oxyCODONE HCl (ROXICODONE) tablet 10 mgJump to med 10 mg, Oral, EVERY 4 HOURS NEEDED, Starting on Thu01/09/23 at 1023, Until Thu01/09/23 at 1615, Moderate Pain, Severe Pain
PRN for Moderate Pain. Use for Severe Pain if IV not available for use as initial dose. Higher dose may be administred if lower dose was previously documented as ineffective and did not result in adverse effects (RR<10, decrease in level of consciousness)
Post-op/Post-Proc PRN Medication Order 10/11/2023 10/12/2023 10/13/2023 BUPivacaine (PF) (MARCAINE) 0.5 % injection (CANCELED) PRN, Starting on Thu10/13/23 at 1255, Until Thu10/13/23 at 1309, Intra-procedure(Cath) 1255 (Given - Provid er: Janis Hawkins MD) FOR RECORDS PERTAINING TO PATIENTS WHO ARE OR HAVE BEEN ENROLLED IN A CHEMICAL DEPENDENCY/SUBSTANCEABUSE PROGRAM, SOME INFORMATION MAY BE OMITTED. This clinical summary was aggregated from multiple sources. Caution should be exercised in using it in the provision of clinical care. This summary normalizes information from multiple sources, and as a consequence, information in this document may materially change the coding, format and clinical context of patient data. In addition, data may be omitted in some cases. CLINICAL DECISIONS SHOULD BE BASED ON THE PRIMARY CLINICAL RECORDS. [employer] provides no warranty or guarantee of the accuracy or completeness of information in this document.
--- NOTE | 2023-10-14 08:32 | ED_ITS ---
HPI HPI - General Adult General Stated complaint: CHEST WOUND Time Seen by Provider: 10/14/23 07:42 Source: patient Mode of arrival: walk-in Limitations: no limitations History of Present Illness HPI narrative: Had a loop recorder placed yesterday in the chest. She is allergic to suture material as well as adhesive so they did glue over the wound. About 20 minutes prior to arrival the glue dislodged slightly and it has been bleeding a lot. Patient is on Eliquis as well. She has no pain or injury she just came in because she could not get the bleeding to stop. She has a loop recorder placed for atrial fibrillation. No other complaints at this time. Related Data Home Medications ?Medication ?Instructions ?Recorded ?Confirmed apixaban 5 mg tablet (Eliquis) 5 mg PO BID 02/15/23 06/20/23 lisinopril 10 1 tab PO DAILY 02/15/23 06/20/23 mg-hydrochlorothiazide 12.5 mg tablet omeprazole 40 mg capsule,delayed 40 mg PO DAILY 02/15/23 06/20/23 release sertraline 50 mg tablet mg 02/15/23 levothyroxine 150 mcg tablet 150 mcg PO DAILY 06/20/23 06/20/23 Allergies Allergy/AdvReac Type Severity Reaction Status Date / Time cortisone Allergy Intermediate Verified 02/15/23 16:45 Opioid HPI Opioid Management Most Recent Opioid Data: No Data to Display Review of Systems ROS Status of ROS 10 or more systems reviewed and unremark able except as noted in history and below Exam Narrative Exam Narrative: General: alert, no acute distress Cardiovascular: regular rate and rhythm, normal peripheral perfusion. Respiratory: Lungs CTA, respirations non labored. Extremities: no deformity, no trauma. Neurological: oriented x 4, LOC appropriate for age. Dermabond over the centrally located chest wound, postprocedure site. Moderate bleeding upon arrival. Constitutional Vital Signs, click to edit/add: Last Vital Signs Temp 98.2 F 10/14/23 07:43 Pulse 62 10/14/23 07:43 Resp 18 10/14/23 07:43 BP 147/89 H 10/14/23 07:43 Pulse Ox 99 10/14/23 07:43 O2 Del Method Room Air 10/14/23 07:43 Course Vital Signs Vital signs: Vital Signs Temperature 98.2 F 10/14/23 07:43 Pulse Rate 62 10/14/23 07:43 Respiratory Rate 18 10/14/23 07:43 Blood Pressure 147/89 H 10/14/23 07:43 Pulse Oximetry 99 10/14/23 07:43 Oxygen Delivery Method Room Air 10/14/23 07:43 Temperature 98.2 F 10/14/23 07:43 Pulse Rate 62 10/14/23 07:43 Respiratory Rate 18 10/14/23 07:43 Blood Pressure 147/89 H 10/14/23 07:43 Pulse Oximetry 99 10/14/23 07:43 Oxygen Delivery Method Room Air 10/14/23 07:43 Medical Decision Making MDM Narrative Medical decision making narrative: Patient's wound was dressed and the bleeding has stopped. Instructed to keep the bandage on for 2 days. Follow-up with her surgeon as scheduled. Return to the emergency room if worsening bleeding Differential Diagnosis Differential Diagnosis: Postoperative bleeding, wound dehisce Discharge Plan Discharge Stand Alone Forms: Portal Instructions Clinical Impression: Wound dehiscence Patient Disposition: Home, Self-Care Time of Disposition Decision: 08:35 Mode of Transportation: Private Vehicle Prescriptions / Home Meds: No Action omeprazole 40 mg capsule,delayed release(DR/EC) 40 mg PO DAILY lisinopril-hydrochlorothiazide 10-12.5 mg tablet 1 tab PO DAILY sertraline 50 mg tablet Eliquis 5 mg tablet 5 mg PO BID Patient Comments: not taking as prescribed levothyroxine 150 mcg tablet 150 mcg PO DAILY Print Language: Azeri Instructions: Acute Wounds (ED) Referrals: AUGUST GILBERT [Primary Care Provider] - 1 week Procedures ED Procedure Instructions Procedures Procedures: 1% lidocaine with epi locally infiltrated around the surgical site to 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 Gelfoam gauze used on top of this to help slow the bleeding. Gelfoam gauze and regular gauze were placed on top and pressure was held for at least 20 minutes. The bleeding has stopped and dressing was applied with Tegaderm over top.
[2023-10-14] MEDS: LIDOCAINE HCL 1%-EPINEPHRINE 1:100,000 20 ML MDV INJ (08:43)
[2023-10-14] MEDS: SURGIFOAM GEL SPONGE SIZE 100 1 EACH TOPICAL (08:43)
== END 2023-10-14 08:55 | disposition home or self-care (01) ==
PROVIDERS: Emergency Provider Emergency Medicine; PCP Family Medicine
DX: T81.31XA Disruption of external operation (surgical) wound, not elsewhere classified, initial encounter (principal); Z79.01 Long term (current) use of anticoagulants; I48.91 Unspecified atrial fibrillation; Z79.899 Other long term (current) drug therapy; Z79.890 Hormone replacement therapy; Z95.811 Presence of heart assist device
CPT/HCPCS: 99284

== ENCOUNTER 2023-10-14 11:10 | Emergency (ER) | payer BC, SELFPAY ==
[2023-10-14 11:19] VITALS: BP 150/51; PULSE 65; TEMP 36.9; O2SAT 95; BMI 39.5
--- NOTE | 2023-10-14 12:03 | ED.GENADUL1 ---
HPI HPI - General Adult General Chief complaint: Wound/Laceration Stated complaint: WOUND RECHECK Time Seen by Provider: 10/14/23 11:16 Mode of arrival: walk-in Limitations: no limitations History of Present Illness HPI narrative: Patient presents to ED for rebleeding of her chest wound. I saw her earlier today and treated her recent surgical site for acute bleeding. Bleeding had stopped prior to discharge and she was comfortable with going home. She said she was at home for a little while and noticed that blood has again soaked through the dressing that we applied. She is allergic to most suture material except for silk. We are trying to avoid placing sutures due to her severe allergies however at this time we need to remove the glue in place sutures since she is bleeding again through her dressings. She is alert and oriented and comfortable in no acute distress. No other complaints at this time Related Data Home Medications ?Medication ?Instructions ?Recorded ?Confirmed apixaban 5 mg tablet (Eliquis) 5 mg PO BID 02/15/23 06/20/23 lisinopril 10 1 tab PO DAILY 02/15/23 06/20/23 mg-hydrochlorothiazide 12.5 mg tablet omeprazole 40 mg capsule,delayed 40 mg PO DAILY 02/15/23 06/20/23 release sertraline 50 mg tablet mg 02/15/23 levothyroxine 150 mcg tablet 150 mcg PO DAILY 06/20/23 06/20/23 Allergies Allergy/AdvReac Type Severity Reaction Status Date / Time cortisone Allergy Intermediate Verified 02/15/23 16:45 Opioid HPI Opioid Management Most Recent Opioid Data: No Data to Display Review of Systems ROS Status of ROS 10 or more systems reviewed and unremarkable except as noted in history and below Exam Narrative Exam Narrative: General: alert, no acute distress Cardiovascular: regular rate and rhythm, normal peripheral perfusion. Respiratory: Lungs CTA, respirations non labored. Extremities: no deformity, no trauma. Neurological: oriented x 4, LOC appropriate for age. 2 cm laceration to the anterior chest that was bleeding. Glue was removed and bleeding controlled. Constitutional Vital Signs, click to edit/add: Last Vital Signs Temp 98.5 F 10/14/23 11:19 Pulse 65 10/14/23 11:19 Resp 15 10/14/23 11:19 BP 150/51 H 10/14/23 11:19 Pulse Ox 95 10/14/23 11:19 O2 Del Method Room Air 10/14/23 11:19 Course Vital Signs Vital signs: Vital Signs Temperature 98.5 F 10/14/23 11:19 Pulse Rate 65 10/14/23 11:19 Respiratory Rate 15 10/14/23 11:19 Blood Pressure 150/51 H 10/14/23 11:19 Pulse Oximetry 95 10/14/23 11:19 Oxygen Delivery Method Room Air 10/14/23 11:19 Temperature 98.5 F 10/14/23 11:19 Pulse Rate 65 10/14/23 11:19 Respiratory Rate 15 10/14/23 11:19 Blood Pressure 150/51 H 10/14/23 11:19 Pulse Oximetry 95 10/14/23 11:19 Oxygen Delivery Method Room Air 10/14/23 11:19 Medical Decision Making MDM Narrative Medical decision making narrative: Sutures were placed at this time and a dressing was applied again to the surgical site please follow-up with cardiology as scheduled. Return to ED if worsening bleeding or any signs of infection. Patient expresses understanding comfortable care plan for home Differential Diagnosis Differential Diagnosis: Wound dehisced, bleeding Discharge Plan Discharge Stand Alone Forms: Portal Instructions Chief Complaint: Wound/Laceration Clinical Impression: Wound dehiscence Patient Disposition: Home, Self-Care Time of Disposition Decision: 12:06 Mode of Transportation: Private Vehicle Prescriptions / Home Meds: No Action omeprazole 40 mg capsule,delayed release(DR/EC) 40 mg PO DAILY lisinopril-hydrochlorothiazide 10-12.5 mg tablet 1 tab PO DAILY sertraline 50 mg tablet Eliquis 5 mg tablet 5 mg PO BID Patient Comments: not taking as prescribed levothyroxine 150 mcg tablet 150 mcg PO DAILY Print Language: Togolese Instructions: Acute Wounds (ED) Referrals: AUGUST GILBERT [Primary Care Provider] - 1 week Procedures ED Procedure Instructions Procedures Procedures: Old Dermabond was removed from the wound and 1% lidocaine with epi was injected locally around the surgical site. 0 [address] was Used to place 4 sutures simple, interrupted for control of bleeding and to close the surgical site. Patient tolerated well and bleeding has stopped
[2023-10-14 12:21] VITALS: BP 145/74; PULSE 74; O2SAT 99
[2023-10-14] MEDS: SURGIFOAM GEL SPONGE SIZE 100 1 EACH TOPICAL (12:33)
== END 2023-10-14 12:28 | disposition home or self-care (01) ==
PROVIDERS: Emergency Provider Emergency Medicine; PCP Family Medicine
DX: T81.31XA Disruption of external operation (surgical) wound, not elsewhere classified, initial encounter (principal); Z79.01 Long term (current) use of anticoagulants; I48.91 Unspecified atrial fibrillation; Z79.899 Other long term (current) drug therapy; Z79.890 Hormone replacement therapy; Z95.811 Presence of heart assist device
CPT/HCPCS: 12001; 99284

== ENCOUNTER 2024-03-06 17:28 | Emergency (ER) | payer BC, SELFPAY ==
[2024-03-06 17:37] VITALS: BP 105/58; PULSE 78; TEMP 37.3; O2SAT 97; BMI 39.5
--- OUTSIDE RECORDS SUMMARY | 2024-03-06 17:37 | XMS_ITS | CCD ---
Author Organization [facility] Care Team Providers Care Welder Journeyman Name Role Phone JEWELLCLEMENTE ANGEL Unavailable Unavaila DENISSE Vincent Unavailable Unavailable VINEET WHIPPLE Unavailable Unavailable DENISSE GILBERT Unavailable Unavailable VINEET WHIPPLE M Unavailable Unavailable DENISSE GILBERT Unavailable Unavailable VINEET WHIPPLE M Unavailable Unavailable VINEET WHIPPLE M Unavailable Unavailable DENISSE GILBERT Unavailable Unavailable Denisse Gilbert Primary Care Provider [phone] Denisse Gilbert Primary Care Provider [phone] DENISSE GILBERT [facility] Unavailable SELF, REFERRED Referring Unavailable NITHIN LOBO Admitting Unavailable NITHIN LOBO Attending Unavailable NITHIN LOBO Surgeon Unavailable [place] Procedure Practitioner Unavailab Denisse Muñoz MD Primary Care Provider Denisse Gilbert MD Primary Care Provider Melissa Montilla Unavailable JON, DR SÁNCHEZ Admitting Unavailable TIMMIS, DR SÁNCHEZ Attending Unavailable TIMJOSE, DR SÁNCHEZ Consulting Unavailable CHERYLE, DR SARAH Duffy Consulting Unavailable FABBY VASQUEZ Consulting Unavailable DR DENISSE GILBERT Primary Care Unavailable JON, DR SÁNCHEZ Admitting Unavailable TIMJOSE, DR SÁNCHEZ Attending Unavailable TIMJOSE, DR SÁNCHEZ Consulting Unavailable MAHAD RILEY Consulting Unavailable JOSE PEREZ Consulting Unavailable DR DENISSE GILBERT Primary Care Unavailable FRANKIE .CAROLEE Consulting Unavailable PAY ., DR MATHEWS Admitting Unavailable PAY ., DR MATHEWS Attending Unavailable DUSTIN JANE Consulting Unavailable Janis Hawkins MD Unavailable Denisse Gilbert MD Primary Care Provider DENISSE GILBERT Primary Care Unavailable HOUMSSE, MAHMOUD Referring Unavailable HOUMSSE, MAHMOUD Attending Unavailable WONDERLY, SIXTO Referring Unavailable WONDERLY, SITXO Attending Unavailable WONDERLY, SIXTO Primary Care Unavailable WONDERLY, SIXTO Primary Care Unavailable AHMAD, ALI Referring Unavailable HOUMSSE, MAHMOUD Attending Unavailable HOUMSSE, MAHMOUD Attending Unavailable HOUMSSE, MAHMOUD Admitting Unavailable WONDERLY, SIXTO Primary Care Unavailable WONDERLY, SIXTO Primary Care Unavailable HOUMSSE, MAHMOUD Attending Unavailable WONDERLY, SIXTO Primary Care Unavailable HOUMSSE, MAHMOUD Referring Unavailable PortlandSarah wilkins Unavailable Wondermarychuy RUTLEDGE Denisse Ludy Unavailable Brook RUTLEDGE Denisse [place] Primary Care Provider Brook RUTLEDGE Denisse Ludy Primary Care Provider AHMAAlysia, ALI F O Attending Unavailable AHMAD, ALI F O Referring Unavailable WONDERLY, DENISSE [place] Primary Care Unavailable AHMAD, ALI F O Admitting Unavailable AHMAD, ALI F O Attending Unavailable AHMAD, ALI F O Referring Unavailable WONDERLY, DENISSE [place] Primary Care Unavailable STANFORD BERGER Attending Unavailabl e WONDERLY, DENISSE [place] Primary Care Unavailable AHMAD, ALI F O Attending Unavailable AHMAD, ALI F O Referring Unavailable WONDERLY, DENISSE [place] Primary Care Unavailable RENATE FAUST I Attending Unavailable PUMP, SAHARA Lock Referring Unavailable WONDERLY, DENISSE [place] Primary Care Unavailable ANGELIC PIÑA Referring Unavailable WONDERLY, DENISSE [place] Primary Care Unavailable WONDERLY, DENISSE [place] Primary Care Unavailable EBONY VALLES Attending Unavailable VALLESEBONY Attending Unavailable EBONY VALLES Referring Unavailable WONDERLY, DENISSE [place] Primary Care Unavailable JORDANLUDWIN Attending Unavailable JORDANLUDWIN Referring Unavailable WONDERLY, DENISSE [place] Primary Care Unavailable ANGELIC PIÑA Referring Unavailable WONDERLY, DENISSE B Primary Care Unavailable ANGELIC PIÑA Referring Unavailable WONDERLY, DENISSE Ludy Primary Care Unavailable ZHEN CURRY Attending Unavailable KAYA BELCHER Attending Unavailable PUMP, SAHARA Attending Unavailable PUMP, SAHARA Referring Unavailable PUMP, SAHARA Attending Unavailable PUMP, SAHARA Referring Unavailable WONDERLY, DENISSE B Attending Unavailable PUMP, SAHARA Referring Unavailable WONDERLY, DENISSE B Referring Unavailable PUMP, SAHARA Attending Unavailable PUMP, SAHARA Referring Unavailable PUMP, SAHARA Attending Unavailable PUMP, SAHARA Referring Unavailable WONDERLY, DENISSE B Attending Unavailable Allergies Allergy Classification Reported Allergen(s) Allergy Type Date of Onset Reaction(s) Facility (20 sources) Lactose (non-medical use) Propensity to adverse reactions to drug [place] (20 sources) nickel sulfate; Translations: [NICKEL] Drug Allergy Swelling, Other (See Comments) [place] (20 sources) Other; Translations: [OTHER] Propensity to adverse reactions Swelling, Other (See Comments) [place] (3 sources) Adhesive agent; Translations: [ADHESIVE] Propensity to adverse reactions (disorder) Unknown [facility] (12 sources) Cortisone; Translations: [CORTISONE] Drug Allergy Itching, Rash [facility] (1 source) methylPREDNISolone; Translations: [DEPO-MEDROL] Drug Allergy [facility] (1 source) METALS; Translations: [METALS] Propensity to adverse reactions (disorder) [facility] (2 sources) SUTURE; Translations: [SUTURE] Propensity to adverse reactions (disorder) [facility] (4 sources) methylPREDNISolone Drug Allergy [facility] Work Phone: (2 sources) sutures Propensity to adverse reactions Unknown [employer] Other (2 sources) mohit Propensity to adverse reactions Unknown [employer] Other (1 source) Aspirin Drug Allergy [facility] (1 source) Bacitracin Drug Allergy [facility] (1 source) Leucine Drug Allergy [facility] (1 source) Morphine Drug Allergy [facility] (6 sources) Acetaminophen / HYDROcodone; Translations: [HYDROCODONE-ACETAMIN OPHEN] Drug Allergy [facility] (4 sources) Aluminum aspirin Drug Allergy [facility] (4 sources) Bacitracin Drug Allergy Rash [facility] (3 sources) Lactose (non-medical use) Propensity to adverse reactions to drug [facility] (3 sources) methylPREDNISolone Drug Allergy [facility] (2 sources) *Sutures Propensity to adverse reactions [facility] (1 source) Lactose Drug Allergy [facility] (1 source) Morphine Drug Allergy [facility] (1 source) Silicone adhesive tape Propensity to adverse reactions to drug [facility] NEGATED: Highlighted row has been ruled out! (4 sources) Other Propensity to adverse reactions Swelling, Other (See Comments) [facility] Work Phone: Medications Current Medications Medication Drug [...] days. 10 tablet 0 08/07/2019 08/10/2019 Active [id number] 200 actuat albuterol 0.09 mg/actuat metered dose [...] release oral capsule (20 sources) Calcium Channel Leny Start: 04-21-2019 take 1 capsule by mouth [...] MG TABS Indications: PAF (paroxysmal atrial fibrillation) ([facility]) , On Multaq therapy , Chronic anticoagulation , Essential hypertension , JAMES on CPAP , Morbid obesity ([facility]) , History of DVT (deep vein thrombosis) [...] / neomycin 3.5 mg/ml / polymyxin b 52526 unt/ml otic solution (1 source) Aminoglycoside Antibacterial, Polymyxin-clas s Antibacterial, Corticosteroid Start: 05-05-2022 Csvtputp-Fsqehbsuc-XU 3.5-84113-4 4 drops into affected ear Otic Three [...] stress disorder, unspecified] Onset: 12-03-2022 12-03-2022 Chronic Calculus of urinary tract (2 sources) Kidney stone; Translations: [Calculus of kidney] Onset: 05-15-2020 11-14-2022 Episodic Cardiac dysrhythmias (20 sources) Atrial fibrillation; Translations: [...] [Essential (primary) hypertension] Onset: 07-23-2016 09-02-2018 Chronic Genitourinary symptoms and ill-defined conditions (1 source) Mixed incontinence; Translations: [Mixed incontinence] Onset: 01-06-2024 Chronic Genitourinary symptoms and ill-defined conditions (1 source) Urgency of urination; Translations: [Urgency of urination] Onset: 01-06-2024 Episodic Heart valve disorders (1 source) Heart murmur; Translations: [Cardiac murmur, unspecified] Episodic Intestinal infection (20 sources) Infection caused [...] of unspecified breast] Onset: 11-17-2017 11-14-2022 Chronic Nonspecific chest pain (7 sources) Atypical chest pain; Translations: [Chest discomfort] Onset: 09-23-2022 Episodic Nutritional deficiencies (2 sources) Vitamin D deficiency, unspecified; Translations: [Vitamin D deficiency] Onset: 08-07-2015 11-14-2022 Chronic Osteoarthritis (1 source) Arthritis of left knee; Translations: [Unilateral primary osteoarthritis, left knee] Onset: 11-14-2022 11-14-2022 Chronic Other aftercare (20 sources) Long-term current use of anticoagulant; Translations: [termite helper (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) use of anticoagulants] Onset: 11-14-2022 09-02-2018 Episodic Other aftercare (2 sources) Drug therapy finding; Translations: [Other correction (current) drug therapy] Episodic Other aftercare (1 source) termite helper (current) use of antithrombotics/anti platelets; Translations: [LONG-TERM ANTITHROMBOT/ANTIPLA TLETS] Onset: 09-08-2022 Episodic Other connective tissue disease (1 source) [...] APNEA] Onset: 09-02-2018 Chronic Residual codes; unclassified (2 sources) Dependence on other enabling machines and devices; Translations: [Dependence on other enabling machines and devices] Onset: 09-23-2022 Chronic Residual codes; unclassified (1 source) Preoperative [...] BOTH CERVIX AND UTERUS] Onset: 09-04-2022 Episodic Screening and history of mental health [...] (1 source) Baseline PHQ-9 Onset: 12-03-2022 12-03-2022 Unclassified (1 source) A Fib, Chest Pain Onset: 01-07-2024 Past or Other Problems Problem Classification Problem Date Documented Da te Episodic/Chronic Abdominal hernia (3 sources) Intra-abdominal hernia; Translations: [Incisional hernia] Onset: 02-18-2021 11-14-2022 Episodic Alcohol-related disorders (1 source) Alcohol use, unspecified with intoxication, uncomplicated; Translations: [Alcohol use, unspecified with intoxication, uncomplicated] Onset: 12-20-2022 Episodic Cancer of thyroid (1 source) History of malignant neoplasm of thyroid; Translations: [Personal history of malignant neoplasm of thyroid] Onset: 02-18-2021 11-14-2022 Episodic Fracture of upper limb (2 sources) Nondisplaced fracture of middle phalanx of left little finger, subsequent encounter for fracture with routine healing; Translations: [Nondisplaced fracture of middle phalanx of left index finger, initial encounter for open fracture] Onset: 05-13-2023 Episodic Gastrointestinal hemorrhage (20 sources) Rectal hemorrhage; Translations: [Hemorrhage of anus and rectum] Onset: 08-07-2015 08-07-2015 Episodic Headache; including migraine (1 source) Headache; Translations: [Nonintractable headache, unspecified chronicity pattern, unspecified headache type] Episodic Hemorrhoids (1 source) Internal hemorrhoids; Translations: [Other hemorrhoids] Onset: 08-07-2015 11-14-2022 Episodic Intestinal infection (6 sources) Infection caused by Helicobacter pylori; Translations: [Other specified bacterial intestinal infections] Onset: 08-09-2015 08-09-2015 Episodic Mood disorders (1 source) Mood disorders Onset: 12-03-2022 12-03-2022 Other aftercare (3 sources) Other director long term care (current) drug therapy; Translations: [OTH LONG-TERM CURRENT DRUG THERAPY] Onset: 09-08-2022 Episodic Other aftercare (4 sources) snf (current) use of anticoagulants; Translations: [HOT MIX OPERATOR CURRNT USE ANTICOAGULANTS] Onset: 09-02-2018 Episodic Other circulatory disease (1 source) Personal history of other diseases of the circulatory system; Translations: [Personal history of other diseases of the circulatory system] Onset: 03-31-2023 Episodic Other connective tissue disease (2 sources) Pain in right leg; Translations: [Pain [...] to other disease] Onset: 11-14-2022 11-14-2022 Episodic Residual codes; unclassified (1 source) Other specified postprocedural states; Translations: [Other specified postprocedural states] Onset: 03-31-2023 Episodic Results Test Name Value Interpretation Reference Range Facility XR CHEST 2 VIEWSon 4 XR CHEST 2 VIEWS XR - CHEST 2 VIEWS Reason for exam: Cough, fever Technique: PA and lateral view Findings: A loop recorder projects over the mid chest. The heart size is normal. The pulmonary vascularity is unremarkable. The lungs are fully expanded and clear. No pleural abnormalities are seen. No evidence of mediastinal or hilar enlargement. The osseous structures are intact. No soft tissue abnormalities are seen. IMPRESSION: No evidence of active disease. Dictated on: 02/04/2024 1:17 PM This report has been electronically signed and approved by the interpreting Radiologist. Electronically Signed Abisai Shaw M.D. 2024-02-04 13:18:33 Normal Not Available CBC AND AUTO DIFFon 01-07-20 24 ABSOLUTE BASOPHIL 0.1 X10E9/L Normal 0.0-0.2 [facility] Comment on above: Performed By: #### C BCA, CMP, 3040-3, 83070-4, 02244-2 #### [facility] ([id number]) [address] [place] [address], [place] [address] ABSOLUTE NEUTROPHIL 5.7 X10E9/L Normal 1.5-6.6 [facility] Comment on above: Performed By: #### C BCA, CMP, 3040-3, 77160-1, 59292-5 #### [facility] ([id number]) [address] [place] [address] 66098 Basophils/100 WBC (Bld) 0.7 % Normal [facility] Comment on above: Performed By: #### C HARISH, CMP, 3040-3, 51920-9, 38821-9 #### [facility] ([id number]) [address] [place] [address] 71854 Eosinophils (Bld) [#/Vol] 0.2 10*3/uL Normal 0.0-0.4 [facility] Comment on above: Performed By: #### C HARISH, CMP, 0-3, , 09629-8 #### [facility] ([id number]) [address] [place] [address] 21701 Eosinophils/100 WBC (Bld) 2.3 % Normal [facility] Comment on above: Performed By: #### C HARISH, CMP, 0-3, , 78974-1 #### [facility] ([id number]) [address] [place] [address] 92283 Erythrocyte distribution width (RBC) [Ratio] 14.5 % Normal 11.5-15.0 [facility] Comment on above: Performed By: #### Nicole MOREIRA CMP, 0-3, , 42757-2 #### [facility] ([id number]) [address] [place] [address] 52422 Hematocrit (Bld) [Volume fraction] 44.0 % Normal 35-47 [facility] Comment on above: Performed By: #### C HARISH, CMP, 3040-3, , 89649-8 #### [facility] ([id number]) [address] [place] [address] 76656 Hemoglobin (Bld) [Mass/Vol] 14.6 g/dL Normal 11.7-15.5 [facility] Comment on above: Performed By: #### C BCA, CMP, 3040-3, 92633-1, 49300-5 #### [facility] ([id number]) [address] [place] [address] 16780 Lymphocytes (Bld) [#/Vol] 1.5 10*3/uL Normal 1.0-3.5 [facility] Comment on above: Performed By: #### C BCA, CMP, 3040-3, , 62427-8 #### [facility] ([id number]) [address] [place] [address] 81059 Lymphocytes/100 WBC (Bld) 18.7 % Normal [facility] Comment on above: Performed By: #### C BCA, CMP, 3040-3, , 45326-3 #### [facility] ([id number]) [address] [place] [address] 16910 MCH (RBC) [Entitic mass] 29.5 pg Normal 27-34 [facility] Comment on above: Performed By: #### C BCA, CMP, 0-3, , 62527-6 #### [facility] ([id number]) [address] [place] [address] 62069 MCHC (RBC) [Mass/Vol] 33.1 g/dL Normal 32-36 [facility] Comment on above: Performed By: #### C BCA, CMP, 3040-3, , 20432-8 #### [facility] ([id number]) [address] [place] [address] 00755 MCV (RBC) [Entitic vol] 89 fL Normal 80-100 [facility] Comment on above: Performed By: #### C BCA, CMP, 3040-3, , 77827-0 #### [facility] ([id number]) [address] [place] [address] [place] [address] Monocytes (Bld) [#/Vol] 0.4 10*3/uL Normal 0-0.9 [facility] Comment on above: Performed By: #### C HARISH, CMP, 3040-3, 32168-4, 41949-5 #### [facility] ([id number]) [address] [place] [address] 95999 Monocytes/100 WBC (Bld) 5.4 % Normal [facility] Comment on above: Performed By: #### C HARISH, CMP, 0-3, , 82497-4 #### [facility] ([id number]) [address] [place] [address] 85297 Neutrophils/100 WBC (Bld) 72.9 % Normal [facility] Comment on above: Performed By: #### Nicole MOREIRA, CMP, 0-3, , 83265-5 #### [facility] ([id number]) [address] [place] [address] 95513 Platelet mean volume (Bld) [Entitic vol] 8.2 fL Normal 7-12 [facility] Comment on above: Performed By: #### Nicole MOREIRA, CMP, 3040-3, , 58325-9 #### [facility] ([id number]) [address] [place] [address] 91762 Platelets (Bld) [#/Vol] 224 10*3/uL Normal 150-450 [facility] Comment on above: Performed By: #### Nicole BCA, CMP, 3040-3, , 73279-3 #### [facility] ([id number]) [address] [place] [address] 77386 RBC COUNT 4.95 X10E12/L Normal 3.80-5.20 [facility] Comment on above: Performed By: #### C BCA, CMP, 3040-3, , 58493-8 #### [facility] ([id number]) [address] [place] [address] 63569 WBC (Bld) [#/Vol] 7.8 10*3/uL Normal 4.0-11.0 [facility] Comment on above: Performed By: #### C BCA, CMP, 3040-3, 12107-2, 03944-0 #### [facility] ([id number]) [address] [place] [address] 59861 COMPREHENSIVE METABOLIC PANE Julian 01-07-2024 Albumin [Mass/Vol] 4.6 g/dL Normal 3.2-5.3 [facility] Comment on above: Performed By: #### C BCA, CMP, 3040-3, 35987-3, 01260-2 #### [facility] ([id number]) [address] [place] [address] 39043 ALP [Catalytic activity/Vol] 90 U/L Normal 39-130 [facility] Comment on above: Performed By: #### C BCA, CMP, 3040-3, 85622-8, 61069-9 #### [facility] ([id number]) [address] [place] [address] 18357 ALT [Catalytic activity/Vol] 27 U/L Normal 0-31 [facility] Comment on above: Performed By: #### C BCA, CMP, 3040-3, 01887-6, 83239-3 #### [facility] ([id number]) [address] [place] [address] 84447 Anion gap [Moles/Vol] 8 mmol/L Normal 5-15 [facility] Comment on above: Performed By: #### C BCA, CMP, 3040-3, 07755-3, 97405-7 #### [facility] ([id number]) [address] [place] [address] 64146 AST [Catalytic activity/Vol] 25 U/L Normal 0-41 [facility] Comment on above: Performed By: #### C BCA, CMP, 3040-3, 31020-3, 27215-9 #### [facility] ([id number]) [address] [place] [address] 52364 Bilirubin [Mass/Vol] 0.6 mg/dL Normal 0.3-1.2 [facility] Comment on above: Performed By: #### C BCA, CMP, 3040-3, 49492-1, 98468-7 #### [facility] ([id number]) [address] [place] [address] 22140 Calcium [Mass/Vol] 9.2 mg/dL Normal 8.5-10.5 [facility] Comment on above: Performed By: #### C BCA, CMP, 0-3, , 87865-3 #### [facility] ([id number]) [address] [place] [address] 45023 Chloride [Moles/Vol] 103 mmol/L Normal 98-109 [facility] Comment on above: Performed By: #### C BCA, CMP, 3040-3, , 49092-4 #### [facility] ([id number]) [address] [place] [address] 55255 CO2 [Moles/Vol] 25 mmol/L Normal 22-32 [facility] Comment on above: Performed By: #### C BCA, CMP, 3040-3, 84378-2, 07163-2 #### [facility] ([id number]) [address] [place] [address] 95296 Creatinine [Mass/Vol] 0.96 mg/dL Normal 0.40-1.00 [facility] Comment on above: Result Comment: METH OD TRACEABLE TO IDMS STANDARD Performed By: #### C BCA, CMP, 3040-3, , 87761-1 #### [facility] ([id number]) [address] [place] [address] 58501 GFR/1.73 sq M.predicted among non-blacks MDRD (S/P/Bld) [Vol rate/Area] 73 mL/min/{1.73_m2} Normal >59 [facility] Comment on above: Result Comment: Reported eGFR is based on the CKD-EPI 2020 equation that does not use a race coefficient. Performed By: #### C BETTIE MOREIRA, 3, , 29751-7 #### [facility] ([id number]) [address] [place] [address] 51814 Glucose [Mass/Vol] 261 mg/dL High 65-99 [facility] Comment on above: Performed By: #### C BETTIE MOREIRA, 3039-07, , 93099-4 #### [facility] ([id number]) [address] [place] [address] 65954 Potassium [Moles/Vol] 3.8 mmol/L Normal 3.5-5.0 [facility] Comment on above: Performed By: #### C HARISH CMP, 3, , 28553-6 #### [facility] ([id number]) [address] [place] [address] 66658 Protein [Mass/Vol] 8.5 g/dL High 6.0-8.0 [facility] Comment on above: Performed By: #### C HARISH, CMP, 03, , 12113-2 #### [facility] ([id number]) [address] [place] [address] 13935 Sodium [Moles/Vol] 136 mmol/L Normal 134-146 [facility] Comment on above: Performed By: #### C HARISH, CMP, 3039-07, , 92930-9 #### [facility] ([id number]) [address] [place] [address] 83541 Urea nitrogen [Mass/Vol] 16 mg/dL Normal 5-23 [facility] Comment on above: Performed By: #### C BCA, CMP, 3040-3, 64105-3, 19918-3 #### [facility] ([id number]) [address] [place] [address] 08816 LIPASEon 01-07-2024 Lipase [Catalytic activity/Vol] 32 U/L Normal 17-40 [facility] Comment on above: Performed By: #### C BCA, CMP, 3040-3, 67517-9, 77800-7 #### [facility] ([id number]) [address] [place] [address] 10794 MAGNESIUMon 01-07-2024 Magnesium [Mass/Vol] 2.1 mg/dL Normal 1.8-2.6 [facility] Comment on above: Performed By: #### C BCA, CMP, 3040-3, 94197-5, 38777-7 #### [facility] ([id number]) [address] [place] [address] 25348 Troponin I.cardiac High sens itivity method [Mass/Vol]on 01-07-2024 1 HOUR TROP I, HIGH SENSITIVITY 3 ng/L Normal <16 [facility] Comment on above: Performed By: #### 8 9579-7 #### [facility] ([id number]) [address] [place] [address] 30978 TROPONIN I, HIGH SENSITIVITY <2 Normal <16 [facility] Comment on above: Performed By: #### C BCA, CMP, 3040-3, 75726-8, 26175-7 #### [facility] ([id number]) [address] [place] [address] 47228 URN MACROSCOPIC NURon 2023 BILIRUBIN CASI Negative Normal NEG [facility] Comment on above: Performed By: #### N UM #### [facility] ([id number]) [address] [place] [address] 60433 BLOOD/HGB CASI Negative Normal NEG [facility] Comment on above: Performed By: #### N UM #### [facility] ([id number]) [address] [place] [address] 91606 GLUCOSE CASI 250 mg/dL Abnormal NEG [facility] Comment on above: Performed By: #### N UM #### [facility] ([id number]) [address] [place] [address] 40828 KETONES CASI Negative Normal NEG [facility] Comment on above: Performed By: #### N UM #### [facility] ([id number]) [address] [place] [address] [place] [address] LEUKOCYTE ESTERASE CASI Negative Normal NEG [facility] Comment on above: Performed By: #### N UM #### [facility] ([id number]) [address] [place] [address] NITRITE CASI Negative Normal NEG [facility] Comment on above: Performed By: #### N UM #### [facility] ([id number]) [address] [place] [address] PH CASI 6.0 Normal 5.0-8.5 [facility] Comment on above: Performed By: #### N UM #### [facility] ([id number]) [address] [place] [address] PROTEIN CASI Negative Normal NEG [facility] Comment on above: Performed By: #### N UM #### [facility] ([id number]) [address] [place] [address] [place] [address] SPECIFIC GRAVITY CASI 1.020 Normal 1.003-1.035 [facility] Comment on above: Performed By: #### N UM #### [facility] ([id number]) [address] [facility], [place] [address] UROBILINOGEN CASI 0.2 eu/dL Normal <1.1 [facility] Comment on above: Performed By: #### N UM #### [facility] ([id number]) [address] [facility], [place] [address] XR ABDOMEN 1 VIEWon 10-29-19 24 XR ABDOMEN 1 VIEW FINDINGS: No radiopaque intrarenal or urinary tract stones. Both renal shadows however are obscured by air and stool. Left upper, right mid abdominal surgical material/clips. Moderate volume of ascending colon stool tapering through the non-distended hepatic flexure. No mass effect or free air. No evidence of bowel obstruction. IMPRESSION: No radiopaque stones. As clinically indicated CT imaging may be of assistance if symptoms persists following appropriate medical management. TRANSCRIBED BY: ELECTRONICALLY SIGNED BY: Soruav Pereyra MD Normal Not Available US PALPABLE Mariann US PALPABLE MASS FINDINGS: [...] Normal Not Available US RENAL COMPLETEon 09-22-19 24 US RENAL COMPLETE FINDINGS: Right Kidney 11.1 [...] Not Available XR ABDOMEN 2 VIEWon 09-21-19 24 XR ABDOMEN 2 VIEW FINDINGS: Moderate volume [...] Tam MD on 05/13/2023 7:27 AM Normal [facility] EP PROCEDURE - EPS/ABLATION/ DEVICEon 01-12-2023 EP [...] Atrial Fibrillation: A Scientific Statement From the [employer].) Vic JIMENEZ, et al. Circulation. 2020. PMID: [id number] Review.\ Follow up with Dr. Rothman or Yoly Rae CNP. as routine for his post-RFA patient care. Per and post RFA voltage mapping Table formatting from the original result was not included. Images from the original result were not included. Jody Koroma Paddy EP Procedure - EPS/Ablation/Device Ordering Physician: AUBREY ROTHMAN Order #: [id number] Study Date: 01/09/2023 Patient Information Name MRN Description Jody Thomason [id number] y.o. 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 (more content not included)... Normal [facility] ACT* LOW RANGE, POCon 2022 ACT LOW RANGE, POC 340.0 High [facility] Interpretation and review of laboratory results Abnormal [facility] Test performed at ad dress of the patient encounter. [facility] ACT LOW RANGE, POC [facility] Comment on above: Out of Range High. The test result is outside clinical range and should not be used for patient-management decisions. Test performed at ad dress of the patient encounter. [facility] ACT LOW RANGE, POC 388.0 High [facility] Interpretation and review of laboratory results Abnormal [facility] Test performed at ad dress of the patient encounter. [facility] ACT LOW RANGE, POC [facility] Comment on above: Out of Range High. The test result is outside clinical range and should not be used for patient-management decisions. Test performed at ad dress of the patient encounter. [facility] EXTRA MINT GREEN TOPon 01-09 [facility] PT,INR,PTTon 01-09-2023 aPTT Coag (Bld) [Time] 31.5 s Normal 24.0-34.3 [facility] Comment on above: Performed By: #### P TPTT #### [facility] (DEFAULT) [address] [place] [address] INR Coag (PPP) [Relative time] 1.0 {INR} Normal 0.9-1.1 [facility] Comment on above: Performed By: #### P TPTT #### [facility] (DEFAULT) [address] [address] PT Coag (PPP) [Time] 13.1 s Normal 11.9-14.2 [facility] Comment on above: Performed By: #### P TPTT #### [facility] (DEFAULT) [address] [address] aPTT Coag (PPP) [Time] 31.5 s [facility] INR Coag (Bld) [Relative time] 1.0 {INR} 0.9 - 1.1 [facility] Interpretation and review of laboratory results Normal [facility] PT Coag (PPP) [Time] 13.1 s [facility] CBC,PLATELETSon 01-08-2023 Hematocrit (Bld) [Volume fraction] 40.2 % Normal 34.9-44.3 [facility] Comment on above: Performed By: #### H [facility] #### [facility] (DEFAULT) [address] [address] Hemoglobin (Bld) [Mass/Vol] 12.7 g/dL Normal 11.4-15.2 [facility] Comment on above: Performed By: #### H EMOGC #### [facility] (DEFAULT) [address] [address] MCV (RBC) [Entitic vol] 90.3 fL Normal 79.6-97.7 [facility] Comment on above: Performed By: #### H EMOGC #### [facility] (DEFAULT) [address] [address] Mean Cell Hgb 28.5 pg Normal 25.9-33.9 [facility] Comment on above: Performed By: #### H EMOGC #### [facility] (DEFAULT) [address] [address] Mean Cell Hgb Conc 31.6 g/dL Normal 31.4-35.9 [facility] Comment on above: Performed By: #### H EMOGC #### [facility] (DEFAULT) [address] [place] [address] Platelet mean volume (Bld) [Entitic vol] 10.9 fL Normal 8.5-12.2 [facility] Comment on above: Performed By: #### H EMOGC #### [facility] (DEFAULT) [address] [place] [address] Platelets (Bld) [#/Vol] 207 10*3/uL Normal 150-393 [facility] Comment on above: Performed By: #### H EMOGC #### Rohit [facility] (DEFAULT) [address] [place] [address] RBC (Bld) [#/Vol] 4.45 10*6/uL Normal 3.91-5.04 [facility] Comment on above: Performed By: #### H EMOGC #### [facility] (DEFAULT) [address] [place] [address] RBC Distribution 13.4 % Normal 10.8-14.9 [facility] Comment on above: Performed By: #### H EMOGC #### [facility] (DEFAULT) [address] [place] [address] WBC (Bld) [#/Vol] 5.84 10*3/uL Normal 3.99-11.19 [facility] Comment on above: Performed By: #### H EMOGC #### [facility] (DEFAULT) [address] [place] [address] CHEM 6 (LYTES, BUN CREA)on 0 01-08-2023 Anion gap [Moles/Vol] 11 mmol/L Normal 7-17 [facility] Comment on above: Performed By: #### C HM6 #### [facility] (DEFAULT) [address] [place] [address] Chloride [Moles/Vol] 106 mmol/L Normal 98-108 [facility] Comment on above: Performed By: #### C HM6 #### [facility] (DEFAULT) [address] [place] [address] CO2 [Moles/Vol] 26 mmol/L Normal 21-31 [facility] Comment on above: Performed By: #### C HM6 #### Rohit [facility] (DEFAULT) [address] [place] [address] Creatinine [Mass/Vol] 1.00 mg/dL Normal 0.50-1.20 [facility] Comment on above: Performed By: #### C HM6 #### [facility] (DEFAULT) [address] [address] GFR/1.73 sq M.predicted among non-blacks MDRD (S/P/Bld) [Vol rate/Area] 70 mL/min/{1.73_m2} Normal >=60 [facility] Comment on above: Result Comment: Repo rted eGFR is based on the CKD-EPI 2020 equation using creatinine, age, and sex. Performed By: #### C HM6 #### [facility] (DEFAULT) [address] [address] Potassium [Moles/Vol] 4.2 mmol/L Normal 3.5-5.0 [facility] Comment on above: Performed By: #### C HM6 #### [facility] (DEFAULT) [address] [place] [address] Sodium [Moles/Vol] 139 mmol/L Normal 135-145 [facility] Comment on above: Performed By: #### C HM6 #### [facility] (DEFAULT) [address] [address] Urea nitrogen [Mass/Vol] 18 mg/dL Normal 7-25 [facility] Comment on above: Performed By: #### C HM6 #### [facility] (DEFAULT) [address] [place] [address] Urea nitrogen/Creatinin e [Mass ratio] 18 mg/mg Normal [facility] Comment on above: Performed By: #### C HM6 #### [facility] (DEFAULT) [address] [place] [address] CT CARDIAC PULMONARY VENOGRA [facility] 01-08-2023 CT CARDIAC PULMONARY VENOGRAM [facility] CT Report Name: JODY THOMASON : 1975 [...] deformity. - Mediastinum: Normal, without adenopathy. - Lexa: Right sided hilar calcification, largest diameter 3 [...] cm SCAN INFO TEST TYPE: Venogram SCANNER PATTERN FITTER: Payoff SCANNER MODEL: Patient [employer] CT750 [employer] DOSE REDUCTION ALGORITHM: Prospective/[id number] SCAN COVERAGE ZONE: Pulmonary veins/IRIS EKG GATED: [...] Shannon ATTENDING PHYSICIAN: REINIER RETANA MD TECHNOLOGIST: aCrolee Vaughan RT (R) (CT) BILLING Patient Account [id number] CPT Codes 21208 ICD10 Codes I48.0 Report generated by [employer], a product of [employer] Normal [facility] CT Report Name: JODY THOMASON : 1975 [...] deformity. - Mediastinum: Normal, without adenopathy. - Lexa: Right sided hilar calcification, largest diameter 3 [...] cm SCAN INFO TEST TYPE: Venogram SCANNER PATTERN FITTER: Payoff SCANNER MODEL: Patient [employer] CT750 HD DOSE REDUCTION ALGORITHM: Prospective/[id number] SCAN COVERAGE ZONE: Pulmonary veins/IRIS EKG GATED: [...] Vaughan RT (R) (CT) BILLING Patient Account [id number] CPT Codes 90174 ICD10 Codes I48.0 Report generated by [employer], a product of [employer] CARDIOLOGY Reinier Retana MD - 01/08/[address] [facility] [address] Report Name: JODY THOMASON : 1975 [...] deformity. - Mediastinum: Normal, without adenopathy. - Lexa: Right sided hilar calcification, largest diameter 3 [...] SCAN INFO ==== TEST TYPE: Venogram SCANNER PATTERN FITTER: Payoff SCANNER MODEL: Patient [employer] CT750 [employer] DOSE REDUCTION ALGORITHM: Prospective/[id number]-[id number] SCAN COVERAGE ZONE: Pulmonary veins/IRIS EKG GATED: [...] RT (R) (CT) BILLING ==== Patient Account [id number] CPT Codes 59206 ICD10 Codes I48.0 Report generated by [employer], a product of [employer] [facility] Radiology Study observation (narrative) [facility] CT CARDIAC PULMONARY VENOGRA MOrdered By: Reinier Retana on 01-08-2023 [facility] Work Phone: CBC with Diffon 12-20-2022 Abs. Basophil 0.05 k/uL Normal 0.00-0.20 [facility] Comment on above: Performed By: #### T VINOD ARCOS CDP #### [facility] [address] [place] [address] [employer]vda Master Certified Rv Technician: Yang Diez MD Abs.Imm.Granulocyt e <0.03 Normal 0.00-0.30 [facility] Comment on above: Performed By: #### T VINOD ARCOS, CDP #### [facility] [address] [place] [address] [employer]vda Master Certified Rv Technician: Yang Diez MD Abs.Neutrophil (Seg) 4.69 k/uL Normal 1.50-8.10 [facility] Comment on above: Performed By: #### Markos ARCOS CP, CDP #### [address] [place], [place] [id number] [employer] Master Certified Rv Technician: Yang Diez MD Basophils/100 WBC (Bld) 1 % Normal 0-2 [facility] Comment on above: Performed By: #### Markos ARCOS CP, CDP #### [address] [place] [address] [employer]vda Master Certified Rv Technician: Yang Diez MD Eosinophils (Bld) [#/Vol] 0.17 10*3/uL Normal 0.00-0.44 [facility] Comment on above: Performed By: #### Markos ARCOS CP, CDP #### [address] [place], [facility]83 Rvda Master Certified Rv Technician: Yang Diez MD Eosinophils/100 WBC (Bld) 2 % Normal 1-4 [facility] Comment on above: Performed By: #### Markos ARCOS CP, CDP #### [address] [place], [facility]83 Rvda Master Certified Rv Technician: Yang Diez MD Erythrocyte distribution width (RBC) [Ratio] 13.0 % Normal 11.8-14.4 [facility] Comment on above: Performed By: #### Markos ARCOS CP, CDP #### [address] [place], [place] [phone] Rvda Master Certified Rv Technician: Yang Diez MD Hematocrit (Bld) [Volume fraction] 38.7 % Normal 36.3-47.1 [facility] Comment on above: Performed By: #### Markos ARCOS CP, CDP #### [address] [place], [place] [phone] Rvda Master Certified Rv Technician: Yang Diez MD Hemoglobin (Bld) [Mass/Vol] 12.6 g/dL Normal 11.9-15.1 [facility] Comment on above: Performed By: #### Markos ARCOS CP, CDP #### [facility] [address] [place], [place] [id number] Rvda Master Certified Rv Technician: Yang Diez MD Immature granulocytes/100 WBC (Bld) 0 % Normal 0 [facility] Comment on above: Performed By: #### Markos ARCOS CP, CDP #### [address] [place], [place] [phone] Rvda Master Certified Rv Technician: Yang Diez MD Lymphocytes (Bld) [#/Vol] 2.95 10*3/uL Normal 1.10-3.70 [facility] Comment on above: Performed By: #### Markos ARCOS CP, CDP #### [address] [place], [place] [address]783 Rvda Master Certified Rv Technician: Yang Diez MD Lymphocytes/100 WBC (Bld) 35 % Normal 24-43 [facility] Comment on above: Performed By: #### Markos ARCOS CP, CDP #### [address] [place], [place] [phone] Rvda Master Certified Rv Technician: Yang Diez MD MCH (RBC) [Entitic mass] 29.6 pg Normal 25.2-33.5 [facility] Comment on above: Performed By: #### Markos ARCOS CP, CDP #### [address] [place], [place] [phone] Rvda Master Certified Rv Technician: Yang Diez MD MCHC (RBC) [Mass/Vol] 32.6 g/dL Normal 28.4-34.8 [facility] Comment on above: Performed By: #### Markos ARCOS CP, CDP #### [address] [place] [address] Rvda Master Certified Rv Technician: Yang Diez MD MCV (RBC) [Entitic vol] 91.1 fL Normal 82.6-102.9 [facility] Comment on above: Performed By: #### Markos ARCOS CP, CDP #### [facility] [address] [place], [place] [phone] Rvda Master Certified Rv Technician: Yang Diez MD Monocytes (Bld) [#/Vol] 0.57 10*3/uL Normal 0.10-1.20 [facility] Comment on above: Performed By: #### Markos ARCOS CP, CDP #### [facility] [address] [place], [place] [phone] Rvda Master Certified Rv Technician: Yang Diez MD Monocytes/100 WBC (Bld) 7 % Normal 3-12 [facility] Comment on above: Performed By: #### Markos ARCOS CP, CDP #### [address] [place], [facility]83 Rvda Master Certified Rv Technician: Yang Diez MD Neutrophil (Seg) 55 % Normal 36-65 [facility] Comment on above: Performed By: #### Markos ARCOS CP, CDP #### [address] [place], [place] [phone] Rvda Master Certified Rv Technician: Yang Diez MD NRBC Automated 0.0 per 100 WBC Normal 0.0 [facility] Comment on above: Performed By: #### Markos ARCOS CP, CDP #### [facility] [address] [place] [address] Dr[address] [place], [place] [phone] Rvda Master Certified Rv Technician: Yang Diez MD Platelet mean volume (Bld) [Entitic vol] 10.8 fL Normal 8.1-13.5 [facility] Comment on above: Performed By: #### Markos ARCOS CP, CDP #### [facility] [address] [place] [address] Rvda Master Certified Rv Technician: Yang Diez MD Platelets (Bld) [#/Vol] 227 10*3/uL Normal 138-453 [facility] Comment on above: Performed By: #### T VINOD ARCOS, CDP #### [facility] [address] [place], [place] [phone] Rvda Master Certified Rv Technician: Yang Diez MD RBC (Bld) [#/Vol] 4.25 10*6/uL Normal 3.95-5.11 [facility] Comment on above: Performed By: #### T VINOD ARCOS, CDP #### [facility] [address] [place], [place] [phone] Rvda Master Certified Rv Technician: Yang Diez MD WBC (Bld) [#/Vol] 8.5 10*3/uL Normal 3.5-11.3 [facility] Comment on above: Performed By: #### Markos ARCOS CP, CDP #### [address] [place], [place] [phone] Rvda Master Certified Rv Technician: Yang Diez MD Comp Metabolic Profon 2022 Albumin [Mass/Vol] 4.1 g/dL Normal 3.5-5.2 [facility] Comment on above: Performed By: #### Markos ARCOS CP, CDP #### [address] [place], [place] [phone] Rvda Master Certified Rv Technician: Yang Diez MD Albumin/Glob Ratio 1.3 Normal 1.0-2.5 [facility] Comment on above: Performed By: #### Markos ARCOS CP, CDP #### [facility] [address] [place], [place] [phone] Rvda Master Certified Rv Technician: Yang Diez MD Alkaline Phos 91 U/L Normal 35-104 [facility] Comment on above: Performed By: #### T VINOD ARCOS, CDP #### [facility] [address] [place] [address] Rvda Master Certified Rv Technician: Yang Diez MD ALT [Catalytic activity/Vol] 19 U/L Normal 5-33 [facility] Comment on above: Performed By: #### Markos ARCOS CP, CDP #### [facility] [address] [place], [place] [phone] Rvda Master Certified Rv Technician: Yang Diez MD Anion gap [Moles/Vol] 13 mmol/L Normal 9-17 [facility] Comment on above: Performed By: #### T JOSSELYN CP, CDP #### [facility] [address] [place], [place] [phone] Rvda Master Certified Rv Technician: Yang Diez MD AST [Catalytic activity/Vol] 15 U/L Normal <32 [facility] Comment on above: Performed By: #### T VINOD ARCOS, CDP #### [facility] [address] [place], [place] [address] Rvda Master Certified Rv Technician: Yang Diez MD Bilirubin [Mass/Vol] 0.2 mg/dL Low 0.3-1.2 [facility] Comment on above: Performed By: #### Markos ARCOS CP, CDP #### [facility] [address] [place], [place] [phone] Rvda Master Certified Rv Technician: Yang Diez MD BUN/CRE Ratio 23 High 9-20 [facility] Comment on above: Performed By: #### Markos ARCOS CP, CDP #### [facility] [address] [place] [address] Dr[address] [place], [place] [phone] Rvda Master Certified Rv Technician: Yang Diez MD Calcium [Mass/Vol] 8.4 mg/dL Low 8.6-10.4 [facility] Comment on above: Performed By: #### T VINOD ARCOS, CDP #### [facility] [address] [place], [place] [phone] Rvda Master Certified Rv Technician: Yang Diez MD Chloride [Moles/Vol] 100 mmol/L Normal 98-107 [facility] Comment on above: Performed By: #### T VINOD ARCOS, CDP #### [facility] [address] [place] [address] Rvda Master Certified Rv Technician: Yang Diez MD CO2 [Moles/Vol] 22 mmol/L Normal 20-31 [facility] Comment on above: Performed By: #### T VINOD ARCOS, CDP #### [facility] [address] [place] [address] Rvda Master Certified Rv Technician: Yang Diez MD Creatinine [Mass/Vol] 0.8 mg/dL Normal 0.5-0.9 [facility] Comment on above: Performed By: #### Markos ARCOS CP, CDP #### [facility] [address] [place] [address] Rvda Master Certified Rv Technician: Yang Diez MD GFR/1.73 sq M.predicted among non-blacks MDRD (S/P/Bld) [Vol rate/Area] mL/min/{1.73_m2} Normal >60 [facility] Comment on above: Result Comment: These [...] By: #### Markos ARCOS CP, CDP #### [address] [place] [address] Rvda Master Certified Rv Technician: Yang Diez MD Glucose [Mass/Vol] 149 mg/dL High 70-99 [facility] Comment on above: Performed By: #### Markos ARCOS CP, CDP #### [facility] [address] [place] [address] Rvda Master Certified Rv Technician: Yang Diez MD Potassium [Moles/Vol] 3.2 mmol/L Low 3.7-5.3 [facility] Comment on above: Performed By: #### Markos ARCOS CP, CDP #### [facility] [address] [place] [phone] Rvda Master Certified Rv Technician: Yang Diez MD Protein [Mass/Vol] 7.3 g/dL Normal 6.4-8.3 [facility] Comment on above: Performed By: #### Markos ARCOS CP, CDP #### [facility] [address] [place], [place] [phone] Rvda Master Certified Rv Technician: Yang Diez MD Sodium [Moles/Vol] 135 mmol/L Normal 135-144 [facility] Comment on above: Performed By: #### Markos ARCOS CP, CDP #### [facility] [address] [place], [place] [phone] Rvda Master Certified Rv Technician: Yang Diez MD Urea nitrogen [Mass/Vol] 18 mg/dL Normal 6-20 [facility] Comment on above: Performed By: #### Markos ARCOS CP, CDP #### [facility] [address] [place], [place] [phone] Rvda Master Certified Rv Technician: Yang Diez MD Troponinon 12-20-2022 Troponin, High Sens 6 ng/L Normal 0-14 [facility] Comment on above: Result Comment: High Sensitivity Troponin values cannot be compared with other Troponin methodologies. Performed By: #### Markos ARCOS CP, CDP #### [facility] [address] [place], [place] [phone] Rvda Master Certified Rv Technician: Yang Diez MD BNPon 09-05-2022 Natriuretic peptide B (Bld) [Mass/Vol] 281.0 pg/mL Normal <=450.0 [facility] Comment on above: Performed By: #### H STROPN, BNP #### [facility] [address] [place] [address] Dr. Breanna Humphrey CBC AUTO DIFFon 09-05-2022 BASO # 0.0 103/ul Normal 0.0-0.1 [facility] Comment on above: Performed By: #### C BC #### [facility] [address] [place] [address] Dr. Breanna Humphrey Basophils/100 WBC (Bld) 0.6 % Normal 0.2-2.0 [facility] Comment on above: Performed By: #### C BC #### [facility] [address] [place] [address] Dr. Breanna Humphrey EO # 0.2 103/ul Normal 0.0-0.7 [facility] Comment on above: Performed By: #### C BC #### [facility] [address] [place] [address] Dr. Breanna Humphrey Eosinophils/100 WBC (Bld) 2.1 % Normal 0.9-7.0 [facility] Comment on above: Performed By: #### C BC #### [facility] [address] [place] [address] Dr. Breanna Humphrey Erythrocyte distribution width (RBC) [Ratio] 13.1 % Normal 11.0-15.0 [facility] Comment on above: Performed By: #### C BC #### [facility] [address] [place] [address] Dr. Breanna Humphrey Hematocrit (Bld) [Volume fraction] 39.0 % Normal 36.0-48.0 [facility] Comment on above: Performed By: #### C BC #### [facility] [address] [place] [address] Dr. Breanna Humphrey Hemoglobin (Bld) [Mass/Vol] 12.7 g/dL Normal 12.0-16.0 [facility] Comment on above: Performed By: #### C BC #### [facility] [address] [place] [address] Dr. Breanna Humphrey IG # 0.02 10e3/ul Normal 0.00-0.03 [facility] Comment on above: Performed By: #### C BC #### [facility] [address] [place] [address] Dr. Breanna Humphrey IG % 0.3 % Normal 0.0-0.5 [facility] Comment on above: Performed By: #### C BC #### [facility] [address] [place] [address] Dr. Breanna Humphrey LYMPH # 1.7 103/ul Normal 1.2-3.8 [facility] Comment on above: Performed By: #### C BC #### [facility] [address] [place] [address] Dr. Breanna Humphrey Lymphocytes/100 WBC (Bld) 24.1 % Normal 20.5-60.0 [facility] Comment on above: Performed By: #### C BC #### [facility] [address] [place] [address] Dr. Breanna Humphrey MANUAL DIFF REQ NO Normal [facility] Comment on above: Performed By: #### C BC #### [facility] [address] [place] [address] Dr. Breanna Humphrey MCH (RBC) [Entitic mass] 29.1 pg Normal 26.7-34.0 [facility] Comment on above: Performed By: #### C BC #### [facility] [address] [place] [address] Dr. Breanna Humphrey MCHC (RBC) [Mass/Vol] 32.6 g/dL Normal 29.9-35.2 [facility] Comment on above: Performed By: #### C BC #### [facility] [address] [place] [address] Dr. Breanna Humphrey MCV (RBC) [Entitic vol] 89.2 fL Normal 81.0-99.0 [facility] Comment on above: Performed By: #### C BC #### [facility] [address] [place] [address] Dr. Breanna Humphrey MONO # 0.7 103/ul Normal 0.3-0.8 [facility] Comment on above: Performed By: #### C BC #### [facility] [address] [place] [address] Dr. Breanna Humphrey Monocytes/100 WBC (Bld) 9.2 % Normal 1.7-12.0 [facility] Comment on above: Performed By: #### C BC #### [facility] [address] [place] [address] Dr. Breanna Humphrey NEUT # 4.6 103/ul Normal 1.4-6.5 [facility] Comment on above: Performed By: #### C BC #### [facility] [address] [address] [address] Breanna Humphrey Neutrophils/100 WBC (Bld) 63.7 % Normal 43.0-75.0 [facility] Comment on above: Performed By: #### C BC #### [facility] [address] [place] [address] Dr. Breanna Humphrey Platelet mean volume (Bld) [Entitic vol] 10.6 fL Normal 9.5-13.5 [facility] Comment on above: Performed By: #### C BC #### [facility] [address] [place] [address] Dr. Breanna Humphrey PLT 226 103/ul Normal 150-450 [facility] Comment on above: Performed By: #### C BC #### [facility] [address] [place] [address] Dr. Breanna Humphrey RBC 4.37 106/ul Normal 4.20-5.40 [facility] Comment on above: Performed By: #### C BC #### [facility] [address] [place] [address] Dr. Breanna Humphrey WBC 7.2 103/ul Normal 4.0-11.0 [facility] Comment on above: Performed By: #### C BC #### [facility] [address] [place] [address] Dr. Breanna Humphrey CTA CHEST WO W CONon 04-14-2 023 CTA CHEST WO W CON EXAMINATION: [...] DUSTIN JANE Date: 2022-09-05 18:26 Normal [facility] PROF 14(COMP METB)on 023 Albumin [Mass/Vol] 3.4 g/dL Normal 3.4-5.0 [facility] Comment on above: Performed By: #### C MP #### [facility] [address] [place] [address] Dr. Breanna Humphrey Albumin/Globulin [Mass ratio] 0.9 {ratio} Normal [facility] Comment on above: Performed By: #### C MP #### [facility] [address] [place] [address] Dr. Breanna Humphrey ALP [Catalytic activity/Vol] 84 U/L Normal 46-116 [facility] Comment on above: Performed By: #### C MP #### [facility] [address] [address] [address] Breanna Humphrey ALT [Catalytic activity/Vol] 54 U/L Normal 14-59 [facility] Comment on above: Performed By: #### C MP #### [facility] [address] [place] [address] Dr. Breanna Humphrey Anion gap [Moles/Vol] 10.9 mmol/L Normal [facility] Comment on above: Performed By: #### C MP #### [facility] [address] [place] [address] Dr. Breanna Humphrey AST [Catalytic activity/Vol] 32 U/L Normal 15-37 [facility] Comment on above: Performed By: #### C MP #### [facility] [address] [place] [address] Dr. Breanna Humphrey Bilirubin [Mass/Vol] 0.1 mg/dL Critically low 0.2-1.0 [facility] Comment on above: Performed By: #### C MP #### [facility] [address] [address] [address] Breanna Humphrey Calcium [Mass/Vol] 8.7 mg/dL Normal 8.5-10.1 [facility] Comment on above: Performed By: #### C MP #### [facility] [address] [place] [address] Dr. Breanna Humphrey Chloride [Moles/Vol] 106 mmol/L Normal 98-107 [facility] Comment on above: Performed By: #### C MP #### [facility] [address] [address] [address] Breanna Humphrey CO2 [Moles/Vol] 27.7 mmol/L Normal 21.0-32.0 [facility] Comment on above: Performed By: #### C MP #### [facility] [address] [place] [address] Dr. Breanna Humphrey Creatinine [Mass/Vol] 0.88 mg/dL Normal 0.55-1.02 [facility] Comment on above: Performed By: #### C MP #### [facility] [address] [place] [address] Dr. Breanna Humphrey EGFR-AF PRYDEINIG >60 Normal >=60 [facility] Comment on above: Performed By: #### C MP #### [facility] [address] [place] [address] Dr. Breanna Humphrey EGFR-NON AF PRYDEINIG >60 Normal >=60 [facility] Comment on above: Performed By: #### C MP #### [facility] [address] [place] [address] Dr. Breanna Humphrey Globulin (S) [Mass/Vol] 3.9 g/dL Normal [facility] Comment on above: Performed By: #### C MP #### [facility] [address] [place] [address] Dr. Breanna Humphrey Glucose [Mass/Vol] 101 mg/dL Normal 74-106 [facility] Comment on above: Performed By: #### C MP #### [facility] [address] [place] [address] Dr. Breanna Humphrey Potassium [Moles/Vol] 4.6 mmol/L Normal 3.5-5.1 [facility] Comment on above: Performed By: #### C MP #### [facility] [address] [address] [address] Breanna Humphrey Protein [Mass/Vol] 7.3 g/dL Normal 6.4-8.2 [facility] Comment on above: Performed By: #### C MP #### [facility] [address] [address] [address] Breanna Humphrey Sodium [Moles/Vol] 140 mmol/L Normal 136-145 [facility] Comment on above: Performed By: #### C MP #### [facility] [address] [address] [address] Breanna Humphrey Urea nitrogen [Mass/Vol] 20.0 mg/dL Critically high 7.0-18.0 [facility] Comment on above: Performed By: #### C MP #### [facility] [address] [address] [address] Breanna Humphrey Urea nitrogen/Creatinin e [Mass ratio] 22.7 mg/mg Normal [facility] Comment on above: Performed By: #### C MP #### [facility] [address] [address] [address] Breanna Humphrey PROTIMEon 09-05-2022 INR Coag (PPP) [Relative time] 0.95 {INR} Normal [facility] Comment on above: Performed By: #### P TT, PT ####[facility] [address] [address]Dr. Breanna Humphrey INR GUIDELINES SEE BELOW Normal [facility] Comment on above: Result Comment: HERBIE RED INR: 2.0 - 3.0 CONDITIONS NOT LISTED BELOW 2.5 - 3.5 FOR PROSTHETIC HEART VALVE REPLACEMENT 2.5 - 3.5 RECURRENT THROMBOSIS Performed By: #### P TT, PT ####[facility] [address] [address]Dr. Breanna Humphrey PT Coag (PPP) [Time] 10.1 s Normal 9.0-11.6 [facility] Comment on above: Performed By: #### P TT, PT ####[facility] [address] [address]Dr. Breanna Humphrey PTTon 09-05-2022 aPTT Coag (Bld) [Time] 32.2 s Normal 22.3-36.2 [facility] Comment on above: Performed By: #### P TT, PT ####[facility] [address] [address]Dr. Breanna Humphrey TROPONIN, HIGH SENSITIVITYon 09-05-2022 HSTROP <4.0 Normal 4.0-51.3 [facility] Comment on above: Result Comment: CUT- OFF POINTS HAVE BEEN ESTABLISHED BASED ON THE FOURTH UNIVERSAL DEFINITIONS OF MYOCARDIAL INFARCTION. THE UPPER REFERENCE LIMIT (URL) OF TROPONIN, DEFINED THE 99TH PERCENTILE OF cTnI DISTRIBUTION IN A REFERENCE POPULATION, HAS BEEN CONFIRMED THE DECISION THRESHOLD FOR PA DIAGNOSIS. Performed By: #### H STROPN, BNP #### [facility] [address] [place] [address] Dr. Breanna Humphrey POINT OF CARE GLUCOSEon 08-23 Glucose [Mass/Vol] 85 mg/dL Normal 74-106 [facility] Comment on above: Performed By: #### P OCGLUC #### [facility] [address] [place] [address] Dr. Breanna Humphrey CBC AUTO DIFFon 08-15-2022 BASO # 0.0 103/ul Normal 0.0-0.1 [facility] Comment on above: Performed By: #### C BC #### [facility] [address] [place] [address] Dr. Breanna Humphrey Basophils/100 WBC (Bld) 0.7 % Normal 0.2-2.0 [facility] Comment on above: Performed By: #### C BC #### [facility] [address] [place] [address] Dr. Breanna Humphrey EO # 0.2 103/ul Normal 0.0-0.7 [facility] Comment on above: Performed By: #### C BC #### [facility] [address] [place] [address] Dr. Breanna Humphrey Eosinophils/100 WBC (Bld) 3.1 % Normal 0.9-7.0 [facility] Comment on above: Performed By: #### C BC #### [facility] [address] [place] [address] Dr. Breanna Humphrey Erythrocyte distribution width (RBC) [Ratio] 13.3 % Normal 11.0-15.0 [facility] Comment on above: Performed By: #### C BC #### [facility] [address] [place] [address] Dr. Breanna Humphrey Hematocrit (Bld) [Volume fraction] 41.7 % Normal 36.0-48.0 [facility] Comment on above: Performed By: #### C BC #### [facility] [address] [place] [address] Dr. Breanna Humphrey Hemoglobin (Bld) [Mass/Vol] 13.6 g/dL Normal 12.0-16.0 [facility] Comment on above: Performed By: #### C BC #### [facility] [address] [place] [address] Dr. Breanna Humphrey IG # 0.02 10e3/ul Normal 0.00-0.03 [facility] Comment on above: Performed By: #### C BC #### [facility] [address] [place] [address] Dr. Breanna Humphrey IG % 0.3 % Normal 0.0-0.5 [facility] Comment on above: Performed By: #### C BC #### [facility] [address] [place] [address] Dr. Breanna Humphrey LYMPH # 1.8 103/ul Normal 1.2-3.8 [facility] Comment on above: Performed By: #### C BC #### [facility] [address] [place] [address] Dr. Breanna Humphrey Lymphocytes/100 WBC (Bld) 30.7 % Normal 20.5-60.0 [facility] Comment on above: Performed By: #### C BC #### [facility] [address] [place] [address] Dr. Breanna Humphrey MANUAL DIFF REQ NO Normal [facility] Comment on above: Performed By: #### C BC #### [facility] [address] [place] [address] Dr. Breanna Humphrey MCH (RBC) [Entitic mass] 29.1 pg Normal 26.7-34.0 [facility] Comment on above: Performed By: #### C BC #### [facility] [address] [place] [address] Dr. Breanna Humphrey MCHC (RBC) [Mass/Vol] 32.6 g/dL Normal 29.9-35.2 [facility] Comment on above: Performed By: #### C BC #### [facility] [address] [place] [address] Dr. Breanna Humphrey MCV (RBC) [Entitic vol] 89.3 fL Normal 81.0-99.0 [facility] Comment on above: Performed By: #### C BC #### [facility] [address] [place] [address] Dr. Breanna Humphrey MONO # 0.4 103/ul Normal 0.3-0.8 [facility] Comment on above: Performed By: #### C BC #### [facility] [address] [place] [address] Dr. Breanna Humphrey Monocytes/100 WBC (Bld) 7.5 % Normal 1.7-12.0 [facility] Comment on above: Performed By: #### C BC #### [facility] [address] [place] [address] Dr. Breanna Humphrey NEUT # 3.4 103/ul Normal 1.4-6.5 [facility] Comment on above: Performed By: #### C BC #### [facility] [address] [place] [address] Dr. Breanna Humphrey Neutrophils/100 WBC (Bld) 57.7 % Normal 43.0-75.0 [facility] Comment on above: Performed By: #### C BC #### [facility] [address] [place] [address] Dr. Breanna Humphrey Platelet mean volume (Bld) [Entitic vol] 10.1 fL Normal 9.5-13.5 [facility] Comment on above: Performed By: #### C BC #### [facility] [address] [place] [address] Dr. Breanna Humphrey PLT 212 103/ul Normal 150-450 [facility] Comment on above: Performed By: #### C BC #### [facility] [address] [place] [address] Dr. Breanna Humphrey RBC 4.67 106/ul Normal 4.20-5.40 [facility] Comment on above: Performed By: #### C BC #### [facility] [address] [place] [address] Dr. Breanna Humphrey WBC 5.9 103/ul Normal 4.0-11.0 [facility] Comment on above: Performed By: #### C BC #### [facility] [address] [place] [address] Dr. Breanna Humphrey PROF CHEM 8 (BAS METB)on Anion gap [Moles/Vol] 11.5 mmol/L Normal [facility] Comment on above: Performed By: #### B MP #### [facility] [address] [place] [address] Dr. Breanna Humphrey Calcium [Mass/Vol] 9.1 mg/dL Normal 8.5-10.1 [facility] Comment on above: Performed By: #### B MP #### [facility] [address] [place] [address] Dr. Breanna Humphrey Chloride [Moles/Vol] 101 mmol/L Normal 98-107 [facility] Comment on above: Performed By: #### B MP #### [facility] [address] [place] [address] Dr. Breanna Humphrey CO2 [Moles/Vol] 28.1 mmol/L Normal 21.0-32.0 [facility] Comment on above: Performed By: #### B MP #### [facility] [address] [place] [address] Dr. Breanna Humphrey Creatinine [Mass/Vol] 0.71 mg/dL Normal 0.55-1.02 [facility] Comment on above: Performed By: #### B MP #### [facility] [address] [address] [address] Breanna Humphrey EGFR-AF PRYDEINIG >60 Normal >=60 [facility] Comment on above: Performed By: #### B MP #### [facility] [address] [id number] Breanna Humphrey EGFR-NON AF PRYDEINIG >60 Normal >=60 [facility] Comment on above: Performed By: #### B MP #### [facility] [address] [address] [address] Breanna Humphrey Glucose [Mass/Vol] 112 mg/dL Critically high 74-106 [facility] Comment on above: Performed By: #### B MP #### [facility] [address] [address] [address] Breanna Humphrey Potassium [Moles/Vol] 3.7 mmol/L Normal 3.5-5.1 [facility] Comment on above: Performed By: #### B MP #### [facility] [address] [address] [address] Breanna Humphrey Sodium [Moles/Vol] 137 mmol/L Normal 136-145 [facility] Comment on above: Performed By: #### B MP #### [facility] [address] [address] [address] Breanna Humphrey Urea nitrogen [Mass/Vol] 22.0 mg/dL Critically high 7.0-18.0 [facility] Comment on above: Performed By: #### B MP #### [facility] [address] [address] [address] Breanna Humphrey Urea nitrogen/Creatinin e [Mass ratio] 30.9 mg/mg Normal [facility] Comment on above: Performed By: #### B MP #### [facility] [address] [address] [address] Breanna Humphrey PROTIMEon 08-15-2022 INR Coag (PPP) [Relative time] {INR} Normal [facility] Comment on above: Performed By: #### P T, PTT ####[facility] [address] [id number]. Breanna Humphrey INR GUIDELINES SEE BELOW Normal [facility] Comment on above: Result Comment: HERBIE RED INR: 2.0 - 3.0 CONDITIONS NOT LISTED BELOW 2.5 - 3.5 FOR PROSTHETIC HEART VALVE REPLACEMENT 2.5 - 3.5 RECURRENT THROMBOSIS Performed By: #### P T, PTT ####[facility] [address] [id number]. Breanna Humphrey PT Coag (PPP) [Time] 9.8 s Normal 9.0-11.6 [facility] Comment on above: Performed By: #### P T, PTT ####[facility] [address] [id number]. Breanna Humphrey PTTon 08-15-2022 aPTT Coag (Bld) [Time] 28.7 s Normal 22.3-36.2 [facility] Comment on above: Performed By: #### P T, PTT ####[facility] [address] [address]Dr. Breanna Humphrey ECHO Complete 2D W Doppler W Coloron 06-16-2022 [facility] Transthoracic Echocardiography Report (TTE) Patient Name HEALDSBURG Date of Study 06/16/2022 JODY S Date of 1975 Gender Female Age 47 year(s) Race Room Number Height: 64 inch, 162.56 cm Corporate ID [id number] Weight: 227 pounds, 103 kg # Patient Acct [id number] BSA: 2.06 m^2 BMI: 38.96 # kg/m^2 MR # [id number] Instrument Adjuster Kanika Davis Interpreting Physician Sarah Rick Fellow Referring Nurse Practitioner Interpreting Referring Physician Janis Hawkins Fellow Type of Study TTE procedure:2D Echocardiogram, M-Mode, Doppler, Color Doppler. Procedure Date Date: 06/16/2022 Start: 09:12 AM Study Location: [facility] Indications:Preop cardiac evaluation. History / Tech. [...] E' velocity:0.15 m/s Lateral Wall E/E':7.2 [facility] - 06/16/2022 [facility] Transthoracic Echocardiography Report (TTE) Patient Name HEALDSBURG Date of Study 06/16/2022 JODY Date of 1975 Gender Female Age 47 year(s) Race Room Number Height: 64 inch, 162.56 cm Corporate ID [id number] Weight: 227 pounds, 103 kg # Patient Acct [id number] BSA: 2.06 m^2 BMI: 38.96 # kg/m^2 MR # [id number] Instrument Adjuster Kanika Davis Interpreting Physician Sarah Rick Fellow Referring Nurse Practitioner Interpreting Referring Physician Janis aHwkins Fellow Type of Study TTE procedure:2D Echocardiogram, M-Mode, Doppler, Color Doppler. Procedure Date Date: 06/16/2022 Start: 09:12 AM Study Location: [facility] Indications:Preop cardiac evaluation. History / Tech. [...] Wall E' velocity:0.15 m/s Lateral Wall E/E':7.2 [employer] Work Phone: ECHO Complete 2D W Doppler W ColorOrdered By: Sarah Rick on 06-16-2022 [employer] Travel Phone: US RUQon 02-11-2022 US RUQ FINDINGS: [...] by Sourav Pereyra on 02/11/2022 1436 Normal [facility] SCREENING MAMMOGRAM W/JAE, BILATERAL*on 05-31-2021 SCREENING [...] by Sourav Pereyra on 06/05/2021 1418 Normal [facility] ALT (SGPT)on 05-21-2021 ALT [Catalytic activity/Vol] 21 U/L Normal 6-33 [facility] Comment on above: Result Comment: 04/24 Female reference range changed. Performed By: #### A LT, AST #### [facility] [address] [place], [place] [id number] AST (SGOT)on 05-21-2021 AST [Catalytic activity/Vol] 19 U/L Normal 9-34 [facility] Comment on above: Performed By: #### A LT, AST #### [facility] [address], [place] [id number] Free T4on 05-21-2021 Free T4 [Mass/Vol] 1.76 ng/dL Normal 0.80-1.80 [facility] Comment on above: Performed By: #### F T4, TSH #### [facility] [address] [place], [place] [id number] TSHon 05-21-2021 TSH 11.460 uIU/mL High 0.400-4.500 [facility] Comment on above: Performed By: #### F T4, TSH #### [facility] [address] [place], [place] [id number] US Palpable Mass Any Extremi tyon 05-21-2021 [...] by Sourav Pereyra on 05/22/2021 0930 Normal [facility]ist CNOVon 03-07-2021 CNOV Office Visit ([place] ) JODY THOMASON ([id number]) 1975 F Date Time Provider Department 03/07/21 [...] months, virtual visit Referring Provider: DERICK PAUL [[id number]] Allergies As of Date: 03/07/2021 Noted Allergy [...] [G89.18] 02/21/2021 Visit Notes: >> Andrés Dunham [facility] Mar 07, 2021 10:53 AM Status: Signed [...] Status:Closed by DERICK PAUL on 03/07/21 Normal [facility] Basic Metabolic Panlon 02-21 Anion gap [Moles/Vol] 9 mmol/L Normal 9-18 [facility] Comment on above: Performed By: #### C BC, BMP ####[facility] [address] [place], [place] [phone] Calcium [Mass/Vol] 9.1 mg/dL Normal 8.5-10.2 [facility] Comment on above: Performed By: #### C BC, BMP ####[facility] [address] [place], [place] [phone] Chloride [Moles/Vol] 103 mmol/L Normal 97-105 [facility] Comment on above: Performed By: #### C PAOLO, BMP ####[address] [phone] CO2 [Moles/Vol] 27 mmol/L Normal 22-30 [facility] Comment on above: Performed By: #### C PAOLO, BMP ####[address] [phone] Creatinine [Mass/Vol] 0.81 mg/dL Normal 0.58-0.96 [facility] Comment on above: Performed By: #### C PAOLO, BMP ####[address] [phone] eGFR- Amer. >60 Normal [facility] Comment on above: Performed By: #### C PAOLO, BMP ####[address] [phone] eGFR-All Other Races >60 Normal [facility] Comment on above: Result Comment: eGFR (Estimated [...] reflect actual GFR. Performed By: #### C PAOLO, BMP ####[address] [phone] Glucose [Mass/Vol] 105 mg/dL High 74-99 [facility] Comment on above: Result Comment: The [place] [employer] (ADA) provides guidance for cutoff [...] Standards of Medical Care in Diabetes 2016, [place] [employer]. Diabetes Care. 2016.39(Suppl 1). Performed By: #### C PAOLO, BMP ####[facility], [place] [phone] Potassium [Moles/Vol] 5.2 mmol/L High 3.7-5.1 [facility] Comment on above: Performed By: #### C BC, BMP ####[address], [place] [phone] Sodium [Moles/Vol] 139 mmol/L Normal 136-144 [facility] Comment on above: Performed By: #### C PAOLO, BMP ####[facility], [place] [phone] Urea nitrogen [Mass/Vol] 22 mg/dL High 7-21 [facility] Comment on above: Performed By: #### C BC, BMP ####[facility], [place] [phone] CBCon 02-21-2021 Absolute nRBC <0.01 Normal <0.01 [facility] Comment on above: Performed By: #### C BC, BMP ####[facility] [facility], [place] [phone] Erythrocyte distribution width (RBC) [Ratio] 13.8 % Normal 11.5-15.0 [facility] Comment on above: Performed By: #### C BC, BMP ####[place] [address], [place] [phone] Hematocrit (Bld) [Volume fraction] 36.6 % Normal 36.0-46.0 [facility] Comment on above: Performed By: #### C BC, BMP ####[place] [address], [place] [phone] Hemoglobin (Bld) [Mass/Vol] 12.2 g/dL Normal 11.5-15.5 [facility] Comment on above: Performed By: #### C BC, BMP ####[place] [address], [place] [phone] MCH 30.3 pG Normal 26.0-34.0 [facility] Comment on above: Performed By: #### C PAOLO, BMP ####[place] [address], [place] [phone] MCHC (RBC) [Mass/Vol] 33.3 g/dL Normal 30.5-36.0 [facility] Comment on above: Performed By: #### C BC, BMP ####[place] [address], [place] [phone] MCV (RBC) [Entitic vol] 90.8 fL Normal 80.0-100.0 [facility] Comment on above: Performed By: #### C BC, BMP ####[place] [address], [place] [phone] Platelet mean volume (Bld) [Entitic vol] 10.9 fL Normal 9.0-12.7 [facility] Comment on above: Performed By: #### C BC, BMP ####[place] [address], [place] [phone] Platelets (Bld) [#/Vol] 164 10*3/uL Normal 150-400 [facility] Comment on above: Performed By: #### C BC, BMP ####[place] [address], [place] [phone] RBC (Bld) [#/Vol] 4.03 10*6/uL Normal 3.90-5.20 [facility] [place] [facility] Comment on above: Performed By: #### C BC, BMP ####[facility] [address] [place], [place] [phone] WBC (Bld) [#/Vol] 8.37 10*3/uL Normal 3.70-11.00 [facility] [place] [facility] Comment on above: Performed By: #### C BC, BMP ####[facility] [address] [place], [place] [phone] CNDSon 02-21-2021 CNDS HNO ID: [id number] Author: Dinora Thomson APRN.TOBACCO CLASSER Service: General Surgery Author Type: Nurse Practitioner [...] GENERAL SURGERY DISCHARGE SUMMARY PATIENT NAME: Jody Koroma Manteno ADMISSION DATE: 02/20/2021 DISCHARGE DATE: 02/21/2021 ATTENDING [...] for surgery Anesthesia administration HOSPITAL COURSE: Jody Thomason is a 45 year old [...] discharged home. Patient was then returned to [facility] where her post-op recovery was essentially [...] Home 1 Active Anticoagulant SIGNATURE: Dinora Thomson APRN.TOBACCO CLASSER DATE: February 21, 2021 TIME: 10:30 AM Normal [facility] ANES Hyun 02-20-2021 ANES POST HNO ID: [id number] Author: Marion Spicer MD Service: Anesthesiology Author [...] 20, 2021 TIME: 2:07 PM PAGER/CONTACT #: [phone] [facility] BRIEF OP NOTon 02-20-2021 BRIEF OP NOT HNO ID: [id number] Author: Paulina Ayala MD Service: General Surgery Author Type: Resident Type: Brief Op Note Filed: 02/20/2021 1:10 PM Note Text: BRIEF OPERATIVE NOTE Patient Name: Jody Thomason LOG ID: [id number] Surgery/Procedure Date: 02/20/2021 Surgeon(s)/Proceduralist(s) and Head Of Art(s): Surgeon(s) and Role: * Derick Paul MD [...] DATE: 02/20/21 TIME: 1:09 PM PAGER # [phone] [facility] NURSING PROGon 02-20-2021 NURSING PROG HNO ID: [id number] Author: Kalani Norman RN Service: Nursing Author Type: Registered Nurse Type: Nursing Progress Note Filed: 02/20/2021 5:08 PM Note Text: Admission/Transfer Note PATIENT NAME: Jody Thomason Patient admitted from PACU via bed in stable condition. Actions taken: Patient oriented to room, call light function, prescribed activities, Patient rights and Quiet at night. This note was completed by: Kalani Norman [facility] NURSING PROG HNO ID: [id number] Author: Princess Francis RN Service: Nursing Author Type: Registered Nurse Type: Nursing Progress Note Filed: 02/20/2021 10:49 AM Note Text: Patient monitors herself for hypoglycemia. Blood sugar checked and she removed monitoring device from Left arm. [facility] OPERATIVE NOon 02-20-2021 OPERATIVE NO HNO ID: [id number] Author: Derick Paul MD Service: General Surgery Author Type: Physician Type: Operative Report Filed: 02/20/2021 1:21 PM Note Text: OPERATIVE/PROCEDURE REPORT LOG ID: [id number] SURGERY/PROCEDURE DATE: 02/20/2021 INCISION/PROCEDURE START TIME: 12:04 PM INCISION CLOSE/PROCEDURE END TIME: 1:06 PM SURGEON(S)/PROCEDURALIST(S) AND LIFE MANAGEMENT TEACHER(S): Surgeon(s) and Role: * Derick Paul MD [...] SIGNATURE: Derick Paul MD PATIENT NAME: Jody Thomason DATE: February 20, 2021 TIME: 1:12 PM Normal [facility] CBC and Differentialon 02-18 Abs Baso 0.05 k/uL Normal <0.11 [facility] Comment on above: Performed By: #### C LAURA, CBCDIF ####[facility] [address], [place] [phone] Abs [place] 0.40 k/uL Normal <0.87 [facility] Comment on above: Performed By: #### C LAURA, CBCDIF ####[facility] [address] [phone] Abs Neut 4.12 k/uL Normal 1.45-7.50 [facility] Comment on above: Performed By: #### C MP, CBCDIF ####[facility] [address], [place] [phone] Absolute nRBC <0.01 Normal <0.01 [facility] Comment on above: Performed By: #### C MP, CBCDIF ####[facility] [address], [place] [phone] Basophils/100 WBC (Bld) 0.7 % Normal [facility] Comment on above: Performed By: #### C MP, CBCDIF ####[facility] [address], [place] [phone] DTYPE Auto Diff Normal [facility] Comment on above: Performed By: #### C MP, CBCDIF ####[facility], [place] [phone] Eosinophils (Bld) [#/Vol] 0.18 10*3/uL Normal <0.46 [facility] Comment on above: Performed By: #### C MP, CBCDIF ####[place] [address] [place] [phone] Eosinophils/100 WBC (Bld) 2.7 % Normal [facility] Comment on above: Performed By: #### C MP, CBCDIF ####[place] [address] [place] [phone] Erythrocyte distribution width (RBC) [Ratio] 13.5 % Normal 11.5-15.0 [facility] Comment on above: Performed By: #### C MP, CBCDIF ####[place] [address] [place] [phone] Hematocrit (Bld) [Volume fraction] 42.7 % Normal 36.0-46.0 [facility] Comment on above: Performed By: #### C MP, CBCDIF ####[place] [address] [place] [phone] Hemoglobin (Bld) [Mass/Vol] 13.7 g/dL Normal 11.5-15.5 [facility] Comment on above: Performed By: #### C MP, CBCDIF ####[place] [address] [place] [phone] Lymphocytes (Bld) [#/Vol] 1.99 10*3/uL Normal 1.00-4.00 [facility] Comment on above: Performed By: #### C MP, CBCDIF ####[place] [address] [place] [phone] Lymphocytes/100 WBC (Bld) 29.5 % Normal [facility] Comment on above: Performed By: #### C MP, CBCDIF ####[facility], [place] [phone] MCH 30.7 pG Normal 26.0-34.0 [facility] Comment on above: Performed By: #### C MP, CBCDIF ####[place] [address], [place] [phone] MCHC (RBC) [Mass/Vol] 32.1 g/dL Normal 30.5-36.0 [facility] Comment on above: Performed By: #### C MP, CBCDIF ####[place] [address] [place] [phone] MCV (RBC) [Entitic vol] 95.7 fL Normal 80.0-100.0 [facility] Comment on above: Performed By: #### C MP, CBCDIF ####[place] [address] [place] [phone] Monocytes/100 WBC (Bld) 5.9 % Normal [facility] Comment on above: Performed By: #### C MP, CBCDIF ####[place] [address] [place] [phone] Neutrophils/100 WBC (Bld) 61.2 % Normal [facility] Comment on above: Performed By: #### C MP, CBCDIF ####[place] [address] [place] [phone] NRBCs 0.0 /100 WBC Normal 0 [facility] Comment on above: Performed By: #### C MP, CBCDIF ####[place] [address] [place] [phone] Platelet mean volume (Bld) [Entitic vol] 11.2 fL Normal 9.0-12.7 [facility] Comment on above: Performed By: #### C MP, CBCDIF ####[place] [address] [place], [place] [phone] Platelets (Bld) [#/Vol] 206 10*3/uL Normal 150-400 [facility] Comment on above: Performed By: #### C MP, CBCDIF ####[facility] [place], [place] [phone] RBC (Bld) [#/Vol] 4.46 10*6/uL Normal 3.90-5.20 [facility] [place] [facility] Comment on above: Performed By: #### C MP, CBCDIF ####[facility] [place], [place] [phone] WBC (Bld) [#/Vol] 6.74 10*3/uL Normal 3.70-11.00 [facility] [place] [facility] Comment on above: Performed By: #### C MP, CBCDIF ####[facility] [place], [place] [phone] [facility] 02-18-2021 [facility] Nurse Visit (GENCHAPINCITON) JODY THOMASON ([id number]) 1975 F Date Time Provider Department 02/18/21 12:00 PM TAZ CHAVEZ (RN) BERANDETTE During your visit today, we recorded the [...] Taz Chavez RN Referring Provider: DERICK PAUL [[id number]] Allergies As of Date: 02/18/2021 Noted Allergy [...] Encounter Status:Closed by TAZ CHAVEZ on 02/18/21 [facility] CNOVon 02-18-2021 CNOV Office Visit (BERNADETTE ) JODY THOMASON ([id number]) 1975 F Date Time Provider Department 02/18/21 [...] of motion. (more content not included)... Normal [facility] Metabolic Panelon 02-18 Albumin [Mass/Vol] 4.3 g/dL Normal 3.9-4.9 [facility] Comment on above: Performed By: #### C MP, CBCDIF ####[place] [address], [place] [phone] ALP [Catalytic activity/Vol] 84 U/L Normal 34-123 [facility] Comment on above: Performed By: #### C MP, CBCDIF ####[place] [address] [place] [phone] ALT [Catalytic activity/Vol] 17 U/L Normal 7-38 [facility] Comment on above: Performed By: #### C MP, CBCDIF ####[place] [address], [place] [phone] Anion gap [Moles/Vol] 11 mmol/L Normal 9-18 [facility] Comment on above: Performed By: #### C MP, CBCDIF ####[place] [address], [place] [phone] AST [Catalytic activity/Vol] 20 U/L Normal 13-35 [facility] Comment on above: Performed By: #### C MP, CBCDIF ####[place] [address] [place], [place] [phone] Bilirubin [Mass/Vol] 0.3 mg/dL Normal 0.2-1.3 [facility] Comment on above: Performed By: #### C MP, CBCDIF ####[facility], [place] [phone] Calcium [Mass/Vol] 9.3 mg/dL Normal 8.5-10.2 [facility] Comment on above: Performed By: #### C MP, CBCDIF ####[place] [address], [place] [phone] Chloride [Moles/Vol] 102 mmol/L Normal 97-105 [facility] Comment on above: Performed By: #### C MP, CBCDIF ####[facility] [address] [place], [place] [phone] CO2 [Moles/Vol] 25 mmol/L Normal 22-30 [facility] Comment on above: Performed By: #### C MP, CBCDIF ####[facility] [address] [place], [place] [phone] Creatinine [Mass/Vol] 0.93 mg/dL Normal 0.58-0.96 [facility] Comment on above: Performed By: #### C MP, CBCDIF ####[facility] [address] [place] [phone] eGFR- Amer. >60 Normal [facility] Comment on above: Performed By: #### C MP, CBCDIF ####[facility], [place] [phone] eGFR-All Other Races >60 Normal [facility] Comment on above: Result Comment: eGFR (Estimated [...] reflect actual GFR. Performed By: #### C MP, CBCDIF ####[facility] [address], [place] [phone] Glucose [Mass/Vol] 84 mg/dL Normal 74-99 [facility] Comment on above: Result Comment: The [place] Diabetes Association (ADA) provides guidance for cutoff [...] Standards of Medical Care in Diabetes 2016, [place] [employer]. Diabetes Care. 2016.39(Suppl 1). Performed By: #### C MP, CBCDIF ####[facility], [place] [phone] Potassium [Moles/Vol] 4.8 mmol/L Normal 3.7-5.1 [facility] Comment on above: Performed By: #### C MP, CBCDIF ####[place] [address], [place] [phone] Protein [Mass/Vol] 6.9 g/dL Normal 6.3-8.0 [facility] Comment on above: Performed By: #### C MP, CBCDIF ####[place] [address], [place] [phone] Sodium [Moles/Vol] 138 mmol/L Normal 136-144 [facility] Comment on above: Performed By: #### C MP, CBCDIF ####[place] [address], [place] [phone] Urea nitrogen [Mass/Vol] 20 mg/dL Normal 7-21 [facility] Comment on above: Performed By: #### C MP, CBCDIF ####[facility], [place] [phone] Confirm Blood Typeon 021 ABO/RH(D) Negative Normal [facility] Comment on above: Performed By: #### C ONABO ####[facility], [place] [phone] HISTORY PHYSICALon 1 HISTORY PHYSICAL HNO ID: [id number] Author: Marcelle Tse PA-C Service: ? Author Type: Physician Head Of Art Type: HANDP Filed: 02/19/2021 7:59 AM Note [...] fevers. Neuro: No history of TIA's, stroke, BAKESHOP CLEANER tumor, impaired sensorium, hemiplegia, paraplegia or quadraplegia. No neurological symptoms or problems. Respiratory: Negative for Asthma, COPD, Current cough, Pneumonia within 6 weeks (date) +JAMES - uses CPAP Cardiovascular: Negative for Recent PA, Angina, CAD, Chest Pain, CHF, PVD, Valvular Heart Disease, DVT/PE +HTN on rx, +PAF, on Eliquis, followed by Dr. Hawkins, last visit 11/08/20 GI: Negative for Nausea, Vomiting, Abdominal pain, Liver disease, ETOH > 2 drinks / day +s/p gastric bypass, +GERD on rx : No history of dysuria, frequency or incontinence,, stones or chronic kidney disease VEHICLE DETAILER: Negative for abnormal vaginal bleeding, abnormal vaginal [...] reactive. C (more content not included)... Normal [facility] PreOp/PreProc COVIDon 2020 SARS-CoV-2 (COVID-19) RNA KALEY+probe Ql (Unsp spec) UPPER RESPIRATORY TRACT SWAB Normal [facility] Comment on above: Performed By: #### P OCOVD ####[facility] [place], [place] [phone] SARS-CoV-2 (COVID-19) RNA KALEY+probe Ql (Unsp spec) Negative for COVID19 (SARS CoV2) by RT-PCR or equivalent method. Normal Negative for COVID19 (SARS CoV2) by RT-PCR or equivalent method. [facility] Comment on above: Result Comment: This test was developed and its performance characteristics determined by [facility] [place]. This test has been authorized by FDA under an Emergency Use Authorization (EUA). This test has been validated in accordance with the FDA's Guidance Document Policy for Diagnostics Testing in Laboratories Certified to Perform High Complexity Testing under CLIA prior to Emergency use Authorization for Coronavirus Disease 2019 during the Public Health Emergency issued on July 23, 2019. Test performed by [facility], [facility] [place], [address] [place], [place] [address]. Performed By: #### P OCOVD ####[facility] [address] [place], [place] [phone] Type and SCR (30D)on 021 ABO/RH(D) Negative Normal [facility] Comment on above: Performed By: #### T SCR30 ####[facility] [place] [phone] Urinalysison 02-18-2021 Bilirubin, Urine Negative Normal Negative [facility] Comment on above: Performed By: #### U A ####[place] [address] [place] [phone] Clarity (U) Clear Normal Clear [facility] Comment on above: Performed By: #### U A ####[place] [address] [place] [phone] Color (U) Light Yellow Critically abnormal Yellow [facility] Comment on above: Performed By: #### U A ####[place] [address] [place] [phone] Comments SEE COMMENT Normal [facility] Comment on above: Result Comment: Micr oscopic not warranted Performed By: #### U A ####[place] [address] [place] [phone] Glucose Ql (U) Negative Normal Negative [facility] Comment on above: Performed By: #### U A ####[place] [address] [place] [phone] Hemoglobin/Blood,U r Negative Normal Negative [facility] Comment on above: Performed By: #### U A ####[place] [address] [place] [phone] Ketones Ql (U) Negative Normal Negative [facility] Comment on above: Performed By: #### U A ####[place] [address], [place] [phone] Leukest Negative Normal Negative [facility] Comment on above: Performed By: #### U A ####[place] [address] [place] [phone] Nitrite Ql (U) Negative Normal Negative [facility] Comment on above: Performed By: #### U A ####[facility], [place] [phone] pH (U) 7.0 [pH] Normal 5.0-8.0 [facility] Comment on above: Performed By: #### U A ####[address] [phone] Protein, Urine Negative Normal Negative [facility] Comment on above: Performed By: #### U A ####[address] [phone] Specific [place], Ur 1.021 Normal 1.005-1.030 [facility] Comment on above: Performed By: #### U A ####[address] [phone] Urine Madan Comment SEE COMMENT Normal [facility] Comment on above: Result Comment: N/A Performed By: #### U A ####[address] [phone] Urobilinogen (U) [Mass/Vol] Negative Normal Negative [facility] Comment on above: Performed By: #### U A ####[place] [address] [place], [place] [phone] Malika 01-25-2021 CNPN Telephone (GENClaudia) JODY THOMASON ([id number]) 1975 F Date Time Provider Department 01/25/21 TAZ HCAVEZ (ARTEM) Claudia During your visit today, we recorded the [...] pre-op apt information, can also view via [email or web address], patient verbalized an understanding and agrees with [...] Ma - Fully Assessed Reason for Visit: Quality Assurance Qa Lab Analyst - Other [[id number]] Prescriptions as of 01/25/2021 - omeprazole (PRILOSEC) [...] Encounter Status:Closed by TAZ CHAVEZ on 01/25/21 Normal [facility] 01-25-2021 HOSP Patient:Alysia Thomason MRN: Height:5' 4 (1.626 m) [...] nasal problems (more content not included)... Normal [facility] CNOVon 01-17-2021 CNOV Office Visit (BERNADETTE ) JODY THOMASON ([id number]) 1975 F Date Time Provider Department 01/17/21 10:00 AM DERICK PAUL During your visit today, we recorded the following information about you: Temperature Pulse Blood pressure Weight 98.3 degrees 73/minute 109/66 87.2 kg Height 1.626 m Mally Schneider Ma 01/17/2021 9:50 AM Signed What is the reason for your visit today? consult Who is your referring physician? Brook Jasmine, Denisse Jennings Are you having poor oral intake? NO [...] nontender, reducible (more content not included)... Normal [facility] Malika 01-08-2021 [facility] Telephone (GENElevate MedicalN) JODY THOMASON ([id number]) 1975 F Date Time Provider Department 01/08/21 [...] Visit: Appointment Confirmation [[id number]] Prescriptions as of 01/08/2021 - calcium, elemental, [...] Encounter Status:Closed by IRINEO REYES on 01/08/21 [facility] 01-03-2021 CNPN Telephone (GENCHAPINCITON) JODY THOMASON ([id number]) 1975 F Date Time Provider Department 01/03/21 [...] Encounter Status:Closed by IRINEO REYES on 01/03/21 Normal [facility] Operative Reporton Operative Report MR#: [id number] [facility] Pt. Name: Jody Thomason Room #: 0C Discharge Date: Birthdate: 1975 OPERATIVE REPORT DATE OF SURGERY: 06/27/2020 SURGEON: Nithin Lobo M.D. PREOPERATIVE DIAGNOSIS: Foreign body reaction, right long finger. POSTOPERATIVE DIAGNOSIS: Foreign body reaction, right long finger. PROCEDURE: Debridement of extensor tendon and removal of retained suture, right long finger. LIFE MANAGEMENT TEACHER: Justin Fajardo M.D. ANESTHESIA: MAC. INDICATION FOR [...] A Nithin Lobo M.D. Date Dict: 06/28/2020/07:27 Theresa/Nithin Lobo M.D. Date Trans: 06/28/2020 10:13 Theresa/alma [id number] cc: Pedro El MD Internal Medicine [address] [facility] [address] Mayelin Hernandez [address] [place] [phone] Normal [facility] *ANAEROBIC CULTUREon 021 *ANAEROBIC CULTURE Clinical Report: (D) Specimen/Source: SWAB/INTRAOP SPEC Collected: 06/27/2020 11:23 Status: Final Last Updated: 07/02/2020 08:02 (1) 1. Right Long Finger Swab CULT RES (Final) No Anaerobes Isolated Day 5 Normal [facility] Comment on above: Order Comment: 1. Ri ght Long Finger Swab Performed By: #### 3 0312 #### [facility] [address] *WOUND CULTUREon 06-27-2020 *WOUND CULTURE Clinical Report: (D) Specimen/Source: WOUND/INTRAOP SPEC Collected: 06/27/2020 11:23 Status: Final Last Updated: 07/02/2020 08:19 (1) 1. Right Long Finger Swab GRAM (Final) Rare Polys No Bacteria Seen CULT RES (Final) No Growth Day 5 Normal [facility] Comment on above: Order Comment: 1. Ri ght Long Finger Swab Performed By: #### 3 0343 #### [facility] [address] [facility] [place] [address], [facility] GLUCOSE LABon 06-27-2020 Glucose [Mass/Vol] 90 mg/dL Normal 70-100 [facility] Comment on above: Performed By: #### 8 [id number] #### [facility] [address] [place] [address], [facility] CBC Auto Differentialon 04-24 Basophils (Bld) [#/Vol] 0.05 10*3/uL [place], [place] Basophils/100 WBC (Bld) 1 % 0 - 2 % [place] Differential Type NOT REPORTED [place] Eosinophils (Bld) [#/Vol] 0.23 10*3/uL [place] Eosinophils/100 WBC (Bld) 3 % 1 - 4 % [place] Erythrocyte distribution width (RBC) [Ratio] 12.3 % 11.8 - 14.4 % [place] Hematocrit (Bld) [Volume fraction] 40.9 % 36.3 - 47.1 % [place] Hemoglobin (Bld) [Mass/Vol] 13.1 g/dL 11.9 - 15.1 g/dL [place] Immature granulocytes (Bld) [#/Vol] 10*3/uL [place] Immature granulocytes (Bld) [#/Vol] 0 % 0 [place] Lymphocytes (Bld) [#/Vol] 2.19 10*3/uL [place] Lymphocytes/100 WBC (Bld) 27 % 24 - 43 % [place] MCH (RBC) [Entitic mass] 30.0 pg 25.2 - 33.5 pg [place] MCHC (RBC) [Mass/Vol] 32.0 g/dL 28.4 - 34.8 g/dL [place] MCV (RBC) [Entitic vol] 93.8 fL 82.6 - 102.9 fL [place] Monocytes (Bld) [#/Vol] 0.55 10*3/uL [place] Monocytes/100 WBC (Bld) 7 % 3 - 12 % [place] Platelet mean volume (Bld) [Entitic vol] 10.5 fL 8.1 - 13.5 fL [place] Platelets (Bld) [#/Vol] 191 10*3/uL [place] Platelets (Bld) [#/Vol] NOT REPORTED [place] RBC (Bld) [#/Vol] 4.36 10*6/uL 3.95 - 5.1 1 m/uL [place] RBC morphology finding Nom (Bld) NOT REPORTED [place] Segmented neutrophils/100 WBC (Bld) 62 % 36 - 65 % [place] Segs Absolute 5.04 [place] WBC (Bld) [#/Vol] 8.1 10*3/uL [place] WBC (Bld) [#/Vol] 0.0 10*3/uL 0.0 per 10 0 WBC [place] WBC Morphology NOT REPORTED [place] ABDOMEN PELVIS WO CONTRAS T Additional Contrast? Noneon 05-11-2020 Mo, Mhpn Incoming R adiant Results From [employer] - 05/11/2020 10:52 PM EST EXAMINATION: CT [...] gastric bypass. No bowel obstruction. Normal appendix. [place] EXAMINATION: CT OF T HE ABDOMEN AND PELVIS WITHOUT CONTRAST 05/11/2020 10:06 [...] No lymphadenopathy in the abdomen or pelvis. [place] No acute abnormality in the abdomen or pelvis. No obstructive uropathy. 2 punctate nonobstructing stones in the right kidney. Postsurgical changes of gastric bypass. No bowel obstruction. Normal appendix. [place] Comprehensive Metabolic Pane l w/ Reflex to MGon 05-11-2020 Albumin [Mass/Vol] 4.7 g/dL 3.5 - 5.2 g/dL [place] Albumin/Globulin [Mass ratio] 1.7 {ratio} [place] ALP [Catalytic activity/Vol] 79 U/L 35 - 104 U/L [place] ALT [Catalytic activity/Vol] 18 U/L 5 - 33 U/L [place] Anion gap [Moles/Vol] 7 mmol/L Low 9 - 17 mmol/L [place] AST [Catalytic activity/Vol] 16 U/L <32 [place] Bilirubin Ql (U) 0.32 mg/dL 0.3 - 1.2 mg/dL [place] Bun/Cre Ratio 31 High [place] Calcium [Mass/Vol] 9.6 mg/dL 8.6 - 10. 4 mg/dL [place] Chloride [Moles/Vol] 98 mmol/L 98 - 107 mmol/L [place] CO2 [Moles/Vol] 27 mmol/L 20 - 31 mmol/L [place] Creatinine [Mass/Vol] 0.59 mg/dL 0.5 - 0.9 mg/dL [place] GFR >60 >60 mL/min [place] GFR Non- >60 >60 mL/min [place] Glucose [Mass/Vol] 102 mg/dL High 70 - 99 mg/dL [place] Interpretation and review of laboratory results Abnormal [place] Potassium [Moles/Vol] 3.6 mmol/L Low 3.7 - 5.3 mmol/L [place] Protein [Mass/Vol] 7.5 g/dL 6.4 - 8.3 g/dL [place] Sodium [Moles/Vol] 132 mmol/L Low 135 - 144 mmol/L [place] Urea nitrogen [Mass/Vol] 18 mg/dL 6 - 20 mg/dL [place] Metabolic Panelon 05-11-2020 GFR/1.73 sq M predicted among non-blacks MDRD (S/P/Bld) [Vol rate/Area] [place] Comment on above: Stage 1: Some [...] body mass. Additional eGFR calculator available at: http://www.[employer]/multiple_crcl_2012.htm Microscopic Urinalysison Amorphous, UA NOT REPORTED None [facility] [place] Bacteria, UA NOT REPORTED None [facility] [place] Casts UA NOT REPORTED /LPF [facility] [place] Crystals, UA NOT REPORTED None /HPF [facility] Epithelial Cells UA 0 TO 2 [facility] Mucus, UA NOT REPORTED None [facility] [place] Other Observations UA NOT REPORTED NOT REQ. [facility] RBC (U) [#/Vol] None [facility] [place] Renal Epithelial, UA NOT REPORTED 0 /HPF [facility] [place] Trichomonas, UA NOT REPORTED None [facility] WBC, UA 0 TO 2 [facility] [place] Yeast, UA NOT REPORTED None [facility] [place] - [facility] [place] Urinalysis Reflex to Culture on 05-11-2020 Bilirubin Urine Negative NEGATIVE [facility] [place] Color, UA YELLOW YELLOW [facility] [place] Glucose, Ur Negative NEGATIVE [facility] [place] Interpretation and review of laboratory results Abnormal [facility] [place] Ketones Ql (U) Negative NEGATIVE [facility] [place] Leukocyte esterase Test strip Ql (U) SMALL Abnormal NEGATIVE [facility] [place] Nitrite, Urine Negative NEGATIVE [facility] [place] pH, UA 5.5 [facility] [place] Protein (U) [Mass/Vol] Negative NEGATIVE [facility] [place] Specific [place], UA 1.010 [facility] [place] Turbidity UA CLEAR CLEAR [facility] [place] Urinalysis Comments NOT REPORTED [facility] [place] Urine Hgb Negative NEGATIVE [facility] [place] Urobilinogen, Urine Normal Normal [facility] [place] ECHOCARDIOGRAM EXERCISE STRE SS TESTon 12-30-2019 [facility] Stress Echocardiography Report Patient Name HEALDSBURG Date of Study 12/30/2019 JODY S Date of 1975 Gender Female Age 44 year(s) Race Room Number Height: 64 inch, 162.56 cm Corporate ID [id number] Weight: 177 pounds, 80.3 kg # Patient Acct [id number] BSA: 1.86 m^2 BMI: 30.38 # kg/m^2 MR # [id number] Instrument Adjuster Kanika Davis Interpreting Physician Janis Hawkins Fellow Referring Nurse Practitioner Interpreting Referring Physician Janis Hawkins Type of Study Stress procedure Procedure Date Date: 12/30/2019 Start: 12:40 PM Study Location: [facility] Indications:Preop cardiac evaluation. History / Tech. [...] Predicted HR: 176 bpm HR BP Product: 50251 % of predicted HR: 94 Max Exercise: 10.1 METS Test Duration: 8:53 min Stress Interpretation Normal stress wall motion in the entire left ventricle. Results ECG sinus tachycardia without significant ST segment abnormalities. Arrhythmias no rhythm abnormality. Symptoms Shortness of breath. [facility] [place] Mo, pn Incoming C ardio Results From [employer] [facility] - 12/30/2019 3:54 PM EDT [facility] Stress Echocardiography Report Patient Name HEALDSBURG Date of Study 12/30/2019 JODY S Date of 1975 Gender Female Age 44 year(s) Race Room Number Height: 64 inch, 162.56 cm Corporate ID [id number] Weight: 177 pounds, 80.3 kg # Patient Acct [id number] BSA: 1.86 m^2 BMI: 30.38 # kg/m^2 MR # [id number] Instrument Adjuster Kanika Davis Interpreting Physician Jains Hawkins Fellow Referring Nurse Practitioner Interpreting Referring Physician Janis Hawkins Fellow Type of Study Stress procedure Procedure Date Date: 12/30/2019 Start: 12:40 PM Study Location: [facility] Indications:Preop cardiac evaluation. History / Tech. [...] Predicted HR: 176 bpm HR BP Product: 81015 % of predicted HR: 94 Max Exercise: 10.1 METS Test Duration: 8:53 min Stress Interpretation Normal stress wall motion in the entire left ventricle. Results ECG sinus tachycardia without significant ST segment abnormalities. Arrhythmias no rhythm abnormality. Symptoms Shortness of breath. [place] Basic Metabolic Panelon Anion gap [Moles/Vol] 10 mmol/L 9 - 17 mmol/L [place] Bun/Cre Ratio 26 High [place] Calcium [Mass/Vol] 9.2 mg/dL 8.6 - 10. 4 mg/dL [place] Chloride [Moles/Vol] 100 mmol/L 98 - 107 mmol/L [place] CO2 [Moles/Vol] 26 mmol/L 20 - 31 mmol/L [place] Creatinine [Mass/Vol] 0.66 mg/dL 0.5 - 0.9 mg/dL [place] GFR >60 >60 mL/min [place] GFR Non- >60 >60 mL/min [place] Glucose [Mass/Vol] 105 mg/dL High 70 - 99 mg/dL [place] Interpretation and review of laboratory results Abnormal [place] Potassium [Moles/Vol] 4.0 mmol/L 3.7 - 5.3 mmol/L [place] Sodium [Moles/Vol] 136 mmol/L 135 - 144 mmol/L [place] Urea nitrogen [Mass/Vol] 17 mg/dL 6 - 20 mg/dL [place] EKG 12 Leadon 12-27-2019 Atrial Rate 71 BPM [place] P Melvin 50 degrees [place] P-R Interval 150 ms [place] Q-T Interval 366 ms [place] QRS Duration 90 ms [place] QTc Calculation (Bazett) 397 ms [place] R Melvin 27 degrees [place] T Melvin 30 degrees [place] Ventricular Rate 71 BPM [place] Poor data qualit y, interpretation may be adversely affected Normal sinus rhythm Low voltage QRS Borderline ECG When compared with ECG of 08-AUG-2019 08:16, No significant change was found Confirmed by SARAH RICK ([id number]) on 12/27/2019 11:44:25 PM [place] Mo, Mhpn Incoming E kg Results From [facility] [place] - 12/27/2019 11:44 PM EDT Poor data quality, interpretation may be adversely affected Normal sinus rhythm Low voltage QRS Borderline ECG When compared with ECG of 08-AUG-2019 08:16, No significant change was found Confirmed by SARAH RICK ([id number]) on 12/27/2019 11:44:25 PM [place] Hemoglobin A1Con 12-27-2019 Glucose [Mass/Vol] 103 mg/dL [place] Comment on above: The ADA and AACC rec ommend providing the estimated average glucose result to permit better patient understanding of their HBA1c result. HbA1c (Bld) [Mass fraction] 5.2 % 4.8 - 5.9 % [place] Metabolic Panelon 12-27-2019 GFR/1.73 sq M predicted among non-blacks MDRD (S/P/Bld) [Vol rate/Area] [place] Comment on above: Stage 1: Some [...] body mass. Additional eGFR calculator available at: http://www.[employer]/multiple_crcl_2012.htm Basic Metabolic Panelon 07-23 Anion gap [Moles/Vol] 10 mmol/L 9 - 17 mmol/L [place] Bun/Cre Ratio 23 High [place] Calcium [Mass/Vol] 9.5 mg/dL 8.6 - 10. 4 mg/dL [place] Chloride [Moles/Vol] 100 mmol/L 98 - 107 mmol/L [place] CO2 [Moles/Vol] 28 mmol/L 20 - 31 mmol/L [place] Creatinine [Mass/Vol] 0.8 mg/dL 0.5 - 0.9 mg/dL [place] GFR >60 >60 mL/min [place] GFR Non- >60 >60 mL/min [place] Glucose [Mass/Vol] 102 mg/dL High 70 - 99 mg/dL [place] Interpretation and review of laboratory results Abnormal [place] Potassium [Moles/Vol] 4.3 mmol/L 3.7 - 5.3 mmol/L [place] Sodium [Moles/Vol] 138 mmol/L 135 - 144 mmol/L [place] Urea nitrogen [Mass/Vol] 18 mg/dL 6 - 20 mg/dL [place] CBC Auto Differentialon 07-23-2019 Basophils (Bld) [#/Vol] 0.04 10*3/uL [place] Basophils/100 WBC (Bld) 1 % 0 - 2 % [place] Differential Type NOT REPORTED [place] Eosinophils (Bld) [#/Vol] 0.17 10*3/uL [place] Eosinophils/100 WBC (Bld) 3 % 1 - 4 % [place] Erythrocyte distribution width (RBC) [Ratio] 13.0 % 11.8 - 14.4 % [place] Hematocrit (Bld) [Volume fraction] 42.0 % 36.3 - 47.1 % [place] Hemoglobin (Bld) [Mass/Vol] 13.3 g/dL 11.9 - 15.1 g/dL [place] Immature granulocytes (Bld) [#/Vol] 0 % 0 [place] Immature granulocytes (Bld) [#/Vol] 10*3/uL [place] Interpretation and review of laboratory results Abnormal [place] Lymphocytes (Bld) [#/Vol] 2.35 10*3/uL [place] Lymphocytes/100 WBC (Bld) 46 % High 24 - 43 % [place] MCH (RBC) [Entitic mass] 30.7 pg 25.2 - 33.5 pg [place] MCHC (RBC) [Mass/Vol] 31.7 g/dL 28.4 - 34.8 g/dL [place] MCV (RBC) [Entitic vol] 97.0 fL 82.6 - 102.9 fL [place] Monocytes (Bld) [#/Vol] 0.37 10*3/uL [place] Monocytes/100 WBC (Bld) 7 % 3 - 12 % [place] Platelet mean volume (Bld) [Entitic vol] 10.4 fL 8.1 - 13.5 fL [place] Platelets (Bld) [#/Vol] NOT REPORTED [place] Platelets (Bld) [#/Vol] 167 10*3/uL [place] RBC (Bld) [#/Vol] 4.33 10*6/uL 3.95 - 5.1 1 m/uL [place] RBC morphology finding Nom (Bld) NOT REPORTED [place] Segmented neutrophils/100 WBC (Bld) 43 % 36 - 65 % [place] Segs Absolute 2.22 [place] WBC (Bld) [#/Vol] 5.2 10*3/uL [place] WBC (Bld) [#/Vol] 0.0 10*3/uL 0.0 per 10 0 WBC [place] WBC Morphology NOT REPORTED [place] EKG 12 Leadon 08-08-2019 Atrial Rate 62 BPM [place] P Melvin 49 degrees [place] P-R Interval 130 ms [place] Q-T Interval 388 ms [place] QRS Duration 88 ms [place] QTc Calculation (Bazett) 393 ms [place] R Melvin 29 degrees [place] T Melvin 28 degrees [place] Ventricular Rate 62 BPM [place] Normal sinus rhythm Low voltage QRS Borderline ECG When compared with ECG of 30-MAY-2019 13:24, No significant change was found Confirmed by ARJUN KELLER ([id number]) on 08/08/2019 8:34:11 AM [place] Mo, Mhpn Incoming E kg Results From [facility] [place] - 08/08/2019 8:34 AM EDT Normal sinus rhythm Low voltage QRS Borderline ECG When compared with ECG of 30-MAY-2019 13:24, No significant change was found Confirmed by ARJUN KELLER ([id number]) on 08/08/2019 8:34:11 AM [place] Hemoglobin A1Con 08-08-2019 Glucose [Mass/Vol] 103 mg/dL [place] Comment on above: The ADA and AACC rec ommend providing the estimated average glucose result to permit better patient understanding of their HBA1c result. HbA1c (Bld) [Mass fraction] 5.2 % 4.8 - 5.9 % [place] Metabolic Panelon 08-08-2019 GFR/1.73 sq M predicted among non-blacks MDRD (S/P/Bld) [Vol rate/Area] [place] Comment on above: Stage 1: Some [...] body mass. Additional eGFR calculator available at: http://www.[employer]/multiple_crcl_2012.htm XR HAND RIGHT (MIN 3 VIEWS)o n 08-07-2019 Soft tissue swelling without radiopaque foreign body. [place] EXAMINATION: THREE X RAY VIEWS OF THE RIGHT HAND 08/07/2019 4:00 pm COMPARISON: None. HISTORY: ORDERING SYSTEM PROVIDED HISTORY: injury TECHNOLOGIST PROVIDED HISTORY: injury FINDINGS: No fracture. No osseous malalignment. Mild swelling of the 3rd ray.. No radiopaque foreign body. [employer], [place] Mo, Mhpn Incoming R adiant Results From [employer] - 08/07/2019 4:17 PM EDT EXAMINATION: THREE XRAY VIEWS OF THE RIGHT HAND 08/07/2019 4:00 pm COMPARISON: None. HISTORY: ORDERING SYSTEM PROVIDED HISTORY: injury TECHNOLOGIST PROVIDED HISTORY: injury FINDINGS: No fracture. No osseous malalignment. Mild swelling of the 3rd ray.. No radiopaque foreign body. IMPRESSION: Soft tissue swelling without radiopaque foreign body. [employer], [place] CBCOrdered By: Jaci Duarte on on 05-30-2019 Erythrocyte distribution width (RBC) [Ratio] 13.2 % 11.8 - 14.4 % [employer] Phone: Hematocrit (Bld) [Volume fraction] 43.4 % 36.3 - 47.1 % [employer] Phone: Hemoglobin (Bld) [Mass/Vol] 14.0 g/dL 11.9 - 15.1 g/dL [employer] Phone: MCH (RBC) [Entitic mass] 30.2 pg 25.2 - 33.5 pg [employer] Phone: MCHC (RBC) [Mass/Vol] 32.3 g/dL 28.4 - 34.8 g/dL [employer] Phone: MCV (RBC) [Entitic vol] 93.5 fL 82.6 - 102.9 fL [employer] Phone: NRBC Automated 0.0 0.0 per 100 WBC [employer] Phone: Platelet mean volume (Bld) [Entitic vol] 10.8 fL 8.1 - 13.5 fL [employer] Phone: Platelets (Bld) [#/Vol] 161 10*3/uL [employer] Phone: RBC (Bld) [#/Vol] 4.64 10*6/uL 3.95 - 5.1 1 m/uL [employer] Phone: WBC (Bld) [#/Vol] 5.1 10*3/uL [employer] Phone: Comprehensive Metabolic Pane lOrdered By: Jaci Burns on 05-30-2019 Albumin [Mass/Vol] 4.3 g/dL 3.5 - 5.2 g/dL [employer] Phone: Albumin/Globulin [Mass ratio] 1.5 {ratio} [employer] Phone: ALP [Catalytic activity/Vol] 80 U/L 35 - 104 U/L [employer] Phone: ALT [Catalytic activity/Vol] 26 U/L 5 - 33 U/L [employer] Phone: Anion gap [Moles/Vol] 15 mmol/L 9 - 17 mmol/L [employer] Phone: AST [Catalytic activity/Vol] 21 U/L <32 [employer] Phone: Bilirubin [Mass/Vol] 0.28 mg/dL Low 0.3 - 1.2 mg/dL [employer] Phone: Bun/Cre Ratio 21 High [employer] Phone: Calcium [Mass/Vol] 9.1 mg/dL 8.6 - 10. 4 mg/dL [employer] Phone: Chloride [Moles/Vol] 95 mmol/L Low 98 - 107 mmol/L [employer] Phone: CO2 [Moles/Vol] 25 mmol/L 20 - 31 mmol/L [employer] Phone: Creatinine [Mass/Vol] 0.71 mg/dL 0.5 - 0.9 mg/dL [employer] Phone: GFR >60 >60 mL/min [employer] Phone: GFR Comment [employer] Phone: Comment on above: Average GFR for 40-4 9 years old: 99 mL/min/1.73sq m Chronic Kidney Disease: <60 mL/min/1.73sq m Kidney failure: <15 mL/min/1.73sq m eGFR calculated using average adult body mass. Additional eGFR calculator available at: http://www.[employer]/multiple_crcl_2012.htm GFR Non- >60 >60 mL/min [employer] Phone: GFR Staging [employer] Phone: Comment on above: Stage 1: Some kidney damage normal GFR Stage 2: Mild kidney damage GFR 60-89 Stage 3: Moderate kidney damage GFR 30-59 Stage 4: Severe kidney damage GFR 15-29 Stage 5: Severe kidney damage GFR <15 ESRD - chronic treatment by dialysis or transplant Glucose [Mass/Vol] 130 mg/dL High 70 - 99 mg/dL [employer] Phone: Interpretation and review of laboratory results Abnormal [employer] Phone: Potassium [Moles/Vol] 3.8 mmol/L 3.7 - 5.3 mmol/L [employer] Phone: Protein [Mass/Vol] 7.2 g/dL 6.4 - 8.3 g/dL [employer] Phone: Sodium [Moles/Vol] 135 mmol/L 135 - 144 mmol/L [employer] Phone: Urea nitrogen [Mass/Vol] 15 mg/dL 6 - 20 mg/dL [employer] Phone: Glucose, Whole BloodOrdered By: Denisse Gilbert on 05-30-2019 Glucose [Mass/Vol] 155 mg/dL High 74 - 100 mg/dL [employer] Phone: Interpretation and review of laboratory results Abnormal [employer] Phone: Glucose [Mass/Vol] 73 mg/dL Low 74 - 100 mg/dL [employer] Phone: Interpretation and review of laboratory results Abnormal [employer] Phone: POCT glucoseOrdered By: Kristian Burns on 05-30-2019 Glucose [Mass/Vol] 155 mg/dL [employer] Phone: Interpretation and review of laboratory results Normal [employer] Phone: QC OK? yes [employer] Phone: POCT glucoseOrdered By: Frederick Culver on 05-30-2019 Glucose [Mass/Vol] 73 mg/dL [employer] Phone: Interpretation and review of laboratory results Normal [employer] Phone: TSH without ReflexOrdered By : Jaci Burns on 05-30-2019 TSH Qn 2.01 m[IU]/L [employer] Phone: Basic Metabolic Panel w/ Ref perez to MGon 04-20-2019 Anion gap [Moles/Vol] 15 mmol/L 9 - 17 mmol/L [place] Bun/Cre Ratio 24 High [place] Calcium [Mass/Vol] 9.5 mg/dL 8.6 - 10. 4 mg/dL [place] Chloride [Moles/Vol] 101 mmol/L 98 - 107 mmol/L [place] CO2 [Moles/Vol] 20 mmol/L 20 - 31 mmol/L [place] Creatinine [Mass/Vol] 0.86 mg/dL 0.5 - 0.9 mg/dL [place] GFR >60 >60 mL/min [place] GFR Non- >60 >60 mL/min [place] Glucose [Mass/Vol] 94 mg/dL 70 - 99 mg/dL [place] Interpretation and review of laboratory results Abnormal [place] Potassium [Moles/Vol] 3.8 mmol/L 3.7 - 5.3 mmol/L [place] Sodium [Moles/Vol] 136 mmol/L 135 - 144 mmol/L [place] Urea nitrogen [Mass/Vol] 21 mg/dL High 6 - 20 mg/dL [place] CBC Auto Differentialon - Basophils (Bld) [#/Vol] 0.04 10*3/uL [place] Basophils/100 WBC (Bld) 1 % 0 - 2 % [place] Differential Type NOT REPORTED [place] Eosinophils (Bld) [#/Vol] 0.08 10*3/uL [place] Eosinophils/100 WBC (Bld) 1 % 1 - 4 % [place] Erythrocyte distribution width (RBC) [Ratio] 12.9 % 11.8 - 14.4 % [place] Hematocrit (Bld) [Volume fraction] 42.1 % 36.3 - 47.1 % [place] Hemoglobin (Bld) [Mass/Vol] 13.4 g/dL 11.9 - 15.1 g/dL [place] Immature granulocytes (Bld) [#/Vol] 10*3/uL [place] Immature granulocytes (Bld) [#/Vol] 0 % 0 [place] Lymphocytes (Bld) [#/Vol] 2.08 10*3/uL [place] Lymphocytes/100 WBC (Bld) 29 % 24 - 43 % [place] MCH (RBC) [Entitic mass] 29.6 pg 25.2 - 33.5 pg [place] MCHC (RBC) [Mass/Vol] 31.8 g/dL 28.4 - 34.8 g/dL [place] MCV (RBC) [Entitic vol] 93.1 fL 82.6 - 102.9 fL [place] Monocytes (Bld) [#/Vol] 0.48 10*3/uL [place] Monocytes/100 WBC (Bld) 7 % 3 - 12 % [place] Platelet mean volume (Bld) [Entitic vol] 11.4 fL 8.1 - 13.5 fL [place] Platelets (Bld) [#/Vol] NOT REPORTED [place] Platelets (Bld) [#/Vol] 182 10*3/uL [place] RBC (Bld) [#/Vol] 4.52 10*6/uL 3.95 - 5.1 1 m/uL [place] RBC morphology finding Nom (Bld) NOT REPORTED [place] Segmented neutrophils/100 WBC (Bld) 62 % 36 - 65 % [place] Segs Absolute 4.56 [place] WBC (Bld) [#/Vol] 0.0 10*3/uL 0.0 per 10 0 WBC [place] WBC (Bld) [#/Vol] 7.3 10*3/uL [place] WBC Morphology NOT REPORTED [place] Head WO Contraston 2018 Mo, Mhpn Incoming R adiant Results From [employer] - 04/21/2019 12:00 AM EST EXAMINATION: CT [...] soft tissues. IMPRESSION: No acute intracranial abnormality. [place] No acute intracrania l abnormality. [place] EXAMINATION: CT OF T HE HEAD [...] of the visualized skull or soft tissues. [place] EKG 12 Leadon 04-20-2019 Atrial Rate 125 BPM [place] Q-T Interval 270 ms [place] QRS Duration 84 ms [place] QTc Calculation (Bazett) 387 ms [place] R Melvin 22 degrees [place] T Melvin -7 degrees [place] Ventricular Rate 124 BPM [place] Mo, Mhpn Incoming E kg Results From [employer] - 04/20/2019 9:46 PM EST Poor data quality, interpretation may be adversely affected Atrial fibrillation with rapid ventricular response Abnormal ECG When compared with ECG of 02-SEP-2018 10:12, Atrial fibrillation has replaced Sinus rhythm Vent. rate has increased BY 55 BPM Confirmed by SARAH RICK ([id number]) on 04/20/2019 9:46:40 PM [place] Poor data qualit y, interpretation may be adversely affected Atrial fibrillation with rapid ventricular response Abnormal ECG When compared with ECG of 02-SEP-2018 10:12, Atrial fibrillation has replaced Sinus rhythm Vent. rate has increased BY 55 BPM Confirmed by SARAH RICK ([id number]) on 04/20/2019 9:46:40 PM [place] Metabolic Panelon 04-20-2019 GFR/1.73 sq M predicted among non-blacks MDRD (S/P/Bld) [Vol rate/Area] [place] Comment on above: Average GFR for 40-4 9 years old: 99 mL/min/1.73sq m Chronic Kidney Disease: <60 mL/min/1.73sq m Kidney failure: <15 mL/min/1.73sq m eGFR calculated using average adult body mass. Additional eGFR calculator available at: http://www.[employer]/multiple_crcl_2012.htm Stage 1: Some kidney damage normal GFR Stage 2: Mild kidney damage GFR 60-89 Stage 3: Moderate kidney damage GFR 30-59 Stage 4: Severe kidney damage GFR 15-29 Stage 5: Severe kidney damage GFR <15 ESRD - chronic treatment by dialysis or transplant T3, Freeon 03-21-2019 Free T3 [Mass/Vol] 2.5 pg/mL 2.02 - 4. 43 pg/mL [place] T4on 03-21-2019 T4, Total 6.5 ug/dL 4.5 - 12 ug/dL [place] TSH without Reflexon 019 TSH Qn 0.93 m[IU]/L [place] BUNon 02-04-2019 Urea nitrogen [Mass/Vol] 15 mg/dL 6 - 20 mg/dL [place] ABDOMEN PELVIS W IV CONTR AST Additional Contrast? Oralon 02-04-2019 No acute findings identified. [place] EXAMINATION: CT OF T HE ABDOMEN [...] identified. Postoperative findings in the abdominal wall. [place] Mo, Mhpn Incoming R adiant Results From [employer] - 02/04/2019 2:48 PM EDT EXAMINATION: CT [...] abdominal wall. IMPRESSION: No acute findings identified. [place] Creatinine, Serumon 02-05-20 19 Creatinine [Mass/Vol] 0.74 mg/dL 0.5 - 0.9 mg/dL [place] GFR >60 >60 mL/min [place] GFR Non- >60 >60 mL/min [place] Metabolic Panelon 02-04-2019 GFR/1.73 sq M predicted among non-blacks MDRD (S/P/Bld) [Vol rate/Area] [place] Comment on above: Average GFR for 40-4 9 years old: 99 mL/min/1.73sq m Chronic Kidney Disease: <60 mL/min/1.73sq m Kidney failure: <15 mL/min/1.73sq m eGFR calculated using average adult body mass. Additional eGFR calculator available at: http://www.[employer]iche/multiple_crcl_2011.htm Stage 1: Some kidney damage normal GFR Stage 2: Mild kidney damage GFR 60-89 Stage 3: Moderate kidney damage GFR 30-59 Stage 4: Severe kidney damage GFR 15-29 Stage 5: Severe kidney damage GFR <15 ESRD - chronic treatment by dialysis or transplant XR FOOT RIGHT (MIN 3 VIEWS)o n 01-12-2019 No acute osseous abnormality. [facility] [place] EXAMINATION: THREE X RAY VIEWS OF THE RIGHT FOOT 01/12/2019 4:29 pm COMPARISON: None. HISTORY: ORDERING SYSTEM PROVIDED HISTORY: injury to thrid toe TECHNOLOGIST PROVIDED HISTORY: injury to thrid toe FINDINGS: There is no evidence of acute fracture. There is normal alignment of the tarsometatarsal joints. No acute joint abnormality. No focal osseous lesion. No focal soft tissue abnormality. [facility] [place] Mo, Mhpn Incoming R adiant Results From [employer] - 01/12/2019 4:40 PM EDT EXAMINATION: THREE [...] tissue abnormality. IMPRESSION: No acute osseous abnormality. [facility] [place] ESOPHAGRAMon 05-22-2018 [place] ESOPHAGRAM EXAMINATION:DOUBLE C ONTRAST [id number]/29/2018 8:44 amTECHNIQUE:Double contrast esophagram was performed with [...] by:MARGIE Turpinigned by:Nick Barr MD05/22/18inal result Normal [facility] Basic Metabolic Profon 05-21 (cont.) Normal [facility] Comment on above: Result Comment: Aver age GFR for 40-49 years old: 99 mL/min/1.73sq mChronic Kidney Disease: <60 mL/min/1.73sq mKidney failure: <15 mL/min/1.73sq meGFR calculated using average adult body mass. Additional eGFR calculator available at:http://www.[employer].IntroNiche/multiple_crcl_2012.htm Performed By: #### C PAOLO, BMP ####[facility] [id number] [place] [address] Anion gap 3 molar conc 11 mmol/L Normal 9-17 [facility] Comment on above: Performed By: #### C PAOLO, BMP ####[address] [place] [address] Calcium mass conc 8.7 mg/dL Normal 8.6-10.[address] [facility] Comment on above: Performed By: #### Nicole BOONE, BMP ####[facility] [place] [address] Chloride molar conc 99 mmol/L Normal 98-107 [facility] Comment on above: Performed By: #### Nicole BOONE, BMP ####[facility] [place] [address] CO2 molar conc 24 mmol/L Normal 20-31 [facility] Comment on above: Performed By: #### C PAOLO, BMP ####[facility] [id number] [place] [address] Creatinine mass conc 0.75 mg/dL Normal 0.50-0.90 [facility] Comment on above: Performed By: #### C BC, BMP ####[facility] [place] [address] GFR, Amer >60 Normal >60 [facility] Comment on above: Performed By: #### C PAOLO, BMP ####[facility] [place] [address] GFR,non Amer >60 Normal >60 [facility] Comment on above: Performed By: #### C BC, BMP ####[facility] [address] [place] [address] Glucose mass conc 125 mg/dL High 70-[address] [facility] Comment on above: Performed By: #### C BC, BMP ####[facility] [address] [address] Potassium molar conc 3.9 mmol/L Normal 3.7-5.3 [facility] Comment on above: Performed By: #### C PAOLO, BMP ####[address] [address] Sodium molar conc 134 mmol/L Low 135-[address] [facility] Comment on above: Performed By: #### C PAOLO, BMP ####[address] [address] Urea nitrogen mass conc 12 mg/dL Normal 6-20 [facility] Comment on above: Performed By: #### C PAOLO, BMP ####[address] [address] BUN/CRE Ratio NOT REPORTED Normal 9-20 [facility] Comment on above: Performed By: #### C BC, BMP ####[facility] [address] [address] Staging: NOT REPORTED Normal [facility] Comment on above: Performed By: #### C BC, BMP ####[address] [address] CBCon 05-21-2018 Erythrocyte distribution width Auto Ratio (RBC) 14.3 % Normal 11.8-14.4 [facility] Comment on above: Performed By: #### C BC, BMP ####[facility] [address] Hematocrit Auto Volume Fraction (Bld) 38.9 % Normal 36.3-47.1 [facility] Comment on above: Performed By: #### C BC, BMP ####[address] [address] Hemoglobin mass conc (Bld) 12.3 g/dL Normal 11.9-15.1 [facility] Comment on above: Performed By: #### C BC, BMP ####[address] [address] MCH Auto Entitic mass (RBC) 28.8 pg Normal 25.2-33.5 [facility] Comment on above: Performed By: #### C BC, BMP ####[address] [address] MCHC Auto mass conc (RBC) 31.6 g/dL Normal 28.4-34.8 [facility] Comment on above: Performed By: #### C BC, BMP ####[address] [address] MCV Auto Entitic volume (RBC) 91.1 fL Normal 82.6-102.9 [facility] Comment on above: Performed By: #### C BC, BMP ####[address] [address] NRBC Automated 0.0 per 100 WBC Normal 0.0 [facility] Comment on above: Performed By: #### C BC, BMP ####[address] [address] Platelet mean volume Auto Entitic volume (Bld) 10.4 fL Normal 8.1-13.5 [facility] Comment on above: Performed By: #### C BC, BMP ####[address] [address] Platelets Auto #/vol (Bld) 225 10*3/uL Normal 138-453 [facility] Comment on above: Performed By: #### C BC, BMP ####[address] [address] RBC Auto #/vol (Bld) 4.27 10*6/uL Normal 3.95-5.11 [facility] Comment on above: Performed By: #### C BC, BMP ####[address] [address] WBC Auto #/vol (Bld) 10.6 10*3/uL Normal 3.5-11.3 [facility] Comment on above: Performed By: #### C BC, BMP ####[address] [address] Nicotineon 05-09-2018 8-XI-Pchfsijr <2 Normal [facility] Comment on above: Performed By: #### C BC, PT, ALP, ALT, BMP ####[address] [address] Cotinine <2 Normal [facility] Comment on above: Performed By: #### C BC, PT, ALP, ALT, BMP ####[address] [address] Nicotine <2 Normal [facility] Comment on above: Result Comment: (NOT E)Consistent [...] reported aspositive.Test developed and characteristics determined by [facility]. See Compliance Statement B: [employer].IntroNiche/CSPerformed by [facility] [employer],[address] [place] [id number] xrh.[employer], Tk Kohli MD, Lab. Director Performed By: #### C BC, PT, ALP, ALT, BMP ####[address] [id number] Clau 05-03-2018 ALT enzyme act/vol 29 U/L Normal 5-33 [facility] Comment on above: Performed By: #### C BC, PT, ALP, ALT, BMP ####[address] [id number] Alkaline Phoson 05-03-2018 Alkaline Phos 100 U/L Normal 35-104 [facility] Comment on above: Performed By: #### C BC, PT, ALP, ALT, BMP ####[address] [id number] Basic Metabolic Profon 05-03 (cont.) Normal [facility] Comment on above: Result Comment: Aver age GFR for 40-49 years old: 99 mL/min/1.73sq mChronic Kidney Disease: <60 mL/min/1.73sq mKidney failure: <15 mL/min/1.73sq meGFR calculated using average adult body mass. Additional eGFR calculator available at:http://www.[employer].com/multiple_crcl_2012.htm Performed By: #### C BC, PT, ALP, ALT, BMP ####[address] [id number] Anion gap 3 molar conc 14 mmol/L Normal 9-17 [facility] Comment on above: Performed By: #### C BC, PT, ALP, ALT, BMP ####[address] [address] Calcium mass conc 9.6 mg/dL Normal 8.6-10.[address] [facility] Comment on above: Performed By: #### C BC, PT, ALP, ALT, BMP ####[address] [address] Chloride molar conc 101 mmol/L Normal 98-107 [facility] Comment on above: Performed By: #### C BC, PT, ALP, ALT, BMP ####[address] [address] CO2 molar conc 24 mmol/L Normal 20-31 [facility] Comment on above: Performed By: #### C BC, PT, ALP, ALT, BMP ####[address] [address] Creatinine mass conc 0.65 mg/dL Normal 0.50-0.90 [facility] Comment on above: Performed By: #### C BC, PT, ALP, ALT, BMP ####[address] [address] GFR, Amer >60 Normal >60 [facility] Comment on above: Performed By: #### C BC, PT, ALP, ALT, BMP ####[address] [address] GFR,non Amer >60 Normal >60 [facility] Comment on above: Performed By: #### C BC, PT, ALP, ALT, BMP ####[address] [address] Glucose mass conc 130 mg/dL High 70-[address] [facility] Comment on above: Performed By: #### C BC, PT, ALP, ALT, BMP ####[address] [address] Potassium molar conc 4.1 mmol/L Normal 3.7-5.3 [facility] Comment on above: Performed By: #### C BC, PT, ALP, ALT, BMP ####[address] [address] Sodium molar conc 139 mmol/L Normal 135-[address] [facility] Comment on above: Performed By: #### C BC, PT, ALP, ALT, BMP ####[address] [address] Urea nitrogen mass conc 15 mg/dL Normal 6-20 [facility] Comment on above: Performed By: #### C BC, PT, ALP, ALT, BMP ####[address] [address] BUN/CRE Ratio NOT REPORTED Normal 9-20 [facility] Comment on above: Performed By: #### C BC, PT, ALP, ALT, BMP ####[facility] [address] [address] Staging: NOT REPORTED Normal [facility] Comment on above: Performed By: #### C BC, PT, ALP, ALT, BMP ####[address] [address] CBCon 05-03-2018 Erythrocyte distribution width Auto Ratio (RBC) 13.6 % Normal 11.8-14.4 [facility] Comment on above: Performed By: #### C BC, PT, ALP, ALT, BMP ####[facility] [address] [address] Hematocrit Auto Volume Fraction (Bld) 41.0 % Normal 36.3-47.1 [facility] Comment on above: Performed By: #### C BC, PT, ALP, ALT, BMP ####[address] [address] Hemoglobin mass conc (Bld) 13.2 g/dL Normal 11.9-15.1 [facility] Comment on above: Performed By: #### C BC, PT, ALP, ALT, BMP ####[address] [address] MCH Auto Entitic mass (RBC) 28.8 pg Normal 25.2-33.5 [facility] Comment on above: Performed By: #### C BC, PT, ALP, ALT, BMP ####[address] [address] MCHC Auto mass conc (RBC) 32.2 g/dL Normal 28.4-34.8 [facility] Comment on above: Performed By: #### C BC, PT, ALP, ALT, BMP ####[address] [address] MCV Auto Entitic volume (RBC) 89.5 fL Normal 82.6-102.9 [facility] Comment on above: Performed By: #### C BC, PT, ALP, ALT, BMP ####[address] [address] NRBC Automated 0.0 per 100 WBC Normal 0.0 [facility] Comment on above: Performed By: #### C BC, PT, ALP, ALT, BMP ####[address] [address] Platelet mean volume Auto Entitic volume (Bld) 10.5 fL Normal 8.1-13.5 [facility] Comment on above: Performed By: #### C BC, PT, ALP, ALT, BMP ####[address] [address] Platelets Auto #/vol (Bld) 266 10*3/uL Normal 138-453 [facility] Comment on above: Performed By: #### C BC, PT, ALP, ALT, BMP ####[address] [address] RBC Auto #/vol (Bld) 4.58 10*6/uL Normal 3.95-5.11 [facility] Comment on above: Performed By: #### C BC, PT, ALP, ALT, BMP ####[facility] [id number] [place] [address] WBC Auto #/vol (Bld) 8.6 10*3/uL Normal 3.5-11.3 [facility] Comment on above: Performed By: #### C BC, PT, ALP, ALT, BMP ####[address] [address] PTon 05-03-2018 INR Coag RelTime (PPP) 1.0 {INR} Normal [facility] Comment on above: Result Comment: Ther apeutic Range: Moderate Anticoagulant Intensity: INR = 2.0-3.0 High Anticoagulant Intensity: INR = 2.5-3.5 Performed By: #### C BC, PT, ALP, ALT, BMP ####[address] [address] Prothrombin time (PT) Coag time (PPP) 10.3 s Normal 9.0-12.0 [facility] Comment on above: Performed By: #### C BC, PT, ALP, ALT, BMP ####[address] [address] XR CHEST (2 VW)on 05-03-2018 Protein mass conc EXAMINATION:TWO VIEW S OF THE CHEST05/03/2018 2:32 pmCOMPARISON:May 14, 2016HISTORY:ORDERING SYSTEM PROVIDED HISTORY: preop, morbid obeseFINDINGS:The lungs are without acute focal process. No effusion or pneumothorax. Thecardiomediastinal silhouette is normal. The osseous structures are intactwithout acute process.IMPRESSION: Stable negative chest.Interpreted by:MARGIE Cantuigned by:Tanna Meyer MD05/03/18inal result Normal [facility] Vital Signs Date Time Vital Sign Value Performing Clinician Facility 10-13-2023 13:10-0400 Diastolic blood pressure 53 mm[Hg] Janis Hawkins MD Work Phone: [facility] 10-13-2023 13:10-0400 Heart rate 65 /min Janis Hawkins MD Work Phone: [facility] 10-13-2023 13:10-0400 Respiratory rate 10 /min Janis Hawkins MD Work Phone: [facility] 10-13-2023 13:10-0400 SaO2% (BldA) [Mass fraction] 97 % Janis Hawkins MD Work Phone: [facility] 10-13-2023 13:10-0400 Systolic blood pressure 123 mm[Hg] Janis Hawkins MD Work Phone: [facility] 10-13-2023 12:35-0400 Body temperature 97 [degF] Janis Hawkins MD Work Phone: [facility] 03-17-2023 11:40-0400 Body height 162.56 cm Sarah Borja Other [employer] Other 03-17-2023 11:40-0400 Body mass index (BMI) [Ratio] 39.75 kg/m2 Sarah Borja Other [employer] Other 03-17-2023 11:40-0400 Body temperature 98.7 [degF] Sarah Borja Other [employer] Other 03-17-2023 11:40-0400 Body weight 105.05 kg Sarah Borja Other [facility] [employer] Other 03-17-2023 11:40-0400 Respiratory rate 18 /min Sarah Morenoarney Other [employer] Other 03-17-2023 11:40-0400 SaO2% (BldA) [Mass fraction] 97 % Sarah Morenoarney Other [facility] [employer] Other 01-09-2023 13:45-0400 Diastolic blood pressure 77 mm[Hg] Aubrey Rothman MD Work Phone: [facility] 01-09-2023 13:45-0400 Heart rate 75 /min Aubrey Rothman MD Work Phone: [facility] 01-09-2023 13:45-0400 Respiratory rate 22 /min Aubrey Rothman MD Work Phone: [facility] 01-09-2023 13:45-0400 SaO2% (BldA) [Mass fraction] 94 % Aubrey Rothman MD Work Phone: [facility] 01-09-2023 13:45-0400 Systolic blood pressure 107 mm[Hg] Aubrey Rothman MD Work Phone: [facility] 01-09-2023 10:08-0400 Body temperature 98.1 [degF] Aubrey Rothman MD Work Phone: [facility] 01-09-2023 06:02-0400 Body height 162.6 cm Aubrey Rothman MD Work Phone: [facility] 01-09-2023 06:02-0400 Body mass index (BMI) [Ratio] 38.96 kg/m2 Aubrey Rothman MD Work Phone: [facility] 01-09-2023 06:02-0400 Body weight 102.97 kg Aubrey Rothman MD Work Phone: [facility] 01-08-2023 14:26-0400 Body height 162.6 cm Aubrey Rothman MD Work Phone: [facility] 01-08-2023 14:26-0400 Diastolic blood pressure 56 mm[Hg] Aubrey Rothman MD Work Phone: [facility] 01-08-2023 14:26-0400 Heart rate 77 /min Aubrey Rothman MD Work Phone: [facility] 01-08-2023 14:26-0400 Systolic blood pressure 114 mm[Hg] Aubrey Rothman MD Work Phone: [facility] 05-05-2022 13:20-0500 Body height 162.56 cm Melissa Montilla Other [employer] Other 05-05-2022 13:20-0500 Body mass index (BMI) [Ratio] 37.76 kg/m2 Melissa Montilla Other [employer] Other 05-05-2022 13:20-0500 Body temperature 97.2 [degF] Melissa Montilla Other [employer] Other 05-05-2022 13:20-0500 Body weight 99.79 kg Melissa Eladia Other [employer] Other 05-05-2022 13:20-0500 Diastolic blood pressure 78 mm[Hg] Melissa Montilla Other [employer] Other 12-12-2022 13:20-0500 Respiratory rate 16 /min Melissa Montilla Other [employer] Other 05-05-2022 13:20-0500 SaO2% (BldA) [Mass fraction] 98 % Melissa Montilla Other [employer] Other 05-05-2022 13:20-0500 Systolic blood pressure 134 mm[Hg] Melissa Montilla Other [employer] Other 05-11-2020 22:51-0500 BP Diastolic 62 mm[Hg] [facility] [place] 05-11-2020 22:51-0500 BP Systolic 100 mm[Hg] [facility] [place] 05-11-2020 22:51-0500 Pulse (Heart Rate) 61 /min [facility] 05-11-2020 22:51-0500 Pulse Oximetry 100 % [facility] [place] 05-11-2020 22:51-0500 Respiratory Rate 18 /min [facility], [place] 05-11-2020 20:49-0500 BMI (Body Mass Index) 32.44 kg/m2 [facility] [place] 05-11-2020 20:49-0500 Body Temperature 97.81 [degF] [place] 05-11-2020 20:49-0500 Body weight 85.73 kg [facility] , [place] 08-07-2019 14:48-0400 BP Diastolic 58 mm[Hg] [facility] , [place] 08-07-2019 14:48-0400 BP Systolic 137 mm[Hg] [facility] , [place] 08-07-2019 14:48-0400 Pulse (Heart Rate) 80 /min [facility], [place] 08-07-2019 14:48-0400 Pulse Oximetry 99 % [facility] , [place] 08-07-2019 14:47-0400 BMI (Body Mass Index) 29.87 kg/m2 [facility] [place] 08-07-2019 14:47-0400 Body Temperature 97.9 [degF] [facility] [place] 08-07-2019 14:47-0400 Body weight 78.93 kg G[facility] Del [facility] , [place] 08-07-2019 14:47-0400 Height 162.6 cm Gerson Del Cid [facility] , [place] 08-07-2019 14:47-0400 Respiratory Rate 18 /min [facility] Del [facility] [place] 05-30-2019 12:31-0500 Body height 162.6 cm Denisse Gilbert MD Other Phone: [employer] Phone: 05-30-2019 12:31-0500 Body mass index (BMI) [Ratio] 29.35 kg/m2 Denisse Gilbert MD Other Phone: [employer] Phone: 05-30-2019 12:31-0500 Body temperature 98.01 [degF] Denisse Gilbert MD Other Phone: [employer] Phone: 05-30-2019 12:31-0500 Body weight 77.56 kg Denisse Gilbert MD Other Phone: [employer] Phone: 05-30-2019 12:31-0500 Diastolic blood pressure 74 mm[Hg] Denisse Gilbert MD Other Phone: [employer] Phone: 05-30-2019 12:31-0500 Heart rate 73 /min Denisse Gilbert MD Other Phone: [employer] Phone: 05-30-2019 12:31-0500 Respiratory rate 18 /min Denisse Gilbert MD Other Phone: [employer] Phone: 05-30-2019 12:31-0500 SaO2% (BldA) [Mass fraction] 98 % Denisse Gilbert MD Other Phone: [employer] Phone: 05-30-2019 12:31-0500 Systolic blood pressure 111 mm[Hg] Denisse Gilbert MD Other Phone: [employer] Phone: 04-21-2019 00:35-0500 BP Diastolic 70 mm[Hg] [facility] , [place] 04-21-2019 00:35-0500 BP Systolic 91 mm[Hg] [facility] Institute[facility] , [place] 04-21-2019 00:35-0500 Pulse (Heart Rate) 108 /min [facility] Center[facility], [place] 04-21-2019 00:35-0500 Respiratory Rate 14 /min [facility] [place] , [place] 04-21-2019 00:16-0500 Pulse Oximetry 95 % [facility] HospitalGeeYuuW[facility] , [place] 04-20-2019 20:46-0500 BMI (Body Mass Index) 30.71 kg/m2 [facility] Constantinenatchaug hospitalBrain Synergy InstituteW[facility], [place] 04-20-2019 20:46-0500 Body Temperature 97.5 [degF] [facility] [employer] [facility], [place] 04-20-2019 20:46-0500 Body weight 81.19 kg [facility] ShwetaBrain Synergy InstituteW[facility] , [place] 01-12-2019 16:16-0400 BMI (Body Mass Index) 32.96 kg/m2 Denisse Gilbert [employer], [place] 01-12-2019 16:16-0400 Body Temperature 98.01 [degF] Denisse Gilbert [employer] [facility], [place] 01-12-2019 16:16-0400 Body weight 87.09 kg Denisse [facility] , [place] 01-12-2019 16:16-0400 BP Diastolic 79 mm[Hg] Denisse Gilbert [employer]5[facility] , [place] 01-12-2019 16:16-0400 BP Systolic 150 mm[Hg] Denisse Gilbert [employer]5[facility] , [place] 01-12-2019 16:16-0400 Height 162.6 cm Denisse Gilbert [facility]5[facility] , [place] 08-21-2019 16:16-0400 Pulse (Heart Rate) 62 /min Denisse Becerril [facility] BIMAL, GHADA 01-12-2019 16:16-0400 Pulse Oximetry 98 % Denisse Babb GHADA WALLIS 01-12-2019 16:16-0400 Respiratory Rate 16 /min Denisse Babb- [place], [place] Encounters Encounter Date Encounter Type Care Provider Facility Start: 02-09-2024 End: 02-09-2024 ambulatory DENISSE GILBERT Not Available Start: 02-03-2024 End: 02-03-2024 ambulatory SAHARA PUMP Not Available Start: 01-07-2024 End: 01-08-2024 Emergency department patient visit EBONY VALLES [facility] Start: 01-06-2024 End: 01-06-2024 ambulatory RENATE FAUST [facility] Start: 10-29-2023 End: 10-29-2023 ambulatory SAHARA PUMP Not Available Start: 10-13-2023 End: 10-13-2023 ambulatory JANIS HAWKINS [facility] Start: 10-13-2023 End: 10-13-2023 Subsequent hospital visit by physician Janis Hawkins MD Work Phone: [facility] Cardiac Cath/IR Lab Comment on above: Atrial fibrillation (HCC) Start: 09-22-2023 End: 09-22-2023 ambulatory SAHARA PUMP Not Available Start: 09-21-2023 End: 09-21-2023 ambulatory SAHARA PUMP Not Available Start: 09-21-2023 End: 09-21-2023 ambulatory SAHARA PUMP Not Available Start: 09-04-2023 End: 09-04-2023 ambulatory SAHARA PUMP Not Available Start: 07-24-2023 End: 08-24-2023 ambulatory ANGELIC PIÑA [facility] Start: 07-09-2023 Bamboo flowsheet 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 Phone: [facility] Start: 07-09-2023 Bamboo flowsheet 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 Phone: [facility] Start: 07-09-2023 End: 07-09-2023 ambulatory KAYA BELCHER Not Available Start: 06-25-2023 End: 07-24-2023 ambulatory ANGELIC J [facility] Start: 06-11-2023 End: 06-25-2023 ambulatory ANGELIC Rapp [facility] Start: 05-13-2023 End: 05-13-2023 ambulatory LUDWIN ORTEGA [facility] Start: 04-09-2023 End: 04-09-2023 ambulatory ZHEN CURRY Not Available Start: 03-31-2023 End: 04-03-2023 ambulatory [facility] Start: 03-17-2023 End: 03-17-2023 ambulatory Sarah Borja Other [employer] Other Start: 03-17-2023 Office outpatient vi sit 25 minutes Sarah Borja [facility] Start: 01-10-2023 ambulatory DENISSE GILBERT [facility] lity:[facility] Start: 01-09-2023 End: 01-09-2023 [facility] Start: 01-09-2023 End: 01-09-2023 Subsequent hospital visit by physician Aubrey Rothman MD Work Phone: [facility] Comment on above: PAF (paroxysmal atri al fibrillation) Start: 01-08-2023 ambulatory [facility] Facilit y:[facility] Start: 01-08-2023 End: 01-08-2023 Subsequent hospital visit by physician Aubrey Rothman MD Work Phone: Cardiovascular Imaging Lab [facility] Comment on above: Arrived Start: 12-20-2022 End: 12-20-2022 [facility] Start: 10-07-2022 ambulatory DENISSE Nichole lity:[facility] Start: 09-30-2022 End: 09-30-2022 Subsequent hospital visit by physician [facility] Comment on above: Arrived Start: 09-29-2022 End: 09-29-2022 Subsequent hospital visit by physician [facility] Cardiology Stress Room [facility] Stress [facility] Comment on above: PAF (paroxysmal atri al fibrillation) (HCC); On Multaq therapy; Chronic anticoagulation; Essential hypertension; JAMES on CPAP; Morbid obesity (HCC); History of DVT (deep vein thrombosis); Pain of right lower extremity; Chest discomfort Start: 09-23-2022 ambulatory DENISSE GILBERT Facility: [facility] Start: 09-05-2022 End: 09-05-[address] DENISSE GILBERT Facility: Start: 09-02-2022 End: 09-02-[address] DENISSE GILBERT Facility:[facility] Start: 08-17-2022 Encounter for preprocedural cardiovascular examination DR PRINCESS WEBB [facility] Start: 08-17-2022 Encounter for preprocedural laboratory examination DR PRINCESS WEBB [facility] Start: 08-15-2022 End: 08-16-[address] PRINCESS WEBB Facility:[facility] Start: 08-15-2022 End: 08-16-2022 Encounter for preprocedural cardiovascular examination DR PRINCESS WEBB Facility: Start: 06-16-2022 End: 06-16-2022 Preoperative state [facility] Room [facility] Echocardiograph y Start: 06-16-2022 End: 06-16-2022 Subsequent hospital visit by physician [facility] Echo Room [facility] Echocardiography Comment on above: Pre-operative cleara nce; PAF (paroxysmal atrial fibrillation) (HCC); On Multaq therapy; Chronic anticoagulation; Essential hypertension; JAMES on CPAP; Class 2 obesity with body mass index (BMI) of 38.0 to 38.9 in adult, unspecified obesity type, unspecified whether serious comorbidity present; Heart murmur Start: 05-05-2022 End: 05-05-2022 ambulatory Melissa Montilla Other [employer] Other Start: 05-05-2022 Office outpatient vi sit 15 minutes Melissa Montilla [facility] Start: 06-27-2020 End: 06-28-2020 Patient encounter procedure DENISSE GILBERT Facility:[facility] Start: 05-11-2020 End: 05-11-2020 Emergency department patient visit Indira Holland Work Phone: [facility] Comment on above: Abdominal pain, unsp ecified abdominal location (Primary Dx); Flank pain Start: 02-23-2020 End: 02-23-2020 Subsequent hospital visit by physician [facility] Start: 02-21-2020 End: 02-21-2020 Subsequent hospital visit by physician [facility] Start: 02-16-2020 End: 02-16-2020 Subsequent hospital visit by physician Fabby Marks [facility] Occupational Therapy Comment on above: Arrived Start: 02-13-2020 End: 02-13-2020 Subsequent hospital visit by [facility] Start: 02-01-2020 End: 02-01-2020 Subsequent hospital visit by physician [facility] Start: 01-26-2020 End: 01-26-2020 Subsequent hospital visit by physician [facility] Start: 01-23-2020 End: 01-23-2020 Subsequent hospital visit by physician [facility] Comment on above: Arrived Start: 01-16-2020 End: 01-16-2020 Subsequent hospital visit by physician Fabby Marks [facility] Occupational Therapy Comment on above: Arrived Start: 01-12-2020 End: 01-12-2020 Subsequent hospital visit by physician [facility] Comment on above: Arrived Start: 01-09-2020 End: 01-09-2020 Subsequent hospital visit by physician [facility] Comment on above: Arrived Start: 01-04-2020 End: 01-04-2020 Subsequent hospital visit by physician Fabby Marks [facility] Occupational Therapy Comment on above: Arrived Start: 12-30-2019 End: 12-30-2019 Subsequent hospital visit by physician Julissa Villanueva [facility] Echocardiography Comment on above: PAF (paroxysmal atri al fibrillation) (HCC); Essential hypertension; JAMES on CPAP; Weight loss; Atypical chest pain; Preoperative clearance Start: 12-27-2019 End: 12-27-2019 Subsequent hospital visit by physician Denisse Gilbert [facility] Laboratory Start: 10-13-2019 End: 10-13-2019 Subsequent hospital visit by physician Carolee Cannon [facility] Occupational Therapy Comment on above: Arrived Start: 10-11-2019 End: 10-11-2019 Subsequent hospital visit by physician Fabby Marks [facility] Occupational Therapy Start: 10-06-2019 End: 10-06-2019 Subsequent hospital visit by physician Fabby Marks [facility] Occupational Therapy Start: 10-04-2019 End: 10-04-2019 Subsequent hospital visit by physician [facility] Comment on above: Arrived Start: 09-29-2019 End: 09-29-2019 Subsequent hospital visit by physician [facility] Start: 09-27-2019 End: 09-27-2019 Subsequent hospital visit by physician Fabby Marks [facility] Occupational Therapy Start: 09-22-2019 End: 09-22-2019 Subsequent hospital visit by physician Fabby Marks [facility] Occupational Therapy Comment on above: Arrived Start: 09-19-2019 End: 09-19-2019 Subsequent hospital visit by physician Fabby Marks [facility] Occupational Therapy Comment on above: Arrived Start: 09-15-2019 End: 09-15-2019 Subsequent hospital visit by physician Fabby Marks [facility] Occupational Therapy Start: 09-12-2019 End: 09-12-2019 Subsequent hospital visit by physician Fabby Marks [facility] Occupational Therapy Start: 09-08-2019 End: 09-08-2019 Subsequent hospital visit by physician Fabby Marks [facility] Occupational Therapy Comment on above: Arrived Start: 09-05-2019 End: 09-05-2019 Subsequent hospital visit by physician Fabby Marks [facility] Occupational Therapy Comment on above: Arrived Start: 09-01-2019 End: 09-01-2019 Subsequent hospital visit by [facility] Start: 08-29-2019 End: 08-29-2019 Subsequent hospital visit by physician Fabby Marks [facility] Occupational Therapy Start: 08-25-2019 End: 08-25-2019 Subsequent hospital visit by physician Fabby Marks [facility] Occupational Therapy Comment on above: Arrived Start: 08-22-2019 End: 08-22-2019 Subsequent hospital visit by physician Fabby Marks [facility] Occupational Therapy Comment on above: Arrived Start: 08-18-2019 End: 08-18-2019 Subsequent hospital visit by physician Carolee Cannon [facility] Occupational Therapy Comment on above: Arrived Start: 08-15-2019 End: 08-15-2019 Subsequent hospital visit by physician Fabby Marks [facility] Occupational Therapy Comment on above: Arrived Start: 08-11-2019 End: 08-11-2019 Subsequent hospital visit by physician [facility] [employer] [facility] EKG Comment on above: Paroxysmal atrial fi brillation (HCC); Essential hypertension; JAMES on CPAP Start: 08-10-2019 End: 08-10-2019 Subsequent hospital visit by physician Fabby Marks [facility] Occupational Therapy Comment on above: Arrived Start: 08-08-2019 End: 08-08-2019 Subsequent hospital visit by physician [facility] Start: 08-07-2019 End: 08-07-2019 Emergency department patient visit Gerson Del Cid Work Phone: [facility] Comment on above: Injury of hand, exte nsor tendon, right, initial encounter (Primary Dx) Start: 05-30-2019 End: 05-30-2019 Emergency department patient visit Denisse Gilbert MD Other Phone: [facility] Comment on above: Hypoglycemia (Primar y Dx) Start: 04-20-2019 End: 04-21-2019 Emergency department patient visit Jorge Alberto Ontiveros Work Phone: [facility] Comment on above: Nonintractable heada scar, unspecified chronicity pattern, unspecified headache type (Primary Dx); Atrial fibrillation with RVR (HCC) Start: 03-21-2019 End: 03-21-2019 Subsequent hospital visit by physician [facility] Start: 02-04-2019 End: 02-06-2019 Subsequent hospital visit by physician Julissa Lab Drawing Room [facility] Laboratory Comment on above: Arrived Stomach ache; Hernia of abdominal cavity Start: 01-12-2019 End: 01-12-2019 Emergency department patient visit Denisse Gilbert [facility] Comment on above: Injury of toe on rig ht foot, initial encounter (Primary Dx) Start: 05-20-2018 End: 05-22-2018 Patient encounter procedure [facility] Start: 05-03-2018 End: 05-06-2018 Patient encounter procedure [facility] Start: 05-03-2018 End: 05-08-2018 Patient encounter procedure [facility] Start: 10-01-2017 End: 10-01-2017 Ambulatory CLEMENTE ORTI[facility] Procedures Date Procedure Procedure Detail Performing Clinician Start: 01-06-2024 Follow-up visit Follow-up [facility] Start: 01-09-2023 Ephys evl trnsptl tx atrial fib isolat pulm vein Aubrey Rothman MD Work Phone: Start: 01-09-2023 ACT* LOW RANGE, POC Mireya Rothman MD Work Phone: Start: 01-09-2023 End: 01-09-2023 ACT* LOW RANGE, POC Aubrey Rothman MD Work Phone: Start: 01-09-2023 EXTRA MINT GREEN TOP Ma kishore Rothman MD Work Phone: Start: 01-09-2023 Prothrombin time Sahara N Shannon AIRCRAFT LAUNCH AND RECOVERY TECHNICIAN-TOBACCO CLASSER Work Phone: Start: 01-09-2023 Ecg routine ecg w/le ast 12 lds w/i&r Sahara N Shannon AIRCRAFT LAUNCH AND RECOVERY TECHNICIAN-TOBACCO CLASSER Work Phone: Start: 01-08-2023 Ct heart contrast ev al cardiac structure&morph Aubrey Rothman MD Work Phone: Start: 11-14-2022 H/O: hysterectomy History of hysterectomy Kaya Belcher 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 Work Phone: Start: 07-08-2022 Mammography Kaya akhtar 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 Work Phone: Start: 06-16-2022 Echo tthrc r-t 2d w/wom-mode compl spec&colr d Janis Hawkins MD Work Phone: Start: 02-18-2021 Antibody screen Comment on above: Performed By: #### T [id number] ####[facility] [id number] [place], [place] [phone] Start: 06-27-2020 ANESTH LOWER ARM SURGERY NITHIN LOBO Start: 06-27-2020 Debridement muscle & fascia 20 sq cm/< NITHIN LOBO Start: 05-11-2020 Urinalysis microscop ic only Indira Lino Work Phone: Start: 05-11-2020 Urnls dip stick/tabl et rgnt auto w/o microscopy Indira Lino Work Phone: Start: 05-11-2020 Ct abdomen & pelvis w/o contrast material Indira Lino Work Phone: Start: 05-11-2020 Blood count complete auto&auto difrntl wbc Indira Lino Work Phone: Start: 12-30-2019 ECHOCARDIOGRAM EXERC ISE STRESS TEST Janis Byrd Juan Manuel Sweetiealysia Work Phone: Start: 12-27-2019 Ecg routine ecg w/le ast 12 lds w/i&r Harlan Quique Work Phone: Start: 12-27-2019 EKG REPORT Hpf Scanni ng Start: 12-27-2019 Basic metabolic pane l calcium total Harlan Moffat Work Phone: Start: 12-27-2019 Hemoglobin glycosyla corinne a1c Harlan Quique Work Phone: Start: 08-08-2019 Ecg routine ecg w/le ast 12 lds w/i&r Harlan Quique Work Phone: Start: 08-08-2019 EKG REPORT Hpf Scanni ng Start: 08-08-2019 Basic metabolic pane l calcium total Harlan Quique Work Phone: Start: 08-08-2019 Blood count complete auto&auto difrntl wbc Harlan Moffat Work Phone: Start: 08-08-2019 Hemoglobin glycosyla corinne a1c Harlan Moffat Work Phone: Start: 08-07-2019 Radex hand minimum 3 views Gerson Cardenas Nehemias Work Phone: Start: 05-30-2019 Gluc bld gluc mntr d ev cleared fda spec home use Jaci Burns PA-C Work Phone: Start: 05-30-2019 GLUCOSE, WHOLE BLOOD Darrion Gilbert MD Work Phone: Start: 05-30-2019 Ecg routine ecg w/le ast 12 lds w/i&r Jaci Burns PA-C Work Phone: Start: 05-30-2019 End: 05-30-2019 Comprehensive metabolic panel Jaci Burns PA-C Work Phone: Start: 05-30-2019 GLUCOSE, WHOLE BLOOD Ma osorio Gilbert MD Work Phone: Start: 04-20-2019 Ct head/brain w/o co ntrast material Jorge Alberto E [employer] Work Phone: Start: 04-20-2019 Ecg routine ecg w/le ast 12 lds w/i&r Jorge Alberto [employer] Work Phone: Start: 04-20-2019 EKG REPORT Hpf Scanni ng Start: 04-20-2019 BASIC METABOLIC PANE L W/ REFLEX TO MG FOR LOW K Jorge Alberto E [employer] Work Phone: Start: 04-20-2019 Blood count complete auto&auto difrntl wbc Jorge Alberto [employer] Work Phone: Start: 03-21-2019 Assay of thyroid stimulating hormone tsh Mary Lou Richmond Other Phone: Start: 03-21-2019 Assay of thyroxine total Mary Lou Theresa Yi Other Phone: Start: 03-21-2019 Assay of triiodothyr onine t3 free Mary Lou Theresa Abdiel Other Phone: Start: 02-04-2019 Ct abdomen & pelvis w/contrast material Denisse [place] Work Phone: Start: 02-04-2019 Assay of urea nitrog en quantitative Denisse [place] [employer] Work Phone: Start: 02-04-2019 Creatinine blood Denisse [place] Work Phone: Start: 01-12-2019 Radex foot complete minimum 3 views Jaci Burns Work Phone: Start: 05-22-2018 INCENTIVE SPIROMETRY RT VINEET WHIPPLE Start: 05-22-2018 DISCHARGE PATIENT ISAIAH WHIPPLE Start: 05-22-2018 INCENTIVE SPIROMETRY RT VINEET WHIPPLE Start: 05-22-2018 PULSE OXIMETRY, CONTINUOUS VINEET WHIPPLE Start: 05-22-2018 INCENTIVE SPIROMETRY RT VINEET WHIPPLE Start: 05-22-2018 SALINE LOCK IV VINEET WHIPPLE Start: 05-22-2018 Radex esophagus VINEET WHIPPLE Start: 05-22-2018 HOME BIPAP OR CPAP FLORIN KRISTENW HEATH Start: 05-22-2018 INCENTIVE SPIROMETRY RT VINEET WHIPPLE Start: 05-22-2018 NASAL CANNULA OXYGEN MA TTW HEATH Start: 05-22-2018 PULSE OXIMETRY, CONTINUOUS VINEET WHIPPLE Start: 05-22-2018 INITIATE OXYGEN THER APY PROTOCOL VINEET JOETWENTYNINE PALMS Start: 05-22-2018 INCENTIVE SPIROMETRY RT VINEET WHIPPLE Start: 05-22-2018 PULSE OXIMETRY, CONTINUOUS VINEET WHIPPLE Start: 05-22-2018 PULSE OXIMETRY, CONTINUOUS VINEET WHIPPLE Start: 05-22-2018 INCENTIVE SPIROMETRY RT VINEET WHIPPLE Start: 05-21-2018 INCENTIVE SPIROMETRY RT VINEET WHIPPLE Start: 05-21-2018 PULSE OXIMETRY, CONTINUOUS VINEET WHIPPLE Start: 05-21-2018 INCENTIVE SPIROMETRY RT VINEET WHIPPLE Start: 05-21-2018 INCENTIVE SPIROMETRY RT VINEET WHIPPLE Start: 05-21-2018 PULSE OXIMETRY, CONTINUOUS VIENET WHIPPLE Start: 05-21-2018 INCENTIVE SPIROMETRY RT VINEET WHIPPLE Start: 05-21-2018 PULSE OXIMETRY, CONTINUOUS VINEET WHIPPLE Start: 05-21-2018 INCENTIVE SPIROMETRY RT VINEET WHIPPLE Start: 05-21-2018 POC GLUCOSE FINGERSTICK VINEET WHIPPLE Start: 05-21-2018 INCENTIVE SPIROMETRY RT VINEET WHIPPLE Start: 05-21-2018 HOME BIPAP OR CPAP FLORIN KRISTENW HEATH Start: 05-21-2018 INCENTIVE SPIROMETRY RT VINEET WHIPPLE Start: 05-21-2018 INITIATE OXYGEN THER APY PROTOCOL VINEET WHIPPLE Start: 05-21-2018 NASAL CANNULA OXYGEN MA TTW HEATH Start: 05-21-2018 INCENTIVE SPIROMETRY RT VINEET WHIPPLE Start: 05-21-2018 Basic metabolic pane l calcium total VINEET JOE Start: 05-21-2018 Blood count complete automated VINEET JOE Start: 05-21-2018 HOME BIPAP OR CPAP FLORIN W HEATHTWENTYNINE PALMS Start: 05-21-2018 INCENTIVE SPIROMETRY RT VINEET JOE Start: 05-20-2018 INCENTIVE SPIROMETRY RT VINEET JOE Start: 05-20-2018 INCENTIVE SPIROMETRY RT VINEET WHIPPLE [...] VINEET WHIPPLE Start: 08-07-2015 Colonoscopy Kaya akhtar 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 Work Phone: Plan of Treatment Date Care Activity Detail Author Start: 10-07-2026 DTaP/Tdap/Td vaccine (2 - Td) DTaP/Tdap/Td vaccine (2 - Td) [place] Start: 10-07-2026 DTaP/Tdap/Td vaccine (3 - Td) DTaP/Tdap/Td vaccine (3 - Td) [place] Start: 10-07-2026 DTaP/Tdap/Td vaccine (4 - Td or Tdap) DTaP/Tdap/Td vaccine (4 - Td or Tdap) [facility] Start: 10-07-2026 Tetanus vaccination TETANUS [facility] Start: 08-06-2025 Screening for malignant neoplasm of colon [facility] Start: 05-15-2025 Lipid panel Lipids [facility] Start: 05-06-2025 Glaucoma screening Diabetes: Retinopathy Screening [facility] Start: 2025 Shingles Vaccine (1 of 2) Shingles Vaccine (1 of 2) [place], [place] Start: 12-30-2023 Lipid panel [facility] Start: 12-30-2023 Lipid screen Lipid screen [place], [place] Start: 11-06-2023 End: 11-06-2023 Patient encounter procedure 11/06/2023 2:00 PM EDT Office Visit [address] [id number] Janis Hawkins MD [address] [place] [phone] 4 week [facility] Comment on above: 4 week Start: 10-20-2023 End: 10-20-2023 Nursing evaluation of patient and report 10/20/2023 11:00 AM EDT Nurse Only [address] [phone] 1 week wound check from Loop [facility] Comment on above: 1 week wound check from Loop Start: 07-09-2023 End: 07-09-2023 Patient encounter procedure 07/09/2023 1:30 PM EST Office Visit [facility] [address] [facility] [place] [phone] Kaya Belcher NP [address] Alberto [place], [place] [id number] Arrived [facility] Comment on above: Arrived Start: 07-08-2023 Screening for malignant neoplasm of breast Mammogram [facility] Start: 07-01-2023 Urine screening for protein Diabetes: Urine Protein Screening [facility] Start: 04-21-2023 End: 04-21-2023 Patient encounter procedure 04/21/2023 1:00 PM EST Office Visit [facility] at [address] [address] Aubrey Rothman MD [address] [place] [address] [facility] [place] [facility] [place] Start: 03-31-2023 End: 03-31-2023 Patient encounter procedure 03/31/2023 Office Visit Cardiology Janis Hawkins MD [address] [place] [address] [facility] Start: 03-05-2023 Hemoglobin A1c measurement Diabetes: Hemoglobin A1C [facility] Start: 02-13-2023 End: 01-10-2024 Cardiac telemetry [employer] ECG Routine PAF (paroxysmal atrial fibrillation) Expected: 02/13/2023 (Approximate), Expires: 01/10/2024 [facility] Comment on above: Expected: 02/13/2023 (Approximate), Expi res: 01/10/2024 Start: 01-23-2023 COVID-19 Vaccine ( season) COVID-19 Vaccine ( season) [facility] Start: 01-23-2023 Influenza vaccination INFLUENZA VACCINE (#1) [facility] Start: 01-10-2023 End: 01-10-2023 Telemedicine consultation with patient 01/10/2023 8:00 AM EDT Telemedicine [facility] [address] [place] [phone] Denisse Gilbert MD [address] [facility] [address] [place] [id number] [facility] Start: 12-26-2022 Diabetes screen Diabetes screen [facility] Start: 11-26-2022 End: 11-26-2022 Patient encounter procedure 11/26/2022 Office Visit Cardiology Janis Hawkins MD [address] [place] [address] [facility] Start: 09-30-2022 Subsequent hospital visit by physician 09/30/2022 Hospital Encounter EKG [facility] EKG Start: 09-30-2022 End: 09-30-2022 Patient encounter procedure 09/30/2022 Appointment Stress Lab [facility] Stress Lab Start: 08-07-2022 Diabetes screen Diabetes screen [facility] [place] Start: 08-06-2022 End: 08-06-2022 Patient encounter procedure 08/06/2022 Office Visit Cardiology Janis Hawkins MD [address] [place] [address] [facility] Start: 07-09-2022 End: 07-09-2022 Patient encounter procedure 07/09/2022 Office Visit Urology [facility] Start: 12-29-2021 Diabetes screen Diabetes screen [facility], [place] Start: 07-29-2021 COVID-19 Vaccine (3 - Booster for Evans series) COVID-19 Vaccine (3 - Booster for Evans series) [facility] Start: 05-11-2021 Creatinine measurement [facility] [place] [place] Start: 05-11-2021 Potassium monitoring Potassium monitoring [facility] [place] [place] Start: 12-26-2020 Creatinine measurement Creatinine monitoring [facility] [place] Start: 12-26-2020 Potassium monitoring Potassium monitoring [facility] [place], [place] Start: 08-07-2020 Creatinine measurement [facility]inine [facility] [place] [place] Start: 08-07-2020 Creatinine monitoring Creatinine [facility] [place] [facility] [place] Start: 08-07-2020 Potassium monitoring Potassium monitoring [facility] [place], [place] Start: 06-28-2020 End: 06-28-2020 Office Visit 06/28/2020 Office Visit Cardiology Janis Hawkins MD [address] [place] [address] [place] [address] [phone] [facility] Start: 05-30-2020 Creatinine monitoring Creatinine monitoring [facility] [place] , [place] Start: 05-30-2020 Potassium monitoring Potassium monitoring [facility] [place], [place] Start: 05-02-2020 End: 05-02-2020 Office Visit [facility] Start: 2020 Screening for malignant neoplasm of colon [facility] [employer] Start: 04-20-2020 Creatinine monitoring [facility] Work Phone: Start: 04-20-2020 Potassium monitoring Potassium monitoring [employer] Work Phone: Start: 02-23-2020 End: 02-23-2020 Appointment 02/23/2020 Appointment Occupational Therapy Fabby Marks, OTR/L [facility] Start: 02-21-2020 End: 02-21-2020 Appointment 02/21/2020 Appointment Occupational Therapy Fabby Marks, OTR/L [facility] Start: 02-16-2020 Hospital Encounter 02/16/2020 Hospital Encounter Occupational Therapy Fabby Marks, OTR/L [facility] Start: 02-16-2020 End: 02-16-2020 Office Visit 02/16/2020 Office Visit Cardiology Janis Hawkins MD [address] [place] [phone] [facility] Start: 02-05-2020 Creatinine monitoring Creatinine monitoring [facility] [place] , [place] Start: 02-01-2020 End: 02-01-2020 Appointment 02/01/2020 Appointment Occupational Therapy Fabby Marks, OTR/L [facility] Start: 01-26-2020 End: 01-26-2020 Appointment 01/26/2020 Appointment Occupational Therapy Fabby Marks, OTR[facility] Start: 01-24-2020 Influenza vaccination [facility] Start: 01-23-2020 End: 01-23-2020 Appointment 01/23/2020 Appointment Occupational Therapy Fabby Marks OTR/Ashvin [facility] Start: 01-19-2020 End: 01-19-2020 Appointment 01/19/2020 Appointment Occupational Therapy Fabby Marks OTR/Ashvin [facility] Start: 01-16-2020 End: 01-16-2020 Appointment 01/16/2020 Appointment Occupational Therapy Fabby Marks OTR/Ashvin [facility] Start: 01-12-2020 End: 01-12-2020 Appointment 01/12/2020 Appointment Occupational Therapy Fabby Marks OTR/Ashvin [facility] Start: 01-09-2020 End: 01-09-2020 Appointment 01/09/2020 Appointment Occupational Therapy Fabby Marks OTR/L [facility] Start: 01-04-2020 End: 01-04-2020 Appointment 01/04/2020 Appointment Occupational Therapy Fabby Marks OTR/L [facility] Start: 12-30-2019 Creatinine monitoring Creatinine monitoring [facility] Start: 12-30-2019 Lipid panel Lipids [facility] Start: 12-30-2019 Potassium monitoring Potassium monitoring [facility] Start: 12-30-2019 End: 12-30-2019 Appointment 12/30/2019 Appointment Echocardiography [place] [facility] Start: 11-02-2019 End: 11-02-2019 Office Visit 11/02/2019 Office Visit Bariatrics Aravind Salazar, [address] [phone] [facility] Start: 10-13-2019 End: 10-13-2019 Appointment [facility] Start: 10-11-2019 End: 10-11-2019 Appointment 10/11/2019 Appointment Occupational Therapy Fabby Marks OTR/Ashvin [facility] Start: 10-06-2019 End: 10-06-2019 Appointment 10/06/2019 Appointment Occupational Therapy Fabby Marks OTR/L [facility] Start: 10-04-2019 End: 10-04-2019 Appointment 10/04/2019 Appointment Occupational Fabby Dixon OTR/L [facility] Start: 09-29-2019 End: 09-29-2019 Appointment 09/29/2019 Appointment Occupational Fabby Dixon OTR/L [facility] Start: 09-27-2019 End: 09-27-2019 Appointment 09/27/2019 Appointment Occupational Fabby Dixon OTR/L [facility] Start: 09-22-2019 End: 09-22-2019 Appointment 09/22/2019 Appointment Occupational Fabby Dixon OTR/L [facility] Start: 09-19-2019 End: 09-19-2019 Appointment 09/19/2019 Appointment Occupational Fabby Dixon OTR/L [facility] Start: 09-15-2019 End: 09-15-2019 Appointment 09/15/2019 Appointment Occupational Fabby Dixon OTR/L [facility] Start: 09-12-2019 End: 09-12-2019 Appointment 09/12/2019 Appointment Occupational Fabby Dixon OTR/L [facility] Start: 09-08-2019 End: 09-08-2019 Appointment 09/08/2019 Appointment Occupational Fabby Dixon OTR/L [facility] Start: 09-05-2019 End: 09-05-2019 Appointment 09/05/2019 Appointment Occupational Fabby Dixon OTR/L [facility] Start: 09-01-2019 End: 09-01-2019 Appointment 09/01/2019 Appointment Occupational Fabby Dixon OTR/L [facility] Start: 08-29-2019 End: 08-29-2019 Appointment 08/29/2019 Appointment Occupational Fabby Dixon OTR/L [facility] Start: 08-25-2019 End: 08-25-2019 Appointment 08/25/2019 Appointment Occupational Fabby Dixon OTR/L [facility] Start: 08-22-2019 End: 08-22-2019 Appointment 08/22/2019 Appointment Occupational Fabby Dixon OTR/L [facility] Start: 08-18-2019 End: 08-18-2019 Appointment [facility] Start: 08-15-2019 End: 08-15-2019 Appointment 08/15/2019 Appointment Occupational Therapy Fabby Marks, OTR/L [facility] Occupational Therapy Start: 08-11-2019 End: 08-11-2019 Office Visit 08/11/2019 Office Visit Cardiology Janis Hawkins MD [address] [place] [address] [facility] Start: 07-29-2019 End: 07-29-2019 Office Visit 07/29/2019 Office Visit Cardiology Janis Hawkins MD [address] [place] [address] [facility] CARDIOLOG[facility] Start: 05-04-2019 End: 05-04-2019 Office Visit 05/04/2019 Office Visit Bariatrics Aravind Salazar DO [address] [place] [id number] [facility] Start: 02-02-2019 End: 02-02-2019 Office Visit 02/02/2019 Office Visit Bariatrics Aravind Salazar DO [address] [place] [id number] [facility] Start: 01-23-2019 Influenza vaccination Flu vaccine (#1) [place], [place] Start: 01-17-2019 End: 01-17-2019 Office Visit 01/17/2019 Office Visit Cardiology Janis Hawkins MD [address] [place] [id number] [facility] Start: 2015 Lipid panel LIPID SCREENING [facility] Start: 2015 Screening for malignant neoplasm of breast MAMMOGRAM SCREENING DISCUSSION [facility] Start: 1996 Cervical cancer screen Cervical cancer screen [place], [place] Start: 1996 Screening for malignant neoplasm of cervix [facility] Start: 1993 Hepatitis C screening Hepatitis C screen [facility] Start: 1990 HIV screen HIV screen [place] Start: 1990 HIV screening [facility] Start: 1987 Depression Screen Depression Screen [facility] Start: 1975 Hepatitis B vaccine (1 of 3 - 3-dose series) Hepatitis B vaccine (1 of 3 - 3-dose series) [facility] Start: 1975 Hepatitis C screening HEPATITIS C VIRUS SCREENING [facility] Start: 1975 Screening for malignant neoplasm of colon [facility] End: 08-11-2019 Continuous cardiac monitoring, >2 up to 14 days Continuous cardiac monitoring, >2 up to 14 days Cardiac Services Routine Paroxysmal atrial fibrillation (HCC) Essential hypertension JAMES on CPAP 1 Occurrences starting 08/11/2019 until 08/11/2019 [place], [place] Comment on above: 1 Occurrences starting 08/11/2019 until 08/11/2019 EKG 12 Lead EKG 12 Lead ECG STAT 05/30/2019 1:24 PM [facility] Work Phone: End: 10-06-2023 Electrophysiology procedure [facility] Comment on above: One Time for 1 Occurrences starting 09/22 until 10/06/2023 Electrophysiology study EP PROCE DURE - EPS/ABLATION/DEVICE Electrophysiology Routine PAF (paroxysmal atrial fibrillation) 01/09/2023 9:49 AM EDT [facility] End: 01-09-2023 EXTRA LAVENDER TOP [facility] Comment on above: Once for 1 Occurrences starting 01/10/20 23 until 01/09/2023 End: 01-09-2023 EXTRA TUBES [facility] Comment on above: One Time for 1 Occurrences starting 12/23 until 01/09/2023 Immunizations Immunization Date Immunization Notes Care Provider Enrique rojas 02-16-2023 influenza, injectabl e, quadrivalent, preservative free Kaya Belcher NP Work Phone: [facility] 02-06-2022 influenza, injectabl e, quadrivalent, preservative free Kaya Belcher NP Work Phone: [facility] 02-06-2022 influenza virus vaccine, unspecified formulation Aubrey Rothman MD Work Phone: [facility] 05-13-2021 influenza, injectabl e, quadrivalent, contains preservative [facility] Work Phone: 09-02-2020 Moderna SARS-CoV-2 Vaccination Kaya Belcher 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 Work Phone: [facility] 04-12-2020 influenza, injectabl e, quadrivalent, contains preservative [facility] Work Phone: 02-21-2019 influenza, injectabl e, quadrivalent, preservative free Kaya Belcher 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 Work Phone: [facility] 02-12-2018 influenza, injectabl e, quadrivalent, preservative free Kaya Belcher 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 Work Phone: [facility] 02-13-2017 influenza, injectabl e, quadrivalent, preservative free Kaya Belcher 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 Work Phone: [facility] 10-07-2016 tetanus toxoid, redu andrew diphtheria toxoid, and acellular pertussis vaccine, adsorbed Denisse Gilbert [facility] 06-20-2015 influenza virus vaccine, live, attenuated, for intranasal use Kaya Belcher 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 Work Phone: [facility] 01-19-2012 tetanus toxoid, redu andrew diphtheria toxoid, and acellular pertussis vaccine, adsorbed Kaya Belcher 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 Work Phone: [facility] 11-02-2010 tetanus toxoid, redu andrew diphtheria toxoid, and acellular pertussis vaccine, adsorbed [facility] Work Phone: Payers Date Payer Category Payer Unknown [id number] 2015 Unknown BCBS [place] P PO xxxxxxxxxxxxxxx 2015-Present [address] [place] [address] xxxxxxxxxxxxxxx [id number] 2014 Unknown BCBS [place] PPO [facility] [id number] 2014-Present [address] [place] [address] [id number] .[id number] 1975 Unknown [id number] 2.16.840.1.547183.3.579.2.175 1975 Unknown [id number] 2.16.840.1.649579.3.579.2.175 1975 Unknown [id number] 2.16.840.1.348069.3.579.2.175 1975 Unknown [id number] 2.16.840.1.804544.3.579.2.647 1975 Unknown [id number] 2.16.840.1.798138.3.579.2.593 1975 Unknown [id number] 2.16.840.1.974908.3.579.2.593 1975 Unknown [id number] 2.16.840.1.542997.3.579.2.593 1975 Unknown [id number] 2.16.840.1.324217.3.579.2.594 1975 Unknown [id number] 2.16.840.1.162477.3.579.2.594 1975 Unknown [id number] 2.16.840.1.834370.3.579.2.594 1975 Unknown [id number] 2.16.840.1.172600.3.579.2.594 1975 Unknown [id number] 2.16.840.1.706568.3.579.2.594 1975 Unknown [id number] 2.16.840.1.633885.3.579.2.594 1975 Unknown [id number] 2.16.840.1.479629.3.579.2.594 1975 Unknown [id number] 2.16.840.1.172519.3.579.2.173 1975 Unknown [id number] 2.16.840.1.305580.3.579.2.173 1975 Unknown [id number] 2.16.840.1.865069.3.579.2.173 1975 Unknown [id number] 2.16.840.1.123781.3.579.2.173 1975 Unknown [id number] 2.16.840.1.477840.3.579.2.128 6 1975 Unknown [id number] 2.16.840.1.693879.3.579.2.128 6 1975 Unknown [id number] 2.16.840.1.112517.3.579.2.128 6 1975 Unknown [id number] 2.16.840.1.367129.3.579.2.128 6 1975 Unknown [id number] 2.16.840.1.626511.3.579.2.128 6 1975 Unknown [id number] 2.16.840.1.709994.3.579.2.128 6 1975 Unknown [id number] 2.16.840.1.609699.3.579.2.128 6 1975 Unknown [id number] 2.16.840.1.344718.3.579.2.125 9 1975 Unknown [id number] 2.16.840.1.326750.3.579.2.125 9 1975 Unknown [id number] 2.16.840.1.694173.3.579.2.125 9 1975 Unknown [id number] 2.16.840.1.531654.3.579.2.125 9 1975 Unknown [id number] 2.16.840.1.647977.3.579.2.125 9 1975 Unknown [id number] 2.16.840.1.801495.3.579.2.125 9 1975 Unknown [id number] 2.16.840.1.372463.3.579.2.125 9 1975 Unknown [id number] 2.16.840.1.101115.3.579.2.125 9 1975 Unknown [id number] 2.16.840.1.058119.3.579.2.125 9 1975 Unknown [id number] 2.16.840.1.030176.3.579.2.125 9 1975 Unknown [id number] 2.16.840.1.110224.3.579.2.125 9 1975 Unknown [id number] 2.16.840.1.953984.3.579.2.125 9 1975 Unknown [id number] 2.16.840.1.172204.3.579.2.125 9 1975 Unknown [id number] 2.16.840.1.145627.3.579.2.125 9 1975 Unknown [id number] 2.16.840.1.826750.3.579.2.125 9 1959 Unknown [id number] Social History Date Type Detail Facility Start: 01-12-2019 End: 10-06-2023 Tobacco smoking status HIIS Former smoker [facility] Start: 02-12-1990 End: 05-14-2013 History of tobacco use Current smoker [place] Start: 02-12-1990 End: 05-14-2013 History of tobacco use Cigarette Smoker [place] Start: 01-12-2019 End: 12-20-2022 Cigarettes smoked current (pack per day) - Reported [place] Start: 01-12-2019 End: 12-20-2022 Alcohol intake Yes [facility] Start: 05-03-2018 Alcohol Comment ONCE A MONTH [facility] Start: 1975 Sex Assigned At Not on file [facility] Start: 08-11-2019 End: 10-06-2023 Alcohol intake Current drinker of alcohol (finding) [place] Exposure to SARS-CoV-2 (event) [facility] assess [facility] Start: 12-27-2019 End: 10-06-2023 Tobacco use and exposure Never used [facility] Start: 12-30-2022 End: 01-09-2023 Exposure to SARS-CoV-2 (event) Not sure [facility] Start: 10-07-2022 Alcohol Comment occasional [facility] How often to you hav e a [...] drinks on 1 occasion? Less than monthly [employer] Read-Only, Retired: Physical Abuse Denies [facility] NEGATED: Highlighted rowStart: NINF History of tobacco use Passive smoker [facility] Medical Equipment Procedure Code Equipment Code Equipment Origin al Text Equipment Identifier Dates Monitor Crd Loop Recorder Kit - [id number] Start: 10-13-2023 Goals Date Patient Goal Desired Activity /State Personal health goal Clinical Notes 05-30-2019 to 01-07-2024 Discharge Instructions Note Date & Type Note Facility 01-07-2024 Note XR CHEST 1 VW Procedure: Chest x-ray performed Number of views:1 History:Shortness of breath Comparison:02/05/2023 Findings: The heart and lungs show no acute findings, and the mediastinum and lexa are grossly negative . Impression: 1. No acute change. Finalized by Gustavo Henley MD on 01/07/2024 7:53 PM [facility] 10-13-2023 Hospital Discharg e instructions Belinda Alan [...] AN INDIVIDUAL BASIS. documented in this encounter [facility] 03-17-2023 Evaluation note Encounter Date Diagnosis Assessment Notes Feb, Acute maxillary sinusitis, recurrence not specified (ICD-10 - J01.00) At home COVID test negative. Antibiotic sent to pharmacy per patient request. Encourage patient to use llcs-unk-bihb ter sinus relief medication per label instruction. Encouraged increase fluid intake and rest. May use Tylenol and or Motrin for fever and pain relief. Follow-up with PCP if symptoms do not improve or worsen. All questions and concerns addressed. [employer] Other [phone] Nurse Note* Nursing Notes - Belle Murphy RN - 01/09/2023 2:13 PM EDT AVS reviewed with the patient and , all questions answered. [facility]08-18-2023 Miscellaneous Notes* Nursing Notes - Belle Murphy RN - 01/09/2023 2:13 PM EDT AVS reviewed with the patient and , all questions answered. * Referral Letter - Aubrey Rothman MD - 01/09/2023 10:01 AM EDT January 09, 2023 JANIS HAWKINS MD [address] [place] [address] [place] [address] RE: JODY THOMASON DATE OF SERVICE: 01/09/2023 [...] Sincerely, Aubrey Rothman MD documented in this [facility]08-18-2023 Note* Referral Letter - Aubrey Rothman MD - 01/09/2023 10:01 AM EDT January 09, 2023 JANIS HAWKINS MD [address] [place] [address] [place] [address] RE: JODY THOMASON DATE OF SERVICE: 01/09/2023 [...] let us know. Sincerely, Aubrey Rothman MD [facility]08-18-2023 Hospital Discharge instructions* Discharge Instr - Activity* Sahara Ortega APRN-TOBACCO CLASSER - 01/09/2023 6:34 AM EDT Post Ablation [...] Where can you learn more? Go to [email or web address]. * Discharge Instr - Wound Care* VIC [...] seek immediate medical care. [facility] History and physical note* VIC Scott - [...] was the last dose taken. 01/08 PM [id number]- Vasc score: 3 (gender, HTN, DM) Previous [...] MD. 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 [facility] [email or web address]08-18-2023 History and physical note* Sahara Ortega APRN-JOHN - 01/09/2023 6:11 AM EDT Images from the original note were not included. Chief Complaint Here for AF ablation HPI Jody Henriqueztingham is a 47 y.o. 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 no When was the last dose taken. 01/08 PM [id number]- Vasc score: 3 (gender, HTN, DM) Previous [...] MD. 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 [facility] [email or web address] documented [facility] History of Present illness Narrative* Hali Cee RN - 09/29/2022 9:15 AM EDT Instructed on objectives and procedure of lexiscan/cardiolite stress test. documented in this encounterBON [employer] Phone: [phone] NoteOPERATIVE NOTE OPERATION DATE: 09/02/2022 PRIMARY CARE [...] patient was taken to the recovery room.[id number] NoteEXAMINATION: XR CHEST 2 V HISTORY: Pre-surgery [...] Electronically authenticated by: SARAH LOBATO Date: 2022-08-15 11:02[facility]12-12-2022 Evaluation note* Encounter Date Diagnosis Assessment Notes Treatment Notes Treatment Clinical Notes Apr, Left acute otitis media (ICD-10 - H66.92) keep appointment with ENT and take medication with food to prevent stomach upset. [employer] Other 10-14-2021 NoteHNO ID: [id number] Author: Derick Paul MD Service: ? Author [...] activity - Follow-[facility] in 6 months, [facility] HNO ID: [id number] Author: Adelina Funes MD Service: General Surgery Author Type: Resident Type: Progress Notes Filed: 02/21/2021 7:56 AM Note Text: GENERAL SURGERY PROGRESS NOTE Jody Thomsaon [id number] ASSESSMENT AND PLAN Jody Thomason is a [...] - General Adelina En Marin PGY-1 General SurgeryOhio[facility]09-27-2021 NoteHNO ID: [id number] Author: Taz Chavez Service: ? Author Type: [...] Pt verbally agreed to plan. Taz Chavez RNOhiohealth Grant Medical Center09-27-2021 NoteHNO ID: [id number] Author: Derick Paul MD Service: ? Author [...] our notes. Patient consented for study? Not applicableOhiohealth [facility] Medical Center09-27-2021 NoteHNO ID: [id number] Author: Derick Paul MD Service: ? Author [...] average risk given h (more content not included)...[facility]08-26-2021 NoteHNO ID: [id number] Author: Derick Paul MD Service: ? Author [...] our notes. Patient consented for study? Not applicableOhiohealth [facility] Center08-26-2021 NoteHNO ID: [id number] Author: Olvin Cedillo MD Service: ? Author [...] much higher than av (more content not included)...[facility]01-06-[facility] Hospital Discharge instructions* Instructions* Jaci Burns PA-C - 05/30/2019 Call your doctor today to arrange follow-up this week. Recommendation would be to hold the Victoza until you are seen in follow up this week. * Attachments The following attachments cannot be sent through Care Everywhere. * Hypoglycemia (Gambian) documented in this encounterCity HospitalCelly Phone: evaluation note* Diagnosis Hypoglycemia- Primary Hypoglycemia, unspecified documented in this encounter [employer] Phone: evaluation note* Diagnosis Pre-operative clearance Preoperative examination, unspecified [...] Undiagnosed cardiac murmurs documented in this encounter [employer] Phone: evaluation note* Diagnosis PAF (paroxysmal atrial fibrillation) (HCC) [...] Other chest pain documented in this encounter [employer] Phone: evaluation note* Diagnosis PAF (paroxysmal atrial fibrillation) Atrial fibrillation documented in this encounter [facility]* Diagnosis PAF (paroxysmal atrial fibrillation) Atrial fibrillation Essential hypertension Unspecified essential hypertension PAF (paroxysmal atrial fibrillation) Atrial fibrillation documented in this encounter [facility]* Diagnosis Atrial fibrillation (HCC)- Primary Atrial fibrillation documented in this encounter [facility] [employer] GroupBrown Memorial HospitalGOintegro general Narrative - Reported* Type Description Date Medical History type II diabetes Medical History hypertension Medical History Atrial fibrillation Medical History Hypothyroidism, post procedural Medical History vitamin D deficiency Medical History PCOS Medical History Kidney stones Surgical History x 3 2003,2010, 1997 Surgical History D&C 2009 Surgical History Foot surgery 04/2020 Surgical History thyroidectomy, complete 2014 Surgical History tumor removal 2013 Surgical History partial hysterectomy & tumor re moval 2015 Surgical History oophorectomy, right & tumor rem oval 2016 Surgical History oophorectomy, left & tumor heaven kath 2017 Surgical History hand surgery 2019 Surgical History knee surgery, right- torn menis cus Surgical History gastric bypass Surgical History Right hand surgery 06/2020 Hospitalization History see above [employer] Other Hisjttn general Narrative - Reported* Type Description Date Medical History type II diabetes Medical History hypertension Medical History Atrial fibrillation Medical History Hypothyroidism, post procedural Medical History vitamin D deficiency Medical History PCOS Medical History Kidney stones Surgical History x 3 2003,1997 Surgical History D&C 2009 Surgical History Foot surgery 04/2020 Surgical History thyroidectomy, complete 2014 Surgical History tumor removal 2013 Surgical History partial hysterectomy & tumor re moval 2015 Surgical History oophorectomy, right & tumor rem oval 2017 Surgical History oophorectomy, left & tumor heaven kath 2018 Surgical History hand surgery 2019 Surgical History knee surgery, right- torn menis cus Surgical History gastric bypass Surgical History Right hand surgery 06/2020 Surgical History heart ablation Hospitalization History see above [employer] Other Summary Purpose Family History No Family History Records FoundNo Family History Records FoundNo Family History Records FoundNo Family History Records FoundNo Family History Records FoundNo Family History Records FoundNo Family History Records FoundNo Family History Records FoundNo Family History Records FoundNo Family History Records FoundNo Family History Records Found Advance Directives No Advanced Directives Records FoundDocuments on File Type Date Recorded Patient Systems Coordinator Expl anation Advance Directives and Living Will Power of Oriental Rug Stretcher Latest Code Status on File Code Status Date Activated Date Inactivated Comments Full Code 09/02/2018 5:58 AM 09/02/2018 5:53 PM Full Code 05/20/2018 4:31 PM 05/22/2018 4:53 PM Documents on File Type Date Recorded Patient Systems Coordinator Expl anation Advance Directives and Living Will Power of Oriental Rug Stretcher Latest Code Status on File Code Status Date Activated Date Inactivated Comments Full Code 09/02/2018 5:58 AM 09/02/2018 5:53 PM Full Code 05/20/2018 4:31 PM 05/22/2018 4:53 PM Documents on File Type Date Recorded Patient Systems Coordinator Expl anation ACP-Advance Directive ACP-Power of Oriental Rug Stretcher Latest Code Status on File Code Status [...] be sent through Care Everywhere. * Contusion (Gambian) documented in this encounter* Instructions* Gerson Del Cid Jr., MD - 08/07/2019 Dr. Lei will either call you tonight or you can follow-up with his office tomorrow. Splint until rechecked. Take antibiotics as directed. * Attachments The following attachments cannot be sent through Care Everywhere. * Tendon Laceration: Hand (Gambian) documented in this encounter* Instructions* Indira Lino [...] sent through Care Everywhere. * Flank Pain (Gambian) * Abdominal Pain (Gambian) documented in this encounter* Attachments The following attachments cannot be sent through Care Everywhere. * Atrial Fibrillation: General Info (Gambian) documented in this encounter Assessments Diagnosis Injury [...] Marks OTR/Ashvin - 09/08/2019 12:45 PM EDT [facility] DAILY TREATMENT NOTE Date: 09/08/2019 Patient s Name: Jody Thomason Date of : 1975 (44 y.o.) Gender: female [facility] #: [id number] Medical Diagnosis: R long finger tendon reattachment [...] Pack: GOALS/ TREATMENT SESSION: Time Frame for snf goals : 6 weeks snf goal 1: Patient will present with decreased edema in PIP R digits - RIF to 6.1cm, RLF to 6.2 cm, RRF 5.6 cm, RSF to 5 cm, and R thumb to 6 cm. Met [x]?Met []?Partially met []?Not met snf goal 2: Patient will demonstrate increased REYES of all R digits to be equal to or >225.Continue []?Met [x]?Partially met []?Not met snf goal 3: Patient to demonstrate/verbalize increased functional use of RUE AEB DASH outcomescore <20% Continue []?Met [x]?Partially met []?Not met snf goal 4: Patient to verbally report no greater than 4/10 pain at rest of R digits. Continue []?Met [x]?Partially met []?Not met snf goal 5: Patient to improve R wrist [...] Other Electronically signed by SANDIE Croft OTR/Ashvin 09/08/2019 2:48 PM documented in this encounter* Fabby Marks OTR/Ashvin - 09/15/2019 12:45 PM EDT [facility]Observation[facility]Outpatient [facility] Date: 09/15/2019 Patient Name: [...] 09/15/2019 documented in this encounter* Fabby Marks OTR/Ashvin - 09/19/2019 10:00 AM EDT [facility] DAILY TREATMENT NOTE Date: 09/19/2019 Patient s Name: Jody Thomason Date of : 1975 (44 y.o.) Gender: female [facility] #: [id number] Medical Diagnosis: R long finger tendon reattachment [...] Pack: GOALS/ TREATMENT SESSION: Time Frame for termite helper goals : 6 weeks termite helper goal 1: Patient will present with decreased edema in PIP R digits - RIF to 6.1cm, RLF to 6.2 cm, RRF 5.6 cm, RSF to 5 cm, and R thumb to 6 cm. Met [x]?Met []?Partially met []?Not met snf goal 2: Patient will demonstrate increased REYES of all R digits to be equal to or >225.Continue []?Met [x]?Partially met []?Not met snf goal 3: Patient to demonstrate/verbalize increased functional use of RUE AEB DASH outcomescore <20% Continue []?Met [x]?Partially met []?Not met termite helper goal 4: Patient to verbally report no greater than 4/10 pain at rest of R digits. Continue []?Met [x]?Partially met []?Not met snf goal 5: Patient to improve R wrist [...] in this encounter* Fabby Marks OTR/L - 10/04/2019 2:15 PM EDT [facility] DAILY TREATMENT NOTE Date: 10/04/2019 Patient s Name: Jody Henriqueztingham Date of : 1975 (44 y.o.) Gender: female [facility] #: [id number] Medical Diagnosis: R long finger tendon reattachment [...] Pack: GOALS/ TREATMENT SESSION: Time Frame for snf goals : 6 weeks snf goal 1: Patient will improve R behavioral health worker to 70#, 2 pt to 14#, 3 pt to 15#, and lateral to 20# Continue [x]?Met []?Partially met []?Not met termite helper goal 2: Patient will demonstrate increased REYES of all R digits to be equal to or >225.Met [x]?Met []?Partially met []?Not met termite helper goal 3: Patient to demonstrate/verbalize increased functional use of RUE AEB DASH outcomescore <20% Continue []?Met [x]?Partially met []?Not met snf goal 4: Patient to verbally report no greater than 4/10 pain at rest of R digits. Continue []?Met [x]?Partially met []?Not met termite helper goal 5: Patient to improve R wrist [...] Other Electronically signed by SANDIE Croft OTR/Ashvin 10/04/2019 3:05 PM documented in this encounter* Fabby Marks OTR/L - 09/22/2019 12:00 PM EDT [facility] DAILY TREATMENT NOTE Date: 09/22/2019 Patient s Name: Jody Henriqueztingham Date of : 1975 (44 y.o.) Gender: female [facility] #: [id number] Medical Diagnosis: R long finger tendon reattachment Referring Practitioner: Dr. Harlan Lei INSURANCE OT Insurance Information: BCBS Total # of Visits to Date: 9 [...] Pack: GOALS/ TREATMENT SESSION: Time Frame for snf goals : 6 weeks termite helper goal 1: Patient will present with decreased edema in PIP R digits - RIF to 6.1cm, RLF to 6.2 cm, RRF 5.6 cm, RSF to 5 cm, and R thumb to 6 cm. Met [x]?Met []?Partially met []?Not met termite helper goal 2: Patient will demonstrate increased REYES of all R digits to be equal to or >225.Met - see below [x]?Met []?Partially met []?Not met snf goal 3: Patient to demonstrate/verbalize increased functional use of RUE AEB DASH outcomescore <20% Continue []?Met [x]?Partially met []?Not met snf goal 4: Patient to verbally report no greater than 4/10 pain at rest of R digits. Continue []?Met [x]?Partially met []?Not met termite helper goal 5: Patient to improve R wrist [...] If yes Education Provided: Initiated HEP c surgical services director and pinches Method of Education: [x]Discussion []Demonstration [...] in this encounter* Fabby Marks OTR/L - 09/27/2019 2:15 PM EDT [facility] Inpatient/Observation/Outpatient Rehabilitation Date: 09/27/2019 Patient Name: [...] 09/27/2019 documented in this encounter* Fabby Marks OTR/L - 09/29/2019 2:15 PM EDT [facility] Inpatient/Observation/Outpatient Rehabilitation Date: 09/29/2019 Patient Name: [...] Date: 09/29/2019 documented in this encounter* Fabby Marks, OTR/L - 08/15/2019 9:30 AM EDT [facility] DAILY TREATMENT NOTE Date: 08/15/2019 Patient s Name: Jody Henriqueztingham Date of : 1975 (44 y.o.) Gender: female [facility] #: [id number] Medical Diagnosis: R long finger tendon reattachment [...] Pack: GOALS/ TREATMENT SESSION: Time Frame for snf goals : 6 weeks snf goal 1: Patient will present with decreased edema in PIP R digits - RIF to 6.1cm, RLF to 6.2 cm, RRF 5.6 cm, RSF to 5 cm, and R thumb to 6 cm. Continue []Met [x]Partially met []Not met termite helper goal 2: Patient will demonstrate increased REYES of all R digits to be equal to or >225.Continue []Met [x]Partially met []Not met termite helper goal 3: Patient to demonstrate/verbalize increased functional use of RUE AEB DASH outcomescore <20% Continue []Met [x]Partially met []Not met termite helper goal 4: Patient to verbally report no greater than 4/10 pain at rest of R digits. Continue - 4-5/10 reported this date []Met [x]Partially met []Not met snf goal 5: Patient to improve R wrist [...] Marks OTR/L - 08/22/2019 9:30 AM EDT [facility] DAILY TREATMENT NOTE Date: 08/22/2019 Patient s Name: Jody Henriqueztingham Date of : 1975 (44 y.o.) Gender: female [facility] #: [id number] Medical Diagnosis: R long finger tendon reattachment [...] Pack: GOALS/ TREATMENT SESSION: Time Frame for snf goals : 6 weeks snf goal 1: Patient will present with decreased edema in PIP R digits - RIF to 6.1cm, RLF to 6.2 cm, RRF 5.6 cm, RSF to 5 cm, and R thumb to 6 cm. Met I: 5.7 - Met L:5.7 - Met R:5.5 - Met S: 4.6 - Met T:5.7 - Met [x]??Met []??Partially met []??Not met termite helper goal 2: Patient will demonstrate increased REYES of all R digits to be equal to or >225.Continue []??Met [x]??Partially met []??Not met termite helper goal 3: Patient to demonstrate/verbalize increased functional use of RUE AEB DASH outcomescore <20% Continue []??Met [x]??Partially met []??Not met snf goal 4: Patient to verbally report no greater than 4/10 pain at rest of R digits. Continue []??Met [x]??Partially met []??Not met termite helper goal 5: Patient to improve R wrist [...] Other Electronically signed by SANDIE Croft OTR/L 08/22/2019 11:27 AM documented in this encounter* Fabby Marks OTR/L - 08/25/2019 1:00 PM EDT [facility] DAILY TREATMENT NOTE Date: 08/25/2019 Patient s Name: Jody Thomason Date of : 1975 (44 y.o.) Gender: female [facility] #: [id number] Medical Diagnosis: R long finger tendon reattachment [...] until follow-up session GOALS: Time Frame for termite helper goals : 6 weeks termite helper goal 1: Patient will present with decreased edema in PIP R digits - RIF to 6.1cm, RLF to 6.2 cm, RRF 5.6 cm, RSF to 5 cm, and R thumb to 6 cm. Met [x]???Met []???Partially met []???Not met snf goal 2: Patient will demonstrate increased REYES of all R digits to be equal to or >225.Continue []???Met [x]???Partially met []???Not met snf goal 3: Patient to demonstrate/verbalize increased functional use of RUE AEB DASH outcomescore <20% Continue []???Met [x]???Partially met []???Not met snf goal 4: Patient to verbally report no greater than 4/10 pain at rest of R digits. Continue []???Met [x]???Partially met []???Not met snf goal 5: Patient to improve R wrist [...] in this encounter* Fabby Marks OTR/L - 08/29/2019 11:45 AM EDT [facility] Inpatient/Observation/Outpatient Rehabilitation Date: 08/29/2019 Patient Name: Jody Henriqueztingham [] Inpatient Acute/Observation [x] Outpatient : 1975 [] Pt no showed for scheduled appointment [] Pt refused/declined therapy at this time due to: [x] Pt cancelled due to: [] No Reason Given [] Sick/ill [x] Other: Patient with no childcare this am. Fabby Marks Date: 08/29/2019 documented in this encounter* Fabby Marks OTR/L - 09/01/2019 1:45 PM EDT [facility] Inpatient/Observation/Outpatient Rehabilitation Date: 09/01/2019 Patient Name: Jody Henriqueztingham [] Inpatient Acute/Observation [x] Outpatient : 1975 [] Pt no showed for scheduled appointment [] Pt refused/declined therapy at this time due to: [x] Pt cancelled due to: [] No Reason Given [] Sick/ill [x] Other: family Fabby Marks Date: 09/01/2019 documented in this encounter* Fabby Marks OTR/L - 09/05/2019 10:00 AM EDT [facility] DAILY TREATMENT NOTE Date: 09/05/2019 Patient s Name: Jody Koroma Manteno Date of : 1975 (44 y.o.) Gender: female [facility] #: [id number] Medical Diagnosis: R long finger tendon reattachment [...] Pack: GOALS/ TREATMENT SESSION: Time Frame for snf goals : 6 weeks termite helper goal 1: Patient will present with decreased edema in PIP R digits - RIF to 6.1cm, RLF to 6.2 cm, RRF 5.6 cm, RSF to 5 cm, and R thumb to 6 cm. Met [x]???Met []???Partially met []???Not met snf goal 2: Patient will demonstrate increased REYES of all R digits to be equal to or >225.Continue []???Met [x]???Partially met []???Not met termite helper goal 3: Patient to demonstrate/verbalize increased functional use of RUE AEB DASH outcomescore <20% Continue []???Met [x]???Partially met []???Not met snf goal 4: Patient to verbally report no greater than 4/10 pain at rest of R digits. Continue []???Met [x]???Partially met []???Not met snf goal 5: Patient to improve R wrist [...] and scar tissue management this date to HEP Method of Education: [x]Discussion [x]Demonstration [x] [...] Marks OTR/L - 10/11/2019 2:15 PM EDT [facility] Inpatient/Observation/Outpatient Rehabilitation Date: 10/11/2019 Patient Name: Jody Henriqueztingham [] Inpatient Acute/Observation [...] test. documented in this encounter* Fabby Marks OTR/L - 01/12/2020 1:30 PM EDT [facility] DAILY TREATMENT NOTE Date: 01/12/2020 Patient s Name: Jody Henriqueztingham Date of : 1975 (44 y.o.) Gender: female [facility] #: [id number] Medical Diagnosis: Laceration of extensor tendon R [...] coban. GOALS/ TREATMENT SESSION: Time Frame for snf goals : 6 weeks snf goal 1: Patient to state <10% impairment throughout daily tasks to improve independence and QOL. Continue []?Met [x]?Partially met []?Not met snf goal 2: Patient to demonstrate decreased edema RLF PIP jt to 5.8cm, RRF PIP jt to 5.6cm. Continue []?Met [x]?Partially met []?Not met termite helper goal 3: Patient to improve R behavioral health worker to 60#, 2 pt to 14#, 3 [...] infection at this time. Cleaned c wound bladder cleaner. EDUCATION New Education provided to patient/family/caregiver: [...] Other Electronically signed by SANDIE Croft OTR/L 01/12/2020 2:35 PM documented in this encounter* Fabby Marks OTR/L - 01/16/2020 11:00 AM EDT [facility] DAILY TREATMENT NOTE Date: 01/16/2020 Patient s Name: Jody Henriqueztingham Date of : 1975 (44 y.o.) Gender: female [facility] #: [id number] Medical Diagnosis: Laceration of extensor tendon R middle finger, S66.322D; Granuloma, L92.9; Suture material present, R89.9 Referring Practitioner: Dr. Harlan Lei INSURANCE OT Insurance Information: BS Total # of Visits to Date: 4 PAIN [x]No []Yes Location: Pain Rating (0-10 pain scale): Pain Description: SUBJECTIVE Patient presents this date with R hand wrapped in gauze. See additional comments below. GOALS/ TREATMENT SESSION: Time Frame for snf goals : 6 weeks snf goal 1: Patient to state <10% impairment throughout daily tasks to improve independence and QOL. Continue []??Met [x]??Partially met []??Not met snf goal 2: Patient to demonstrate decreased edema RLF PIP jt to 5.8cm, RRF PIP jt to 5.6cm. Continue []??Met [x]??Partially met []??Not met snf goal 3: Patient to improve R behavioral health worker to 60#, 2 pt to 14#, 3 [...] completed. Patient to have follow up with tomorrow. Sent [place] to to update. EDUCATION New Education provided [...] Marks OTR/Ashvin - 01/23/2020 10:30 AM EDT [facility] DAILY TREATMENT NOTE Date: 01/23/2020 Patient s Name: Jody Henriqueztingham Date of : 1975 (44 y.o.) Gender: female [facility] #: [id number] Medical Diagnosis: Laceration of extensor tendon R middle finger, S66.322D; Granuloma, L92.9; Suture material present, R89.9 Referring Practitioner: Dr. Harlan Lei INSURANCE OT Insurance Information: BCBS Total # of Visits to Date: 5 PAIN [x]No []Yes Location: Pain Rating (0-10 pain scale): Pain Description: SUBJECTIVE Patient presents this date with medications for u/s tx. Order received from dr primo tirado. Patient stated that she went to last [...] coban. GOALS/ TREATMENT SESSION: Time Frame for snf goals : 6 weeks snf goal 1: Patient to state <10% impairment throughout daily tasks to improve independence and QOL. Continue []??Met [x]??Partially met []??Not met termite helper goal 2: Patient to demonstrate decreased edema RLF PIP jt to 5.8cm, RRF PIP jt to 5.6cm. Continue []??Met [x]??Partially met []??Not met termite helper goal 3: Patient to improve R behavioral health worker to 60#, 2 pt to 14#, 3 [...] in this encounter* Fabby Marks OTR/L - 01/26/2020 1:30 PM EDT [facility] Inpatient/Observation/Outpatient Rehabilitation Date: 01/26/2020 Patient Name: Jody Henriqueztingham [] Inpatient Acute/Observation [] Outpatient : 1975 [x] Pt no showed for scheduled appointment [] Pt refused/declined therapy at this time due to: [] Pt cancelled due to: [] No Reason Given [] Sick/ill [] Other: Fabby Marks Date: 01/26/2020 documented in this encounter* Fabby Marks OTR/L - 02/01/2020 11:15 AM EDT [facility] Inpatient/Observation/Outpatient Rehabilitation Date: 02/01/2020 Patient Name: Jody Thomason [] Inpatient Acute/Observation [] Outpatient : 1975 [...] 02/01/2020 documented in this encounter* Fabby Marks OTR/Ashvin - 02/13/2020 1:00 PM EDT [facility] Inpatient/Observation/Outpatient Rehabilitation Date: 02/13/2020 Patient Name: Jody Henriqueztingham [] Inpatient Acute/Observation [x] Outpatient : 1975 [] Pt no showed for scheduled appointment [] Pt refused/declined therapy at this time due to: [x] Pt cancelled due to: [] No Reason Given [] Sick/ill [x] Other: transportation Fabby Marks Date: 02/13/2020 documented in this encounter* Fabby Marks OTR/Ashvin - 02/21/2020 1:30 PM EDT [facility] Inpatient/Observation/Outpatient Rehabilitation Date: 02/21/2020 Patient Name: Jody Henriqueztingham [] Inpatient Acute/Observation [x] Outpatient : 1975 [] Pt no showed for scheduled appointment [] Pt refused/declined therapy at this time due to: [x] Pt cancelled due to: [] No Reason Given [] Sick/ill [x] Other:transportation issues Fabby Marks Date: 02/21/2020 documented in this encounter* Fabby Marks OTR/Ashvin - 02/23/2020 1:15 PM EDT [facility] Inpatient/Observation/Outpatient Rehabilitation Date: 02/23/2020 Patient Name: Jody Henriqueztingham [] Inpatient Acute/Observation [x] Outpatient : 1975 [x] Pt no showed for scheduled appointment [] Pt refused/declined therapy at this time due to: [] Pt cancelled due to: [] No Reason Given [] Sick/ill [] Other: Fabby Marks Date: 02/23/2020 documented in this encounter* Fabby Marks OTR/L - 01/09/2020 10:30 AM EDT [facility] DAILY TREATMENT NOTE Date: 01/09/2020 Patient s Name: Jody Henriqueztingham Date of : 1975 (44 y.o.) Gender: female [facility] #: [id number] Medical Diagnosis: Laceration of extensor tendon R middle finger, S66.322D; Granuloma, L92.9; Suture material present, R89.9 Referring Practitioner: Dr. Harlan Lei INSURANCE OT Insurance Information: BCBS Total # of Visits to Date: 2 PAIN []No [x]Yes Location: R hand/arm Pain Rating (0-10 pain scale): 2/10 Pain Description: SUBJECTIVE Patient stated that over [...] coban. GOALS/ TREATMENT SESSION: Time Frame for termite helper goals : 6 weeks snf goal 1: Patient to state <10% impairment throughout daily tasks to improve independence and QOL. Continue []Met [x]Partially met []Not met snf goal 2: Patient to demonstrate decreased edema RLF PIP jt to 5.8cm, RRF PIP jt to 5.6cm. Continue []Met [x]Partially met []Not met termite helper goal 3: Patient to improve R behavioral health worker to 60#, 2 pt to 14#, 3 [...] Other Electronically signed by SANDIE Croft OTR/Ashvin 01/09/2020 12:46 PM documented in this encounter* Fabby Marks OTR/Ashvin - 10/06/2019 2:15 PM EDT [facility] Inpatient/Observation/Outpatient Rehabilitation Date: 10/06/2019 Patient Name: [...] 10/06/2019 documented in this encounter* Fabby Marks OTR/L - 09/12/2019 10:45 AM EDT [facility] Inpatient/Observation/Outpatient Rehabilitation Date: 09/12/2019 Patient Name: Jody Henriqueztingham [] Inpatient Acute/Observation [x] Outpatient : 1975 [] Pt no showed for scheduled appointment [] Pt refused/declined therapy at this time due to: [x] Pt cancelled due to: [] No Reason Given [] Sick/ill [x] Other: family conflict Fabby Marks Date: 09/12/2019 documented in this encounter* Fabby Marks OTR/Ashvin - 02/16/2020 11:00 AM EDT [facility] DAILY TREATMENT NOTE Date: 02/16/2020 Patient s Name: Jody Henriqueztingham Date of : 1975 (44 y.o.) Gender: female [facility] #: [id number] Medical Diagnosis: Laceration of extensor tendon R [...] finger splint post follow up appt c previous week. States that he would like her to [...] coban. GOALS/ TREATMENT SESSION: Time Frame for snf goals : 6 weeks snf goal 1: Patient to state <10% impairment throughout daily tasks to improve independence and QOL. Continue []???Met [x]???Partially met []???Not met termite helper goal 2: Patient to demonstrate decreased edema RLF PIP jt to 5.8cm, RRF PIP jt to 5.6cm. Met RLF: 5.8 RRF: 5.4 []???Met [x]???Partially met []???Not met termite helper goal 3: Patient to improve R behavioral health worker to 60#, 2 pt to 14#, 3 pt to 17# and lateral to 22#. Continue Aerial Applicator Pilot: 47 2pt: 14 3pt: 15 Lateral: 16 [...] RECORDING 2-21 DAY HOOKUP Janis Hawkins MD [address] [place] [address] [facility] [address] [address] Status Reason Specialty Diagnoses / Procedures Referre d By Contact Referred To Contact Closed Cardiology Diagnoses PAF (paroxysmal atrial fibrillation) (HCC) Essential hypertension JAMES on CPAP Weight loss Atypical chest pain Preoperative clearance Procedures Echo stress test Janis Hawkins MD [address] [place] [address] [place] [address] [place] [address] Specialty Diagnoses / Procedures Referred By Contac [...] ECHO Complete 2D W Doppler W Color [place] ECHO TTHRC R-T 2D W/WOM-MODE COMPL SPEC&COLR D 00637 - [place] ECHO TTHRC R-T 2D W/WOM-MODE COMPL SPEC&COLR D Janis Hawkins MD [address] [place] [address] [place] [address] [place] [address] Referral ID Status Reason Start Date Expiration Date Visits Re quested Visits Authorized [id number] Closed 06/10/2022 12/07/2022 1 1 Specialty Diagnoses [...] test, lexiscan CHG MYOCARDIAL SPECT MULTIPLE STUDIES 00964 - CHG MYOCARDIAL SPECT MULTIPLE STUDIES Janis Hawkins MD [address] [place] [address] [place] [address] Referral ID Status Reason Start Date Expiration Date V isits Requested Visits Authorized [id number] Authorized 09/29/2022 09/23/2023 2 2 Specialty Diagnoses / Procedures Referred By Contac t Referred To Contact Diagnoses PAF (paroxysmal atrial fibrillation) Procedures CT CARDIAC PULMONARY VENOGRAM [place] CHG CT HEART CONTRAST EVAL CARDIAC STRUCT/MORPH Aubrey Rothman MD [address] [place] [address] Referral ID Status Reason Start Date Expiration Date Visits Re quested Visits Authorized [id number] Closed 10/07/2022 11/01/2023 1 1 Specialty Diagnoses / Procedures Referred By Contac t Referred To Contact Diagnoses PAF (paroxysmal atrial fibrillation) Procedures MOBILE CARDIAC TELEMETRY Sahara OrtegaBENN-TOBACCO CLASSER [address] [place] [address] Referral ID Status Reason Start Date Expiration Date V isits Requested Visits Authorized [id number] New Request 01/09/2023 02/03/2024 1 1 Specialty Diagnoses / Procedures Referred By Contac t Referred To Contact Procedures ECG Sahara Ortega AIRCRAFT LAUNCH AND RECOVERY TECHNICIAN-TOBACCO CLASSER [address] [place] [address] Referral ID Status Reason Start Date Expiration Date V isits Requested Visits Authorized [id number] New Request 01/09/2023 02/03/2024 1 1 Additional Source Comments INFORMATION SOURCE (unrecogn ized section and content) DATE CREATED AUTHOR 11/11/2017 [facility] DATE CREATED AUTHOR AUTHOR'S ORGANIZ ATION 05/29/2018 [facility] DATE CREATED AUTHOR AUTHOR'S ORGANIZ ATION 07/25/2020 [facility] DATE CREATED AUTHOR AUTHOR'S ORGANIZ ATION 06/28/2021 [facility] DATE CREATED AUTHOR AUTHOR'S ORGANIZ ATION 02/23/2022 [facility] dical Specialist DATE CREATED AUTHOR AUTHOR'S ORGANIZ ATION 09/24/2022 [facility] DATE CREATED AUTHOR AUTHOR'S ORGANIZ ATION 01/17/2023 [facility] DATE CREATED AUTHOR AUTHOR'S ORGANIZ ATION 10/15/2023 [facility] DATE CREATED AUTHOR AUTHOR'S ORGANIZ ATION 01/08/2024 [facility] DATE CREATED AUTHOR AUTHOR'S ORGANIZ ATION 01/09/2024 [facility] DATE CREATED AUTHOR AUTHOR'S ORGANIZ ATION 02/11/2024 [facility] dical Specialists EPIC Reason for Visit [...] AND PELVIS,W CONTRAST Denisse Gilbert MD [address] [place] [address] [facility] Ct Scan [address] [place] [address] Reason Comments Laceration Right hand laceratio n while cleaning stovetop with razorblade. Status Reason Specialty Diagnoses / Procedures Referred By Contact Referred To Contact Not Required - Recondo EKG Diagnoses Paroxysmal atrial fibrillation (HCC) Essential hypertension JAMES on CPAP Procedures Continuous cardiac monitoring, >2 up to 14 days EXT ECG RECORDING 2-21 DAY HOOKUP Janis Hawkins MD [address] [place] [address] [place] [address] [facility] Ekg [address] [place] [address] Status Reason Specialty Diagnoses / Procedures Referre d By Contact Referred To Contact Closed Cardiology Diagnoses PAF (paroxysmal atrial fibrillation) (HCC) Essential hypertension JAMES on CPAP Weight loss Atypical chest pain Preoperative clearance Procedures Echo stress test Janis Hawkins MD [address] [place] [address] [place] [address] [place] [address] Reason Comments Abdominal Pain sudden onset just PT A, lower mid abdomen Reason Comments Palpitations pt states she notice d around 1915, her HR went up 210, states hx of afib Reason Comments 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 Pt states it was low at home. [...] ECHO Complete 2D W Doppler W Color [place] ECHO TTHRC R-T 2D W/WOM-MODE COMPL SPEC&COLR D 45923 - [place] ECHO TTHRC R-T 2D W/WOM-MODE COMPL SPEC&COLR D Janis Hawkins MD [address] [place] [address] [place] [address] [place] [address] Referral ID Status Reason Start Date Expiration Date Visits Re quested Visits Authorized [id number] Closed 06/10/2022 12/07/2022 1 1 Specialty Diagnoses / Procedures Referred By Sondra t Referred To Contact Cardiology Diagnoses PAF (paroxysmal atrial fibrillation) (HCC) On Multaq therapy Chronic anticoagulation Essential hypertension JAMES on CPAP Morbid obesity (HCC) History of DVT (deep vein thrombosis) Pain of right lower extremity Chest discomfort I48.0 (ICD-10-CM) - PAF (paroxysmal atrial fibrillation) (HCC) Procedures Stress test, lexiscan CHG MYOCARDIAL SPECT MULTIPLE STUDIES 62405 - CHG MYOCARDIAL SPECT MULTIPLE STUDIES Janis Hawkins MD [address] [place] [address] [place] [address] Referral ID Status Reason Start Date Expiration Date V isits Requested Visits Authorized [id number] Authorized 09/29/2022 09/23/2023 2 2 Referral ID Status Reason Start Date Expiration Date Visits Re quested Visits Authorized [id number] Closed 09/29/2022 09/23/2023 2 2 Specialty Diagnoses / Procedures Referred By Contac t Referred To Contact Diagnoses PAF (paroxysmal atrial fibrillation) Procedures CT CARDIAC PULMONARY VENOGRAM [place] HEART CONTRAST EVAL CARDIAC STRUCT/MORPH Aubrey Rothman MD [address] [place] [address] Referral ID Status Reason Start Date Expiration Date Visits Re quested Visits Authorized [id number] Closed 10/07/2022 11/01/2023 1 1 Specialty Diagnoses / Procedures Referred By Contac t Referred To Contact Diagnoses PAF (paroxysmal atrial fibrillation) PAF (paroxysmal atrial fibrillation) [I48.0] Procedures [place] COMPRE EP EVAL ABLTJ ATR FIB PULM VEIN ISOLATION AFIB ABLATION Aubrey Rothman MD [address] [place] [address] [facility] [address] [place] [address] Referral ID Status Reason Start Date Expiration Date Visits Re quested Visits Authorized [id number] 1 1 Specialty Diagnoses / Procedures Referred By Contac t Referred To Contact Diagnoses Atrial fibrillation (HCC) Atrial fibrillation (HCC) [I48.91] Procedures [place] INSERT[place] SUBQ CARDIAC RHYTHM MONITOR W/PRGRMG [place] INSERT[place] SUBQ CARDIAC RHYTHM MONITOR W/PRGRMG Loop recorder insert Janis Hawkins MD [address] [place] [phone] [facility] [id number] [place] [address] Referral ID Status Reason Start Date Expiration Date Visits Re quested Visits Authorized [id number] 1 1 Care Teams (unrecognized sec tion and content) Welder Journeyman Relationship Specialty Start Date End Date Denisse Gilbert MD PCP - General 07/30/16 Welder Journeyman Relationship Specialty Start Date End Date Denisse Gilbert MD PCP - General 07/30/16 Welder Journeyman Relationship Specialty Start Date End Date Denisse Gilbert MD PCP - General 07/30/16 Welder Journeyman Relationship Specialty Start Date End Date Denisse Giblert MD [address] [place] [address] PCP - General Family Medicine 10/07/22 Janis Hakwins MD [address] [place] [address] [place] [phone] Cardiovascular Disease 09/25/22 Welder Journeyman Relationship Specialty Start Date End Date Denisse Gilbert MD [address] [facility] [address] [place] [address] PCP - General Family Medicine 10/07/22 Janis Hawkins MD [address] [place] [address] [place] [phone] Cardiovascular Disease 09/25/22 Welder Journeyman Relationship Specialty Start Date End Date Denisse Gilbert MD [address] [place] [address] PCP - [facility] 08/23/20 Denisse Gilbert MD [address] [place] [address] PCP - General Family Medicine 11/14/22 Welder Journeyman Relationship Specialty Start Date End Date Denisse [...] (CEPACOL) lozenges may be used interchangeably at [facility]. 1228 (Given - Provid er: Belle Murphy [...] BE BASED ON THE PRIMARY CLINICAL RECORDS. [facility] [employer] ([employer]) [facility]. provides no warranty or guarantee of the accuracy or completeness of information in this document.
--- NOTE | 2024-03-06 17:41 | XR_ITS ---
[address] [address] Patient Name: CRHIS CARRION MRN: [id number] date: 1975 Sex: F Assigned Patient Location: ER Current Patient Location: ED.MAIN Accession/Order Number: [id number] Exam Date: 03/06/2024 17:55 Report Date: 03/06/2024 19:49 At the request of: CATHERINE DOMINIQUE Procedure: XR hip LT 2V w/ pelvis EXAMINATION: XR hip LT 2V w/ pelvis, , 03/06/2024 5:55 PM EDT INDICATION: injury HISTORY: Ordering Provider Reason for Exam: injury Technologist Note: Additional: COMPARISON: None. TECHNIQUE: Left hip x-ray: 2 view(s). FINDINGS: No acute fracture. Joint alignment is anatomic. Joint spaces are preserved. Soft tissues are within normal limits. XR/XR hip LT 2V w/ pelvis IMPRESSION: No acute fracture or traumatic malalignment. Electronically authenticated by: KENNEDY BARONE Date: 03/06/2024 19:49
[2024-03-06] MEDS: KETOROLAC TROMETHAMINE 60 MG/2 ML VIAL IM (18:21)
[2024-03-06] MEDS: ORPHENADRINE 60 MG/ 2 ML VIAL IM (18:21)
--- NOTE | 2024-03-06 18:24 | ED_ITS ---
HPI HPI - General Adult General Chief complaint: Extremity Injury, Lower Stated complaint: Hip Pain from fall Time Seen by Provider: 03/06/24 17:45 Source: patient and family Mode of arrival: walk-in Limitations: no limitations History of Present Illness HPI narrative: 48-year-old female presents here with a chief complaint of a fall. Patient states she slipped tripping and landing on her left buttock and lower back. She complains of left hip pain. She is able to patient denies any striking of her head or other injuries. Patient does take Eliquis but denies striking her head. She walked into the emergency room. States the injury occurred. Shortly prior to arrival. Related Data Home Medications ?Medication ?Instructions ?Recorded ?Confirmed apixaban 5 mg tablet (Eliquis) 5 mg PO BID 02/15/23 03/06/24 lisinopril 10 1 tab PO DAILY 02/15/23 03/06/24 mg-hydrochlorothiazide 12.5 mg tablet omeprazole 40 mg capsule,delayed 40 mg PO DAILY 02/15/23 03/06/24 release sertraline 50 mg tablet 50 mg PO DAILY 02/15/23 03/06/24 levothyroxine 150 mcg tablet 150 mcg PO DAILY 06/20/23 03/06/24 diltiazem HCl 120 mg 120 mg PO Q24H 03/06/24 03/06/24 capsule,extended release 24 hr flecainide 50 mg tablet 50 mg PO BID 03/06/24 03/06/24 rosuvastatin 10 mg tablet 10 mg PO DAILY 03/06/24 03/06/24 Previous Rx's ?Medication ?Instructions ?Recorded methocarbamol 500 mg tablet 500 mg PO TID PRN pain #10 tabs 03/06/24 Allergies Allergy/AdvReac Type Severity Reaction Status Date / Time cortisone Allergy Intermediate Verified 02/15/23 16:45 Opioid HPI Opioid Management Most Recent Opioid Data: Last Pain Scale 8 03/06/24 18:21 03/06/24 Last MAR Pain Assessment 03/06/24 18:21 Review of Systems ROS Narrative All Systems are negative except as noted/marked.All systems reviewed and otherwise negative PFSH PFSH Social History Little interest or pleasure in doing things: not at all Feeling down, depressed, or hopeless: not at all Exam Narrative Exam Narrative: Nurses note and vital signs reviewed and patient is not hypoxic. General: The patient appears well and in no apparent distress. Patient is resting comfortably on cart. Skin: Warm, dry, no pallor noted. There is no rash noted. Head: Normocephalic, atraumatic Eye: Normal conjunctiva, no drainage, EOMI. PERRL Ears, Nose, Mouth, and Throat: oral mucosa is moist. Nares patent. Mouth without vesicles. Ear canals patent. Tm's without Erythema Cardiovascular: Regular Rate and Rhythm Respiratory: Patient is in no distress, no accessory muscle use, lungs are clear to auscultation, no wheezing, rales or rhonchi Back: non-tender, no CVA tenderness bilaterally to percussion. GI: Normal bowel sounds, no tenderness to palpation, no masses appreciated. No rebound, guarding, or rigidity noted. Musculoskeletal: Discomfort, patient able to adduct and abduct, no lower leg shortening, ambulating, remainder of extremities are unremarkable. Neurological: A&O x4, normal speech Psychiatric: Cooperative Constitutional Vital Signs, click to edit/add: Last Vital Signs Temp 99.1 F 03/06/24 17:37 Pulse 78 03/06/24 17:37 Resp 18 03/06/24 17:37 BP 105/58 03/06/24 17:37 Pulse Ox 97 03/06/24 17:37 O2 Del Method Room Air 03/06/24 17:37 Course Vital Signs Vital signs: Vital Signs Temperature 99.1 F 03/06/24 17:37 Pulse Rate 78 03/06/24 17:37 Respiratory Rate 18 03/06/24 17:37 Blood Pressure 105/58 03/06/24 17:37 Pulse Oximetry 97 03/06/24 17:37 Oxygen Delivery Method Room Air 03/06/24 17:37 Temperature 99.1 F 03/06/24 17:37 Pulse Rate 78 03/06/24 17:37 Respiratory Rate 18 03/06/24 17:37 Blood Pressure 105/58 03/06/24 17:37 Pulse Oximetry 97 03/06/24 17:37 Oxygen Delivery Method Room Air 03/06/24 17:37 Medical Decision Making MDM Narrative Medical decision making narrative: 48-year-old female presents here with a chief complaint of a fall. Patient states she slipped tripping and landing on her left buttock and lower back. She complains of left hip pain. She is able to patient denies any striking of her head or other injuries. Patient does take Eliquis but denies striking her head. She walked into the emergency room. States the injury occurred. Shortly prior to arrival. Differential Diagnosis Differential Diagnosis: hip pain, muscle strain, Medical Records Medical records reviewed: Yes I reviewed the patient's medical records Imaging Data hip: Attestation: I have reviewed the pertinent imaging results. Radiologist's impression: ITS Impressions Hip/Pelvis X-Ray 03/06/24 17:41 IMPRESSION: No acute fracture or traumatic malalignment. Electronically authenticated by: KENNEDY BARONE Date: 03/06/2024 19:49 Discharge Plan Discharge Chief Complaint: Extremity Injury, Lower Clinical Impression: Acute hip pain Patient Disposition: Home, Self-Care Time of Disposition Decision: 18:22 Condition: Good Prescriptions / Home Meds: New methocarbamol 500 mg tablet 500 mg PO TID PRN (Reason: pain) Qty: 10 0RF No Action omeprazole 40 mg capsule,delayed release(DR/EC) 40 mg PO DAILY lisinopril-hydrochlorothiazide 10-12.5 mg tablet 1 tab PO DAILY sertraline 50 mg tablet 50 mg PO DAILY Eliquis 5 mg tablet 5 mg PO BID Patient Comments: not taking as prescribed levothyroxine 150 mcg tablet 150 mcg PO DAILY diltiazem HCl 120 mg capsule,extended release 24hr 120 mg PO Q24H flecainide 50 mg tablet 50 mg PO BID rosuvastatin 10 mg tablet 10 mg PO DAILY Print Language: French Instructions: Hip Pain (ED) Referrals: AUGUST GILBERT [Primary Care Provider] - 1 week Discharge Date/Time: 03/06/24 18:32
== END 2024-03-06 18:32 | disposition home or self-care (01) ==
PROVIDERS: Emergency Provider Emergency Medicine; PCP Family Medicine
DX: M25.552 Pain in left hip (principal); Z79.01 Long term (current) use of anticoagulants
CPT/HCPCS: 73502; 96372; 99284; J1885; J2360

== ENCOUNTER 2024-09-24 13:25 | Emergency (ER) | payer BC, SELFPAY ==
[2024-09-24 13:29] VITALS: BP 121/73; PULSE 73; TEMP 37; O2SAT 98; BMI 42.9
[2024-09-24] MEDS: KETOROLAC TROMETHAMINE 30 MG/ML VIAL IM (14:38)
[2024-09-24] MEDS: ORPHENADRINE 60 MG/2 ML VIAL IM (14:39)
--- NOTE | 2024-09-24 14:47 | PC.NURSE ---
Neck pain, denies injury, no redness, brusing or swelling noted.
--- NOTE | 2024-09-24 16:07 | ED.BACK1 ---
HPI HPI - Back Pain/Injury General Chief Complaint: Back Pain/Injury Stated Complaint: back pain Time Seen by Provider: 09/24/24 14:10 Source: patient Mode of arrival: walk-in Limitations: no limitations History of Present Illness HPI Narrative: The patient is a 49-year-old female is coming to the ER with a bilateral neck pain going down to her shoulder, the patient mentioned that the pain started almost yesterday. No fall or trauma. There is no change in the sleeping habits or environment. The patient denies any weakness but she did mention sometimes she feels numbness in her right hand. The patient mentioned that when she moves her neck she does not have any pain but it is only when someone touch the back of her neck There is no rash no fever no other concerns Related Data Home Medications ?Medication ?Instructions ?Recorded ?Confirmed apixaban 5 mg tablet (Eliquis) 5 mg PO BID 02/15/23 03/06/24 lisinopril 10 1 tab PO DAILY 02/15/23 03/06/24 mg-hydrochlorothiazide 12.5 mg tablet omeprazole 40 mg capsule,delayed 40 mg PO DAILY 02/15/23 03/06/24 release sertraline 50 mg tablet 50 mg PO DAILY 02/15/23 03/06/24 levothyroxine 150 mcg tablet 150 mcg PO DAILY 06/20/23 03/06/24 diltiazem HCl 120 mg 120 mg PO Q24H 03/06/24 03/06/24 capsule,extended release 24 hr flecainide 50 mg tablet 50 mg PO BID 03/06/24 03/06/24 rosuvastatin 10 mg tablet 10 mg PO DAILY 03/06/24 03/06/24 Previous Rx's ?Medication ?Instructions ?Recorded methocarbamol 500 mg tablet 500 mg PO TID PRN pain #10 tabs 03/06/24 Held on 09/24/24. Instructions: Resume on 10/04/24. orphenadrine citrate 100 mg 100 mg PO BID PRN muscle spasm #10 09/24/24 tablet,extended release tabs Allergies Allergy/AdvReac Type Severity Reaction Status Date / Time cortisone Allergy Intermediate Rash Verified 09/24/24 13:29 Opioid HPI Opioid Management Most Recent Opioid Data: Last Pain Scale 8 03/06/24, 18:21 Review of Systems ROS Status of ROS 10 or more systems reviewed and unremarkable except as noted in history and below PFSH PFSH Social History Little interest or pleasure in doing things: not at all Feeling down, depressed, or hopeless: not at all Exam Narrative Exam Narrative: Nurses notes and vital signs reviewed and patient is not hypoxic. General: Well-appearing and in no apparent distress. Skin: Warm, dry, no pallor noted. No rash. Head: Normocephalic, atraumatic. Neck: Supple, the patient have bilateral paraspinal muscle tenderness as well as tenderness all over the back of the neck not only limited to the intervertebral area and this extends down to the scapula bilaterally with no skin changes and no ecchymosis, the patient is able to move her neck with no limitation Eye: Pupils are equal, round and EOMI. No scleral icterus. Ears, Nose, Mouth, and Throat: TM are clear, no nasal mucosal hypertrophy. Oral mucosa is moist, no posterior oropharynx erythema, uvula is mid-line Cardiovascular: Regular Rate and Rhythm without murmur, gallop or rub. Respiratory: No accessory muscle use or respiratory distress. Lungs are clear to auscultation, no wheezing, rales or rhonchi Chest Wall: no tenderness Back: No midline thoracic or lumbar vertebral tenderness. No CVA tenderness Musculoskeletal: normal ROM, no calf or popliteal tenderness, no lower extremity edema/swelling GI: Abdomen is soft, non-distended. Normal bowel sounds. No masses appreciated. No tenderness to palpation. No rebound, guarding, or rigidity noted. Neurological: A&O x4. No cranial nerve dysfunction observed. No truncal ataxia. Moves all extremities. Sensation intact. Psychiatric: Cooperative and interactive. Normal mood and affect. Constitutional Vital Signs, click to edit/add: Last Vital Signs Temp 98.6 F 09/24/24 13:29 Pulse 73 09/24/24 13:29 Resp 16 09/24/24 13:29 BP 121/73 09/24/24 13:29 Pulse Ox 98 09/24/24 13:29 O2 Del Method Room Air 09/24/24 13: Course Vital Signs Vital signs: Vital Signs Temperature 98.6 F 09/24/24 13:29 Pulse Rate 73 09/24/24 13:29 Respiratory Rate 16 09/24/24 13:29 Blood Pressure 121/73 09/24/24 13:29 Pulse Oximetry 98 09/24/24 13:29 Oxygen Delivery Method Room Air 09/24/24 13:29 Temperature 98.6 F 09/24/24 13:29 Pulse Rate 73 09/24/24 13:29 Respiratory Rate 16 09/24/24 13:29 Blood Pressure 121/73 09/24/24 13:29 Pulse Oximetry 98 09/24/24 13:29 Oxygen Delivery Method Room Air 09/24/24 13:29 MDM - Back Pain/Injury MDM Narrative Medical decision making narrative: The patient examination was completely benign except for the tenderness that is localized to palpation of the back of the neck, the patient had no stiffness her CAT scan of the neck showed no acute pathology The patient was emotional but the pain seemed that in triage she did express them both about a blood clot in the neck which I explained to her that right now the presentation is mostly second to muscular pain and the fact that is in the back of the neck it not in an area that she could have a blood clot Patient was provided with Toradol and Norflex discharged home with Norflex with instruction to come back in case of any new symptoms The patient to hold any muscle relaxant that she is taking at home until she is treated with Norflex The patient is to follow up with primary care physician in next 2-3 days or to return to the emergency department should any of the signs or symptoms worsen or new symptoms develop. The patient agrees with the following Diagnosis and Treatment plan and the patient will be discharged home. Discharge Plan Discharge Chief Complaint: Back Pain/Injury Clinical Impression: Neck pain Patient Disposition: Home, Self-Care Time of Disposition Decision: 16:07 Condition: Good Prescriptions / Home Meds: New orphenadrine citrate 100 mg tablet extended release 100 mg PO BID PRN (Reason: muscle spasm) Qty: 10 0RF Held methocarbamol 500 mg tablet 500 mg PO TID PRN (Reason: pain) Qty: 10 0RF Hold Instructions: Resume on 10/04/24. No Action omeprazole 40 mg capsule,delayed release(DR/EC) 40 mg PO DAILY lisinopril-hydrochlorothiazide 10-12.5 mg tablet 1 tab PO DAILY sertraline 50 mg tablet 50 mg PO DAILY Eliquis 5 mg tablet 5 mg PO BID Patient Comments: not taking as prescribed levothyroxine 150 mcg tablet 150 mcg PO DAILY diltiazem HCl 120 mg capsule,extended release 24hr 120 mg PO Q24H flecainide 50 mg tablet 50 mg PO BID rosuvastatin 10 mg tablet 10 mg PO DAILY Print Language: Indonesian Instructions: Neck Pain (ED) Referrals: AUGUST GILBERT [Primary Care Provider, Family Practice] - 1 week Discharge Date/Time: 09/24/24 16:14
== END 2024-09-24 16:14 | disposition home or self-care (01) ==
PROVIDERS: Emergency Provider Emergency Medicine; PCP Family Medicine
DX: M54.2 Cervicalgia (principal)
CPT/HCPCS: 72125; 96372; 99285; J1885; J2360